=== PATIENT | male | born 1940 | race Caucasian/White ===

== ENCOUNTER 2016-12-21 12:16 | Emergency (ER) | payer MEDICARE ==
[2016-12-21 13:23] LABS: APPEARANCE,URINE CLEAR; BILIRUBIN,URINE NEGATIVE (NEGATIVE); GLUCOSE, URINE NEGATIVE (NEGATIVE); KETONES,URINE TRACE mg/dL (NEGATIVE); LEUKOCYTE ESTERASE,URINE NEGATIVE (NEGATIVE); NITRITE,URINE NEGATIVE (NEGATIVE); PROTEIN,URINE 30 mg/dL (NEGATIVE); URINE SPECIFIC GRAVITY 1.011; UROBILINOGEN,URINE NEGATIVE mg/dL (<2.0)
--- NOTE | 2016-12-21 13:23 | RADIOLOGY REPORT (SQ) ---
EXAM DESCRIPTION: HIP RIGHT AP/LATERAL COMPLETED DATE/TIME: 12/21/2016 1:02 pm REASON FOR STUDY: fall pain COMPARISON: None. NUMBER OF VIEWS: Two views. TECHNIQUE: AP pelvis and additional frog-leg view of the right hip. LIMITATIONS: None. FINDINGS: MINERALIZATION: Diffuse lytic lesions involving the pubic bones an the right ischium. Pat hologic protrusion of the right hip replacement into the pelvis through the acetabulum. Destruction of the acetabulum. RIGHT HIP: Pathologic protrusion through the acetabulum with a pathologic fracture. LEFT HIP: Hip replacement. Cortical irregularity with possible lytic lesions involving the acetabulu m medially. PUBIS AND ISCHIUM: Diffuse lytic lesions as described. PELVIS: No fracture. SACRUM: No fracture or dislocation. No worrisome bone lesions. LOWER LUMBAR SPINE: Degenerative disc disease. SOFT TISSUES: No findings. OTHER: No other significant finding. IMPRESSION: Pathologic protrusion of the right hip replacement through the acetabulum into the pelvi s with multiple lytic lesions involving the acetabulum and the superior inferior pubic rami and ischi um on the right. Lytic lesions of the pubis on the left and possibly of the acetabulum. Findings suspicious for metastatic disease or myeloma. TECHNICAL DOCUMENTATION: JOB ID: [id number] [employer]- All Rights Reserved
[2016-12-21 14:37] LABS: ABSOLUTE BASOPHILS # (AUTO) 0.1 10^3/uL (0.0-0.2); ABSOLUTE LYMPHOCYTES (AUTO) 0.8 10^3/uL (0.5-4.7); ABSOLUTE MONOCYTES (AUTO) 0.8 10^3/uL (0.1-1.4); ABSOLUTE NEUT (AUTO) 8.3 10^3/uL (1.7-8.2); HEMATOCRIT 31.2 % (37.9-51.0); HEMOGLOBIN 10.4 g/dL (13.5-17.0); MEAN CORPUSCULAR HEMOGLOBIN 28.2 pg (27.0-33.4); MEAN CORPUSCULAR HGB CONC 33.2 g/dL (32.0-36.0); MEAN CORPUSCULAR VOLUME 85 fl (80-97); MONOCYTES % (AUTO) 8.4 % (3-13); RED BLOOD COUNT 3.68 10^6/uL (4.35-5.55); RED CELL DISTRIBUTION WIDTH 15.5 % (11.5-14.0); SEGMENTED NEUTROPHILS % (AUTO) 82.6 % (42-78)
[2016-12-21] MEDS ORDERED: DILTIAZEM HCL INJ 25 MG/5 ML VIAL IV ONE (14:51)
[2016-12-21] MEDS ORDERED: DILTIAZEM HCL 180 MG CAPSULE.CR PO ONE (14:52)
[2016-12-21 14:56] LABS: ANION GAP 13 (5-19); BLOOD UREA NITROGEN 37 mg/dL (7-20); CALCIUM 9.1 mg/dL (8.4-10.2); CARBON DIOXIDE 23 mmol/L (22-30); CHLORIDE 104 mmol/L (98-107); CREATININE RESULT 2.38 mg/dL (0.52-1.25); GLUCOSE 100 mg/dL (75-110); POTASSIUM 4.4 mmol/L (3.6-5.0); SODIUM 139.6 mmol/L (137-145)
[2016-12-21] MEDS ORDERED: NORMAL SALINE 1000 ML 1,000 ML IV ONE (15:02)
[2016-12-21] MEDS ORDERED: NORMAL SALINE 500 ML IV ONE (15:02)
--- NOTE | 2016-12-21 15:07 | ER Document Report ---
ED General - General Chief Complaint: Hip Pain Stated Complaint: RIGHT HIP PAIN Time Seen by Provider: 12/21/16 12:22 TRAVEL OUTSIDE OF THE [place] IN LAST 30 DAYS: No - HPI Patient complains to provider of: Right hip pain Notes: Patient is coming in for evaluation of right hip pain. Patient states he slid out of his bed this morning states his bed is not normal height is lowered bed due to his disability. Patient has a history of bilateral hip replacement and lymph edema in his right leg. Patient states hip replacement performed in [facility] greater than 5 years ago. Also states history of A. fib RVR patient is on Eliquis right now patient denies any head trauma. Patient otherwise only complains of hip pain at this time. - Related Data Allergies/Adverse Reactions: Iodinated Contrast- Oral and IV Dye Allergy (Unknown, Verified 12/21/16 13:18) Home Medications: Current Home Medications Apixaban [Eliquis 2.5 mg Tablet] 2.5 mg PO BID 12/21/16 [History] Diltiazem HCl [Cardizem Cd] 180 mg PO DAILY 12/21/16 [History] Furosemide [Lasix] 40 mg PO DAILY 12/21/16 [History] Potassium Chloride [Klor-Con 10] 10 meq PO DAILY 12/21/16 [History] Past Medical History - Social History Smoking Status: Never Smoker Chew tobacco use (# tins/day): No Frequency of alcohol use: None Drug Abuse: None Family History: Reviewed & Not Pertinent Patient has suicidal ideation: No Patient has homicidal ideation: No - Past Medical History Cardiac Medical History: Reports: Hx Atrial Fibrillation Renal/ Medical History: Denies: Hx Peritoneal Dialysis Past Surgical History: Reports: Hx Orthopedic Surgery - R hip Review of Systems - Review of Systems Constitutional: No symptoms reported EENT: No symptoms reported Cardiovascular: No symptoms reported Respiratory: No symptoms reported Gastrointestinal: No symptoms reported Genitourinary: No symptoms reported Male Genitourinary: No symptoms reported Musculoskeletal: Other - Hip pain Skin: No symptoms reported Hematologic/Lymphatic: No symptoms reported Neurological/Psychological: No symptoms reported Physical Exam - Vital signs Vitals: Temp Pulse Resp BP Pulse Ox 100.0 F 65 16 140/87 H 93 12/21/16 12:28 12/21/16 12:28 12/21/16 12:28 12/21/16 12:28 12/21/16 12:28 Interpretation: Normal - General General appearance: Appears well, Alert - HEENT Head: Normocephalic, Atraumatic Eyes: Normal Pupils: PERRL - Respiratory Respiratory status: No respiratory distress Chest status: Nontender Breath sounds: Normal Chest palpation: Normal - Cardiovascular Rhythm: Irregularly irregular Heart sounds: Normal auscultation Murmur: No - Abdominal Inspection: Normal Distension: No distension Bowel sounds: Normal Tenderness: Nontender Organomegaly: No organomegaly - Back Back: Normal, Nontender - Extremities General upper extremity: Normal inspection, Nontender, Normal color, Normal ROM , Normal temperature General lower extremity: Normal inspection, Edema - Lymphedema changes to the right leg., Normal color, Normal ROM, Normal temperature - Neurological Neuro grossly intact: Yes Cognition: Normal Orientation: AAOx4 [place] Coma Scale Eye Opening: Spontaneous [place] Coma Scale Verbal: Oriented Vanda Coma Scale Motor: Obeys Commands [place] Coma Scale Total: 15 Speech: Normal Motor strength normal: LUE, RUE, LLE, RLE Sensory: Normal - Psychological Associated symptoms: Normal affect, Normal mood - Skin Skin Temperature: Warm Skin Moisture: Dry Skin Color: Normal Course - Re-evaluation Re-evalutation: 12/21/16 18:13 Patient's x-ray showed that his hip replacement protruded through the acetabulum. We did not have orthopedics telephone answering service operator therefore patient requesting to be transferred to [facility]. While waiting to speak to orthopedics was found the patient was in A. fib with RVR patient states he did not take any of his medications. Patient was given IV dose of Cardizem and his oral dose. Patient's heart rate at this time she was in A. fib but rate is controlled. Did discuss with Dr. Stewart of [facility] said to the patient in transfer. Patient is currently waiting for a bed. - Vital Signs Vital signs: Temp Pulse Resp BP Pulse Ox 100.0 F 65 16 105/59 L 94 12/21/16 12:28 12/21/16 12:28 12/21/16 16:01 12/21/16 16:01 12/21/16 15:00 - Laboratory Result Diagrams: 12/21/16 14:27 12/21/16 14:27 Laboratory results interpreted by me: 12/21/16 12/21/16 12/21/16 12:41 14:27 14:27 RBC 3.68 L Hgb 10.4 L Hct 31.2 L RDW 15.5 H Seg Neutrophils % 82.6 H Lymphocytes % 8.0 L Absolute Neutrophils 8.3 H BUN 37 H Creatinine 2.38 H Est GFR ( Amer) 32 L Est GFR (Non-Af Amer) 27 L Urine Protein 30 H Urine Ketones TRACE H Urine Blood SMALL H Critical Care Note - Critical Care Note Total time excluding time spent on procedures (mins): 35 Comments: Multiple evaluation while patient was in A. fib with RVR. Discharge - Discharge Clinical Impression: History of atrial fibrillation, HX: anticoagulation Closed right hip fracture Qualifiers: Encounter type: initial encounter Qualified Code(s): S72.001A - Fracture of unspecified part of neck of right femur, initial encounter for closed fracture Condition: Stable Disposition: [facility]
[2016-12-21] MEDS ORDERED: ONDANSETRON HCL INJ/PF 4 MG/2 ML SDV IV PRN (15:28)
[2016-12-21] MEDS: MORPHINE SULFATE 10 MG/ML INJ IV PRN ×2 (15:34→22:32)
[2016-12-21] MEDS ORDERED: MORPHINE SULFATE 10 MG/ML INJ IV SCH (16:00)
--- NOTE | 2016-12-21 18:15 | EKG REPORT ---
SEVERITY:- ABNORMAL ECG - ATRIAL FIBRILLATION, V-RATE 103-185 VENTRICULAR PREMATURE COMPLEX ABERRANT COMPLEX, POSSIBLY SUPRAVENTRICULAR BORDERLINE LEFT AXIS DEVIATION : Confirmed by: Yusuf Saenz MD 21-Dec-2016 18:13:30
[2016-12-21 22:45] VITALS: BP 113/66
[2016-12-22] MEDS ORDERED: APIXABAN 2.5 MG TABLET PO SCH (10:00)
[2016-12-22] MEDS ORDERED: FUROSEMIDE 40 MG TABLET PO SCH (10:00)
[2016-12-22] MEDS ORDERED: DILTIAZEM HCL 180 MG CAPSULE.CR PO SCH (10:00)
== END 2016-12-21 22:46 | disposition short-term general hospital (02) ==
LOC: ER 12:16
DX: S72.001A Fracture of unspecified part of neck of right femur, initial encounter for closed fracture (principal); M25.551 Pain in right hip; Z79.899 Other long term (current) drug therapy; I48.91 Unspecified atrial fibrillation; Z79.01 Long term (current) use of anticoagulants; X58.XXXA Exposure to other specified factors, initial encounter
CPT/HCPCS: 93005; 96376; 99285; 96361; 96374; 96375; 36415; 85025; 80048; 81001; 84484; 73502; 93010; A9270; J3490; J2270; J2405; J7030; J7040

== ENCOUNTER 2017-03-16 18:03 | Inpatient (IN) | payer MEDICARE ==
[2017-03-16] MEDS ORDERED: CLINDAMYCIN 600 MG/D5W RTU 600 MG/50 ML RTUPB IV ONE (18:31)
--- NOTE | 2017-03-16 18:32 | ER Document Report ---
ED Extremity Problem, Lower - General Chief Complaint: Leg Pain Stated Complaint: LEG PAIN Time Seen by Provider: 03/16/17 18:17 Notes: The patient is a 76-year-old male, past medical history A. fib, chronic RLE lymphedema, CKD, presents with 3 days of worsening redness and swelling of his left lower leg. His home nurse sent him to the ER because there is a large amount of pus coming from the wound and it is becoming more red. He forgot to take his Cardizem 180 mg and Eliquiis this morning. He denies fevers, numbness, tingling, injury, chest pain or shortness of breath. TRAVEL OUTSIDE OF THE [place] IN LAST 30 DAYS: No - Related Data Allergies/Adverse Reactions: Iodinated Contrast- Oral and IV Dye Allergy (Unknown, Verified 12/21/16 13:18) Home Medications: Current Home Medications Apixaban [Eliquis 5 mg Tablet] 5 mg PO BID 03/16/17 [History] Dextroamphetamine/Amphetamine [Dextroamp-Amphetamin 15 mg Tab] 30 mg PO DAILY [History] Diltiazem HCl [Diltiazem ER] 180 mg PO DAILY 03/16/17 [History] Furosemide [Lasix 40 mg Tablet] 40 mg PO DAILY 03/16/17 [History] Oxycodone HCl/Acetaminophen [Percocet 2.5-325 Mg Tablet] 1 each PO Q6HP PRN 05/29 [History] Potassium Chloride [Klor-Con 10 Meq Tablet.sa] 10 meq PO DAILY 03/16/17 [History ] Past Medical History - General Information source: Patient - Social History Smoking Status: Unknown if Ever Smoked Family History: Reviewed & Not Pertinent - Past Medical History Cardiac Medical History: Reports: Hx Atrial Fibrillation Renal/ Medical History: Denies: Hx Peritoneal Dialysis Past Surgical History: Reports: Hx Orthopedic Surgery - R hip Review of Systems - Review of Systems Notes: REVIEW OF SYSTEMS: CONSTITUTIONAL: -fevers, -chills EENT: -eye pain, -difficulty swallowing, -nasal congestion CARDIOVASCULAR:-chest pain, -syncope. RESPIRATORY: -cough, -SOB GASTROINTESTINAL: -abdominal pain, - nausea, -vomiting, -diarrhea GENITOURINARY: -dysuria, -hematuria MUSCULOSKELETAL: -back pain, -neck pain SKIN: +left lower extremity redness HEMATOLOGIC: -easy bruising or bleeding. LYMPHATIC: -swollen, enlarged glands. NEUROLOGICAL: -altered mental status or loss of consciousness, -headache, - neurologic symptoms PSYCHIATRIC: -anxiety, -depression. ALL OTHER SYSTEMS REVIEWED AND NEGATIVE. Physical Exam - Vital signs Vitals: Temp Pulse Resp BP Pulse Ox 98.1 F 64 18 132/64 H 95 03/16/17 18:10 03/16/17 18:10 03/16/17 18:10 03/16/17 18:10 03/16/17 18:10 - Notes Notes: PHYSICAL EXAMINATION: GENERAL: Well-appearing, well-nourished and in no acute distress. HEAD: Atraumatic, normocephalic. EYES: Pupils equal round and reactive to light, extraocular movements intact, sclera anicteric, conjunctiva are normal. ENT: nares patent, oropharynx clear without exudates. Moist mucous membranes. NECK: Normal range of motion, supple without lymphadenopathy LUNGS: Breath sounds clear to auscultation bilaterally and equal. No wheezes rales or rhonchi. HEART: Regular rate and rhythm without murmurs ABDOMEN: Soft, nontender, normoactive bowel sounds. No guarding, no rebound. No masses appreciated. EXTREMITIES: Swelling and erythema of left calf, strong distal pulses NEUROLOGICAL: Cranial nerves grossly intact. Normal speech. Normal sensory and motor exams. PSYCH: Normal mood, normal affect. SKIN: Very large erythematous region of the left calf with a large amount of purulent discharge from the posterior lower leg. Course - Re-evaluation Re-evalutation: 03/16/17 18:37 Pt with very large left lower extremity cellulitis and abscess. Pus is draining and soaking through multiple pads in the emergency room. With the large size, spoke to Dr. Smith (surgicalist) and he will be down to see patient. Pt said that he has had 3 days of the redness. Considered necrotizing fasciitis, but his BP is remaining normal and it is spreading slower than expected in a nec fasc case. Clindamycin started. 03/16/17 19:15 Pt initially in rate controlled A. fib, but he went into A. fib with RVR. He did not take his diltiazem today because he forgot. Provided him with a IV bolus of diltiazem and gave him his oral dose. 03/16/17 19:[address] Smtih. He recommends holding the patient's Eliquiis and keeping patient NPO for surgery tomorrow for a wash out of his leg. With the A fib in RVR and chronic lymphedema, he recommends admission to hospitalist and he will consult. Pt's creatinine has increased from 2.6 to 3.7 today. IVF provided to patient. He has a leukocytosis from the left lower leg cellulitis and abscess. 03/16/17 20:[address] Tucker (Hospitalist) and he will be down to see patient. After 25 mg IV bolus and his po dose of Diltiazem, his HR improved from 142 to 102. BP is remaining 110's/70's. 03/16/17 20:30 CXR obtained for pre-op clearance and it shows a possible right upper lobe pneumonia. Spoke to patient and he now mentions that he has had a cough for the past 2 days. With the high leukocytosis, will add Azithro and Rocephin for CAP coverage. 03/16/17 20:[address] Tucker and will admit patient to IMCU. Pt says that he had an episode of acute kidney injury, but then he was under the impression that his creatinine returned to normal. His creatinine today is 3.7. No nephrology operations consultant, but due to the inclement weather, unable to transfer patient to center with nephrology. Will hydrate patient and continue to monitor his kidney function. - Vital Signs Vital signs: Temp Pulse Resp BP Pulse Ox 98.1 F 64 18 107/65 97 03/16/17 18:10 03/16/17 18:10 03/17/17 00:00 03/16/17 22:01 03/17/17 00:00 - Laboratory Result Diagrams: 03/16/17 18:30 03/16/17 18:30 Laboratory results interpreted by me: 03/16/17 03/16/17 03/16/17 18:30 18:30 18:30 WBC 33.1 H* RBC 3.84 L Hgb 10.9 L Hct 32.7 L RDW 14.9 H Seg Neuts % (Manual) 91 H Band Neutrophils % 2 L Lymphocytes % (Manual) 3 L Abs Neuts (Manual) 30.8 H PT 22.3 H APTT 61.8 H Sodium 135.4 L BUN 55 H Creatinine 3.74 H Est GFR ( Amer) 19 L Est GFR (Non-Af Amer) 16 L Glucose 112 H Alkaline Phosphatase 271 H Albumin 3.3 L - Diagnostic Test Radiology reviewed: Image reviewed, Reports reviewed Radiology results interpreted by me: CXR: Possible RUL pneumonia Critical Care Note - Critical Care Note Total time excluding time spent on procedures (mins): 55 Discharge - Discharge Clinical Impression: Cellulitis and abscess of lower extremity, Atrial fibrillation with RVR, NICKI ( acute kidney injury) Sepsis Qualifiers: Sepsis type: sepsis due to unspecified organism Qualified Code(s): A41.9 - Sepsis, unspecified organism Pneumonia Qualifiers: Pneumonia type: due to unspecified organism Laterality: right Lung location: upper lobe of lung Qualified Code(s): J18.1 - Lobar pneumonia, unspecified organism Condition: Stable Disposition: ADMITTED INPATIENT Admitting Provider: Hospitalist - [facility] Admitted: [facility]
[2017-03-16 18:56] LABS: HEMATOCRIT 32.7 % (37.9-51.0); HEMOGLOBIN 10.9 g/dL (13.5-17.0); MEAN CORPUSCULAR HEMOGLOBIN 28.5 pg (27.0-33.4); MEAN CORPUSCULAR HGB CONC 33.4 g/dL (32.0-36.0); MEAN CORPUSCULAR VOLUME 85 fl (80-97); PLATELET COUNT 437 10^3/uL (150-450); RED BLOOD COUNT 3.84 10^6/uL (4.35-5.55); RED CELL DISTRIBUTION WIDTH 14.9 % (11.5-14.0)
[2017-03-16 19:14] LABS: ALANINE AMINOTRANSFERASE 26 U/L (21-72); ALBUMIN 3.3 g/dL (3.5-5.0); ALKALINE PHOSPHATASE 271 U/L (38-126); ANION GAP 15 (5-19); ASPARTATE AMINO TRANSFERASE 20 U/L (17-59); BILIRUBIN,TOTAL 0.3 mg/dL (0.2-1.3); BLOOD UREA NITROGEN 55 mg/dL (7-20); CALCIUM 9.1 mg/dL (8.4-10.2); CARBON DIOXIDE 22 mmol/L (22-30); CHLORIDE 98 mmol/L (98-107); GLUCOSE 112 mg/dL (75-110); SODIUM 135.4 mmol/L (137-145); TOTAL PROTEIN 7.1 g/dL (6.3-8.2)
[2017-03-16] MEDS ORDERED: DILTIAZEM HCL 180 MG CAPSULE.CR PO ONE (19:14)
[2017-03-16] MEDS ORDERED: DILTIAZEM HCL INJ 25 MG/5 ML VIAL IV ONE (19:15)
[2017-03-16 19:19] LABS: ABSOLUTE NEUTROPHILS# (MANUAL) 30.8 10^3/uL (1.7-8.2); BAND NEUTROPHILS % (MANUAL) 2 % (3-5); BASOPHILS % (MANUAL) 0 % (0-2); EOSINOPHILS % (MANUAL) 1 % (0-6); LYMPHOCYTES % (MANUAL) 3 % (13-45); MONOCYTES % (MANUAL) 3 % (3-13); SEGMENTED NEUTROPHILS % (MAN) 91 % (42-78); TOTAL CELLS COUNTED 100
[2017-03-16 19:20] LABS: ANISOCYTOSIS SLIGHT; PLATELET COMMENT ADEQUATE
[2017-03-16 19:21] LABS: POLYCHROMASIA SLIGHT
[2017-03-16 19:23] LABS: PLATELET LARGE PRESENT
[2017-03-16 19:27] LABS: WHITE BLOOD COUNT 33.1 10^3/uL (4.0-10.5)
[2017-03-16] MEDS ORDERED: NORMAL SALINE 1000 ML 1,000 ML IV ONE (19:35)
[2017-03-16 19:58] LABS: INTERNATIONAL RATION (INR) 1.84; PROTHROMBIN TIME 22.3 SEC (11.4-15.4)
[2017-03-16 20:00] LABS: PARTIAL THROMBOPLASTIN TIME 61.8 SEC (23.5-35.8)
--- NOTE | 2017-03-16 20:20 | RADIOLOGY REPORT (SQ) ---
EXAM DESCRIPTION: CHEST SINGLE VIEW COMPLETED DATE/TIME: 03/16/2017 8:13 pm REASON FOR STUDY: pre-op COMPARISON: None. EXAM PARAMETERS: NUMBER OF VIEWS: One view. TECHNIQUE: Single frontal radiographic view of the chest acquired. RADIATION DOSE: NA LIMITATIONS: None. FINDINGS: LUNGS AND PLEURA: Vague opacities in the right upper lobe. Left lung is clear. MEDIASTINUM AND HILAR STRUCTURES: No masses. Contour normal. HEART AND VASCULAR STRUCTURES: Heart normal in size. Normal vasculature. BONES: No acute findings. HARDWARE: None in the chest. OTHER: No other significant finding. IMPRESSION: Possible right upper lobe pneumonia. TECHNICAL DOCUMENTATION: JOB ID: [id number] [employer]- All Rights Reserved
[2017-03-16] MEDS ORDERED: AZITHROMYCIN INJ 500 MG VIAL IV ONE (20:31)
[2017-03-16] MEDS ORDERED: CEFTRIAXONE 1 GM/D5W RTU 1 GM/50 ML RTUPB IV ONE (20:31)
[2017-03-16] MEDS ORDERED: MAG HYDROX/AL HYDROX/SIMETH SUSP 30 ML UDCUP PO PRN (20:57)
[2017-03-16] MEDS ORDERED: IPRATROPIUM/ALBUTEROL 0.5-2.5 MG/3 ML AMPUL NEB PRN (20:57)
[2017-03-16] MEDS ORDERED: NORMAL SALINE 1000 ML 1,000 ML IV SCH (21:00)
[2017-03-16] MEDS ORDERED: DILTIAZEM HCL 60 MG TABLET PO ONE (21:01)
[2017-03-16] MEDS ORDERED: VANCOMYCIN HCL 0 MG in DEXTROSE 5%-WATER 250 ML IV NR (21:15)
--- NOTE | 2017-03-16 21:24 | PDOC CONSULTATION ---
Consultation Consult Date: 03/16/17 Consult reason:: abscess left lower leg History of Present Illness Admission Date/PCP: YINKA ACE MD History of Present Illness: LALA JOE is a 76 year old male who noted some blisters on his left lower leg about 2 weeks ago. About 3 days ago noted redness and swelling left lower leg. He is on Eloquis for A-fIB. denies any trauma. Noted draining pus from left lower leg in the ER. Pt seen and futher squeezed out at least 100 ccs of purulent dark fluid. from left lower leg. Claims he may have fever 3 days ago. Past Medical History Cardiac Medical History: Reports: Atrial Fibrillation, Hypertension Malignancy Medical History: Reports: Other - Prostate Ca and had external rad tx about 5 years ago. Followed by [facility] Musculoskeltal Medical History: Reports: Other - lymphedema right leg post rad tx for prostate ca 5 years ago Skin Medical History: Reports: Other - dry skin right leg with lymphedema Past Surgical History Past Surgical History: Reports: Orthopedic Surgery - R hip replacement x2 and left hip x1 about 2 years after rad tx for prostat Social History Smoking Status: Unknown if Ever Smoked Frequency of Alcohol Use: Rare Hx Recreational Drug Use: No - Advance Directive Resuscitation Status: Full Code Family History Family History: Reviewed & Not Pertinent Parental Family History Reviewed: Yes - parents of heart disease Children Family History Reviewed: No Sibling(s) Family History Reviewed.: No Medication/Allergy Home Medications: Apixaban [Eliquis 2.5 mg Tablet] 2.5 mg PO BID 12/21/16 Diltiazem HCl [Cardizem Cd] 180 mg PO DAILY 12/21/16 Furosemide [Lasix] 40 mg PO DAILY 12/21/16 Potassium Chloride [Klor-Con 10] 10 meq PO DAILY 12/21/16 Allergies/Adverse Reactions: Iodinated Contrast- Oral and IV Dye Allergy (Unknown, Verified 12/21/16 13:18) Review of Systems Constitutional: PRESENT: fever(s) Eyes: PRESENT: other - no visual /hearing problems Nose, Mouth, and Throat: PRESENT: other - no sore throat Cardiovascular: PRESENT: other - no chest pain Respiratory: PRESENT: other - no cough Gastrointestinal: PRESENT: other - no abdominal pains N/V Genitourinary: PRESENT: other - no dysuria Musculoskeletal: PRESENT: deformity, other - lymphedema right leg Integumentary: PRESENT: erythema, other - draining wound left lower leg with a lot of erythema Neurological: PRESENT: other - no seizures Psychiatric: PRESENT: other - no [id number] Endocrine: PRESENT: other - no polyuria Hematologic/Lymphatic: PRESENT: easy bruising Physical Exam Vital Signs: Temp Pulse Resp BP Pulse Ox 98.1 F 64 20 114/79 97 03/16/17 18:10 03/16/17 18:10 03/16/17 20:01 03/16/17 20:01 03/16/17 20:01 Intake & Output 03/15/17 03/16/17 03/17/17 06:59 06:59 06:59 Weight 110 kg General appearance: PRESENT: mild distress Head exam: PRESENT: atraumatic Eye exam: PRESENT: conjunctiva pink Mouth exam: PRESENT: moist, tongue midline Neck exam: PRESENT: full ROM Respiratory exam: PRESENT: clear to auscultation moustapha Cardiovascular exam: PRESENT: RRR Pulses: PRESENT: normal radial pulses Vascular exam: PRESENT: normal capillary refill GI/Abdominal exam: PRESENT: soft - nontender Rectal exam: PRESENT: deferred Extremities exam: PRESENT: pedal edema, tenderness - left lower leg with erythema and draining pus, +2 edema Musculoskeletal exam: PRESENT: ambulatory, other - lymphedema right leg Neurological exam: PRESENT: alert, oriented to person, oriented to place, oriented to time, oriented to situation Psychiatric exam: PRESENT: appropriate affect Skin exam: PRESENT: erythema - left lower leg. right leg with lymphedema, warm Results Laboratory Results: 03/16/17 18:30 03/16/17 18:30 03/16/17 03/16/17 03/16/17 18:30 18:30 18:30 WBC 33.1 H* RBC 3.84 L Hgb 10.9 L Hct 32.7 L MCV 85 MCH 28.5 MCHC 33.4 RDW 14.9 H Plt Count 437 Seg Neutrophils % Not Reportable Lymphocytes % Not Reportable Monocytes % Not Reportable Eosinophils % Not Reportable Basophils % Not Reportable Absolute Neutrophils Not Reportable Absolute Lymphocytes Not Reportable Absolute Monocytes Not Reportable Absolute Eosinophils Not Reportable Absolute Basophils Not Reportable Sodium 135.4 L Potassium 4.0 Chloride 98 Carbon Dioxide 22 Anion Gap 15 BUN 55 H Creatinine 3.74 H Est GFR ( Amer) 19 L Est GFR (Non-Af Amer) 16 L Glucose 112 H Lactic Acid 2.1 Calcium 9.1 Total Bilirubin 0.3 AST 20 ALT 26 Alkaline Phosphatase 271 H Total Protein 7.1 Albumin 3.3 L Impressions: Chest X-Ray 03/16/17 19:41 IMPRESSION: Possible right upper lobe pneumonia. Assessment & Plan - Time Time Spent: 30 to 50 Minutes - Inpatient Certification Medical Necessity: Significant Comorbidiites Make Outpatient Treatment Too Risky , Need Close Monitoring Due to Risk of Patient Decompensation, Need For IV Fluids, Need for IV Antibiotics, Need for Surgery, Risk of Complication if Not Cared For in Hospital - Plan Summary Plan Summary: Start IV Clindamycin Stop Eloquis Formal I&D of left leg abscess in the OR in AM. NPO from Midnight
[2017-03-16] MEDS: HEPARIN SOD (PORCINE) 5,000 UNIT/ML 1 ML SYRINGE SUBCUT SCH (22:43)
[2017-03-16] MEDS: VANCOMYCIN HCL 1,000 MG in DEXTROSE 5%-WATER 250 ML IV SCH (23:33)
[2017-03-17] MEDS ORDERED: GLUCAGON,HUMAN RECOMB 1 MG INJ SUBCUT PRN (00:14)
[2017-03-17] MEDS ORDERED: DEXTROSE 40% GEL 15 GM TUBE PO PRN ×2 (00:14)
[2017-03-17] MEDS ORDERED: DEXTROSE 50%-WATER 25 GM/50 ML DISP.SYRIN IV PRN ×2 (00:14)
[2017-03-17 00:48] LABS: AMORPHOUS SEDIMENT,URINE TRACE /HPF; APPEARANCE,URINE SLIGHTLY-CLOUDY; BILIRUBIN,URINE NEGATIVE (NEGATIVE); COLOR,URINE YELLOW; GLUCOSE, URINE NEGATIVE (NEGATIVE); KETONES,URINE NEGATIVE (NEGATIVE); LEUKOCYTE ESTERASE,URINE NEGATIVE (NEGATIVE); NITRITE,URINE NEGATIVE (NEGATIVE); PROTEIN,URINE 30 mg/dL (NEGATIVE); URINE SPECIFIC GRAVITY 1.013; UROBILINOGEN,URINE NEGATIVE mg/dL (<2.0)
[2017-03-17] MEDS: ACETAMINOPHEN 325 MG TABLET PO PRN (02:16)
[2017-03-17] MEDS ORDERED: NORMAL SALINE 1000 ML 500 ML IV ONE (03:36)
[2017-03-17] MEDS ORDERED: DEXTROSE 5%-WATER 250 ML with NOREPINEPHRINE BITARTRATE 4 MG IV PRN ×2 (03:37)
[2017-03-17] MEDS ORDERED: NORMAL SALINE 1000 ML 2,000 ML IV ONE (03:37)
[2017-03-17] MEDS ORDERED: NOREPINEPHRINE BITARTRATE INJ/PF 4 MG/4 ML SDV IV ONE (03:52)
--- NOTE | 2017-03-17 04:05 | PDOC H&P ---
History of Present Illness Admission Date/PCP: 03/16/17 21:23 YINKA ACE MD Patient complains of: Left leg pain History of Present Illness: LALA JOE is a 76 year old male with a history of lymphedema, prostate cancer status post radiation treatment in remission, atrial fibrillation on Eliquis, generalized debility and stage III chronic kidney disease. Patient presents with 2 weeks of left lower leg erythema and swelling prompting use of topical antibiotic. Over the last 24 hours it is rapidly increased with swelling and erythema prompting evaluation emergency room where he was found to have uncontrolled A. fib, hypotension and a large quantity of pus and blood from the lesion. Patient denies recent antibiotic, trauma or previous episode. He started on empiric antibiotics and referred to the hospitalist for admission. Past Medical History Cardiac Medical History: Reports: Atrial Fibrillation, Hypertension Malignancy Medical History: Reports: Other - Prostate Ca and had external rad tx about 5 years ago. Followed by [facility] Musculoskeltal Medical History: Reports: Other - lymphedema right leg post rad tx for prostate ca 5 years ago Skin Medical History: Reports: Other - dry skin right leg with lymphedema Past Surgical History Past Surgical History: Reports: Orthopedic Surgery - R hip Social History Information Source: Patient Smoking Status: Unknown if Ever Smoked Frequency of Alcohol Use: Rare Hx Recreational Drug Use: No - Advance Directive Resuscitation Status: Full Code Family History Family History: Hypertension Parental Family History Reviewed: Yes Children Family History Reviewed: Yes Sibling(s) Family History Reviewed.: Yes Medication/Allergy Home Medications: Apixaban [Eliquis 5 mg Tablet] 5 mg PO BID 03/16/17 Dextroamphetamine/Amphetamine [Dextroamp-Amphetamin 15 mg Tab] 30 mg PO DAILY Diltiazem HCl [Diltiazem ER] 180 mg PO DAILY 03/16/17 Furosemide [Lasix 40 mg Tablet] 40 mg PO DAILY 03/16/17 Oxycodone HCl/Acetaminophen [Percocet 2.5-325 Mg Tablet] 1 each PO Q6HP PRN 05/29 Potassium Chloride [Klor-Con 10 Meq Tablet.sa] 10 meq PO DAILY 03/16/17 Allergies/Adverse Reactions: Iodinated Contrast- Oral and IV Dye Allergy (Unknown, Verified 12/21/16 13:18) Review of Systems Constitutional: PRESENT: as per HPI, chills, fatigue, weight gain Eyes: ABSENT: visual disturbances Ears: ABSENT: hearing changes Cardiovascular: ABSENT: chest pain, dyspnea on exertion, edema, orthropnea, palpitations Respiratory: ABSENT: cough, hemoptysis Gastrointestinal: ABSENT: abdominal pain, constipation, diarrhea, hematemesis, hematochezia, nausea, vomiting Genitourinary: ABSENT: dysuria, hematuria Musculoskeletal: ABSENT: joint swelling Integumentary: PRESENT: as per HPI, erythema, wounds - Left lower leg with several deep with serosanguineous and pus drainage. ABSENT: rash Neurological: ABSENT: abnormal gait, abnormal speech, confusion, dizziness, focal weakness, syncope Psychiatric: ABSENT: anxiety, depression, homidical ideation, suicidal ideation Endocrine: ABSENT: cold intolerance, heat intolerance, polydipsia, polyuria Hematologic/Lymphatic: ABSENT: easy bleeding, easy bruising Physical Exam Vital Signs: Temp Pulse Resp BP Pulse Ox 98.1 F 64 10 L 93/32 L 94 03/17/17 03:12 03/16/17 18:10 03/17/17 03:31 03/17/17 03:31 03/17/17 03:31 General appearance: PRESENT: no acute distress, well-developed, well-nourished Head exam: PRESENT: atraumatic, normocephalic Eye exam: PRESENT: conjunctiva pink, EOMI, PERRLA. ABSENT: scleral icterus Ear exam: PRESENT: normal external ear exam Mouth exam: PRESENT: moist, tongue midline Neck exam: ABSENT: carotid bruit, JVD, lymphadenopathy, thyromegaly Respiratory exam: PRESENT: clear to auscultation moustapha. ABSENT: rales, rhonchi, wheezes Cardiovascular exam: PRESENT: RRR. ABSENT: diastolic murmur, rubs, systolic murmur Pulses: PRESENT: normal dorsalis pedis pul Vascular exam: PRESENT: normal capillary refill GI/Abdominal exam: PRESENT: normal bowel sounds, soft. ABSENT: distended, guarding, mass, organolmegaly, rebound, tenderness Rectal exam: PRESENT: deferred Extremities exam: PRESENT: full ROM, other - +2 lymphedema bilaterally with chronic vascular changes venous stasis. ABSENT: calf tenderness, clubbing, pedal edema Neurological exam: PRESENT: alert, awake, oriented to person, oriented to place , oriented to time, oriented to situation, CN II-XII grossly intact. ABSENT: motor sensory deficit Psychiatric exam: PRESENT: appropriate affect, normal mood. ABSENT: homicidal ideation, suicidal ideation Skin exam: PRESENT: dry, intact, warm, other - Venous stasis bilateral bilateral lower extremity.Left lower leg with several deep with serosanguineous and pus drainage. ABSENT: cyanosis, rash Results Impressions: Chest X-Ray 03/16/17 19:41 IMPRESSION: Possible right upper lobe pneumonia. Assessment & Plan - Diagnosis (1) Cellulitis and abscess of lower extremity Is this a current diagnosis for this admission?: Yes Plan: Several deep abscesses to the left lower extremity requiring surgical intervention and debridement. Surgery consulted, empiric antibiotics initiated follow-up CBC and blood culture (2) Sepsis Qualifiers: Sepsis type: sepsis due to unspecified organism Qualified Code(s): A41.9 - Sepsis, unspecified organism Is this a current diagnosis for this admission?: Yes Plan: Secondary to cellulitis, IV fluid challenge, empiric antibiotics, pressors as needed follow-up blood culture (3) NICKI (acute kidney injury) Is this a current diagnosis for this admission?: Yes Plan: Avoid nephrotoxic meds and doses, IV fluid challenge and follow-up chemistry (4) Atrial fibrillation with RVR Is this a current diagnosis for this admission?: Yes Plan: Continue outpatient Cardizem, Cardizem as needed. And IV fluid resuscitation. Holding Eliquis anticoagulation. - Time Time Spent: 50 to 70 Minutes - Inpatient Certification Medical Necessity: Need Close Monitoring Due to Risk of Patient Decompensation
[2017-03-17 05:07] LABS: HEMATOCRIT 28.6 % (37.9-51.0); HEMOGLOBIN 9.4 g/dL (13.5-17.0); MEAN CORPUSCULAR HEMOGLOBIN 27.8 pg (27.0-33.4); MEAN CORPUSCULAR HGB CONC 32.7 g/dL (32.0-36.0); MEAN CORPUSCULAR VOLUME 85 fl (80-97); PLATELET COUNT 448 10^3/uL (150-450); RED BLOOD COUNT 3.37 10^6/uL (4.35-5.55); WHITE BLOOD COUNT 26.2 10^3/uL (4.0-10.5)
[2017-03-17 05:26] LABS: ANION GAP 12 (5-19); BLOOD UREA NITROGEN 47 mg/dL (7-20); CALCIUM 8.2 mg/dL (8.4-10.2); CARBON DIOXIDE 18 mmol/L (22-30); CHLORIDE 107 mmol/L (98-107); CREATINE KINASE 39 U/L (55-170); GLUCOSE 91 mg/dL (75-110); POTASSIUM 3.7 mmol/L (3.6-5.0); SODIUM 137.1 mmol/L (137-145)
[2017-03-17 05:28] LABS: ABSOLUTE LYMPHOCYTES# (MANUAL) 1.6 10^3/uL (0.5-4.7); ABSOLUTE MONOCYTES # (MANUAL) 2.4 10^3/uL (0.1-1.4); BASOPHILS % (MANUAL) 0 % (0-2); EOSINOPHILS % (MANUAL) 1 % (0-6); LYMPHOCYTES % (MANUAL) 5 % (13-45); MONOCYTES % (MANUAL) 9 % (3-13); SEGMENTED NEUTROPHILS % (MAN) 84 % (42-78); TOTAL CELLS COUNTED 100
[2017-03-17 05:29] LABS: ANISOCYTOSIS 1+; PLATELET COMMENT ADEQUATE; TOXIC GRANULATION 1+
[2017-03-17] MEDS ORDERED: HEPARIN SOD (PORCINE) 5,000 UNIT/ML 1 ML SYRINGE ONE (08:59)
[2017-03-17] MEDS ORDERED: BUPIVACAINE HCL 0.25 % INJ/PF (2.5 MG/1 ML) 30 ML VIAL ONE (09:04)
[2017-03-17] MEDS ORDERED: LIDOCAINE 2%/EPINEPHRINE INJ 20 ML VIAL ONE (09:04)
[2017-03-17] MEDS ORDERED: MIDAZOLAM 2 MG/2 ML INJ ONE (09:14)
[2017-03-17] MEDS ORDERED: LIDOCAINE 2% INJ-PF (20 MG/ML) 10 ML AMPUL ONE (09:14)
[2017-03-17] MEDS ORDERED: FENTANYL CITRATE INJ/PF 100 MCG/2 ML AMPUL ONE (09:14)
[2017-03-17] MEDS ORDERED: ONDANSETRON HCL INJ/PF 4 MG/2 ML SDV ONE (09:14)
[2017-03-17] MEDS ORDERED: PROPOFOL INJ 200 MG/20 ML VIAL IV ONE (09:14)
--- NOTE | 2017-03-17 09:21 | PDOC PROGRESS REPORT ---
Subjective Progress Note for:: 03/17/17 Subjective:: Leg pain. Reason For Visit: AFIB C RVR, ARF, leg abscesses Physical Exam Vital Signs: Temp Pulse Resp BP Pulse Ox 98.1 F 97 14 116/50 L 95 03/17/17 03:12 03/17/17 08:14 03/17/17 09:00 03/17/17 08:56 03/17/17 09:00 General appearance: PRESENT: no acute distress, cooperative Respiratory exam: PRESENT: clear to auscultation moustapha Cardiovascular exam: PRESENT: irregular rhythm Vascular exam: PRESENT: other - Positive palpable pedal pulses. Extremities exam: PRESENT: other - Bilateral lower extremity edema with thickening of the skin. On the left side patient has diffuse erythema and induration with a 3 separate areas of fluctuance with marked tenderness along the lateral aspect of the left leg. The most posterior one has purulent discharge. Each area of fluctuance measuring from 3-4 cm in size. Results Impressions: Chest X-Ray 03/16/17 19:41 IMPRESSION: Possible right upper lobe pneumonia. Assessment & Plan - Diagnosis (1) Cellulitis and abscess of lower extremity Is this a current diagnosis for this admission?: Yes Plan: Patient with chronic bilateral lower extremity lymphedema with evidence of left leg infection along with multiple abscesses. Patient would strongly benefit from incision and drainage of his left leg abscesses. I have discussed with the patient the risk and benefits of the procedure including risk of poor wound healing, bleeding, infection, cardiopulmonary risks. Will need to hold off anticoagulation for 24 more hours after the procedure to ensure that he is not bleeding. There is some risk for stroke while being off of the anticoagulation and I have discussed this matter with the patient. Patient has now been off of anticoagulation for over 24 hours and I think it is safe to proceed with this emergency procedure.
[2017-03-17] MEDS ORDERED: CEFTRIAXONE 1 GM/D5W RTU 1 GM/50 ML RTUPB IV SCH (10:00)
[2017-03-17] MEDS ORDERED: DILTIAZEM HCL 180 MG CAPSULE.CR PO SCH (10:00)
[2017-03-17] MEDS ORDERED: (PENDING PHARMACY ID) (Diltiazem Hcl [Cardizem Cd] 180 MG) PO SCH (10:00)
[2017-03-17] MEDS ORDERED: MORPHINE SULFATE 10 MG/ML INJ IV PRN (10:05)
[2017-03-17] MEDS ORDERED: DIPHENHYDRAMINE HCL 50 MG/ML VIAL IV PRN (10:05)
[2017-03-17] MEDS ORDERED: OXYCODONE-ACETAMINOPHEN 5-325 MG TABLET PO PRN ×2 (10:05)
[2017-03-17] MEDS ORDERED: PROMETHAZINE HCL INJ 25 MG/1 ML VIAL IV PRN ×2 (10:05)
[2017-03-17] MEDS ORDERED: MEPERIDINE HCL/PF INJ 25 MG/1 ML DISP.SYRIN IV PRN (10:05)
--- NOTE | 2017-03-17 10:31 | Operative Report ---
Operative Report DATE OF SURGERY: 03/17/17 PREOPERATIVE DIAGNOSIS: Left leg abscesses POSTOPERATIVE DIAGNOSIS: Complex left leg abscesses OPERATION: Incision and drainage of complex left leg abscesses SURGEON: DARION NICKERSON ANESTHESIA: GA TISSUE REMOVED OR ALTERED: Pus sent for Gram stain and culture COMPLICATIONS: None ESTIMATED BLOOD LOSS: 20 cc INTRAOPERATIVE FINDINGS: Subcutaneous space of the patient's left lower leg at the lateral aspect with pus blood and debris with overlying punctate areas of skin necrosis in multiple areas of the left lower lateral leg. PROCEDURE: Informed consent was obtained. Patient was brought to the operating room and placed on the operating table in the supine position. After satisfactory induction of general anesthesia, patient's left lower leg was prepped and draped in the usual sterile fashion. Patient had diffuse lower leg edema induration and erythema. There were regions of localized fluctuance with small area of skin necrosis. All of these areas were opened using cautery (creating 6 wounds) since patient will require anticoagulation. Necrotic tissue was able to be teased out without further sharp dissection. It became evident that patient had a large area of subcutaneous space at the lateral aspect of the left leg with all of these localized region of skin necrosis being interconnected. There was blood and debris and pus in this space consistent with likely infected hematoma. This space was digitally explored to make sure there were no undrained pus pockets. [place] drains were placed to allow continued drainage. The wounds were copiously irrigated. With the suction apparatus blood and pus and debris was aspirated out. Hemostasis was achieved with electrocautery. The larger wounds were packed with gauze packing strips.
[2017-03-17] MEDS ORDERED: INFLUENZA ADLT QUAD (36MOS+) 2017-18 VAC 0.5 ML SYR IM PRN (12:22)
[2017-03-17] MEDS: HEPARIN SOD (PORCINE) 5,000 UNIT/ML 1 ML SYRINGE SUBCUT SCH ×3 (12:51→22:01)
[2017-03-17 13:23] LABS: PATH REVIEW PATHOLOGIST REVIEWED
[2017-03-17] MEDS: DOCUSATE SODIUM 100 MG CAPSULE PO SCH ×2 (14:07→20:40)
[2017-03-17] MEDS: NORMAL SALINE 1000 ML 1,000 ML IV PRN ×2 (14:07→20:43)
--- NOTE | 2017-03-17 16:55 | PDOC PROGRESS REPORT ---
Subjective Progress Note for:: 03/17/17 Subjective:: Patient complains of pain in his left leg. He is postoperative however. Reason For Visit: AFIB C RVR, ARF, VENOUS STASIS, LEFT LEG ABSCESS Physical Exam Vital Signs: Temp Pulse Resp BP Pulse Ox 98.0 F 88 21 H 94/45 L 95 03/17/17 14:00 03/17/17 14:00 03/17/17 15:00 03/17/17 14:46 03/17/17 14:46 Intake & Output 03/16/17 03/17/17 03/18/17 06:59 06:59 06:59 Intake Total 1700 Output Total 1260 Balance 440 Weight 114.9 kg General appearance: PRESENT: no acute distress Eye exam: PRESENT: conjunctiva pink. ABSENT: scleral icterus Mouth exam: PRESENT: moist, tongue midline Neck exam: ABSENT: JVD Respiratory exam: PRESENT: clear to auscultation moustapha. ABSENT: rales, rhonchi, wheezes Cardiovascular exam: PRESENT: RRR. ABSENT: diastolic murmur, rubs, systolic murmur GI/Abdominal exam: PRESENT: normal bowel sounds, soft. ABSENT: distended, guarding, mass, organolmegaly, rebound, tenderness Extremities exam: PRESENT: other - Dressing in place on the left leg.. ABSENT: calf tenderness, clubbing, pedal edema Neurological exam: PRESENT: alert, awake, oriented to person, oriented to place , oriented to time Psychiatric exam: PRESENT: appropriate affect Skin exam: PRESENT: other - Dressing in place on the left leg. Results Impressions: Chest X-Ray 03/16/17 19:41 IMPRESSION: Possible right upper lobe pneumonia. Assessment & Plan - Diagnosis (1) Sepsis Qualifiers: Sepsis type: sepsis due to unspecified organism Qualified Code(s): A41.9 - Sepsis, unspecified organism Is this a current diagnosis for this admission?: Yes Plan: Secondary to abscess of the leg. Patient status post surgical drainage. Continue with antibiotics. Getting IV fluids. He has been on pressors intermittently. (2) Cellulitis and abscess of lower extremity Is this a current diagnosis for this admission?: Yes Plan: Patient is status post surgical drainage of an abscess of the leg. Will continue with vancomycin and Rocephin. (3) NICKI (acute kidney injury) Is this a current diagnosis for this admission?: Yes Plan: Creatinine is elevated. Will continue with the IV fluids. Most likely related to his sepsis and relative hypotension (4) Atrial fibrillation with RVR Is this a current diagnosis for this admission?: Yes Plan: Patient is currently rate controlled. - Time Time Spent with patient: 25-34 minutes - Inpatient Certification Medical Necessity: Need For IV Fluids, Need for IV Antibiotics
[2017-03-17] MEDS: MORPHINE SULFATE 10 MG/ML INJ IV PRN (22:00)
[2017-03-17] MEDS: VANCOMYCIN HCL 1,000 MG in DEXTROSE 5%-WATER 250 ML IV SCH (22:02)
[2017-03-17] MEDS ORDERED: DILTIAZEM HCL 60 MG TABLET PO ONE (23:00)
[2017-03-18 04:30] LABS: ABSOLUTE BASOPHILS # (AUTO) 0.1 10^3/uL (0.0-0.2); ABSOLUTE EOSINOPHILS # (AUTO) 0.2 10^3/uL (0.0-0.6); ABSOLUTE LYMPHOCYTES (AUTO) 1.1 10^3/uL (0.5-4.7); ABSOLUTE MONOCYTES (AUTO) 1.2 10^3/uL (0.1-1.4); ABSOLUTE NEUT (AUTO) 16.4 10^3/uL (1.7-8.2); BASOPHILS % (AUTO) 0.4 % (0-2); HEMATOCRIT 27.7 % (37.9-51.0); LYMPHOCYTES % (AUTO) 5.9 % (13-45); MEAN CORPUSCULAR HEMOGLOBIN 27.9 pg (27.0-33.4); MEAN CORPUSCULAR HGB CONC 32.6 g/dL (32.0-36.0); MEAN CORPUSCULAR VOLUME 85 fl (80-97); MONOCYTES % (AUTO) 6.1 % (3-13); PLATELET COUNT 425 10^3/uL (150-450); RED BLOOD COUNT 3.24 10^6/uL (4.35-5.55); RED CELL DISTRIBUTION WIDTH 15.1 % (11.5-14.0); SEGMENTED NEUTROPHILS % (AUTO) 86.6 % (42-78); TOTAL CELLS COUNTED % (AUTO) 100 %; WHITE BLOOD COUNT 18.9 10^3/uL (4.0-10.5)
[2017-03-18 05:01] LABS: ANION GAP 10 (5-19); BLOOD UREA NITROGEN 44 mg/dL (7-20); CALCIUM 8.3 mg/dL (8.4-10.2); CARBON DIOXIDE 20 mmol/L (22-30); CHLORIDE 111 mmol/L (98-107); GLUCOSE 106 mg/dL (75-110); SODIUM 140.6 mmol/L (137-145)
[2017-03-18] MEDS: HEPARIN SOD (PORCINE) 5,000 UNIT/ML 1 ML SYRINGE SUBCUT SCH ×3 (05:09→22:54)
[2017-03-18] MEDS: DILTIAZEM HCL 60 MG TABLET PO SCH ×4 (05:09→23:47)
[2017-03-18] MEDS: NORMAL SALINE 1000 ML 1,000 ML IV PRN ×3 (05:10→20:20)
[2017-03-18 05:13] LABS: POTASSIUM 4.7 mmol/L (3.6-5.0)
[2017-03-18] MEDS: MORPHINE SULFATE 10 MG/ML INJ IV PRN ×3 (05:21→20:30)
--- NOTE | 2017-03-18 07:53 | PDOC PROGRESS REPORT ---
Subjective Progress Note for:: 03/18/17 Subjective:: pains left leg Reason For Visit: AFIB C RVR, ARF, VENOUS STASIS, LEFT LEG ABSCESS Physical Exam Vital Signs: Temp Pulse Resp BP Pulse Ox 98.7 F 114 H 20 91/55 L 93 03/18/17 04:00 03/17/17 20:00 03/18/17 06:15 03/18/17 06:15 03/18/17 06:15 Intake & Output 03/17/17 03/18/17 03/19/17 06:59 06:59 06:59 Intake Total 4522 Output Total 2605 Balance 1917 Weight 114.6 kg Extremities exam: PRESENT: pedal edema, tenderness, +2 edema, other - All packings and drains removed. They all look fairly well. One small raised area knicked with sharp scissors and squeezed out more pus. all wounds wrapped with Kerlix over ABD pad. Results Laboratory Results: 03/18/17 04:05 03/18/17 04:05 03/18/17 03/18/17 04:05 04:05 WBC 18.9 H RBC 3.24 L Hgb 9.0 L Hct 27.7 L MCV 85 MCH 27.9 MCHC 32.6 RDW 15.1 H Plt Count 425 Seg Neutrophils % 86.6 H Lymphocytes % 5.9 L Monocytes % 6.1 Eosinophils % 1.0 Basophils % 0.4 Absolute Neutrophils 16.4 H Absolute Lymphocytes 1.1 Absolute Monocytes 1.2 Absolute Eosinophils 0.2 Absolute Basophils 0.1 Sodium 140.6 Potassium 4.7 D Chloride 111 H Carbon Dioxide 20 L Anion Gap 10 BUN 44 H Creatinine 2.96 H Est GFR ( Amer) 25 L Est GFR (Non-Af Amer) 21 L Glucose 106 Calcium 8.3 L Impressions: Chest X-Ray 03/16/17 19:41 IMPRESSION: Possible right upper lobe pneumonia. Assessment & Plan - Time Time Spent with patient: 25-34 minutes - Inpatient Certification Medical Necessity: Significant Comorbidiites Make Outpatient Treatment Too Risky , Need Close Monitoring Due to Risk of Patient Decompensation, Need For Continuous Telemetry Monitoring, Need for Pain Control, Need for IV Antibiotics , Risk of Complication if Not Cared For in Hospital - Plan Summary Plan Summary: I&D of small abscess left lower leg done. All packing and drains removed and redressed. Continue IV antibiotics and diuretics. OK to downgrade
--- NOTE | 2017-03-18 09:24 | OPERATIVE REPORT E ---
Operative Report NAME: LALA JOE : 1940 AGE: 76Y DATE OF SURGERY: 03/18/2017 ROOM: 611 PREOPERATIVE DIAGNOSES: 1. SMALL ABSCESS OF THE LEFT LOWER LEG. 2. POST INCISION AND DRAINAGE OF LARGE ABSCESS OFTH LEFT LEG, LIKELY FROM INFECTED HEMATOMA. POSTOPERATIVE DIAGNOSES: 1. SMALL ABSCESS OF THE LEFT LOWER LEG. 2. POST INCISION AND DRAINAGE OF LARGE ABSCESS OF THE LEFT LEG, LIKELY FROM INFECTED HEMATOMA. PROCEDURE: Incision and drainage of small abscess of the left lower leg. SURGEON: SRINIVAS PORRAS M.D. DESCRIPTION OF PROCEDURE: While changing the dressing from the left lower leg and removing all the packing and drains, a small abscess noted just on the superior-medial aspect of the I and D site. This area was squeezed and immediately came back. He has got very thin skin. The skin was then incised with sharp scissors, and a considerable amount of pus was squeezed out. There was some bleeding noted. This was then controlled with pressure with gauze over it. Following this, all the wounds were then dressed with 4 x 4's and ABD and wrapped with Slade. Patient tolerated procedure well. DICTATING PHYSICIAN: SRINIVAS PORRAS M.D. [id number] PHY#: [id number] ID: [id number] JOB#: [id number] ACCT: [id number] cc:SRINIVAS PORRAS M.D. >
[2017-03-18] MEDS: CEFTRIAXONE SODIUM 1,000 MG in DEXTROSE 5%-WATER 50 ML IV SCH (09:59)
[2017-03-18] MEDS: DOCUSATE SODIUM 100 MG CAPSULE PO SCH ×2 (10:00→17:45)
[2017-03-18] MEDS ORDERED: MAG HYDROX/AL HYDROX/SIMETH SUSP 30 ML UDCUP PO PRN (10:02)
--- NOTE | 2017-03-18 12:59 | PDOC PROGRESS REPORT ---
Subjective Progress Note for:: 03/18/17 Subjective:: Reports that his leg pain is improved. Reason For Visit: AFIB C RVR, ARF, VENOUS STASIS, LEFT LEG ABSCESS Physical Exam Vital Signs: Temp Pulse Resp BP Pulse Ox 98.6 F 104 H 14 108/56 L 95 03/18/17 12:00 03/18/17 12:00 03/18/17 12:00 03/18/17 12:00 03/18/17 12:00 Intake & Output 03/17/17 03/18/17 03/19/17 06:59 06:59 06:59 Intake Total 4522 Output Total 2605 250 Balance 1917 -250 Weight 114.6 kg General appearance: PRESENT: no acute distress Eye exam: PRESENT: conjunctiva pink. ABSENT: scleral icterus Mouth exam: PRESENT: moist, tongue midline Neck exam: ABSENT: JVD Respiratory exam: PRESENT: clear to auscultation moustapha. ABSENT: rales, rhonchi, wheezes Cardiovascular exam: PRESENT: RRR. ABSENT: diastolic murmur, rubs, systolic murmur GI/Abdominal exam: PRESENT: normal bowel sounds, soft. ABSENT: distended, guarding, mass, organolmegaly, rebound, tenderness Extremities exam: PRESENT: pedal edema, other - Dressing in place on the left leg.. ABSENT: calf tenderness, clubbing Neurological exam: PRESENT: alert, awake, oriented to person, oriented to place , oriented to time, oriented to situation, CN II-XII grossly intact. ABSENT: motor sensory deficit Psychiatric exam: PRESENT: appropriate affect Skin exam: PRESENT: other - Dressing in place on the left leg. Results Laboratory Results: 03/18/17 04:05 03/18/17 04:05 03/18/17 03/18/17 04:05 04:05 WBC 18.9 H RBC 3.24 L Hgb 9.0 L Hct 27.7 L MCV 85 MCH 27.9 MCHC 32.6 RDW 15.1 H Plt Count 425 Seg Neutrophils % 86.6 H Lymphocytes % 5.9 L Monocytes % 6.1 Eosinophils % 1.0 Basophils % 0.4 Absolute Neutrophils 16.4 H Absolute Lymphocytes 1.1 Absolute Monocytes 1.2 Absolute Eosinophils 0.2 Absolute Basophils 0.1 Sodium 140.6 Potassium 4.7 D Chloride 111 H Carbon Dioxide 20 L Anion Gap 10 BUN 44 H Creatinine 2.96 H Est GFR ( Amer) 25 L Est GFR (Non-Af Amer) 21 L Glucose 106 Calcium 8.3 L Impressions: Chest X-Ray 03/16/17 19:41 IMPRESSION: Possible right upper lobe pneumonia. Assessment & Plan - Diagnosis (1) Sepsis Qualifiers: Sepsis type: sepsis due to unspecified organism Qualified Code(s): A41.9 - Sepsis, unspecified organism Is this a current diagnosis for this admission?: Yes Plan: Secondary to abscess of the leg. Patient status post surgical drainage. Continue with antibiotics. Getting IV fluids. Blood pressures have improved and he can be transferred out of the ICU (2) Cellulitis and abscess of lower extremity Is this a current diagnosis for this admission?: Yes Plan: Patient is status post surgical drainage of an abscess of the leg. Will continue with vancomycin and Rocephin. (3) NICKI (acute kidney injury) Is this a current diagnosis for this admission?: Yes Plan: Creatinine is elevated. Will continue with the IV fluids. Most likely related to his sepsis and relative hypotension. Creatinine has improved. (4) Atrial fibrillation with RVR Is this a current diagnosis for this admission?: Yes Plan: Patient is currently rate controlled. - Time Time Spent with patient: 25-34 minutes
[2017-03-18] MEDS ORDERED: VANCOMYCIN HCL INJ 1000 MG VIAL ONE (22:58)
[2017-03-18] MEDS: VANCOMYCIN HCL 1,000 MG in DEXTROSE 5%-WATER 250 ML IV SCH (23:47)
[2017-03-19] MEDS: MORPHINE SULFATE 10 MG/ML INJ IV PRN ×3 (00:17→22:07)
[2017-03-19 05:12] LABS: HEMATOCRIT 28.8 % (37.9-51.0); HEMOGLOBIN 9.2 g/dL (13.5-17.0); MEAN CORPUSCULAR HEMOGLOBIN 27.2 pg (27.0-33.4); MEAN CORPUSCULAR HGB CONC 31.7 g/dL (32.0-36.0); MEAN CORPUSCULAR VOLUME 86 fl (80-97); PLATELET COUNT 440 10^3/uL (150-450); RED BLOOD COUNT 3.36 10^6/uL (4.35-5.55); RED CELL DISTRIBUTION WIDTH 15.3 % (11.5-14.0); WHITE BLOOD COUNT 20.4 10^3/uL (4.0-10.5)
[2017-03-19 05:22] LABS: ANION GAP 11 (5-19); BLOOD UREA NITROGEN 36 mg/dL (7-20); CALCIUM 8.4 mg/dL (8.4-10.2); CARBON DIOXIDE 21 mmol/L (22-30); CHLORIDE 108 mmol/L (98-107); GLUCOSE 95 mg/dL (75-110); POTASSIUM 4.5 mmol/L (3.6-5.0); SODIUM 140.3 mmol/L (137-145)
[2017-03-19] MEDS: DILTIAZEM HCL 60 MG TABLET PO SCH ×4 (05:31→23:48)
[2017-03-19] MEDS: HEPARIN SOD (PORCINE) 5,000 UNIT/ML 1 ML SYRINGE SUBCUT SCH ×3 (05:31→22:07)
[2017-03-19] MEDS: NORMAL SALINE 1000 ML 1,000 ML IV PRN ×2 (05:32→21:35)
[2017-03-19 05:49] LABS: ABSOLUTE LYMPHOCYTES# (MANUAL) 2.7 10^3/uL (0.5-4.7); ABSOLUTE MONOCYTES # (MANUAL) 0.8 10^3/uL (0.1-1.4); ABSOLUTE NEUTROPHILS# (MANUAL) 16.5 10^3/uL (1.7-8.2); BASOPHILS % (MANUAL) 0 % (0-2); EOSINOPHILS % (MANUAL) 2 % (0-6); LYMPHOCYTES % (MANUAL) 12 % (13-45); MONOCYTES % (MANUAL) 4 % (3-13); SEGMENTED NEUTROPHILS % (MAN) 81 % (42-78); TOTAL CELLS COUNTED 100
[2017-03-19 05:52] LABS: ANISOCYTOSIS 1+; HYPOCHROMASIA SLIGHT; PLATELET COMMENT ADEQUATE; TOXIC GRANULATION SLIGHT
[2017-03-19] MEDS: DOCUSATE SODIUM 100 MG CAPSULE PO SCH ×2 (09:29→18:41)
[2017-03-19] MEDS: CEFTRIAXONE SODIUM 1,000 MG in DEXTROSE 5%-WATER 50 ML IV SCH (09:29)
--- NOTE | 2017-03-19 12:17 | PDOC PROGRESS REPORT ---
Subjective Progress Note for:: 03/19/17 Subjective:: pains left lower leg Reason For Visit: AFIB C RVR, ARF, VENOUS STASIS, LEFT LEG ABSCESS Physical Exam Vital Signs: Temp Pulse Resp BP Pulse Ox 99.2 F 91 18 105/58 L 97 03/19/17 08:00 03/19/17 08:00 03/19/17 08:00 03/19/17 08:00 03/19/17 08:00 Intake & Output 03/18/17 03/19/17 03/20/17 06:59 06:59 06:59 Intake Total 4522 2945 Output Total 260 1750 Balance 1917 1195 Weight 114.6 kg 114.5 kg Exam: left lower leg dressings removed. There are still areas of pus draining. Will likely need further debridement.Keep NPO today. May need Vac wound treatment after. Results Laboratory Results: 03/19/17 04:10 03/19/17 04:10 03/19/17 03/19/17 04:10 04:10 WBC 20.4 H RBC 3.36 L Hgb 9.2 L Hct 28.8 L MCV 86 MCH 27.2 MCHC 31.7 L RDW 15.3 H Plt Count 440 Seg Neutrophils % Not Reportable Lymphocytes % Not Reportable Monocytes % Not Reportable Eosinophils % Not Reportable Basophils % Not Reportable Absolute Neutrophils Not Reportable Absolute Lymphocytes Not Reportable Absolute Monocytes Not Reportable Absolute Eosinophils Not Reportable Absolute Basophils Not Reportable Sodium 140.3 Potassium 4.5 Chloride 108 H Carbon Dioxide 21 L Anion Gap 11 BUN 36 H Creatinine 2.74 H Est GFR ( Amer) 28 L Est GFR (Non-Af Amer) 23 L Glucose 95 Calcium 8.4 Impressions: Chest X-Ray 03/16/17 19:41 IMPRESSION: Possible right upper lobe pneumonia. Assessment & Plan - Time Time Spent with patient: 15-24 minutes - Inpatient Certification Medical Necessity: Need Close Monitoring Due to Risk of Patient Decompensation, Need For IV Fluids, Need for Pain Control, Need for IV Antibiotics, Need for Surgery, Risk of Complication if Not Cared For in Hospital - Plan Summary Plan Summary: Still with pus draining from left lower leg abscess sites post I&D 03/17/17 Keep NPO for futher debridement today
--- NOTE | 2017-03-19 13:44 | PDOC PROGRESS REPORT ---
Subjective Progress Note for:: 03/19/17 Subjective:: Reports that his leg pain is improved. Reason For Visit: AFIB C RVR, ARF, VENOUS STASIS, LEFT LEG ABSCESS Physical Exam Vital Signs: Temp Pulse Resp BP Pulse Ox 99.2 F 91 18 105/58 L 97 03/19/17 08:00 03/19/17 08:00 03/19/17 08:00 03/19/17 08:00 03/19/17 08:00 Intake & Output 03/18/17 03/19/17 03/20/17 06:59 06:59 06:59 Intake Total 4522 2945 Output Total 2605 1750 Balance 1917 1195 Weight 114.6 kg 114.5 kg General appearance: PRESENT: no acute distress Eye exam: PRESENT: conjunctiva pink. ABSENT: scleral icterus Mouth exam: PRESENT: moist, tongue midline Neck exam: ABSENT: JVD Respiratory exam: PRESENT: clear to auscultation moustapha. ABSENT: rales, rhonchi, wheezes Cardiovascular exam: PRESENT: RRR. ABSENT: diastolic murmur, rubs, systolic murmur GI/Abdominal exam: PRESENT: normal bowel sounds, soft. ABSENT: distended, guarding, mass, organolmegaly, rebound, tenderness Extremities exam: PRESENT: full ROM, other - Dressing in place on the left leg. ABSENT: calf tenderness, clubbing Neurological exam: PRESENT: alert, awake, oriented to person, oriented to place , oriented to time, oriented to situation, CN II-XII grossly intact. ABSENT: motor sensory deficit Psychiatric exam: PRESENT: appropriate affect Skin exam: PRESENT: other - Dressing in place on the left leg Results Laboratory Results: 03/19/17 04:10 03/19/17 04:10 03/19/17 03/19/17 04:10 04:10 WBC 20.4 H RBC 3.36 L Hgb 9.2 L Hct 28.8 L MCV 86 MCH 27.2 MCHC 31.7 L RDW 15.3 H Plt Count 440 Seg Neutrophils % Not Reportable Lymphocytes % Not Reportable Monocytes % Not Reportable Eosinophils % Not Reportable Basophils % Not Reportable Absolute Neutrophils Not Reportable Absolute Lymphocytes Not Reportable Absolute Monocytes Not Reportable Absolute Eosinophils Not Reportable Absolute Basophils Not Reportable Sodium 140.3 Potassium 4.5 Chloride 108 H Carbon Dioxide 21 L Anion Gap 11 BUN 36 H Creatinine 2.74 H Est GFR ( Amer) 28 L Est GFR (Non-Af Amer) 23 L Glucose 95 Calcium 8.4 Impressions: Chest X-Ray 03/16/17 19:41 IMPRESSION: Possible right upper lobe pneumonia. Assessment & Plan - Diagnosis (1) Sepsis Qualifiers: Sepsis type: sepsis due to unspecified organism Qualified Code(s): A41.9 - Sepsis, unspecified organism Is this a current diagnosis for this admission?: Yes Plan: Secondary to abscess of the leg. Patient status post surgical drainage. Continue with antibiotics. (2) Cellulitis and abscess of lower extremity Is this a current diagnosis for this admission?: Yes Plan: Patient is status post surgical drainage of an abscess of the leg. Will continue with Rocephin and stop the vancomycin as he is growing methicillin sensitive staph aureus.. (3) NICKI (acute kidney injury) Is this a current diagnosis for this admission?: Yes Plan: Creatinine is elevated. Will continue with the IV fluids. Most likely related to his sepsis and relative hypotension. Creatinine has continued to improve (4) Atrial fibrillation with RVR Is this a current diagnosis for this admission?: Yes Plan: Patient is currently rate controlled. - Time Time Spent with patient: 25-34 minutes - Inpatient Certification Medical Necessity: Need for IV Antibiotics
[2017-03-19 16:59] LABS: INTERNATIONAL RATION (INR) 1.22; PROTHROMBIN TIME 16.2 SEC (11.4-15.4)
[2017-03-19 17:00] LABS: PARTIAL THROMBOPLASTIN TIME 45.7 SEC (23.5-35.8)
[2017-03-19] MEDS ORDERED: EPHEDRINE SULFATE INJ 50 MG/1 ML AMPULE ONE (17:30)
[2017-03-19] MEDS ORDERED: ONDANSETRON HCL INJ/PF 4 MG/2 ML SDV ONE (17:30)
[2017-03-19] MEDS ORDERED: MIDAZOLAM 2 MG/2 ML INJ ONE (17:30)
[2017-03-19] MEDS ORDERED: PROPOFOL INJ 200 MG/20 ML VIAL IV ONE (17:31)
[2017-03-19] MEDS ORDERED: HYDROMORPHONE HCL INJ/PF 2 MG/ML AMPULE ONE ×2 (17:31)
[2017-03-19] MEDS ORDERED: LIDOCAINE 0.5% INJ-PF (5 MG/ML) 50 ML SDV ONE (17:32)
[2017-03-19] MEDS ORDERED: FENTANYL CITRATE INJ/PF 100 MCG/2 ML AMPUL IV PRN ×3 (18:21)
[2017-03-19] MEDS ORDERED: DIPHENHYDRAMINE HCL 50 MG/ML VIAL IV PRN (18:21)
[2017-03-19] MEDS ORDERED: PROMETHAZINE HCL INJ 25 MG/1 ML VIAL IV PRN (18:21)
[2017-03-19] MEDS ORDERED: OXYCODONE-ACETAMINOPHEN 5-325 MG TABLET ONE (19:22)
--- NOTE | 2017-03-19 19:48 | OPERATIVE REPORT E ---
Operative Report NAME: LALA JOE : 1940 AGE: 76Y DATE OF SURGERY: 03/19/2017 ROOM: 530 PREOPERATIVE DIAGNOSIS: PERSISTENT ABSCESS OF THE LEFT LOWER LEG WITH NECROTIC SKIN AREAS. POSTOPERATIVE DIAGNOSIS: PERSISTENT ABSCESS OF THE LEFT LOWER LEG WITH NECROTIC SKIN AREAS. PROCEDURE: Incision and drainage about 22 cm long by about 6 cm wide, debridement of necrotic skin and subcutaneous of at least 3 areas: One of 4 x 6 cm, second of 4 x 5 cm, and the third one is about 3 x 4 cm. SURGEON: SRINIVAS PORRAS M.D. ANESTHESIA: General. INDICATION: This is a 76-year-old male who apparently developed a hematoma on the left lower leg while on Eliquis and developed an abscess. This was drained 2 days ago. However, on evaluating the wound this morning, the patient still has a lot of pus coming out of the I and D sites, especially when squeezing around it, now with more necrotic skin on at least 4 areas. Also, his white count is still up to about 20,000. Therefore, patient is taken back to the OR for further debridement and incision and drainage with pulse lavage. DESCRIPTION OF PROCEDURE: After adequate general anesthesia, the patient was placed in the supine position and the left leg elevated on the wedge foam. The left leg from just above the knee to the toes was then prepped and drained in the usual sterile fashion. Appropriate timeout was called. The areas of necrotic skin were then debrided close to the anterior mid vega, roughly about 4 x 6 cm, another one lateral to it but almost the same size, about 5 x 5 cm, and another one more distal, just above the ankle, roughly about 3 x 3 cm. Next, all these necrotic areas were going through the large abscess cavity, roughly measuring about 22 cm long. An incision was made to open up and unroof this abscess cavity and also further incised with the use of cautery. Underneath the abscess cavity were necrotic tissues that were pulse lavaged with at least 5 L of saline. All necrotic areas were involved in this large abscess cavity. Most were debrided with the use of curette. Following this, the area was then packed with 4 bottles of half-inch iodoform gauze and sterile 4x4's and ABD, and wrapped with Kerlix and a 6-inch Frederick bandage. The patient tolerated the procedure well. Needle, instrument, and sponge counts were all correct. Estimated blood loss about 50 mL. The patient tolerated the procedure well, brought to the recovery room in satisfactory condition. DICTATING PHYSICIAN: SRINIVAS PORRAS M.D. [id number] PHY#: [id number] ID: [id number] JOB#: [id number] ACCT: [id number] cc:SRINIVAS PORRAS M.D. > MTDD
--- NOTE | 2017-03-19 20:06 | EKG REPORT ---
SEVERITY:- ABNORMAL ECG - ATRIAL FIBRILLATION NONSPECIFIC T ABNORMALITIES, LATERAL LEADS BORDERLINE PROLONGED QT INTERVAL : Confirmed by: Chris Wright 19-Mar-2017 20:06:22
[2017-03-19] MEDS ORDERED: OXYCODONE-ACETAMINOPHEN 5-325 MG TABLET PO PRN (20:13)
[2017-03-19] MEDS: VANCOMYCIN HCL 1,000 MG in DEXTROSE 5%-WATER 250 ML IV SCH (22:41)
[2017-03-19 22:50] LABS: VANCOMYCIN,TROUGH 12.7 ug/mL (5.0-20.0)
[2017-03-20] MEDS: MORPHINE SULFATE 10 MG/ML INJ IV PRN ×2 (04:43→22:14)
[2017-03-20 04:53] LABS: ABSOLUTE BASOPHILS # (AUTO) 0.1 10^3/uL (0.0-0.2); ABSOLUTE EOSINOPHILS # (AUTO) 0.3 10^3/uL (0.0-0.6); ABSOLUTE MONOCYTES (AUTO) 1.3 10^3/uL (0.1-1.4); BASOPHILS % (AUTO) 0.5 % (0-2); EOSINOPHILS % (AUTO) 1.6 % (0-6); HEMATOCRIT 26.5 % (37.9-51.0); HEMOGLOBIN 8.5 g/dL (13.5-17.0); MEAN CORPUSCULAR HEMOGLOBIN 27.7 pg (27.0-33.4); MEAN CORPUSCULAR HGB CONC 32.1 g/dL (32.0-36.0); MEAN CORPUSCULAR VOLUME 86 fl (80-97); MONOCYTES % (AUTO) 7.9 % (3-13); PLATELET COUNT 363 10^3/uL (150-450); RED BLOOD COUNT 3.07 10^6/uL (4.35-5.55); RED CELL DISTRIBUTION WIDTH 14.9 % (11.5-14.0); TOTAL CELLS COUNTED % (AUTO) 100 %; WHITE BLOOD COUNT 16.7 10^3/uL (4.0-10.5)
[2017-03-20 05:19] LABS: ANION GAP 10 (5-19); BLOOD UREA NITROGEN 34 mg/dL (7-20); CALCIUM 8.6 mg/dL (8.4-10.2); CARBON DIOXIDE 19 mmol/L (22-30); CHLORIDE 111 mmol/L (98-107); GLUCOSE 99 mg/dL (75-110); POTASSIUM 4.1 mmol/L (3.6-5.0); SODIUM 140.1 mmol/L (137-145)
[2017-03-20] MEDS: NORMAL SALINE 1000 ML 1,000 ML IV PRN ×2 (06:04→22:14)
[2017-03-20] MEDS: HEPARIN SOD (PORCINE) 5,000 UNIT/ML 1 ML SYRINGE SUBCUT SCH ×3 (06:04→22:14)
[2017-03-20] MEDS: DILTIAZEM HCL 60 MG TABLET PO SCH ×4 (06:04→23:38)
[2017-03-20] MEDS: CEFTRIAXONE SODIUM 1,000 MG in DEXTROSE 5%-WATER 50 ML IV SCH (09:46)
[2017-03-20] MEDS: DOCUSATE SODIUM 100 MG CAPSULE PO SCH ×2 (09:53→17:37)
--- NOTE | 2017-03-20 10:05 | PDOC PROGRESS REPORT ---
Subjective Progress Note for:: 03/20/17 Subjective:: Less pains. Reason For Visit: AFIB C RVR, ARF, VENOUS STASIS, LEFT LEG ABSCESS Physical Exam Vital Signs: Temp Pulse Resp BP Pulse Ox 99.0 F 96 18 103/51 L 93 03/20/17 08:02 03/20/17 08:02 03/20/17 08:02 03/20/17 08:02 03/20/17 08:02 Intake & Output 03/19/17 03/20/17 03/21/17 06:59 06:59 06:59 Intake Total 2945 9830 Output Total 1750 7800 Balance 1195 2030 Weight 114.5 kg 114.5 kg Exam: Dressing posteriorly slightly soaked. Edema left leg decreasing Results Laboratory Results: 03/20/17 03:53 03/20/17 03:53 03/19/17 03/20/17 03/20/17 22:10 03:53 03:53 WBC 16.7 H RBC 3.07 L Hgb 8.5 L Hct 26.5 L MCV 86 MCH 27.7 MCHC 32.1 RDW 14.9 H Plt Count 363 Seg Neutrophils % 84.0 H Lymphocytes % 6.0 L Monocytes % 7.9 Eosinophils % 1.6 Basophils % 0.5 Absolute Neutrophils 14.0 H Absolute Lymphocytes 1.0 Absolute Monocytes 1.3 Absolute Eosinophils 0.3 Absolute Basophils 0.1 Sodium 140.1 Potassium 4.1 Chloride 111 H Carbon Dioxide 19 L Anion Gap 10 BUN 34 H Creatinine 2.63 H 2.70 H Est GFR ( Amer) 29 L 28 L Est GFR (Non-Af Amer) 24 L 23 L Glucose 99 Calcium 8.6 03/17/17 10:00 Leg - Left Gram Stain - Final 03/17/17 10:00 Leg - Left Gram Stain - Final 03/17/17 10:00 Leg - Left Wound Culture - Final Staphylococcus Aureus No Anaerobic Organisms Impressions: Chest X-Ray 03/16/17 19:41 IMPRESSION: Possible right upper lobe pneumonia. Assessment & Plan - Time Time Spent with patient: 15-24 minutes - Inpatient Certification Medical Necessity: Need Close Monitoring Due to Risk of Patient Decompensation, Need For Continuous Telemetry Monitoring, Need for IV Antibiotics, Risk of Complication if Not Cared For in Hospital - Plan Summary Plan Summary: Will change dressing but keep packing today. Continue IV antibiotics. C/S staph aureus
[2017-03-20] MEDS: ACETAMINOPHEN 325 MG TABLET PO PRN (16:36)
--- NOTE | 2017-03-20 18:18 | PROGRESS NOTE E ---
Progress Note NAME: LALA JOE : 1940 AGE: 76Y DATE: 03/20/2017 ROOM: 530 SUBJECTIVE: The patient is feeling better. He has had a leg abscess on the left that has opened up. He was initially septic with hypotension, but this has resolved. OBJECTIVE: VITAL SIGNS: Stable. HEENT: Sclerae are nonicteric. Oral mucous membranes are moist. NECK: No JVD. CHEST: Clear to auscultation. CARDIOVASCULAR: Regular rate and rhythm. No murmurs, rubs or gallops appreciated. ABDOMEN: Positive bowel sounds. Soft. Nontender. No organomegaly. EXTREMITIES: Patient's left leg has a dressing in place. It is dry and intact with no drainage. NEUROLOGICAL: Alert and oriented x3. ASSESSMENT: Leg abscess. The patient has a leg abscess and is growing methicillin-resistant Staph aureus. PLAN: We will continue with the Rocephin. The patient's blood pressure has been stable. DICTATING PHYSICIAN: Johana FRAIRE M.D. [id number] GERMANIAY#: [id number] ID: [id number] JOB#: [id number] ACCT: [id number] cc: >
[2017-03-20] MEDS: VANCOMYCIN HCL 1,000 MG in DEXTROSE 5%-WATER 250 ML IV SCH (23:38)
[2017-03-21 04:54] LABS: ABSOLUTE BASOPHILS # (AUTO) 0.1 10^3/uL (0.0-0.2); ABSOLUTE EOSINOPHILS # (AUTO) 0.4 10^3/uL (0.0-0.6); ABSOLUTE LYMPHOCYTES (AUTO) 0.8 10^3/uL (0.5-4.7); ABSOLUTE MONOCYTES (AUTO) 1.1 10^3/uL (0.1-1.4); ABSOLUTE NEUT (AUTO) 6.9 10^3/uL (1.7-8.2); BASOPHILS % (AUTO) 0.5 % (0-2); EOSINOPHILS % (AUTO) 4.1 % (0-6); HEMATOCRIT 27.2 % (37.9-51.0); LYMPHOCYTES % (AUTO) 8.4 % (13-45); MEAN CORPUSCULAR HEMOGLOBIN 28.2 pg (27.0-33.4); MEAN CORPUSCULAR HGB CONC 32.9 g/dL (32.0-36.0); MEAN CORPUSCULAR VOLUME 86 fl (80-97); MONOCYTES % (AUTO) 11.6 % (3-13); PLATELET COUNT 356 10^3/uL (150-450); RED BLOOD COUNT 3.18 10^6/uL (4.35-5.55); RED CELL DISTRIBUTION WIDTH 15.4 % (11.5-14.0); SEGMENTED NEUTROPHILS % (AUTO) 75.4 % (42-78); TOTAL CELLS COUNTED % (AUTO) 100 %; WHITE BLOOD COUNT 9.2 10^3/uL (4.0-10.5)
[2017-03-21] MEDS: HEPARIN SOD (PORCINE) 5,000 UNIT/ML 1 ML SYRINGE SUBCUT SCH ×3 (05:02→21:46)
[2017-03-21] MEDS: DILTIAZEM HCL 60 MG TABLET PO SCH ×4 (05:03→23:42)
[2017-03-21] MEDS: MORPHINE SULFATE 10 MG/ML INJ IV PRN (05:03)
[2017-03-21 05:12] LABS: ANION GAP 11 (5-19); BLOOD UREA NITROGEN 33 mg/dL (7-20); CALCIUM 8.3 mg/dL (8.4-10.2); CARBON DIOXIDE 21 mmol/L (22-30); CHLORIDE 108 mmol/L (98-107); GLUCOSE 93 mg/dL (75-110); POTASSIUM 4.3 mmol/L (3.6-5.0); SODIUM 139.9 mmol/L (137-145)
[2017-03-21] MEDS: CEFTRIAXONE SODIUM 1,000 MG in DEXTROSE 5%-WATER 50 ML IV SCH (09:37)
[2017-03-21] MEDS: DOCUSATE SODIUM 100 MG CAPSULE PO SCH ×2 (09:37→18:24)
[2017-03-21] MEDS: ACETAMINOPHEN 325 MG TABLET PO PRN (11:28)
[2017-03-21] MEDS: IPRATROPIUM/ALBUTEROL 0.5-2.5 MG/3 ML AMPUL NEB PRN (12:04)
--- NOTE | 2017-03-21 14:43 | PDOC PROGRESS REPORT ---
Subjective Progress Note for:: 03/21/17 Subjective:: 76-year-old male who presented with sepsis. Patient had sepsis from a left leg abscess. When he presented he was hypotensive and tachycardic. The patient was given IV fluids and IV pressors and went to the operating room where his leg was opened up with drainage of pus. After that his blood pressure improved and no longer required pressors. He initially went to the intensive care unit but after one night was doing well enough that he was transferred to the floor. The patient is growing methicillin sensitive staph aureus. He is currently being treated with Rocephin. He initially was on vancomycin and Rocephin with the vancomycin has been stopped. All his blood cultures have been negative but his wound cultures have grown out the methicillin sensitive staph aureus. Reason For Visit: AFIB C RVR, ARF, VENOUS STASIS, LEFT LEG ABSCESS Physical Exam Vital Signs: Temp Pulse Resp BP Pulse Ox 102.8 F H 92 16 106/63 92 03/21/17 07:43 03/21/17 12:05 03/21/17 12:05 03/21/17 07:43 03/21/17 12:05 Intake & Output 03/20/17 03/21/17 03/22/17 06:59 06:59 06:59 Intake Total 9830 2248 Output Total 7800 700 Balance 2030 1548 Weight 114.5 kg 117.7 kg General appearance: PRESENT: no acute distress Eye exam: PRESENT: conjunctiva pink. ABSENT: scleral icterus Ear exam: PRESENT: normal external ear exam Mouth exam: PRESENT: moist, tongue midline Neck exam: ABSENT: JVD Respiratory exam: PRESENT: clear to auscultation moustapha. ABSENT: rales, rhonchi, wheezes Cardiovascular exam: PRESENT: RRR. ABSENT: diastolic murmur, rubs, systolic murmur GI/Abdominal exam: PRESENT: normal bowel sounds, soft. ABSENT: distended, guarding, mass, organolmegaly, rebound, tenderness Extremities exam: PRESENT: pedal edema, other - Dressing in place on the left leg.. ABSENT: calf tenderness, clubbing Neurological exam: PRESENT: alert, awake, oriented to person, oriented to place , oriented to time, oriented to situation, CN II-XII grossly intact. ABSENT: motor sensory deficit Psychiatric exam: PRESENT: appropriate affect Skin exam: PRESENT: other - Dressing in place on the left leg. Results Laboratory Results: 03/21/17 03:51 03/21/17 03:51 03/21/17 03/21/17 03:51 03:51 WBC 9.2 RBC 3.18 L Hgb 9.0 L Hct 27.2 L MCV 86 MCH 28.2 MCHC 32.9 RDW 15.4 H Plt Count 356 Seg Neutrophils % 75.4 Lymphocytes % 8.4 L Monocytes % 11.6 Eosinophils % 4.1 Basophils % 0.5 Absolute Neutrophils 6.9 Absolute Lymphocytes 0.8 Absolute Monocytes 1.1 Absolute Eosinophils 0.4 Absolute Basophils 0.1 Sodium 139.9 Potassium 4.3 Chloride 108 H Carbon Dioxide 21 L Anion Gap 11 BUN 33 H Creatinine 2.54 H Est GFR ( Amer) 30 L Est GFR (Non-Af Amer) 25 L Glucose 93 Calcium 8.3 L 03/17/17 10:00 Leg - Left Gram Stain - Final 03/17/17 10:00 Leg - Left Wound Culture - Final Staphylococcus Aureus No Anaerobic Organisms Impressions: Chest X-Ray 03/16/17 19:41 IMPRESSION: Possible right upper lobe pneumonia. Assessment & Plan - Diagnosis (1) Sepsis Qualifiers: Sepsis type: sepsis due to unspecified organism Qualified Code(s): A41.9 - Sepsis, unspecified organism Is this a current diagnosis for this admission?: Yes Plan: Secondary to abscess of the leg. Patient status post surgical drainage. Patient is growing methicillin sensitive staph aureus. Vancomycin has been stopped and the patient is on Rocephin. He could be changed to oral antibiotics the next 24-48 hours. Will need to discuss with surgery prior to changing to oral antibiotics. (2) Cellulitis and abscess of lower extremity Is this a current diagnosis for this admission?: Yes Plan: Patient is status post surgical drainage of an abscess of the leg. Will continue with Rocephin as he is growing methicillin sensitive staph aureus. (3) NICKI (acute kidney injury) Is this a current diagnosis for this admission?: Yes Plan: Acute on chronic renal failure stage IV. Creatinine is elevated but improving. He has had a previously elevated creatinine in December. Will continue with the IV fluids. Most likely related to his sepsis and relative hypotension. Creatinine has continued to improve (4) Atrial fibrillation with RVR Is this a current diagnosis for this admission?: Yes Plan: Patient is currently rate controlled. - Time Time Spent with patient: 25-34 minutes - Inpatient Certification Medical Necessity: Need for IV Antibiotics
--- NOTE | 2017-03-21 15:23 | PDOC PROGRESS REPORT ---
Subjective Progress Note for:: 03/21/17 Reason For Visit: AFIB C RVR, ARF, VENOUS STASIS, LEFT LEG ABSCESS No complaints this morning. Patient having breakfast. Physical Exam Vital Signs: Temp Pulse Resp BP Pulse Ox 102.8 F H 92 16 106/63 92 03/21/17 07:43 03/21/17 12:05 03/21/17 12:05 03/21/17 07:43 03/21/17 12:05 Intake & Output 03/20/17 03/21/17 03/22/17 06:59 06:59 06:59 Intake Total 9830 2248 Output Total 7800 700 Balance 2030 1548 Weight 114.5 kg 117.7 kg Musculoskeletal exam: PRESENT: other - Lower extremity examined. All wounds open widely; some fibrinous debris at the center of open wounds. Results Laboratory Results: 03/21/17 03:51 03/21/17 03:51 03/21/17 03/21/17 03:51 03:51 WBC 9.2 RBC 3.18 L Hgb 9.0 L Hct 27.2 L MCV 86 MCH 28.2 MCHC 32.9 RDW 15.4 H Plt Count 356 Seg Neutrophils % 75.4 Lymphocytes % 8.4 L Monocytes % 11.6 Eosinophils % 4.1 Basophils % 0.5 Absolute Neutrophils 6.9 Absolute Lymphocytes 0.8 Absolute Monocytes 1.1 Absolute Eosinophils 0.4 Absolute Basophils 0.1 Sodium 139.9 Potassium 4.3 Chloride 108 H Carbon Dioxide 21 L Anion Gap 11 BUN 33 H Creatinine 2.54 H Est GFR ( Amer) 30 L Est GFR (Non-Af Amer) 25 L Glucose 93 Calcium 8.3 L 03/17/17 10:00 Leg - Left Gram Stain - Final 03/17/17 10:00 Leg - Left Wound Culture - Final Staphylococcus Aureus No Anaerobic Organisms Impressions: Chest X-Ray 03/16/17 19:41 IMPRESSION: Possible right upper lobe pneumonia. Assessment & Plan - Diagnosis (1) Cellulitis and abscess of lower extremity Is this a current diagnosis for this admission?: Yes Plan: Patient is now 2 and 4 days status post debridement of multiple necrotic areas of the left lower extremity, growing staph aureus, fever to 102.8. Diminished leukocytosis. Clinically the leg looks improved. Recommendations: 1. We will start bedside washings with soapy water and scrub brush to facilitate debridement. 2. Initiate dressing changes with half-inch gauze packing. VAC therapy may be an option but tube tunneling may be a challenge. 3. We will recheck wounds tomorrow.
[2017-03-22] MEDS: MORPHINE SULFATE 10 MG/ML INJ IV PRN (02:20)
[2017-03-22] MEDS: DILTIAZEM HCL 60 MG TABLET PO SCH ×4 (06:41→23:40)
[2017-03-22] MEDS: HEPARIN SOD (PORCINE) 5,000 UNIT/ML 1 ML SYRINGE SUBCUT SCH ×3 (06:42→23:41)
[2017-03-22 07:05] LABS: ABSOLUTE BASOPHILS # (AUTO) 0.1 10^3/uL (0.0-0.2); ABSOLUTE EOSINOPHILS # (AUTO) 0.1 10^3/uL (0.0-0.6); ABSOLUTE LYMPHOCYTES (AUTO) 0.6 10^3/uL (0.5-4.7); ABSOLUTE MONOCYTES (AUTO) 0.6 10^3/uL (0.1-1.4); ABSOLUTE NEUT (AUTO) 6.1 10^3/uL (1.7-8.2); BASOPHILS % (AUTO) 0.9 % (0-2); EOSINOPHILS % (AUTO) 1.4 % (0-6); HEMATOCRIT 25.3 % (37.9-51.0); HEMOGLOBIN 8.2 g/dL (13.5-17.0); LYMPHOCYTES % (AUTO) 8.1 % (13-45); MEAN CORPUSCULAR HEMOGLOBIN 27.8 pg (27.0-33.4); MEAN CORPUSCULAR HGB CONC 32.2 g/dL (32.0-36.0); MEAN CORPUSCULAR VOLUME 86 fl (80-97); MONOCYTES % (AUTO) 8.5 % (3-13); PLATELET COUNT 337 10^3/uL (150-450); RED BLOOD COUNT 2.93 10^6/uL (4.35-5.55); RED CELL DISTRIBUTION WIDTH 15.4 % (11.5-14.0); SEGMENTED NEUTROPHILS % (AUTO) 81.1 % (42-78); TOTAL CELLS COUNTED % (AUTO) 100 %; WHITE BLOOD COUNT 7.5 10^3/uL (4.0-10.5)
[2017-03-22 07:35] LABS: ANION GAP 10 (5-19); BLOOD UREA NITROGEN 30 mg/dL (7-20); CALCIUM 7.8 mg/dL (8.4-10.2); CARBON DIOXIDE 17 mmol/L (22-30); CHLORIDE 112 mmol/L (98-107); GLUCOSE 84 mg/dL (75-110); POTASSIUM 3.8 mmol/L (3.6-5.0); SODIUM 138.8 mmol/L (137-145)
[2017-03-22] MEDS: DOCUSATE SODIUM 100 MG CAPSULE PO SCH ×2 (09:38→16:35)
[2017-03-22] MEDS: NORMAL SALINE 1000 ML 1,000 ML IV PRN (09:38)
[2017-03-22] MEDS: CEFTRIAXONE SODIUM 1,000 MG in DEXTROSE 5%-WATER 100 ML IV SCH (09:38)
[2017-03-22] MEDS: POLYETHYLENE GLYCOL 3350 POWDER 17 GM/1 PACKET PO SCH (13:00)
[2017-03-22] MEDS: IPRATROPIUM/ALBUTEROL 0.5-2.5 MG/3 ML AMPUL NEB PRN (13:00)
--- NOTE | 2017-03-22 16:42 | PDOC PROGRESS REPORT ---
Subjective Progress Note for:: 03/22/17 Subjective:: pains left leg operative site,mild Reason For Visit: AFIB C RVR, ARF, VENOUS STASIS, LEFT LEG ABSCESS Physical Exam Vital Signs: Temp Pulse Resp BP Pulse Ox 98.4 F 108 H 20 120/67 95 03/22/17 11:21 03/22/17 14:00 03/22/17 13:00 03/22/17 11:21 03/22/17 13:00 Intake & Output 03/21/17 03/22/17 03/23/17 06:59 06:59 06:59 Intake Total 2248 3750 Output Total 700 775 Balance 1548 2975 Weight 117.7 kg 117.7 kg 117.7 kg Exam: Dressing soaked. Packing replaced. No purulent drainage. Will be better off with wound vac partly to suction fluid/edema for better wound healing Possib;e VAC placement today or tomorrow. Continue IV antibiotics Results Laboratory Results: 03/22/17 06:15 03/22/17 06:15 03/22/17 03/22/17 06:15 06:15 WBC 7.5 RBC 2.93 L Hgb 8.2 L Hct 25.3 L MCV 86 MCH 27.8 MCHC 32.2 RDW 15.4 H Plt Count 337 Seg Neutrophils % 81.1 H Lymphocytes % 8.1 L Monocytes % 8.5 Eosinophils % 1.4 Basophils % 0.9 Absolute Neutrophils 6.1 Absolute Lymphocytes 0.6 Absolute Monocytes 0.6 Absolute Eosinophils 0.1 Absolute Basophils 0.1 Sodium 138.8 Potassium 3.8 Chloride 112 H Carbon Dioxide 17 L Anion Gap 10 BUN 30 H Creatinine 2.33 H Est GFR ( Amer) 33 L Est GFR (Non-Af Amer) 27 L Glucose 84 Calcium 7.8 L 03/19/17 18:16 Leg - Left Side Abscess Gram Stain - Final Impressions: Chest X-Ray 03/16/17 19:41 IMPRESSION: Possible right upper lobe pneumonia.
--- NOTE | 2017-03-22 19:23 | PDOC PROGRESS REPORT ---
Subjective Progress Note for:: 03/22/17 Subjective:: Doing okay. Feels pain in lower extremity is decreased. Denies fevers, chills, CP, SOB. Has had decreased bowel movement Reason For Visit: AFIB C RVR, ARF, VENOUS STASIS, LEFT LEG ABSCESS Physical Exam Vital Signs: Temp Pulse Resp BP Pulse Ox 98.0 F 110 H 16 122/63 97 03/22/17 15:59 03/22/17 15:59 03/22/17 15:59 03/22/17 15:59 03/22/17 15:59 Intake & Output 03/21/17 03/22/17 03/23/17 06:59 06:59 06:59 Intake Total 2248 3750 2406 Output Total 700 775 950 Balance 1548 2975 1456 Weight 117.7 kg 117.7 kg 117.7 kg General appearance: PRESENT: no acute distress, other - Resting in bed Head exam: PRESENT: atraumatic, normocephalic Mouth exam: PRESENT: moist Respiratory exam: PRESENT: clear to auscultation moustapha, unlabored Cardiovascular exam: PRESENT: RRR GI/Abdominal exam: PRESENT: soft. ABSENT: tenderness Extremities exam: PRESENT: other - Dressing in place. Did not remove. Results Laboratory Results: 03/22/17 06:15 03/22/17 06:15 03/22/17 03/22/17 06:15 06:15 WBC 7.5 RBC 2.93 L Hgb 8.2 L Hct 25.3 L MCV 86 MCH 27.8 MCHC 32.2 RDW 15.4 H Plt Count 337 Seg Neutrophils % 81.1 H Lymphocytes % 8.1 L Monocytes % 8.5 Eosinophils % 1.4 Basophils % 0.9 Absolute Neutrophils 6.1 Absolute Lymphocytes 0.6 Absolute Monocytes 0.6 Absolute Eosinophils 0.1 Absolute Basophils 0.1 Sodium 138.8 Potassium 3.8 Chloride 112 H Carbon Dioxide 17 L Anion Gap 10 BUN 30 H Creatinine 2.33 H Est GFR ( Amer) 33 L Est GFR (Non-Af Amer) 27 L Glucose 84 Calcium 7.8 L 03/19/17 18:16 Leg - Left Side Abscess Gram Stain - Final Impressions: Chest X-Ray 03/16/17 19:41 IMPRESSION: Possible right upper lobe pneumonia. Assessment & Plan - Diagnosis (1) Cellulitis and abscess of lower extremity Is this a current diagnosis for this admission?: Yes Plan: Clinically improving - Dressing changed by Ortho, notes reviewed - May have wound vac placed - Continue IV Ceftriaxone - Will need placement at SNF, discussed with social work (2) NICKI (acute kidney injury) Is this a current diagnosis for this admission?: Yes (3) Atrial fibrillation with RVR Is this a current diagnosis for this admission?: Yes Plan: Currently rate controlled (4) Sepsis Qualifiers: Sepsis type: sepsis due to unspecified organism Qualified Code(s): A41.9 - Sepsis, unspecified organism Is this a current diagnosis for this admission?: Yes Plan: Blood cultures NGTD at 5 days since 03/16/17 - Treating with IV antibiotics
[2017-03-23] MEDS: MORPHINE SULFATE 10 MG/ML INJ IV PRN (01:24)
[2017-03-23] MEDS: DILTIAZEM HCL 60 MG TABLET PO SCH ×3 (06:02→23:15)
[2017-03-23] MEDS: HEPARIN SOD (PORCINE) 5,000 UNIT/ML 1 ML SYRINGE SUBCUT SCH ×2 (06:04→23:18)
[2017-03-23 09:14] LABS: HEMATOCRIT 26.7 % (37.9-51.0); HEMOGLOBIN 8.7 g/dL (13.5-17.0); MEAN CORPUSCULAR HEMOGLOBIN 27.8 pg (27.0-33.4); MEAN CORPUSCULAR HGB CONC 32.7 g/dL (32.0-36.0); MEAN CORPUSCULAR VOLUME 85 fl (80-97); PLATELET COUNT 377 10^3/uL (150-450); RED BLOOD COUNT 3.14 10^6/uL (4.35-5.55); RED CELL DISTRIBUTION WIDTH 15.2 % (11.5-14.0)
[2017-03-23 09:32] LABS: ANION GAP 11 (5-19); BLOOD UREA NITROGEN 26 mg/dL (7-20); CARBON DIOXIDE 18 mmol/L (22-30); CHLORIDE 114 mmol/L (98-107); GLUCOSE 82 mg/dL (75-110); POTASSIUM 3.9 mmol/L (3.6-5.0); SODIUM 142.9 mmol/L (137-145)
--- NOTE | 2017-03-23 13:01 | PDOC PROGRESS REPORT ---
Subjective Progress Note for:: 03/23/17 Subjective:: less pains left leg wound Reason For Visit: AFIB C RVR, ARF, VENOUS STASIS, LEFT LEG ABSCESS Physical Exam Vital Signs: Temp Pulse Resp BP Pulse Ox 98.0 F 103 H 16 122/63 97 03/22/17 15:59 03/23/17 02:00 03/22/17 15:59 03/22/17 15:59 03/22/17 15:59 Intake & Output 03/22/17 03/23/17 03/24/17 06:59 06:59 06:59 Intake Total 3750 5206 Output Total 775 2300 Balance 2975 2906 Weight 117.7 kg 117.9 kg Exam: Afebrile.WBC normal. Wound VAC ordered to be place over wound. Results Laboratory Results: 03/23/17 09:08 03/23/17 09:08 03/23/17 03/23/17 09:08 09:08 WBC 6.0 RBC 3.14 L Hgb 8.7 L Hct 26.7 L MCV 85 MCH 27.8 MCHC 32.7 RDW 15.2 H Plt Count 377 Sodium 142.9 Potassium 3.9 Chloride 114 H Carbon Dioxide 18 L Anion Gap 11 BUN 26 H Creatinine 2.22 H Est GFR ( Amer) 35 L Est GFR (Non-Af Amer) 29 L Glucose 82 Calcium 8.0 L 03/19/17 18:16 Leg - Left Side Abscess Gram Stain - Final 03/19/17 18:16 Leg - Left Side Abscess Wound Culture - Final Staphylococcus Aureus No Anaerobic Organisms Impressions: Chest X-Ray 03/16/17 19:41 IMPRESSION: Possible right upper lobe pneumonia. Assessment & Plan - Time Time Spent with patient: 15-24 minutes - Inpatient Certification Medical Necessity: Significant Comorbidiites Make Outpatient Treatment Too Risky , Need Close Monitoring Due to Risk of Patient Decompensation, Need for IV Antibiotics, Risk of Complication if Not Cared For in Hospital - Plan Summary Plan Summary: Apply wound Vac Continue antibiotic tx 48 - 72 hrs Consult discharge planning nurse for Rehab placement
[2017-03-23] MEDS: IPRATROPIUM/ALBUTEROL 0.5-2.5 MG/3 ML AMPUL NEB PRN (15:47)
--- NOTE | 2017-03-23 18:20 | PDOC PROGRESS REPORT ---
Subjective Progress Note for:: 03/23/17 Subjective:: Doing okay, no specific complaints. Pain well controlled. Planned for wound vac. Denies fevers, chills, CP, SOB. OK with SNF for PT/OT Reason For Visit: AFIB C RVR, ARF, VENOUS STASIS, LEFT LEG ABSCESS Physical Exam Vital Signs: Temp Pulse Resp BP Pulse Ox 98.9 F 94 16 121/71 94 03/23/17 12:58 03/23/17 15:47 03/23/17 15:47 03/23/17 12:58 03/23/17 15:47 Intake & Output 03/22/17 03/23/17 03/24/17 06:59 06:59 06:59 Intake Total 3750 5206 Output Total 775 2300 Balance 2975 2906 Weight 117.7 kg 117.9 kg General appearance: PRESENT: no acute distress, obese - Sitting up in bedside chair, other Mouth exam: PRESENT: moist Respiratory exam: PRESENT: unlabored Cardiovascular exam: PRESENT: RRR GI/Abdominal exam: PRESENT: normal bowel sounds. ABSENT: tenderness Extremities exam: PRESENT: +2 edema, other - Left lower extremity wrapped Neurological exam: PRESENT: alert, awake, CN II-XII grossly intact Psychiatric exam: PRESENT: appropriate affect Results Laboratory Results: 03/23/17 09:08 03/23/17 09:08 03/23/17 03/23/17 09:08 09:08 WBC 6.0 RBC 3.14 L Hgb 8.7 L Hct 26.7 L MCV 85 MCH 27.8 MCHC 32.7 RDW 15.2 H Plt Count 377 Sodium 142.9 Potassium 3.9 Chloride 114 H Carbon Dioxide 18 L Anion Gap 11 BUN 26 H Creatinine 2.22 H Est GFR ( Amer) 35 L Est GFR (Non-Af Amer) 29 L Glucose 82 Calcium 8.0 L 03/19/17 18:16 Leg - Left Side Abscess Gram Stain - Final 03/19/17 18:16 Leg - Left Side Abscess Wound Culture - Final Staphylococcus Aureus No Anaerobic Organisms Impressions: Chest X-Ray 03/16/17 19:41 IMPRESSION: Possible right upper lobe pneumonia. Assessment & Plan - Diagnosis (1) Cellulitis and abscess of lower extremity Is this a current diagnosis for this admission?: Yes Plan: Clinically improving - Dressing changed by Ortho, notes reviewed - Wound vac placed today - Continue IV Ceftriaxone, continue for 2-3 days. Can transition to PO at discharge. - Will need placement at , prefer placement at [place], discussed with social work (2) NICKI (acute kidney injury) Is this a current diagnosis for this admission?: Yes Plan: Chronic, Cr 2.2 on 03/23 (3) Atrial fibrillation with RVR Is this a current diagnosis for this admission?: Yes Plan: Currently rate controlled (4) Sepsis Qualifiers: Sepsis type: sepsis due to unspecified organism Qualified Code(s): A41.9 - Sepsis, unspecified organism Is this a current diagnosis for this admission?: Yes - Time Time Spent with patient: Less than 15 minutes Within: when bed available
[2017-03-23] MEDS: POLYETHYLENE GLYCOL 3350 POWDER 17 GM/1 PACKET PO SCH (19:04)
[2017-03-23] MEDS: DOCUSATE SODIUM 100 MG CAPSULE PO SCH (19:05)
[2017-03-23] MEDS: CEFTRIAXONE SODIUM 1,000 MG in DEXTROSE 5%-WATER 100 ML IV SCH (19:07)
[2017-03-24] MEDS: MORPHINE SULFATE 10 MG/ML INJ IV PRN (03:47)
[2017-03-24 05:41] LABS: HEMATOCRIT 25.6 % (37.9-51.0); HEMOGLOBIN 8.4 g/dL (13.5-17.0); MEAN CORPUSCULAR HEMOGLOBIN 27.8 pg (27.0-33.4); MEAN CORPUSCULAR HGB CONC 32.6 g/dL (32.0-36.0); MEAN CORPUSCULAR VOLUME 85 fl (80-97); PLATELET COUNT 363 10^3/uL (150-450); RED CELL DISTRIBUTION WIDTH 15.2 % (11.5-14.0)
[2017-03-24 06:03] LABS: ANION GAP 11 (5-19); BLOOD UREA NITROGEN 26 mg/dL (7-20); CARBON DIOXIDE 20 mmol/L (22-30); CHLORIDE 112 mmol/L (98-107); GLUCOSE 85 mg/dL (75-110); SODIUM 143.1 mmol/L (137-145)
[2017-03-24] MEDS: DILTIAZEM HCL 60 MG TABLET PO SCH ×2 (06:10→18:02)
[2017-03-24] MEDS: HEPARIN SOD (PORCINE) 5,000 UNIT/ML 1 ML SYRINGE SUBCUT SCH ×2 (06:12→18:04)
--- NOTE | 2017-03-24 08:49 | PDOC PROGRESS REPORT ---
Subjective Progress Note for:: 03/24/17 Subjective:: No complaints. Reason For Visit: AFIB C RVR, ARF, VENOUS STASIS, LEFT LEG ABSCESS Physical Exam Vital Signs: Temp Pulse Resp BP Pulse Ox 98.1 F 95 16 139/85 H 94 03/23/17 15:42 03/24/17 07:00 03/23/17 15:47 03/23/17 15:42 03/23/17 15:47 Intake & Output 03/23/17 03/24/17 03/25/17 06:59 06:59 06:59 Intake Total 5206 1516 Output Total 2300 1400 Balance 2906 116 Weight 117.9 kg 117.9 kg General appearance: PRESENT: no acute distress, cooperative Respiratory exam: PRESENT: clear to auscultation moustapha Cardiovascular exam: PRESENT: irregular rhythm Extremities exam: PRESENT: other - Left leg with wound VAC in place. No fluctuance. Surrounding erythema and diffuse edema. Results Laboratory Results: 03/24/17 04:40 03/24/17 04:40 03/23/17 03/23/17 03/24/17 09:08 09:08 04:40 WBC 6.0 6.0 RBC 3.14 L 3.00 L Hgb 8.7 L 8.4 L Hct 26.7 L 25.6 L MCV 85 85 MCH 27.8 27.8 MCHC 32.7 32.6 RDW 15.2 H 15.2 H Plt Count 377 363 Sodium 142.9 Potassium 3.9 Chloride 114 H Carbon Dioxide 18 L Anion Gap 11 BUN 26 H Creatinine 2.22 H Est GFR ( Amer) 35 L Est GFR (Non-Af Amer) 29 L Glucose 82 Calcium 8.0 L 03/24/17 04:40 WBC RBC Hgb Hct MCV MCH MCHC RDW Plt Count Sodium 143.1 Potassium 4.0 Chloride 112 H Carbon Dioxide 20 L Anion Gap 11 BUN 26 H Creatinine 2.19 H Est GFR ( Amer) 36 L Est GFR (Non-Af Amer) 29 L Glucose 85 Calcium 8.0 L 03/19/17 18:16 Leg - Left Side Abscess Gram Stain - Final 03/19/17 18:16 Leg - Left Side Abscess Wound Culture - Final Staphylococcus Aureus No Anaerobic Organisms Impressions: Chest X-Ray 03/16/17 19:41 IMPRESSION: Possible right upper lobe pneumonia. Assessment & Plan - Diagnosis (1) Cellulitis and abscess of lower extremity Is this a current diagnosis for this admission?: Yes Plan: Status post further debridement. Currently on wound VAC. Still has erythema. Continue IV antibiotics. Pending placement. In the meantime get physical therapy to ambulate patient.
[2017-03-24] MEDS: CEFTRIAXONE SODIUM 1,000 MG in DEXTROSE 5%-WATER 100 ML IV SCH (10:08)
[2017-03-24] MEDS: DOCUSATE SODIUM 100 MG CAPSULE PO SCH ×2 (10:08→18:04)
[2017-03-24] MEDS: POLYETHYLENE GLYCOL 3350 POWDER 17 GM/1 PACKET PO SCH (10:09)
[2017-03-24] MEDS ORDERED: MORPHINE SULFATE 10 MG/ML INJ IV PRN (10:32)
[2017-03-24] MEDS ORDERED: ACETAMINOPHEN 325 MG TABLET PO PRN (14:30)
--- NOTE | 2017-03-24 15:58 | PDOC TRANSFER SUMMARY ---
General - Admit/Disc Date/PCP Admission Date/Primary Care Provider: 03/17/17 08:16 YINKA ACE MD Discharge Date: 03/24/17 - Discharge Diagnosis (1) Cellulitis and abscess of lower extremity Is this a current diagnosis for this admission?: Yes Summary: Several deep abscesses to the left lower extremity requiring surgical intervention and debridement. Started on IV Ceftriaxone. Evaluated by general surgery s/p I&D of left leg abscesses on 03/17/17. tolerated procedure well. Initially had daily dressing changes, however wound vac was placed on 03/23/17. - Continue IV Ceftriaxone 1g daily for 5 additional days - Consult Wound care at SNF - Follow up with general surgery for wound vac removal (2) NICKI (acute kidney injury) Is this a current diagnosis for this admission?: Yes Summary: Noted to be elevated at admission, Cr 3.74. Improvement over hospital course, back to baseline. (3) Atrial fibrillation with RVR Is this a current diagnosis for this admission?: Yes Summary: Rate controlled on Diltiazem - Resumed home Dilt - Changed Apixaban from 5mg BID to 2.5mg BID due to GFR~30 (4) CKD (chronic kidney disease) stage 4, GFR 15-29 ml/min Is this a current diagnosis for this admission?: Yes Summary: Chronic CKD, Cr 2.19 on day of discharge - Additional Information Resuscitation Status: Full Code Discharge Diet: Other (Comments) - low sodium due to history of HTN. Recommend moderate protein intake to aid in wound healing. Once wound has healed recommend changing diet to prerenal diet. Discharge Activity: Activity As Tolerated, Slowly Increase Activity, Supervised Activity Prescriptions: Apixaban [Eliquis 2.5 mg Tablet] 2.5 mg PO BID 1 Days #60 tablet Docusate Sodium [Colace 100 mg Capsule] 100 mg PO BID #30 capsule Furosemide [Lasix 20 mg Tablet] 20 mg PO QAM PRN #30 tablet PRN Reason: Volume overload Oxycodone HCl/Acetaminophen [Percocet 5-325 mg Tablet] 1 tab PO Q4HP PRN 14 Days #30 tablet PRN Reason: Home Medications: Diltiazem HCl [Diltiazem ER] 180 mg PO DAILY 03/16/17 Apixaban [Eliquis 2.5 mg Tablet] 2.5 mg PO BID 1 Days #60 tablet 03/24/17 Docusate Sodium [Colace 100 mg Capsule] 100 mg PO BID #30 capsule 03/24/17 Furosemide [Lasix 20 mg Tablet] 20 mg PO QAM PRN #30 tablet 03/24/17 Oxycodone HCl/Acetaminophen [Percocet 5-325 mg Tablet] 1 tab PO Q4HP PRN 14 Days #30 tablet 03/24/17 History of Present Illness Admission Date/PCP: 03/17/17 08:16 YINKA ACE MD History of Present Illness: LALA JOE is a 76 year old male with a history of lymphedema, prostate cancer status post radiation treatment in remission, atrial fibrillation on Eliquis, generalized debility and stage III chronic kidney disease. Patient presents with 2 weeks of left lower leg erythema and swelling prompting use of topical antibiotic. Over the last 24 hours it is rapidly increased with swelling and erythema prompting evaluation emergency room where he was found to have uncontrolled A. fib, hypotension and a large quantity of pus and blood from the lesion. Patient denies recent antibiotic, trauma or previous episode. He started on empiric antibiotics and referred to the hospitalist for admission. Hospital Course Hospital Course: per above Physical Exam Vital Signs: Temp Pulse Resp BP Pulse Ox 98.1 F 95 16 139/85 H 94 03/23/17 15:42 03/24/17 07:00 03/23/17 15:47 03/23/17 15:42 03/23/17 15:47 Intake & Output 03/23/17 03/24/17 03/25/17 06:59 06:59 06:59 Intake Total 5206 1516 Output Total 2300 1400 Balance 2906 116 Weight 117.9 kg 117.9 kg General appearance: PRESENT: no acute distress, obese, other - sitting up in bed Mouth exam: PRESENT: moist Respiratory exam: PRESENT: clear to auscultation moustapha, unlabored Cardiovascular exam: PRESENT: irregular rhythm. ABSENT: tachycardia GI/Abdominal exam: PRESENT: soft. ABSENT: tenderness Extremities exam: PRESENT: +2 edema, other - Chronic venous changes; wound vac on LLE + Neurological exam: PRESENT: alert, awake, CN II-XII grossly intact Psychiatric exam: PRESENT: appropriate affect Results Laboratory Results: 03/24/17 04:40 03/24/17 04:40 03/24/17 03/24/17 04:40 04:40 WBC 6.0 RBC 3.00 L Hgb 8.4 L Hct 25.6 L MCV 85 MCH 27.8 MCHC 32.6 RDW 15.2 H Plt Count 363 Sodium 143.1 Potassium 4.0 Chloride 112 H Carbon Dioxide 20 L Anion Gap 11 BUN 26 H Creatinine 2.19 H Est GFR ( Amer) 36 L Est GFR (Non-Af Amer) 29 L Glucose 85 Calcium 8.0 L Impressions: Chest X-Ray 03/16/17 19:41 IMPRESSION: Possible right upper lobe pneumonia. Transfer Plan - Time Spent with Patient Time spent with patient: Less than 30 Minutes
[2017-03-24 16:04] VITALS: BP 126/60
== END 2017-03-24 21:00 | DRG 580 ==
LOC: ER 18:03 → UNDOADMIN 21:23 → EH 21:23 → ICU 03-17 11:39 → 5 03-18 13:20
PROVIDERS: ADMIT Internal Medicine; ATTEND Internal Medicine
PROC: 0J9P0ZZ Drainage of Left Lower Leg Subcutaneous Tissue and Fascia, Open Approach (ICD-10-PCS; 2017-03-17)
PROC: 0J9P0ZZ Drainage of Left Lower Leg Subcutaneous Tissue and Fascia, Open Approach (ICD-10-PCS; 2017-03-18)
PROC: 0JDP0ZZ Extraction of Left Lower Leg Subcutaneous Tissue and Fascia, Open Approach (ICD-10-PCS; 2017-03-19)
PROC: 0J9P0ZZ Drainage of Left Lower Leg Subcutaneous Tissue and Fascia, Open Approach (ICD-10-PCS; principal; 2017-03-19 18:00)
DX: L02.416 Cutaneous abscess of left lower limb (principal); N17.9 Acute kidney failure, unspecified; N18.4 Chronic kidney disease, stage 4 (severe); L03.116 Cellulitis of left lower limb; I48.91 Unspecified atrial fibrillation; I12.9 Hypertensive chronic kidney disease with stage 1 through stage 4 chronic kidney disease, or unspecified chronic kidney disease; I95.9 Hypotension, unspecified; Z79.02 Long term (current) use of antithrombotics/antiplatelets; Z79.899 Other long term (current) drug therapy; Z85.46 Personal history of malignant neoplasm of prostate; Z91.041 Radiographic dye allergy status; Z96.641 Presence of right artificial hip joint
CPT/HCPCS: 00400; 36415; 71045; 80048; 80053; 80202; 81001; 82550; 82565; 82962; 83605; 85025; 85027; 85610; 85730; 87040; 87070; 87075; 87077; 87186; 87205; 90686; 93005; 93010; 94640; 96365; 96367; 96375; 99291; G8978-GP; G8979-GP; G8987-GO; G8988-GO; J0456; J0696; J1170; J1644; J2250; J2270; J2405; J2704; J3010; J3370; J3490; J7030; J7060; J7620

== ENCOUNTER → 2018-03-09 | Outpatient (CLI) | payer MEDICARE ==
--- NOTE | 2018-03-09 15:14 | RADIOLOGY REPORT (SQ) ---
EXAM DESCRIPTION: TIBIA FIBULA LEFT COMPLETED DATE/TIME: 03/09/2018 2:35 pm REASON FOR STUDY: L97.222 NON-PRESSURE CHRONIC ULCER OF LEFT CALF WITH FAT LAYER EXPOSED L97.222 NO N-PRESSURE CHRONIC ULCER OF LEFT CALF W FAT LAYER COMPARISON: None. NUMBER OF VIEWS: Two views. TECHNIQUE: Two radiographic images acquired of the left tibia and fibula to include the knee and ank le in at least one projection. LIMITATIONS: None. FINDINGS: MINERALIZATION: Osteopenia. BONES: Healed fractures tibia and fibular diaphysis status post melanie and screw fixation of the tibia. No acute fracture or dislocation. No worrisome bone lesions. SOFT TISSUES: No foreign body. OTHER: No other significant finding. IMPRESSION: No evidence of osteomyelitis. TECHNICAL DOCUMENTATION: JOB ID: [id number]- All Rights Reserved Reading location - IP/workstation name: [email or web address]
[2018-03-09 16:27] LABS: ABSOLUTE BASOPHILS # (AUTO) 0.1 10^3/uL (0.0-0.2); ABSOLUTE EOSINOPHILS # (AUTO) 0.1 10^3/uL (0.0-0.6); ABSOLUTE LYMPHOCYTES (AUTO) 1.1 10^3/uL (0.5-4.7); ABSOLUTE MONOCYTES (AUTO) 0.8 10^3/uL (0.1-1.4); ABSOLUTE NEUT (AUTO) 6.4 10^3/uL (1.7-8.2); BASOPHILS % (AUTO) 1.1 % (0-2); EOSINOPHILS % (AUTO) 0.9 % (0-6); HEMATOCRIT 32.6 % (37.9-51.0); HEMOGLOBIN 10.7 g/dL (13.5-17.0); LYMPHOCYTES % (AUTO) 12.8 % (13-45); MEAN CORPUSCULAR HEMOGLOBIN 26.3 pg (27.0-33.4); MEAN CORPUSCULAR HGB CONC 32.7 g/dL (32.0-36.0); MEAN CORPUSCULAR VOLUME 80 fl (80-97); MONOCYTES % (AUTO) 9.4 % (3-13); PLATELET COUNT 406 10^3/uL (150-450); RED BLOOD COUNT 4.06 10^6/uL (4.35-5.55); RED CELL DISTRIBUTION WIDTH 16.9 % (11.5-14.0); SEGMENTED NEUTROPHILS % (AUTO) 75.8 % (42-78); TOTAL CELLS COUNTED % (AUTO) 100 %; WHITE BLOOD COUNT 8.5 10^3/uL (4.0-10.5)
[2018-03-09 16:55] LABS: ALANINE AMINOTRANSFERASE 10 U/L (21-72); ALBUMIN 3.6 g/dL (3.5-5.0); ALKALINE PHOSPHATASE 177 U/L (38-126); ANION GAP 10 (5-19); ASPARTATE AMINO TRANSFERASE 19 U/L (17-59); BILIRUBIN,DIRECT 0.4 mg/dL (0.0-0.4); BILIRUBIN,TOTAL 0.5 mg/dL (0.2-1.3); BLOOD UREA NITROGEN 37 mg/dL (7-20); CALCIUM 8.7 mg/dL (8.4-10.2); CARBON DIOXIDE 27 mmol/L (22-30); CHLORIDE 102 mmol/L (98-107); GLUCOSE 109 mg/dL (75-110); POTASSIUM 4.4 mmol/L (3.6-5.0); SODIUM 138.7 mmol/L (137-145)
[2018-03-09 17:04] LABS: ERYTHROCYTE SEDIMENTATION RATE 110 mm/hr (0-20)
--- NOTE | 2018-03-10 08:07 | XCELERA REPORT ---
[address] [address] Lower Extremity Venous Evaluation Procedure: A bilateral duplex scan of the lower extremity veins was performed. The evaluation included responses to compression and other maneuvers with patient in the supine and standing positions to assess venous insufficiency. Right Sided Venous Evaluation Difficult exam due to body habitus. Deep venous system evaluatiion shows patent veins with no obstruction or significant reflux identified. Sapheno Femoral junction: no reflux. Femoral vein reflux: no reflux. Greater Saphenous vein, Proximal thigh: reflux: no reflux. Greater Saphenous vein, Distal thigh: reflux: no reflux. Greater Saphenous vein, Proximal below knee: reflux: no reflux. No significant Perforators identified. Left Sided Venous Evaluation Difficult exam due to body habitus. Deep venous system evaluatiion shows patent veins with no obstruction or significant reflux identified. Sapheno Femoral junction: no reflux. Femoral vein reflux: no reflux. Greater Saphenous vein, Proximal thigh: reflux: no reflux. Greater Saphenous vein, Distal thigh: reflux: no reflux. Greater Saphenous vein, Proximal below knee: reflux: no reflux. No significant Perforators identified. Interpretation Summary No duplex evidence of DVT or obstruction in the bilateral lower extremities. No significant reflux, deep or superficial noted. Name: LALA JOE Age: 77 yrs Gender: Male : 1940 Patient Status: Outpatient Patient Location: Study Date: 03/09/2018 03:18 PM Reason For Study: ULCER Ordering Physician: DANIEL GRAY Performed By: Marty Howell : DANIEL GRAY > Silvestre Rider
--- NOTE | 2018-03-12 12:21 | XCELERA REPORT ---
[address] [address] Lower Extremity Arterial Evaluation Name: LALA JOE Age: 77 yrs Gender: Male : 1940 Patient Status: Outpatient Patient Location: Study Date: 03/09/2018 02:44 PM Procedure: A color flow and duplex scan of the lower extremity arteries was performed bilaterally with velocity and waveform anaylsis. Reason For Study: ULCER Ordering Physician: DANIEL GRAY Performed By: Marty Howell Measurements and Calculations Right Left BOWL TURNER PSV 99.3 84.9 cm/sec Prox PFA PSV -89.3 -80.0 cm/sec Prox SFA PSV 141.4 144.6 cm/sec Mid SFA PSV -97.8 -121.8cm/sec Dist SFA PSV -69.7 -108.1cm/sec Prox Pop A PSV 75.6 134.4 cm/sec Mid CANDIDA PSV 118.2 cm/sec Mid DIGITAL MEDIA BUYER PSV 115.0 cm/sec Dist DIGITAL MEDIA BUYER PSV 80.5 108.0 cm/sec Javan Pedis PSV 42.8 -212.1cm/sec Right Side Arterial Evaluation Normal velocity and triphasic waveforms noted from the Common Femoral artery to the infrageniculate vessels . Marled edema noted in the leg. Ankle Brachial index not obtained due to edema. Left Side Arterial Evaluation Normal velocity and triphasic waveforms noted from the Common Femoral artery to the infrageniculate vessels . Triphasic with twice adjacent velocity in the Dorsalis Pedis artery. Ankle Brachial index not obtained. Interpretation Summary No hemodynamically significant lesions in the right lower extremity only, on duplex imaging, at rest. Mild hemodynamically significant lesions in the left lower extremity only, on duplex imaging, at rest. Left lower extremity show possible stenosis in the Dorsalis Pedis only. : DANIEL GRAY > Silvestre Rider
== END ==
LOC: SP 14:08
PROVIDERS: ATTEND Nurse Practitioner
DX: L97.222 Non-pressure chronic ulcer of left calf with fat layer exposed (principal)
CPT/HCPCS: 36415; 80053; 85025; 85652; 86140; 93925; 93970

== ENCOUNTER 2018-12-27 14:07 | Inpatient (IN) | payer MEDICARE ==
[2018-12-27] MEDS ORDERED: RINGERS LACTATED IV ONE (14:40)
[2018-12-27] MEDS ORDERED: CEFEPIME INJ 1 GM VIAL IM ONE (14:40)
[2018-12-27] MEDS ORDERED: VANCOMYCIN HCL INJ 1000 MG VIAL IV ONE (14:40)
[2018-12-27 15:02] LABS: ABSOLUTE BASOPHILS # (AUTO) 0.1 10^3/uL (0.0-0.2); ABSOLUTE EOSINOPHILS # (AUTO) 0.1 10^3/uL (0.0-0.6); ABSOLUTE LYMPHOCYTES (AUTO) 0.5 10^3/uL (0.5-4.7); ABSOLUTE MONOCYTES (AUTO) 0.6 10^3/uL (0.1-1.4); ABSOLUTE NEUT (AUTO) 6.7 10^3/uL (1.7-8.2); EOSINOPHILS % (AUTO) 0.6 % (0-6); HEMATOCRIT 26.2 % (37.9-51.0); HEMOGLOBIN 8.6 g/dL (13.5-17.0); LYMPHOCYTES % (AUTO) 6.8 % (13-45); MEAN CORPUSCULAR HEMOGLOBIN 26.9 pg (27.0-33.4); MEAN CORPUSCULAR HGB CONC 32.8 g/dL (32.0-36.0); MEAN CORPUSCULAR VOLUME 82 fl (80-97); MONOCYTES % (AUTO) 7.4 % (3-13); PLATELET COUNT 362 10^3/uL (150-450); RED CELL DISTRIBUTION WIDTH 20.4 % (11.5-14.0); SEGMENTED NEUTROPHILS % (AUTO) 84.2 % (42-78); TOTAL CELLS COUNTED % (AUTO) 100 %; WHITE BLOOD COUNT 7.9 10^3/uL (4.0-10.5)
[2018-12-27 15:13] LABS: VENOUS BLOOD BASE EXCESS -12.3 mmol/L; VENOUS BLOOD PCO2 34.3 mmHg (35-63); VENOUS BLOOD PH 7.23 (7.30-7.42)
[2018-12-27] MEDS ORDERED: CEFEPIME 2 GM/D5W RTU 2 GM/50 ML RTUPB IV ONE (15:13)
[2018-12-27 15:20] LABS: INTERNATIONAL RATION (INR) 2.43; PROTHROMBIN TIME 26.9 SEC (11.4-15.4)
[2018-12-27 15:24] LABS: ALBUMIN 3.1 g/dL (3.5-5.0); ALKALINE PHOSPHATASE 149 U/L (38-126); ANION GAP 18 (5-19); ASPARTATE AMINO TRANSFERASE 19 U/L (17-59); BILIRUBIN,DIRECT 0.4 mg/dL (0.0-0.4); BILIRUBIN,TOTAL 0.4 mg/dL (0.2-1.3); BLOOD UREA NITROGEN 91 mg/dL (7-20); CALCIUM 7.2 mg/dL (8.4-10.2); CARBON DIOXIDE 14 mmol/L (22-30); CHLORIDE 105 mmol/L (98-107); GLUCOSE 103 mg/dL (75-110); POTASSIUM 4.8 mmol/L (3.6-5.0); TOTAL PROTEIN 7.4 g/dL (6.3-8.2)
[2018-12-27 15:39] LABS: APPEARANCE,URINE TURBID; BILIRUBIN,URINE NEGATIVE (NEGATIVE); COLOR,URINE LIGHT YELLOW; GLUCOSE, URINE NEGATIVE (NEGATIVE); KETONES,URINE NEGATIVE (NEGATIVE); PROTEIN,URINE 100 mg/dL (NEGATIVE); URINE SPECIFIC GRAVITY 1.008; UROBILINOGEN,URINE NEGATIVE mg/dL (<2.0)
--- NOTE | 2018-12-27 15:52 | RADIOLOGY REPORT (SQ) ---
EXAM DESCRIPTION: TIBIA FIBULA LEFT COMPLETED DATE/TIME: 12/27/2018 3:43 pm REASON FOR STUDY: wound/pain/rule out osteo COMPARISON: 03/09/2018. NUMBER OF VIEWS: Two views. TECHNIQUE: Two radiographic images acquired of the left tibia and fibula to include the knee and ank le in at least one projection. LIMITATIONS: None. FINDINGS: MINERALIZATION: Normal. BONES: Old fractures of the tibia and fibula. No acute fracture or dislocation. No worrisome bone le sions. Stable nichelle in the tibia. SOFT TISSUES: Large soft tissue defect in the distal lower leg. No gas or radiopaque foreign object in the soft tissues. OTHER: No other significant finding. IMPRESSION: 1. LARGE SOFT TISSUE DEFECT IN THE DISTAL LOWER LEG. NO GAS OR RADIOPAQUE FOREIGN OBJECT. NO RADIOG RAPHIC EVIDENCE OF OSTEOMYELITIS. 2. OLD FRACTURES OF THE TIBIA AND FIBULA. STABLE NICHELLE IN THE TIBIA. NO ACUTE FINDINGS. TECHNICAL DOCUMENTATION: JOB ID: [id number] [employer]- All Rights Reserved Reading location - IP/workstation name: [email or web address]
--- NOTE | 2018-12-27 17:22 | ER Document Report ---
ED Wound - General Chief Complaint: Wound Infection Stated Complaint: LEFT LEG WOUND Time Seen by Provider: 12/27/18 14:29 Primary Care Provider: YINKA ACE MD [Primary Care Provider] - Follow up as needed Mode of Arrival: Medic Information source: Patient TRAVEL OUTSIDE OF THE [place] IN LAST 30 DAYS: No - HPI Notes: Patient was transferred from wound care secondary to a large open wound on the left lower extremity. Patient states this is been there for "a long time". He states he has been going to wound care for it and it was getting better so he had discontinued wound care. He states he went back today because he noticed that he was having discharge and smelling foul. When he was seen at wound care they were concerned and had patient transferred to the emergency department. He denies any fever sweats or chills. He does have pain of the left lower extremity. It is constant. It radiates up the left leg. Is worse with movement and better with rest. It is moderate. No significant cough. He denies any other wounds. - Related Data Allergies/Adverse Reactions: Iodinated Contrast Media [Iodinated Contrast- Oral and IV Dye] Allergy (Unknown, Verified 12/21/16 13:18) Past Medical History - General Information source: Patient - Social History Smoking Status: Former Smoker Frequency of alcohol use: None Drug Abuse: None Family History: Hypertension Patient has suicidal ideation: No Patient has homicidal ideation: No - Past Medical History Cardiac Medical History: Reports: Hx Atrial Fibrillation, Hx Hypertension Renal/ Medical History: Denies: Hx Peritoneal Dialysis Past Surgical History: Reports: Hx Orthopedic Surgery - R hip Review of Systems - Review of Systems Constitutional: Malaise, Weakness. denies: Chills, Fever Cardiovascular: denies: Chest pain, Palpitations Respiratory: denies: Cough, Short of breath Gastrointestinal: denies: Diarrhea, Vomiting -: Yes All other systems reviewed and negative Physical Exam - Vital signs Vitals: Resp Pulse Ox 19 96 12/27/18 14:21 12/27/18 14:21 Interpretation: Normal - General General appearance: Appears well, Alert - HEENT Head: Normocephalic, Atraumatic Eyes: Normal Pupils: PERRL - Respiratory Respiratory status: No respiratory distress Chest status: Nontender Breath sounds: Normal Chest palpation: Normal - Cardiovascular Rhythm: Tachycardia Heart sounds: Normal auscultation Murmur: No - Abdominal Inspection: Normal Distension: No distension Bowel sounds: Normal Tenderness: Nontender Organomegaly: No organomegaly - Back Back: Normal, Nontender - Extremities General upper extremity: Normal inspection, Nontender, Normal color, Normal ROM, Normal temperature General lower extremity: Other - Right lower extremity has changes consistent with lymphedema. Left lower extremity has a large stage IV decubitus ulcer on the lateral distal aspect. It has foul-smelling discharge coming from it consistent with an infected venous stasis ulcer. - Neurological Neuro grossly intact: Yes Cognition: Normal Orientation: AAOx4 [place] Coma Scale Eye Opening: Spontaneous Vanda Coma Scale Verbal: Oriented [place] Coma Scale Motor: Obeys Commands Vanda Coma Scale Total: 15 Speech: Normal - Psychological Associated symptoms: Normal affect, Normal mood - Skin Skin Temperature: Warm Skin Moisture: Dry Course - Re-evaluation Re-evalutation: 12/27/18 17:20 Patient presents with a large stage IV decubitus ulcer. Patient also was appreciated to have an initial blood pressure of 93 systolic. After sepsis fluids were initiated blood pressure is now 125. Patient appears nontoxic at this time is watching TV. The stage IV ulcer was x-rayed. There is no evidence of gas in the tissues. Patient has been given antibiotics. His lactate is normal. His pH is slightly decreased at 7.2. This is most likely due to the new onset renal failure. I have discussed the case with the search consultant who will accept the patient. He will be rehydrated obviously and antibiotics will be continued. Patient's potassium at this time is unremarkable. Patient also has a urinary tract infection was to be covered by the antibiotics that were administered. - Vital Signs Vital signs: Temp Pulse Resp BP Pulse Ox 98.0 F 92 19 100/59 L 97 12/27/18 14:26 12/27/18 14:26 12/27/18 15:01 12/27/18 15:01 12/27/18 15:01 - Laboratory Result Diagrams: 12/27/18 14:45 12/27/18 14:45 Laboratory results interpreted by me: 12/27/18 12/27/18 12/27/18 14:45 14:45 14:45 RBC 3.20 L Hgb 8.6 L Hct 26.2 L MCH 26.9 L RDW 20.4 H Lymph % (Auto) 6.8 L Seg Neutrophils % 84.2 H PT 26.9 H VBG pH VBG pCO2 VBG HCO3 Sodium 136.7 L Carbon Dioxide 14 L BUN 91 H Creatinine 7.56 H Est GFR ( Amer) 8 L Est GFR (MDRD) Non-Af 7 L Calcium 7.2 L Alkaline Phosphatase 149 H Albumin 3.1 L Urine Protein Urine Blood Urine Nitrite (Reflex) Leukocyte Esterase Rfl 12/27/18 12/27/18 14:45 15:05 RBC Hgb Hct MCH RDW Lymph % (Auto) Seg Neutrophils % PT VBG pH 7.23 L VBG pCO2 34.3 L VBG HCO3 14.0 L Sodium Carbon Dioxide BUN Creatinine Est GFR ( Amer) Est GFR (MDRD) Non-Af Calcium Alkaline Phosphatase Albumin Urine Protein 100 H Urine Blood MODERATE H Urine Nitrite (Reflex) POSITIVE H Leukocyte Esterase Rfl LARGE H - Diagnostic Test Radiology reviewed: Image reviewed, Reports reviewed Critical Care Note - Critical Care Note Total time excluding time spent on procedures (mins): 55 Comments: 55 minutes of critical care time were spent on this patient. This included shelly yañez reassessments. It included discussions with consultants. And included reviewing imaging and laboratories. It included discussions with the patient. Discharge - Discharge Clinical Impression: Infected decubitus ulcer Qualifiers: Pressure injury stage: stage 4 Qualified Code(s): L89.94 - Pressure ulcer of unspecified site, stage 4; L08.9 - Local infection of the skin and subcutaneous tissue, unspecified UTI (urinary tract infection) Qualifiers: Urinary tract infection type: acute cystitis Hematuria presence: without hematuria Qualified Code(s): N30.00 - Acute cystitis without hematuria Acute renal failure Qualifiers: Acute renal failure type: unspecified Qualified Code(s): N17.9 - Acute kidney failure, unspecified Sepsis Qualifiers: Sepsis type: sepsis due to unspecified organism Sepsis acute organ dysfunction status: with acute organ dysfunction Severe sepsis acute organ dysfunction type: acute renal failure Acute renal failure type: unspecified Severe sepsis shock status: without septic shock Qualified Code(s): A41.9 - Sepsis, unspecified organism; R65.20 - Severe sepsis without septic shock; N17.9 - Acute kidney failure, unspecified Condition: Critical Disposition: ADMITTED INPATIENT Admitting Provider: [facility] Unit Admitted: ICU Referrals: YINKA ACE MD [Primary Care Provider] - Follow up as needed
[2018-12-27] MEDS ORDERED: ACETAMINOPHEN 325 MG TABLET PO PRN (17:29)
--- NOTE | 2018-12-27 18:23 | CRITICAL CARE ADMISSION REPORT ---
HPI Date:: 12/27/18 Time:: 17:00 Reason for ICU Reason:: ARF, acidosis HPI: This patient is a 78 yo man with a terminal clerk non-healing ulcer of his L lower leg. He was transfered today from wound care for [facility] and found to be in renal failure with acidosis but not hyperkalemia. He is not septic as he has no fever or WBC. RR more than 20 can be explained by acidosis and tachycardia by dehydration. He admits to not eating or drinking well recetly. He took himself off lasix. He is in need if rehydration with bicarb and I hope his labs will look better withn 24 hours and he can go to the floor. He will need a culture and surgical evaluation of his wound History obtained from:: Patient - Diagnosis/Plan (1) Acute renal failure Qualifiers: Acute renal failure type: unspecified Qualified Code(s): N17.9 - Acute kidney failure, unspecified Is this a current diagnosis for this admission?: Yes Plan: Needs IVF in the form of bicarbinate tonight. Recheck BMP tommorow and we hope to have an improvement in CR and acidosis. (2) Infected decubitus ulcer Qualifiers: Pressure injury stage: stage 4 Qualified Code(s): L89.94 - Pressure ulcer of unspecified site, stage 4; L08.9 - Local infection of the skin and subcutaneous tissue, unspecified Is this a current diagnosis for this admission?: Yes Plan: The wound will need a culture as it smells infected like anaerobes or pseudomo lauren. Continue cefepime. Will need surgical input. (3) Acidosis, metabolic Is this a current diagnosis for this admission?: Yes Plan: Secondary to renal failure. Treat with bicarb drip overnight. Past Medical History Cardiac Medical History: Reports: Atrial Fibrillation, Hypertension Past Surgical History Past Surgical History: Reports: Orthopedic Surgery - R hip, Other - L leg Wound care Social/Family History - Social History Smoking Status: Former Smoker Frequency of Alcohol Use: Rare Hx Recreational Drug Use: No Drugs: None Hx Prescription Drug Abuse: No - Medication/Allergies Home Medications: Apixaban [Eliquis 5 mg Tablet] 5 mg PO BID 12/27/18 Dextroamphetamine/Amphetamine [Dextroamp-Amphetamin 20 mg Tab] 20 mg PO BID 12/27/18 Diltiazem HCl [Diltiazem 24Hr ER] 180 mg PO DAILY 12/27/18 Melatonin [Melatonin 5 mg Tablet] 5 mg PO QHS 12/27/18 Oxycodone HCl/Acetaminophen [Oxycodon-Acetaminophen 2.5-325] 1 tab PO Q12HP PRN 12/27/18 Potassium Chloride [Klor-Con 10 Meq Capsule ER] 10 meq PO DAILY 12/27/18 Allergies/Adverse Reactions: Iodinated Contrast Media [Iodinated Contrast- Oral and IV Dye] Allergy (Unknown, Verified 12/21/16 13:18) Review of Systems All systems: reviewed and no additional remarkable complaints except as stated Constitutional: PRESENT: as per HPI Eyes: ABSENT: visual disturbances Ears: ABSENT: hearing changes Cardiovascular: ABSENT: chest pain, dyspnea on exertion, edema, orthropnea, palpitations Genitourinary: PRESENT: difficulty urinating Musculoskeletal: ABSENT: joint swelling Integumentary: PRESENT: lesions, wounds - Large oval shped ulcer on lateral L leg about 10cm in diameter Physical Exam Vital Signs: Temp Pulse Resp BP Pulse Ox 98.0 F 92 22 H 125/84 98 12/27/18 14:26 12/27/18 14:26 12/27/18 17:01 12/27/18 17:01 12/27/18 17:01 Intake & Output 12/26/18 12/27/18 12/28/18 06:59 06:59 06:59 Intake Total 50 Balance 50 Weight 107.3 kg Weight/Height Weight 107.3 kg Height 5 ft 11 in General appearance: PRESENT: no acute distress Head exam: PRESENT: atraumatic Eye exam: PRESENT: EOMI, PERRLA Ear exam: PRESENT: normal external ear exam Mouth exam: PRESENT: dry mucosa Neck exam: PRESENT: full ROM. ABSENT: carotid bruit, JVD, lymphadenopathy, thyromegaly Respiratory exam: PRESENT: clear to auscultation moustapha, unlabored Cardiovascular exam: PRESENT: tachycardia Vascular exam: PRESENT: normal capillary refill GI/Abdominal exam: PRESENT: soft Rectal exam: PRESENT: deferred Extremities exam: PRESENT: pedal edema, +2 edema, other - Bilateral lymphedema. Large 10cm Stage 4 leg ulcer on L later aspect. Black eschar and smells infected Neurological exam: PRESENT: alert, oriented to person, oriented to place, oriented to time, oriented to situation Skin exam: PRESENT: erythema, warm Laboratory/Radiographs Laboratory Results: 12/27/18 14:45 12/27/18 14:45 12/27/18 12/27/18 12/27/18 14:45 14:45 14:45 WBC 7.9 RBC 3.20 L Hgb 8.6 L Hct 26.2 L MCV 82 MCH 26.9 L MCHC 32.8 RDW 20.4 H Plt Count 362 Seg Neutrophils % 84.2 H VBG pH VBG pCO2 VBG HCO3 VBG Base Excess Sodium 136.7 L Potassium 4.8 Chloride 105 Carbon Dioxide 14 L Anion Gap 18 BUN 91 H Creatinine 7.56 H Est GFR ( Amer) 8 L Glucose 103 Lactic Acid 1.0 Calcium 7.2 L Total Bilirubin 0.4 AST 19 Alkaline Phosphatase 149 H Total Protein 7.4 Albumin 3.1 L Urine Color Urine Appearance Urine pH Ur Specific [place] Urine Protein Urine Glucose (UA) Urine Ketones Urine Blood Urine RBC (Auto) 12/27/18 12/27/18 14:45 15:05 WBC RBC Hgb Hct MCV MCH MCHC RDW Plt Count Seg Neutrophils % VBG pH 7.23 L VBG pCO2 34.3 L VBG HCO3 14.0 L VBG Base Excess -12.3 Sodium Potassium Chloride Carbon Dioxide Anion Gap BUN Creatinine Est GFR ( Amer) Glucose Lactic Acid Calcium Total Bilirubin AST Alkaline Phosphatase Total Protein Albumin Urine Color LIGHT YELLOW Urine Appearance TURBID Urine pH 6.0 Ur Specific [place] 1.008 Urine Protein 100 H Urine Glucose (UA) NEGATIVE Urine Ketones NEGATIVE Urine Blood MODERATE H Urine RBC (Auto) 27 Impressions: Tibia/Fibula X-Ray 12/27/18 14:42 IMPRESSION: 1. LARGE SOFT TISSUE DEFECT IN THE DISTAL LOWER LEG. NO GAS OR RADIOPAQUE FOREIGN OBJECT. NO RADIOGRAPHIC EVIDENCE OF OSTEOMYELITIS. 2. OLD FRACTURES OF THE TIBIA AND FIBULA. STABLE NICHELLE IN THE TIBIA. NO ACUTE FINDINGS. Critical Time Critical Time (minutes): 40 -: The care of a critically ill patient is dynamic. This note represents a static moment in the admission process. orders and treatments may be given simulataneously and urgentl, and time is not business center representative of the treatment process. This patient requires Critical Care secondary to life threating organ or limb dysfunction. Without the need for Critical Care services, the patient is at risk for increasid mortality and morbidity.
[2018-12-27] MEDS: DEXTROSE 5%-WATER 1000 ML 1,000 ML with SODIUM BICARBONATE 100 MEQ IV PRN ×2 (20:00)
[2018-12-27] MEDS ORDERED: ACETAMINOPHEN PO PRN (20:38)
[2018-12-27] MEDS ORDERED: OXYCODONE HCL PO PRN (20:38)
[2018-12-27] MEDS ORDERED: [UNRECOGNIZED DRUG - OTHER] PO PRN (20:38)
[2018-12-27] MEDS ORDERED: (PENDING PHARMACY ID) (Diltiazem Hcl [Diltiazem 24hr Er] 180 MG) PO SCH (20:45)
[2018-12-27] MEDS: DILTIAZEM HCL 180 MG CAPSULE.CR PO SCH (21:44)
[2018-12-27] MEDS: APIXABAN 5 MG TABLET PO SCH (21:44)
[2018-12-27] MEDS ORDERED: MELATONIN 5 MG TABLET PO SCH (22:00)
[2018-12-27] MEDS ORDERED: HEPARIN SOD (PORCINE) 5,000 UNIT/ML 1 ML VIAL SUBCUT SCH (22:00)
--- NOTE | 2018-12-27 22:54 | EKG REPORT ---
SEVERITY:- ABNORMAL ECG - ATRIAL FIBRILLATION, V-RATE 74-125 BORDERLINE T ABNORMALITIES, LATERAL LEADS BORDERLINE PROLONGED QT INTERVAL : Confirmed by: Chris Wright 27-Dec-2018 22:54:17
[2018-12-27] MEDS: MELATONIN 5 MG TABLET PO SCH ×2 (22:57→23:59)
[2018-12-28] MEDS: DEXTROSE 5%-WATER 1000 ML 1,000 ML with SODIUM BICARBONATE 100 MEQ IV PRN ×4 (01:25→06:43)
[2018-12-28 06:42] LABS: ABSOLUTE EOSINOPHILS # (AUTO) 0.2 10^3/uL (0.0-0.6); ABSOLUTE LYMPHOCYTES (AUTO) 0.9 10^3/uL (0.5-4.7); ABSOLUTE MONOCYTES (AUTO) 0.9 10^3/uL (0.1-1.4); ABSOLUTE NEUT (AUTO) 6.6 10^3/uL (1.7-8.2); BASOPHILS % (AUTO) 0.6 % (0-2); EOSINOPHILS % (AUTO) 2.1 % (0-6); HEMATOCRIT 24.4 % (37.9-51.0); LYMPHOCYTES % (AUTO) 10.1 % (13-45); MEAN CORPUSCULAR HGB CONC 32.9 g/dL (32.0-36.0); MEAN CORPUSCULAR VOLUME 82 fl (80-97); MONOCYTES % (AUTO) 10.1 % (3-13); PLATELET COUNT 322 10^3/uL (150-450); RED BLOOD COUNT 2.97 10^6/uL (4.35-5.55); RED CELL DISTRIBUTION WIDTH 21.5 % (11.5-14.0); SEGMENTED NEUTROPHILS % (AUTO) 77.1 % (42-78); TOTAL CELLS COUNTED % (AUTO) 100 %; WHITE BLOOD COUNT 8.6 10^3/uL (4.0-10.5)
[2018-12-28 07:03] LABS: ANION GAP 15 (5-19); BLOOD UREA NITROGEN 86 mg/dL (7-20); CARBON DIOXIDE 15 mmol/L (22-30); CHLORIDE 105 mmol/L (98-107); GLUCOSE 120 mg/dL (75-110); POTASSIUM 4.5 mmol/L (3.6-5.0)
[2018-12-28 07:22] LABS: CALCIUM 6.6 mg/dL (8.4-10.2)
[2018-12-28] MEDS ORDERED: DEXTROSE 5%-WATER 1000 ML 1,000 ML with SODIUM BICARBONATE 100 MEQ IV PRN ×2 (07:26)
[2018-12-28] MEDS ORDERED: CEFEPIME HCL 1 GM in DEXTROSE 5%-WATER 50 ML IV SCH (10:00)
[2018-12-28] MEDS ORDERED: POTASSIUM CHLORIDE 10 MEQ CAPSULE.ER PO SCH (10:00)
[2018-12-28] MEDS: CEFEPIME 1 GM/D5W RTU 1 GM/50 ML RTUPB IV SCH (10:27)
[2018-12-28] MEDS: APIXABAN 5 MG TABLET PO SCH ×2 (10:34→17:03)
[2018-12-28] MEDS: DILTIAZEM HCL 180 MG CAPSULE.CR PO SCH (10:34)
[2018-12-28] MEDS ORDERED: LIDOCAINE 1% INJ-PF (10 MG/ML) 30 ML SDV ONE (10:55)
--- NOTE | 2018-12-28 11:36 | RADIOLOGY REPORT (SQ) ---
EXAM DESCRIPTION: CHEST SINGLE VIEW COMPLETED DATE/TIME: 12/28/2018 11:27 am REASON FOR STUDY: Cough, lethargy COMPARISON: None. EXAM PARAMETERS: NUMBER OF VIEWS: One view. TECHNIQUE: Single frontal radiographic view of the chest acquired. RADIATION DOSE: NA LIMITATIONS: None. FINDINGS: LUNGS AND PLEURA: Pulmonary vascular congestion. No juan m pulmonary edema. No infiltrate or mass. MEDIASTINUM AND HILAR STRUCTURES: No masses. Contour normal. HEART AND VASCULAR STRUCTURES: Heart normal in size. Normal vasculature. BONES: No acute findings. HARDWARE: None in the chest. OTHER: No other significant finding. IMPRESSION: Pulmonary vascular congestion without juan m pulmonary edema. TECHNICAL DOCUMENTATION: JOB ID: [id number] [employer]- All Rights Reserved Reading location - IP/workstation name: [email or web address]
--- NOTE | 2018-12-28 11:59 | Operative Report ---
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 Excisional debridement of stage IV left lower extremity chronic wound. 2. Specimen sent for Gram stain culture and sensitivity SURGEON: JULIANNE MORALES ANESTHESIA: Other - 1% plain lidocaine TISSUE REMOVED OR ALTERED: Nonviable skin, subcutaneous tissue fascia, fibrinous debris COMPLICATIONS: none ESTIMATED BLOOD LOSS: scant INTRAOPERATIVE FINDINGS: See below PROCEDURE: The patient evaluated and treated at bedside room 605 in the ICU. The left leg was exposed. The findings were significant for a large, chronic wound, previously managed by the [facility] [place] over the past year. Unfortunately the patient unable to continue care due to social issues, transportation challenges etc. He is now admitted to the ICU for possible sepsis. Left leg was exposed, and surgical timeout conducted. The perimeter of the large deep stage IV wound was anesthetized with 1% plain lidocaine. The wound is a chronic oval shaped cavity 12 x 6 cm x 1.5 meters deep. It was covered with dry eschar, and nonviable fibrin. Using a combination of scissors and scalpel, skin, eschar, fibrinous debris, and deep subcutaneous tissue, as well as some necrotic fascia all excisionally debrided. We got down to bleeding tissue along the belly of the lateral compartment muscles. There were no pock ets or tunneling. 50 to 75% of the base of the wound was now oozing from the debridement. The wound was washed with chlorhexidine scrub brush, and packed with moist saline gauze dressings. Prior to packing, however deep wound for drainage debris scooped and sent for Gram stain culture and sensitivity. Patient tolerated procedure well Recommendations: 1. Obtain medical records from my [facility] to obtain full history of previous wound management. 2. We will start enzymatic debridement twice daily 3. Dissipate wound VAC reapplication in the next 2 to 4 days pending condition of wound bed.
[2018-12-28 12:07] LABS: ARTERIAL BLOOD BASE EXCESS -6.2 mmol/L; ARTERIAL BLOOD FIO2 ROOM AIR; ARTERIAL BLOOD H2CO3 0.93 mmol/L (1.05-1.35); ARTERIAL BLOOD HCO3 18.1 mmol/L (20-24); ARTERIAL BLOOD O2 SATURATION 94.4 % (94-98); ARTERIAL BLOOD PCO2 30.8 mmHg (35-45); ARTERIAL BLOOD PH 7.39 (7.35-7.45); ARTERIAL BLOOD PO2 71.2 mmHg (80-100)
--- NOTE | 2018-12-28 12:16 | PDOC PROGRESS REPORT ---
Subjective Progress Note for:: 12/28/18 Subjective:: Pt has no complaints. Feels a bit better than yesterday. Reason For Visit: RENDAL FAILURE,INFECTED L LEG ULCER Physical Exam Vital Signs: Temp Pulse Resp BP Pulse Ox 97.9 F 91 18 115/77 92 12/28/18 08:00 12/28/18 10:00 12/28/18 10:03 12/28/18 10:03 12/28/18 10:03 Intake & Output 12/27/18 12/28/18 12/29/18 06:59 06:59 06:59 Intake Total 5413 120 Output Total 100 Balance 5413 20 Weight 111 kg 111 kg General appearance: PRESENT: no acute distress Head exam: PRESENT: atraumatic Additional Comments: pale. Eye exam: PRESENT: conjunctiva pink, EOMI, PERRLA. ABSENT: scleral icterus Ear exam: PRESENT: normal external ear exam Mouth exam: PRESENT: dry mucosa, tongue midline Neck exam: PRESENT: full ROM Respiratory exam: PRESENT: clear to auscultation moustapha, decreased breath sounds, unlabored Cardiovascular exam: PRESENT: RRR Vascular exam: PRESENT: normal capillary refill GI/Abdominal exam: PRESENT: soft Rectal exam: PRESENT: deferred Extremities exam: PRESENT: pedal edema Additional comments: Lymphedema both legs Musculoskeletal exam: PRESENT: normal inspection Neurological exam: PRESENT: alert, awake, oriented to person, oriented to place, oriented to time, oriented to situation Skin exam: PRESENT: pallor Results Laboratory Results: 12/28/18 06:07 12/28/18 06:07 12/27/18 12/27/18 12/27/18 14:45 14:45 14:45 WBC 7.9 RBC 3.20 L Hgb 8.6 L Hct 26.2 L MCV 82 MCH 26.9 L MCHC 32.8 RDW 20.4 H Plt Count 362 Seg Neutrophils % 84.2 H VBG pH VBG pCO2 VBG HCO3 VBG Base Excess Sodium 136.7 L Potassium 4.8 Chloride 105 Carbon Dioxide 14 L Anion Gap 18 BUN 91 H Creatinine 7.56 H Est GFR ( Amer) 8 L Glucose 103 Lactic Acid 1.0 Calcium 7.2 L Total Bilirubin 0.4 AST 19 Alkaline Phosphatase 149 H Total Protein 7.4 Albumin 3.1 L Urine Color Urine Appearance Urine pH Ur Specific Miller Urine Protein Urine Glucose (UA) Urine Ketones Urine Blood Urine RBC (Auto) 12/27/18 12/27/18 12/28/18 14:45 15:05 06:07 WBC 8.6 RBC 2.97 L Hgb 8.0 L Hct 24.4 L MCV 82 MCH 27.0 MCHC 32.9 RDW 21.5 H Plt Count 322 Seg Neutrophils % 77.1 VBG pH 7.23 L VBG pCO2 34.3 L VBG HCO3 14.0 L VBG Base Excess -12.3 Sodium Potassium Chloride Carbon Dioxide Anion Gap BUN Creatinine Est GFR ( Amer) Glucose Lactic Acid Calcium Total Bilirubin AST Alkaline Phosphatase Total Protein Albumin Urine Color LIGHT YELLOW Urine Appearance TURBID Urine pH 6.0 Ur Specific Miller 1.008 Urine Protein 100 H Urine Glucose (UA) NEGATIVE Urine Ketones NEGATIVE Urine Blood MODERATE H Urine RBC (Auto) 27 12/28/18 12/28/18 06:07 06:07 WBC RBC Hgb Hct MCV MCH MCHC RDW Plt Count Seg Neutrophils % VBG pH VBG pCO2 VBG HCO3 VBG Base Excess Sodium 135.3 L Potassium 4.5 Chloride 105 Carbon Dioxide 15 L Anion Gap 15 BUN 86 H Creatinine 6.45 H Est GFR ( Amer) 10 L Glucose 120 H Lactic Acid Calcium 6.6 L* Total Bilirubin AST Alkaline Phosphatase Total Protein Albumin 2.7 L Urine Color Urine Appearance Urine pH Ur Specific Miller Urine Protein Urine Glucose (UA) Urine Ketones Urine Blood Urine RBC (Auto) 12/27/18 19:30 Ankle - Left Gram Stain - Final Impressions: Tibia/Fibula X-Ray 12/27/18 14:42 IMPRESSION: 1. LARGE SOFT TISSUE DEFECT IN THE DISTAL LOWER LEG. NO GAS OR RADIOPAQUE FOREIGN OBJECT. NO RADIOGRAPHIC EVIDENCE OF OSTEOMYELITIS. 2. OLD FRACTURES OF THE TIBIA AND FIBULA. STABLE NICHELLE IN THE TIBIA. NO ACUTE FINDINGS. Chest X-Ray 12/28/18 00:00 IMPRESSION: Pulmonary vascular congestion without juan m pulmonary edema. Assessment & Plan - Diagnosis (1) Acute renal failure Qualifiers: Acute renal failure type: unspecified Qualified Code(s): N17.9 - Acute kidney failure, unspecified Is this a current diagnosis for this admission?: Yes Plan: Renal U/S pending. Dr. Carlson has seen. Cr slightly better as is acidosis. Potassium 4.3. Continue plan with bicarb down to 125/hr. . (2) Infected decubitus ulcer Qualifiers: Pressure injury stage: stage 4 Qualified Code(s): L89.94 - Pressure ulcer of unspecified site, stage 4; L08.9 - Local infection of the skin and subcutaneous tissue, unspecified Is this a current diagnosis for this admission?: Yes Plan: Seen and debrided by Dr. Lyles. C&S pending. Cont cefepime pending cultures. (3) Acidosis, metabolic Is this a current diagnosis for this admission?: Yes Plan: Improved (4) Physical deconditioning Is this a current diagnosis for this admission?: Yes Plan: Involve PT. May need rehab. But at this time no longer needs an ICU level of care. - Time Time Spent with patient: 35 or more minutes Total Critical Time (Minutes): 35 Medications reviewed and adjusted accordingly: Yes Anticipated discharge: Home Within: within 72 hours - Inpatient Certification Medical Necessity: Failure to Improve With Outpatient Therapy, Significant Comorbidiites Make Outpatient Treatment Too Risky, Need For IV Fluids, Need for IV Antibiotics
[2018-12-28] MEDS ORDERED: CALCIUM GLUCONATE 1,000 MG in DEXTROSE 5%-WATER 50 ML IV SCH (14:00)
[2018-12-28] MEDS: BENZOCAINE/MENTHOL SORE THROAT LOZENGE BUCCAL PRN ×2 (14:37→18:42)
[2018-12-28] MEDS: FUROSEMIDE INJ/PF 20 MG/2 ML SDV IV SCH ×2 (14:37→21:39)
[2018-12-28] MEDS: CALCIUM GLUCONATE 1000 MG/10 ML INJ IV SCH ×2 (14:38→21:39)
[2018-12-28] MEDS ORDERED: ACETAMINOPHEN 325 MG TABLET PO PRN (16:41)
[2018-12-28] MEDS ORDERED: OXYCODONE HCL IR 5 MG TABLET PO PRN (16:41)
--- NOTE | 2018-12-28 16:41 | PDOC CONSULTATION ---
Consultation Consult Date: 12/28/18 Provider Consulted: Kasie DANIELS Consult reason:: NICKI on CKD. History of Present Illness Admission Date/PCP: 12/27/18 17:34 YINKA ACE MD History of Present Illness: LALA JOE is a 78 year old male With a history of chronic hypertension, atrial fibrillation, Cancer of the prostate for which he had radiation treatment only,chronic lymphedema of both lower extremities was admitted with history of worsening infected leg ulcer from the wound clinic. Apparently he has been having these chronic ulcers for a long time in the background history of chronic lymphedema. However they have were getting extremely worse over the last few days and when he was seen in the wound clinic it was giving out a very foul offensive smell and apparently labs showed worsening kidney functions with acidosis but lactate negative and was admitted to the hospital. Other lab evaluation showed that he had a early left shift in his white count without leucocytosis and he was normotensive. He has a baseline kidney disease with a creatinine of around 2 but has not been seen by a drug abuse social worker as per patient.The patient denies any history of fever or chills. He denies any history of redness of the lower extremities. His appetite is fair. He is also had a history of cancer of the prostate treated with radiation but he states he has been making good urine output until the last couple of days when his urine output is dropped. Patient is currently on IV antibiotics. He has been seen by the surgeons who have done debridement of necrotic ulcerating tissue. He is growing gram- negative rods from his wound and is also been diagnosed with UTI with gram- negative organisms. Past Medical History Cardiac Medical History: Reports: Atrial Fibrillation, Hypertension-primary Renal/ Medical History: Reports: Chronic Kidney Disease Stage III Malignancy Medical History: Reports: Other - Cancer prostate Infectious Medical History: Reports: Other Infectious History Note: Chronic lymphedema with chronic leg ulcers. Past Surgical History Past Surgical History: Reports: Orthopedic Surgery - R hip, Other - L leg Wound care Social History Smoking Status: Never Smoker Electronic Cigarette use?: No Frequency of Alcohol Use: None Hx Recreational Drug Use: No Drugs: None Hx Prescription Drug Abuse: No Family History Parental Family History Reviewed: Yes - negative for ESRD Children Family History Reviewed: No Sibling(s) Family History Reviewed.: No Medication/Allergy Home Medications: Apixaban [Eliquis 5 mg Tablet] 5 mg PO BID 12/27/18 Dextroamphetamine/Amphetamine [Dextroamp-Amphetamin 20 mg Tab] 20 mg PO BID 12/27/18 Diltiazem HCl [Diltiazem 24Hr ER] 180 mg PO DAILY 12/27/18 Melatonin [Melatonin 5 mg Tablet] 5 mg PO QHS 12/27/18 Oxycodone HCl/Acetaminophen [Oxycodon-Acetaminophen 2.5-325] 1 tab PO Q12HP PRN 12/27/18 Potassium Chloride [Klor-Con 10 Meq Capsule ER] 10 meq PO DAILY 12/27/18 Allergies/Adverse Reactions: Iodinated Contrast Media [Iodinated Contrast- Oral and IV Dye] Allergy (Unknown, Verified 12/21/16 13:18) Review of Systems Constitutional: PRESENT: anorexia, fatigue, weakness. ABSENT: chills, fever(s), headache(s), night sweats Nose, Mouth, and Throat: ABSENT: mouth pain, sore throat Cardiovascular: PRESENT: dyspnea on exertion, edema, palpitations. ABSENT: chest pain, orthropnea Respiratory: PRESENT: dyspnea. ABSENT: hemoptysis Gastrointestinal: ABSENT: abdominal pain, diarrhea, dysphagia, heartburn, hematemesis, hematochezia Neurological: ABSENT: abnormal movements, abnormal speech, confusion, focal weakness, frequent falls, lack of coordination Endocrine: ABSENT: polydipsia Hematologic/Lymphatic: ABSENT: easy bleeding, easy bruising, lymphadenopathy Physical Exam Vital Signs: Temp Pulse Resp BP Pulse Ox 98.2 F 87 19 113/77 98 12/28/18 12:00 12/28/18 14:00 12/28/18 14:04 12/28/18 14:04 12/28/18 14:04 Intake & Output 12/27/18 12/28/18 12/29/18 06:59 06:59 06:59 Intake Total 5413 1510 Output Total 400 Balance 5413 1110 Weight 111 kg 111 kg General appearance: PRESENT: disheveled Eye exam: PRESENT: EOMI, PERRLA. ABSENT: scleral icterus Ear exam: PRESENT: normal external ear exam Neck exam: ABSENT: lymphadenopathy, meningismus, tenderness, thyromegaly, tracheal deviation Respiratory exam: PRESENT: clear to auscultation moustapha, crackles Cardiovascular exam: PRESENT: +S1, +S2 GI/Abdominal exam: PRESENT: distended, normal bowel sounds, soft. ABSENT: organomegaly, tenderness Extremities exam: PRESENT: +1 edema Neurological exam: PRESENT: alert, awake, oriented to person, oriented to place Psychiatric exam: PRESENT: appropriate affect Skin exam: PRESENT: mottled - Skin of lower extremities indicative of chronic stasis edema with lymphedema., rash - Lower extremities. ABSENT: erythema Results Laboratory Results: 12/28/18 06:07 12/28/18 06:07 12/28/18 12/28/18 12/28/18 06:07 06:07 06:07 WBC 8.6 RBC 2.97 L Hgb 8.0 L Hct 24.4 L MCV 82 MCH 27.0 MCHC 32.9 RDW 21.5 H Plt Count 322 Seg Neutrophils % 77.1 Carbonic Acid HCO3/H2CO3 Ratio ABG pH ABG pCO2 ABG pO2 ABG HCO3 ABG O2 Saturation ABG Base Excess FiO2 Sodium 135.3 L Potassium 4.5 Chloride 105 Carbon Dioxide 15 L Anion Gap 15 BUN 86 H Creatinine 6.45 H Est GFR ( Amer) 10 L Glucose 120 H Calcium 6.6 L* Albumin 2.7 L 12/28/18 11:50 WBC RBC Hgb Hct MCV MCH MCHC RDW Plt Count Seg Neutrophils % Carbonic Acid 0.93 L HCO3/H2CO3 Ratio 19:1 ABG pH 7.39 ABG pCO2 30.8 L ABG pO2 71.2 L ABG HCO3 18.1 L ABG O2 Saturation 94.4 ABG Base Excess -6.2 FiO2 ROOM AIR Sodium Potassium Chloride Carbon Dioxide Anion Gap BUN Creatinine Est GFR ( Amer) Glucose Calcium Albumin 12/27/18 19:30 Ankle - Left Gram Stain - Final Impressions: Tibia/Fibula X-Ray 12/27/18 14:42 IMPRESSION: 1. LARGE SOFT TISSUE DEFECT IN THE DISTAL LOWER LEG. NO GAS OR RADIOPAQUE FOREIGN OBJECT. NO RADIOGRAPHIC EVIDENCE OF OSTEOMYELITIS. 2. OLD FRACTURES OF THE TIBIA AND FIBULA. STABLE NICHELLE IN THE TIBIA. NO ACUTE FINDINGS. Chest X-Ray 12/28/18 00:00 IMPRESSION: Pulmonary vascular congestion without juan m pulmonary edema. Assessment & Plan - Diagnosis (1) NICKI (acute kidney injury) Plan: Currently oliguric. He has got a condom catheter which needs to be changed to a Sorenson catheter. Patient has got severe worsening of his baseline kidney functions. He has got metabolic acidosis with otherwise decent electrolytes. Need to get Sorenson catheter to exclude possibility of obstructive uropathy in the current setting of ATN from his infected leg ulcer/sepsis and possible dehydration. Note that he had radiation for cancer prostate which could obviously lead to obstructive uropathy. Will order a renal ultrasound. He has also got features of history of congestive heart failure. We will start him on IV Lasix.No acute indications for renal replacements but is very possible that he might require that in the next few days. Keep a close eye on him. (2) Sepsis Qualifiers: Sepsis type: sepsis due to unspecified organism Sepsis acute organ dysfunction status: with acute organ dysfunction Severe sepsis acute organ dysfunction type: acute renal failure Acute renal failure type: unspecified Severe sepsis shock status: without septic shock Qualified Code(s): A41.9 - Sepsis, unspecified organism; R65.20 - Severe sepsis without septic shock; N17.9 - Acute kidney failure, unspecified Plan: From his infected leg ulcers now growing gram-negative bacteria. No signs of septic shock. Lactate negative. Continue on antibiotics and dose to a GFR of approximately 20 cc/min. (3) UTI (urinary tract infection) Qualifiers: Urinary tract infection type: acute cystitis Hematuria presence: without hematuria Qualified Code(s): N30.00 - Acute cystitis without hematuria Plan: Primary culture history growing gram-negative bacteria. Continue current antibiotics and modify as per sensitivities. (4) Acidosis, metabolic Is this a current diagnosis for this admission?: Yes Plan: Likely in the setting of NICKI. I would just continue present bag of sodium bicarbonate and then convert to p.o. (5) Atrial fibrillation with RVR Plan: Rate controlled and stable at the moment. (6) Cellulitis and abscess of lower extremity Plan: Debridement as per surgeons and continue on antibiotics. Monitor closely. (7) Hypocalcemia Plan: Carotid calcium was 7.7. Will treat with IV calcium in the current setting. (8) Chronic acquired lymphedema Plan: Leading to his present infected ulcers. (9) Congestive heart failure Plan: Clinically and radiologically he is showing signs and features of early heart failure. Chest x-ray shows early cephalization. Start him on IV Lasix. Continue on rest of the measures.Consider getting an echocardiogram as I do not believe he has had one done as baseline.
[2018-12-28] MEDS: MELATONIN 5 MG TABLET PO SCH (21:39)
[2018-12-29 03:35] LABS: ABSOLUTE BASOPHILS # (AUTO) 0.1 10^3/uL (0.0-0.2); ABSOLUTE EOSINOPHILS # (AUTO) 0.2 10^3/uL (0.0-0.6); ABSOLUTE MONOCYTES (AUTO) 0.7 10^3/uL (0.1-1.4); ABSOLUTE NEUT (AUTO) 5.5 10^3/uL (1.7-8.2); BASOPHILS % (AUTO) 1.1 % (0-2); EOSINOPHILS % (AUTO) 2.3 % (0-6); LYMPHOCYTES % (AUTO) 13.6 % (13-45); MEAN CORPUSCULAR HEMOGLOBIN 26.6 pg (27.0-33.4); MEAN CORPUSCULAR HGB CONC 32.6 g/dL (32.0-36.0); MEAN CORPUSCULAR VOLUME 82 fl (80-97); MONOCYTES % (AUTO) 9.5 % (3-13); PLATELET COUNT 296 10^3/uL (150-450); RED BLOOD COUNT 2.82 10^6/uL (4.35-5.55); RED CELL DISTRIBUTION WIDTH 20.8 % (11.5-14.0); SEGMENTED NEUTROPHILS % (AUTO) 73.5 % (42-78); TOTAL CELLS COUNTED % (AUTO) 100 %; WHITE BLOOD COUNT 7.5 10^3/uL (4.0-10.5)
[2018-12-29 03:39] LABS: HEMOGLOBIN 7.5 g/dL (13.5-17.0)
[2018-12-29 03:56] LABS: ANION GAP 14 (5-19); BLOOD UREA NITROGEN 84 mg/dL (7-20); CARBON DIOXIDE 18 mmol/L (22-30); CHLORIDE 105 mmol/L (98-107); GLUCOSE 96 mg/dL (75-110); PHOSPHORUS 6.6 mg/dL (2.5-4.5); POTASSIUM 4.2 mmol/L (3.6-5.0)
[2018-12-29 04:10] LABS: CALCIUM 6.5 mg/dL (8.4-10.2)
[2018-12-29] MEDS: FUROSEMIDE INJ/PF 20 MG/2 ML SDV IV SCH ×3 (05:50→22:56)
[2018-12-29] MEDS ORDERED: INFLUENZA QUAD (6MOS+) 2019-20 VAC 0.5 ML SYR IM ONE (08:00)
--- NOTE | 2018-12-29 08:12 | RADIOLOGY REPORT (SQ) ---
EXAM DESCRIPTION: U/S RETROPERITON (RENAL/AORTA) COMPLETED DATE/TIME: 12/28/2018 9:22 pm REASON FOR STUDY: ARF amnd Hx of prostate CA. R/O renal and post litzy COMPARISON: None. TECHNIQUE: Dynamic and static grayscale images acquired of the kidneys and bladder and recorded on P ACS. Additional selected color Doppler and spectral images recorded. LIMITATIONS: Study limited due to portable technique in the patient's large body habitus. Overlying bowel contents visualization. FINDINGS: RIGHT KIDNEY: Limited visualization. Increased echogenicity. No significant hydronephros is. LEFT KIDNEY: Limited visualization. Increased echogenicity. No significant hydronephrosis. BLADDER: Catheter in place. OTHER FINDINGS: No other significant finding. IMPRESSION: MARKEDLY LIMITED STUDY. NO GROSS ABNORMALITY. TECHNICAL DOCUMENTATION: JOB ID: [id number] [employer]- All Rights Reserved Reading location - IP/workstation name: [email or web address]
[2018-12-29] MEDS ORDERED: CALCIUM GLUCONATE 1000 MG/10 ML INJ IV ONE (08:15)
[2018-12-29] MEDS: CALCIUM GLUCONATE 1000 MG/10 ML INJ IV SCH (10:16)
[2018-12-29] MEDS: DILTIAZEM HCL 180 MG CAPSULE.CR PO SCH (10:17)
[2018-12-29] MEDS: CEFEPIME 1 GM/D5W RTU 1 GM/50 ML RTUPB IV SCH (10:17)
[2018-12-29] MEDS: APIXABAN 5 MG TABLET PO SCH ×2 (10:17→17:12)
[2018-12-29] MEDS ORDERED: MAGNESIUM SULFATE INJ 8 MEQ/2 ML IV ONE (10:49)
[2018-12-29] MEDS ORDERED: LIDOCAINE 1% INJ-PF (10 MG/ML) 30 ML SDV ONE (11:09)
[2018-12-29] MEDS ORDERED: MAGNESIUM SULFATE/D5W 1 GM/100 ML RTUPB IV ONE (11:30)
[2018-12-29] MEDS: CALCITRIOL 0.25 MCG CAPSULE PO SCH ×2 (11:38→17:12)
[2018-12-29] MEDS ORDERED: CALCIUM GLUCONATE 2,222 MG in DEXTROSE 5%-WATER 100 ML IV ONE (12:00)
--- NOTE | 2018-12-29 12:41 | PDOC PROGRESS REPORT ---
Subjective Progress Note for:: 12/29/18 Subjective:: Sleepy but arousable. Reason For Visit: RENAL FAILURE,INFECTED L LEG ULCER Physical Exam Vital Signs: Temp Pulse Resp BP Pulse Ox 97.8 F 108 H 14 113/62 97 12/29/18 07:46 12/29/18 07:46 12/29/18 10:29 12/29/18 10:29 12/29/18 10:29 Intake & Output 12/28/18 12/29/18 12/30/18 06:59 06:59 06:59 Intake Total 5413 1760 50 Output Total 3050 1600 Balance 0203 -5110 -4340 Weight 111 kg 107.3 kg General appearance: PRESENT: no acute distress Head exam: PRESENT: atraumatic Eye exam: PRESENT: conjunctiva pink, EOMI, PERRLA. ABSENT: scleral icterus Ear exam: PRESENT: normal external ear exam Mouth exam: PRESENT: moist, tongue midline Neck exam: PRESENT: full ROM. ABSENT: carotid bruit, JVD, lymphadenopathy, thyromegaly Respiratory exam: PRESENT: clear to auscultation moustapha, decreased breath sounds, unlabored Cardiovascular exam: PRESENT: RRR Pulses: PRESENT: normal dorsalis pedis pul, +2 pedal pulses bilateral Vascular exam: PRESENT: normal capillary refill GI/Abdominal exam: PRESENT: soft Rectal exam: PRESENT: deferred Gentrourinary exam: PRESENT: indwelling catheter Additional comments: Mild hematuria Extremities exam: PRESENT: pedal edema Additional comments: Lymphedema and bandaged wound debrided yesterday growing GNR in culture Neurological exam: PRESENT: alert, awake, oriented to person, oriented to place, oriented to time, oriented to situation, reflexes normal Skin exam: PRESENT: pallor Results Laboratory Results: 12/29/18 03:23 12/29/18 03:23 12/29/18 12/29/18 12/29/18 03:23 03:23 03:23 WBC 7.5 RBC 2.82 L Hgb 7.5 L Hct 23.0 L MCV 82 MCH 26.6 L MCHC 32.6 RDW 20.8 H Plt Count 296 Seg Neutrophils % 73.5 Sodium 137.2 Potassium 4.2 Chloride 105 Carbon Dioxide 18 L Anion Gap 14 BUN 84 H Creatinine 6.22 H Est GFR ( Amer) 11 L Glucose 96 Calcium 6.5 L* Ionized Calcium Sonia Phosphorus 6.6 H Magnesium 1.5 L TSH 2.66 PTH Intact 12/29/18 12/29/18 03:23 10:13 WBC RBC Hgb Hct MCV MCH MCHC RDW Plt Count Seg Neutrophils % Sodium Potassium Chloride Carbon Dioxide Anion Gap BUN Creatinine Est GFR ( Amer) Glucose Calcium Ionized Calcium Sonia 0.92 L Phosphorus Magnesium TSH PTH Intact 466.8 H 12/27/18 19:30 Ankle - Left Gram Stain - Final Impressions: Tibia/Fibula X-Ray 12/27/18 14:42 IMPRESSION: 1. LARGE SOFT TISSUE DEFECT IN THE DISTAL LOWER LEG. NO GAS OR RADIOPAQUE FOREIGN OBJECT. NO RADIOGRAPHIC EVIDENCE OF OSTEOMYELITIS. 2. OLD FRACTURES OF THE TIBIA AND FIBULA. STABLE NICHELLE IN THE TIBIA. NO ACUTE FINDINGS. Chest X-Ray 12/28/18 00:00 IMPRESSION: Pulmonary vascular congestion without juan m pulmonary edema. Renal Ultrasound 12/28/18 09:00 IMPRESSION: MARKEDLY LIMITED STUDY. NO GROSS ABNORMALITY. Assessment & Plan - Diagnosis (1) Acute renal failure Qualifiers: Acute renal failure type: unspecified Qualified Code(s): N17.9 - Acute kidney failure, unspecified Is this a current diagnosis for this admission?: Yes Plan: Not much change in CR at 6.2 GFR at 9. Bicarb 18 and K 4.2. He may need dialysis soon. (2) Infected decubitus ulcer Qualifiers: Pressure injury stage: stage 4 Qualified Code(s): L89.94 - Pressure ulcer of unspecified site, stage 4; L08.9 - Local infection of the skin and subcutaneous tissue, unspecified Is this a current diagnosis for this admission?: Yes Plan: Not a traditional decubitus. Needs wound vac and anitbiotics. Final culture pending (3) Acidosis, metabolic Is this a current diagnosis for this admission?: Yes Plan: Improved somewhat (4) Physical deconditioning Is this a current diagnosis for this admission?: Yes Plan: Probably needs placement (5) Anemia Qualifiers: Anemia type: due to chronic kidney disease Chronic kidney disease stage: stage 5, not on chronic dialysis Qualified Code(s): N18.5 - Chronic kidney disease, stage 5; D63.1 - Anemia in chronic kidney disease Is this a current diagnosis for this admission?: Yes Plan: Likely both dilutional and due to renal disease. Start epogen - Time Time Spent with patient: 25-34 minutes Medications reviewed and adjusted accordingly: Yes Anticipated discharge: SNF Within: Other - Too early to say - Inpatient Certification Based on my medical assessment, after consideration of the patient's comorbidi ties, presenting symptoms, or acuity I expect that the services needed warrant INPATIENT care.: Yes I certify that my determination is in accordance with my understanding of Johana juline's requirements for reasonable and necessary INPATIENT services [42 CFR 412.3e].: Yes Medical Necessity: Failure to Improve With Outpatient Therapy, Significant Comorbidiites Make Outpatient Treatment Too Risky, Need For IV Fluids, Risk of Complication if Not Cared For in Hospital
--- NOTE | 2018-12-29 14:43 | Operative Report ---
Operative Report DATE OF SURGERY: 12/29/18 PREOPERATIVE DIAGNOSIS: 12x6x1 cm left lateral lower leg above ankle with some necrotic tissue POSTOPERATIVE DIAGNOSIS: Same OPERATION: Sharp debridement of left above ankle wound 12 x 6 x 1 cm down to the muscle SURGEON: SRINIVAS PORRAS ANESTHESIA: Local TISSUE REMOVED OR ALTERED: Necrotic tissue on the muscle and subcutaneous areas COMPLICATIONS: None ESTIMATED BLOOD LOSS: 1-2 ccs QUANTITATIVE BLOOD LOSS: 1 INTRAOPERATIVE FINDINGS: Wound was debrided yesterday by Dr. Lyles but appears to have a few leftover necrotic tissue on top of the muscle and along the surrounding wound. No wound roughly measured about 12 x 6 x 1 cm deep. PROCEDURE: Patient was placed in supine position while in bed in the left lower leg was propped on a pillow and subsequently prepped and draped in the usual sterile fashion. Local anesthesia infiltrated around the borders of the wound and inside the wound itself. Wound roughly measured 12 x 1 x 6 cm wide. With the use of 15 scalpel blade the wound was sharply debrided. Most of the leg necrotic area primarily exudate was then scraped and debrided using the 15 blade. This was then until blood was noted on the muscle. There was some necrotic tissue on top of the muscle and around the subcutaneous area on the borders. The wound that subsequently was with lidocaine on a gauze. The wound appears ready for placement of wound VAC. Wound VAC will be placed later by the nurses in the ICU.
--- NOTE | 2018-12-29 16:41 | PDOC PROGRESS REPORT ---
Subjective Progress Note for:: 12/29/18 Reason For Visit: Patient seen in the ICU today. He looks slightly better than when I saw him yesterday. He had a Sorenson catheter inserted and produced 3+ liters of urine output and continuing to make good urine. He denies any history of chest pains or shortness of breath. He has a good appetite without history of nausea vomiting. He has been having debridement of his leg ulcers. Labs and medications were reviewed that shows critically low calcium and is he has got a slightly low magnesium as well. His creatinine is relatively stable. Physical Exam Vital Signs: Temp Pulse Resp BP Pulse Ox 97.8 F 108 H 17 128/76 H 97 12/29/18 14:00 12/29/18 14:00 12/29/18 14:29 12/29/18 14:29 12/29/18 14:29 Intake & Output 12/28/18 12/29/18 12/30/18 06:59 06:59 06:59 Intake Total 5413 1760 150 Output Total 3050 1600 Balance 5413 -1290 -1450 Weight 111 kg 107.3 kg General appearance: PRESENT: no acute distress Respiratory exam: PRESENT: decreased breath sounds. ABSENT: clear to auscultation moustapha, crackles Cardiovascular exam: PRESENT: +S1, +S2 GI/Abdominal exam: PRESENT: distended, normal bowel sounds, soft. ABSENT: organomegaly, tenderness Extremities exam: PRESENT: +1 edema Neurological exam: PRESENT: alert, awake, oriented to person, oriented to place Psychiatric exam: PRESENT: appropriate affect Results Laboratory Results: 12/29/18 03:23 12/29/18 03:23 12/29/18 12/29/18 12/29/18 03:23 03:23 03:23 WBC 7.5 RBC 2.82 L Hgb 7.5 L Hct 23.0 L MCV 82 MCH 26.6 L MCHC 32.6 RDW 20.8 H Plt Count 296 Seg Neutrophils % 73.5 Sodium 137.2 Potassium 4.2 Chloride 105 Carbon Dioxide 18 L Anion Gap 14 BUN 84 H Creatinine 6.22 H Est GFR ( Amer) 11 L Glucose 96 Calcium 6.5 L* Ionized Calcium Sonia Phosphorus 6.6 H Magnesium 1.5 L TSH 2.66 PTH Intact 12/29/18 12/29/18 03:23 10:13 WBC RBC Hgb Hct MCV MCH MCHC RDW Plt Count Seg Neutrophils % Sodium Potassium Chloride Carbon Dioxide Anion Gap BUN Creatinine Est GFR ( Amer) Glucose Calcium Ionized Calcium Sonia 0.92 L Phosphorus Magnesium TSH PTH Intact 466.8 H 12/27/18 19:30 Ankle - Left Gram Stain - Final Impressions: Tibia/Fibula X-Ray 12/27/18 14:42 IMPRESSION: 1. LARGE SOFT TISSUE DEFECT IN THE DISTAL LOWER LEG. NO GAS OR RADIOPAQUE FOREIGN OBJECT. NO RADIOGRAPHIC EVIDENCE OF OSTEOMYELITIS. 2. OLD FRACTURES OF THE TIBIA AND FIBULA. STABLE NICHELLE IN THE TIBIA. NO ACUTE FINDINGS. Chest X-Ray 12/28/18 00:00 IMPRESSION: Pulmonary vascular congestion without juan m pulmonary edema. Renal Ultrasound 12/28/18 09:00 IMPRESSION: MARKEDLY LIMITED STUDY. NO GROSS ABNORMALITY. Assessment & Plan - Diagnosis (1) NICKI (acute kidney injury) Plan: Currently nonoliguric. Continue on current guidelines including IV diuretics given a combination of early congestive heart failure. No Indications for renal replacements. There is no nephrology cover over the weekend. (2) Sepsis Qualifiers: Sepsis type: sepsis due to unspecified organism Sepsis acute organ dysfunction status: with acute organ dysfunction Severe sepsis acute organ dysfunction type: acute renal failure Acute renal failure type: unspecified Severe sepsis shock status: without septic shock Qualified Code(s): A41.9 - Sepsis, unspecified organism; R65.20 - Severe sepsis without septic shock; N17.9 - Acute kidney failure, unspecified Plan: On antibiotics along with surgical debridement of his leg ulcers. (3) UTI (urinary tract infection) Qualifiers: Urinary tract infection type: acute cystitis Hematuria presence: without hematuria Qualified Code(s): N30.00 - Acute cystitis without hematuria Plan: On antibiotics. Monitor. (4) Acidosis, metabolic Is this a current diagnosis for this admission?: Yes Plan: Improved. DC any IV replacements and will start him on a small dose of p.o. replacements. (5) Atrial fibrillation with RVR Plan: Rate controlled. (6) Cellulitis and abscess of lower extremity Plan: On IV antibiotics and surgical debridement. (7) Hypocalcemia Plan: Continue with replacements (8) Chronic acquired lymphedema Plan: Status quo. (9) Congestive heart failure Plan: Continue on IV diuretics. (10) Hypomagnesemia Plan: Order replacement and monitor.
[2018-12-29] MEDS: MELATONIN 5 MG TABLET PO SCH (22:56)
[2018-12-30] MEDS: FUROSEMIDE INJ/PF 20 MG/2 ML SDV IV SCH ×3 (06:48→22:16)
[2018-12-30 07:24] LABS: ANION GAP 17 (5-19); BLOOD UREA NITROGEN 86 mg/dL (7-20); CARBON DIOXIDE 17 mmol/L (22-30); CHLORIDE 104 mmol/L (98-107); GLUCOSE 111 mg/dL (75-110)
[2018-12-30 07:36] LABS: CALCIUM 6.7 mg/dL (8.4-10.2)
[2018-12-30] MEDS: DEXTROSE 5%-WATER 1000 ML 1,000 ML IV PRN ×2 (11:24→23:32)
[2018-12-30] MEDS: EPOETIN ALFA-EPBX 10,000 UNIT/ML VIAL (NON-ESRD) SUBCUT SCH (11:25)
[2018-12-30] MEDS: CALCIUM GLUCONATE 1000 MG/10 ML INJ IV SCH ×2 (11:25→22:16)
[2018-12-30] MEDS: DILTIAZEM HCL 180 MG CAPSULE.CR PO SCH (11:34)
[2018-12-30] MEDS: CALCITRIOL 0.25 MCG CAPSULE PO SCH ×2 (11:34→17:41)
[2018-12-30] MEDS: APIXABAN 5 MG TABLET PO SCH ×2 (11:35→17:41)
[2018-12-30] MEDS: MAGNESIUM SULFATE 1 GM/D5W 100 ML IV SCH ×2 (11:35→12:52)
[2018-12-30] MEDS: CEFEPIME 1 GM/D5W RTU 1 GM/50 ML RTUPB IV SCH (11:52)
--- NOTE | 2018-12-30 15:02 | PDOC CONSULTATION ---
Consultation Consult Date: 12/30/18 Attending physician:: LEO MARTÍNEZ Provider Consulted: JESSA MCDONALD JR Consult reason:: Transferred to the floor from ICU History of Present Illness Admission Date/PCP: 12/27/18 17:34 YINKA ACE MD History of Present Illness: LALA OJE is a 78 year old male who was admitted from the ER nonhealing ulcer of his left lower leg. She was actually admitted to the ICU due to renal failure with acidosis. he had taken himself off of Lasix. Since then patient has gone to the OR 2 days ago for debridement of stage IV left lower extremity chronic wound Patient has also been seen by nephrology 2 days ago was found to be growing gram-negative rods from his wound and diagnosed also with a UTI with gram- negative organisms. Nephrology felt the patient was oliguric, as well as septic, and metabolic acidosis patient was also found to be hypocalcemic, atrial fib with controlled rate and stable, and congestive heart failure The patient was felt to be stable enough to move from ICU to medical bed ever patient still has grossly abnormal labs with creatinine at 6.2, GFR 9 bicarb 18 and potassium 4.2 patient may soon be a dialysis candidate.. Patient was started on Epogen Past Medical History Cardiac Medical History: Reports: Atrial Fibrillation, Hypertension Malignancy Medical History: Reports: Other - Cancer prostate Infectious Medical History: Reports: Other Past Surgical History Past Surgical History: Reports: Orthopedic Surgery - R hip, Other - L leg Wound care Social History Smoking Status: Never Smoker Electronic Cigarette use?: No Frequency of Alcohol Use: None Hx Recreational Drug Use: No Drugs: None Hx Prescription Drug Abuse: No Family History Family History: Hypertension Parental Family History Reviewed: No Children Family History Reviewed: No Sibling(s) Family History Reviewed.: No Medication/Allergy Home Medications: Apixaban [Eliquis 5 mg Tablet] 5 mg PO BID 12/27/18 Dextroamphetamine/Amphetamine [Dextroamp-Amphetamin 20 mg Tab] 20 mg PO BID 12/27/18 Diltiazem HCl [Diltiazem 24Hr ER] 180 mg PO DAILY 12/27/18 Melatonin [Melatonin 5 mg Tablet] 5 mg PO QHS 12/27/18 Oxycodone HCl/Acetaminophen [Oxycodon-Acetaminophen 2.5-325] 1 tab PO Q12HP PRN 10/16/19 Potassium Chloride [Klor-Con 10 Meq Capsule ER] 10 meq PO DAILY 12/27/18 Allergies/Adverse Reactions: Iodinated Contrast Media [Iodinated Contrast- Oral and IV Dye] Allergy (Unknown, Verified 12/21/16 13:18) Review of Systems Constitutional: ABSENT: chills, fever(s), headache(s), weight gain, weight loss Cardiovascular: ABSENT: chest pain, dyspnea on exertion, edema, orthropnea, palpitations Respiratory: ABSENT: cough, hemoptysis Neurological: ABSENT: abnormal gait, abnormal speech, confusion, dizziness, focal weakness, syncope Psychiatric: ABSENT: anxiety, depression, homidical ideation, suicidal ideation Physical Exam Vital Signs: Temp Pulse Resp BP Pulse Ox 98.1 F 112 H 19 119/58 L 99 12/30/18 12:21 12/30/18 12:21 12/30/18 12:21 12/30/18 12:21 12/30/18 12:21 Intake & Output 12/29/18 12/30/18 12/31/18 06:59 06:59 06:59 Intake Total 1760 612 847 Output Total 3050 4690 450 Balance -1290 -4078 397 Weight 107.3 kg 108.1 kg General appearance: PRESENT: no acute distress, other - Sitting in bed eating breakfast in no distress Respiratory exam: PRESENT: clear to auscultation moustapha. ABSENT: rales, rhonchi, wheezes Cardiovascular exam: PRESENT: RRR. ABSENT: diastolic murmur, rubs, systolic murmur Extremities exam: PRESENT: other - wound management deferred to surgery Results Laboratory Results: 12/29/18 03:23 12/30/18 05:49 12/30/18 05:49 Sodium 137.7 Potassium 4.0 Chloride 104 Carbon Dioxide 17 L Anion Gap 17 BUN 86 H Creatinine 6.05 H Est GFR ( Amer) 11 L Glucose 111 H Calcium 6.7 L* 12/27/18 19:30 Ankle - Left Gram Stain - Final Impressions: Tibia/Fibula X-Ray 12/27/18 14:42 IMPRESSION: 1. LARGE SOFT TISSUE DEFECT IN THE DISTAL LOWER LEG. NO GAS OR RADIOPAQUE FOREIGN OBJECT. NO RADIOGRAPHIC EVIDENCE OF OSTEOMYELITIS. 2. OLD FRACTURES OF THE TIBIA AND FIBULA. STABLE NICHELLE IN THE TIBIA. NO ACUTE FINDINGS. Chest X-Ray 12/28/18 00:00 IMPRESSION: Pulmonary vascular congestion without juan m pulmonary edema. Renal Ultrasound 12/28/18 09:00 IMPRESSION: MARKEDLY LIMITED STUDY. NO GROSS ABNORMALITY. Assessment and Plan - Diagnosis (1) Acute renal failure Qualifiers: Acute renal failure type: unspecified Qualified Code(s): N17.9 - Acute kidney failure, unspecified Is this a current diagnosis for this admission?: Yes (2) Anemia Qualifiers: Anemia type: due to chronic kidney disease Chronic kidney disease stage: stage 5, not on chronic dialysis Qualified Code(s): N18.5 - Chronic kidney disease, stage 5; D63.1 - Anemia in chronic kidney disease Is this a current diagnosis for this admission?: Yes (3) Chronic acquired lymphedema Is this a current diagnosis for this admission?: Yes (4) Congestive heart failure Is this a current diagnosis for this admission?: Yes (5) Hypocalcemia Is this a current diagnosis for this admission?: Yes (6) Hypomagnesemia Is this a current diagnosis for this admission?: Yes (7) Infected decubitus ulcer Qualifiers: Pressure injury stage: stage 4 Qualified Code(s): L89.94 - Pressure ulcer of unspecified site, stage 4; L08.9 - Local infection of the skin and subcutaneous tissue, unspecified Is this a current diagnosis for this admission?: Yes (8) Atrial fibrillation with RVR Is this a current diagnosis for this admission?: Yes (9) CKD (chronic kidney disease) stage 4, GFR 15-29 ml/min Is this a current diagnosis for this admission?: Yes - Plan Summary Summary: Patient is currently on cefepime she appears to be growing out gram-negative rods as well as gram-positive cocci from his wound culture Urine culture shows Proteus mirabilis General surgery to recommend treatment concerning left lower leg wound Nephrology treating acute renal failure and metabolic acidosis as well as anemia to chronic kidney disease BUN is 86 patient came in at 91, creatinine it is now 6.05 patient came in at 7.56 Hemoglobin is drifted down to 7.5 came in at 8.6, count is normal at 7.5 platelets normal at 296 NR slightly elevated at 2.43 Chest x-ray from 2 days ago showed pulmonary vascular congestion without juan m pulmonary edema Patient is receiving 3000 mg of IV calcium gluconate today also Lasix 20 mg IV every 8 hours he is on Eliquis 5 mg twice daily Follow daily labs as well as patient clinically - Time Time Spent with patient: 35 or more minutes
[2018-12-30] MEDS ORDERED: MAGNESIUM SULFATE/D5W 1 GM/100 ML RTUPB IV SCH (16:00)
[2018-12-30 16:49] LABS: ABSOLUTE BASOPHILS # (AUTO) 0.1 10^3/uL (0.0-0.2); ABSOLUTE EOSINOPHILS # (AUTO) 0.2 10^3/uL (0.0-0.6); ABSOLUTE MONOCYTES (AUTO) 0.6 10^3/uL (0.1-1.4); ABSOLUTE NEUT (AUTO) 4.9 10^3/uL (1.7-8.2); BASOPHILS % (AUTO) 1.1 % (0-2); HEMATOCRIT 23.2 % (37.9-51.0); LYMPHOCYTES % (AUTO) 14.9 % (13-45); MEAN CORPUSCULAR HEMOGLOBIN 27.1 pg (27.0-33.4); MEAN CORPUSCULAR HGB CONC 33.1 g/dL (32.0-36.0); MEAN CORPUSCULAR VOLUME 82 fl (80-97); MONOCYTES % (AUTO) 8.8 % (3-13); PLATELET COUNT 297 10^3/uL (150-450); RED BLOOD COUNT 2.82 10^6/uL (4.35-5.55); RED CELL DISTRIBUTION WIDTH 21.4 % (11.5-14.0); SEGMENTED NEUTROPHILS % (AUTO) 72.2 % (42-78); TOTAL CELLS COUNTED % (AUTO) 100 %; WHITE BLOOD COUNT 6.7 10^3/uL (4.0-10.5)
[2018-12-30 16:51] LABS: HEMOGLOBIN 7.7 g/dL (13.5-17.0)
[2018-12-30 16:58] LABS: INTERNATIONAL RATION (INR) 1.88; PROTHROMBIN TIME 21.9 SEC (11.4-15.4)
[2018-12-30] MEDS: MELATONIN 5 MG TABLET PO SCH (22:16)
[2018-12-31] MEDS: FUROSEMIDE INJ/PF 20 MG/2 ML SDV IV SCH ×3 (05:08→22:35)
[2018-12-31 09:06] LABS: ABSOLUTE BASOPHILS # (AUTO) 0.1 10^3/uL (0.0-0.2); ABSOLUTE EOSINOPHILS # (AUTO) 0.3 10^3/uL (0.0-0.6); ABSOLUTE MONOCYTES (AUTO) 0.4 10^3/uL (0.1-1.4); ABSOLUTE NEUT (AUTO) 4.1 10^3/uL (1.7-8.2); BASOPHILS % (AUTO) 1.7 % (0-2); EOSINOPHILS % (AUTO) 4.7 % (0-6); HEMATOCRIT 22.7 % (37.9-51.0); LYMPHOCYTES % (AUTO) 17.6 % (13-45); MEAN CORPUSCULAR HEMOGLOBIN 27.3 pg (27.0-33.4); MEAN CORPUSCULAR HGB CONC 33.2 g/dL (32.0-36.0); MEAN CORPUSCULAR VOLUME 82 fl (80-97); MONOCYTES % (AUTO) 7.5 % (3-13); PLATELET COUNT 284 10^3/uL (150-450); RED BLOOD COUNT 2.76 10^6/uL (4.35-5.55); RED CELL DISTRIBUTION WIDTH 20.9 % (11.5-14.0); SEGMENTED NEUTROPHILS % (AUTO) 68.5 % (42-78); TOTAL CELLS COUNTED % (AUTO) 100 %; WHITE BLOOD COUNT 5.9 10^3/uL (4.0-10.5)
[2018-12-31 09:10] LABS: HEMOGLOBIN 7.5 g/dL (13.5-17.0)
[2018-12-31 09:27] LABS: ALBUMIN 2.6 g/dL (3.5-5.0); ANION GAP 17 (5-19); BLOOD UREA NITROGEN 76 mg/dL (7-20); CARBON DIOXIDE 18 mmol/L (22-30); CHLORIDE 103 mmol/L (98-107); GLUCOSE 114 mg/dL (75-110); POTASSIUM 3.3 mmol/L (3.6-5.0)
[2018-12-31 09:42] LABS: CALCIUM 6.9 mg/dL (8.4-10.2)
[2018-12-31] MEDS: DEXTROSE 5%-WATER 1000 ML 1,000 ML IV PRN ×2 (09:54→22:40)
[2018-12-31] MEDS: DILTIAZEM HCL 180 MG CAPSULE.CR PO SCH (09:57)
[2018-12-31] MEDS: CALCITRIOL 0.25 MCG CAPSULE PO SCH ×2 (09:57→18:13)
[2018-12-31] MEDS: CEFEPIME 1 GM/D5W RTU 1 GM/50 ML RTUPB IV SCH (09:58)
[2018-12-31] MEDS: APIXABAN 5 MG TABLET PO SCH ×2 (09:59→18:14)
[2018-12-31] MEDS: CALCIUM GLUCONATE 1000 MG/10 ML INJ IV SCH (09:59)
--- NOTE | 2018-12-31 12:20 | PDOC PROGRESS REPORT ---
Subjective Progress Note for:: 12/31/18 Subjective:: 01/09/2019 Patient voices no complaints today. Patient continues wound VAC to the left lower extremity, it was the original problem he was admitted for. Tells me is been going off and on for over a year now. And also has what appears to be acute on chronic renal failure. Chronic lymphedema, CHF, hypocalcemia, low magnesium, and UTI Reason For Visit: RENAL FAILURE,INFECTED L LEG ULCER Physical Exam Vital Signs: Temp Pulse Resp BP Pulse Ox 97.5 F 110 H 20 129/57 H 96 12/31/18 07:36 12/31/18 07:36 12/31/18 07:36 12/31/18 07:36 12/31/18 07:36 Intake & Output 12/30/18 12/31/18 01/01/19 06:59 06:59 06:59 Intake Total 612 2735 1000 Output Total 4680 2302 Balance -2183 -8789 1000 Weight 108.1 kg 107.5 kg General appearance: PRESENT: no acute distress, other - Patient is laying in bed watching TV Respiratory exam: PRESENT: clear to auscultation moustapha. ABSENT: rales, rhonchi, wheezes Cardiovascular exam: PRESENT: RRR. ABSENT: diastolic murmur, rubs, systolic murmur Extremities exam: PRESENT: +1 edema, +2 edema, other - Patient has massive lymphedema of the right lower extremity and 1+ pitting edema of the left lower e xtremity. Wound VAC is in place to the left lower leg. No odor coming from this area Neurological exam: PRESENT: alert, awake, oriented to person, oriented to place, oriented to time, oriented to situation, CN II-XII grossly intact. ABSENT: motor sensory deficit Psychiatric exam: PRESENT: appropriate affect, normal mood. ABSENT: homicidal ideation, suicidal ideation Results Laboratory Results: 12/31/18 08:24 12/31/18 08:24 12/30/18 12/31/18 12/31/18 16:25 08:24 08:24 WBC 6.7 5.9 RBC 2.82 L 2.76 L Hgb 7.7 L 7.5 L Hct 23.2 L 22.7 L MCV 82 82 MCH 27.1 27.3 MCHC 33.1 33.2 RDW 21.4 H 20.9 H Plt Count 297 284 Seg Neutrophils % 72.2 68.5 Sodium 137.7 Potassium 3.3 L Chloride 103 Carbon Dioxide 18 L Anion Gap 17 BUN 76 H Creatinine 5.94 H Est GFR ( Amer) 11 L Glucose 114 H Calcium 6.9 L* Albumin 2.6 L 12/27/18 19:30 Ankle - Left Gram Stain - Final Impressions: Tibia/Fibula X-Ray 12/27/18 14:42 IMPRESSION: 1. LARGE SOFT TISSUE DEFECT IN THE DISTAL LOWER LEG. NO GAS OR RADIOPAQUE FOREIGN OBJECT. NO RADIOGRAPHIC EVIDENCE OF OSTEOMYELITIS. 2. OLD FRACTURES OF THE TIBIA AND FIBULA. STABLE NICHELLE IN THE TIBIA. NO ACUTE FINDINGS. Chest X-Ray 12/28/18 00:00 IMPRESSION: Pulmonary vascular congestion without juan m pulmonary edema. Renal Ultrasound 12/28/18 09:00 IMPRESSION: MARKEDLY LIMITED STUDY. NO GROSS ABNORMALITY. Assessment and Plan - Diagnosis (1) Acute renal failure Qualifiers: Acute renal failure type: unspecified Qualified Code(s): N17.9 - Acute kidney failure, unspecified Is this a current diagnosis for this admission?: Yes (2) Anemia Qualifiers: Anemia type: due to chronic kidney disease Chronic kidney disease stage: stage 5, not on chronic dialysis Qualified Code(s): N18.5 - Chronic kidney disease, stage 5; D63.1 - Anemia in chronic kidney disease Is this a current diagnosis for this admission?: Yes (3) Chronic acquired lymphedema Is this a current diagnosis for this admission?: Yes (4) Congestive heart failure Is this a current diagnosis for this admission?: Yes (5) Hypocalcemia Is this a current diagnosis for this admission?: Yes (6) Hypomagnesemia Is this a current diagnosis for this admission?: Yes (7) Infected decubitus ulcer Qualifiers: Pressure injury stage: stage 4 Qualified Code(s): L89.94 - Pressure ulcer o f unspecified site, stage 4; L08.9 - Local infection of the skin and subcutaneous tissue, unspecified Is this a current diagnosis for this admission?: Yes (8) Atrial fibrillation with RVR Is this a current diagnosis for this admission?: Yes (9) CKD (chronic kidney disease) stage 4, GFR 15-29 ml/min Is this a current diagnosis for this admission?: Yes - Plan Summary Summary: Patient is currently on cefepime, he appears to be growing out gram-negative rods as well as gram-positive cocci from his wound culture Urine culture shows Proteus mirabilis General surgery to recommend treatment concerning left lower leg wound Nephrology treating acute renal failure and metabolic acidosis as well as anemia to chronic kidney disease BUN is 86 patient came in at 91, creatinine it is now 6.05 patient came in at 7.56 Hemoglobin is drifted down to 7.5 came in at 8.6, white blood cell count is normal at 7.5 platelets normal at 296 INR slightly elevated at 2.43 Chest x-ray from 2 days ago showed pulmonary vascular congestion without juan m pulmonary edema Patient is receiving 3000 mg of IV calcium gluconate today also Lasix 20 mg IV every 8 hours he is on Eliquis 5 mg twice daily Follow daily labs as well as patient clinically 12/31/2018 INR is 1.88, WBC's down even lower to 5.9. Hemoglobin is stable at 7.5 Both calcium and albumin are low. Renal function seems to be improving slowly ,patient is currently getting Lasix 20 mg IV every 8 hours. His IV fluids are D5 W at 100/h Day 3 of Maxipime, 1 g daily 10 you current course, follow surgery and nephrology's recommendations - Time Time Spent with patient: 25-34 minutes
[2018-12-31] MEDS: POTASSIUM CHLORIDE 20 MEQ PACKET PO SCH ×2 (14:09→22:35)
[2018-12-31] MEDS: MELATONIN 5 MG TABLET PO SCH (22:36)
[2018-12-31] MEDS: NYSTATIN TOPICAL POWDER 15 GM TP SCH (22:36)
[2019-01-01] MEDS: FUROSEMIDE INJ/PF 20 MG/2 ML SDV IV SCH ×3 (05:32→21:44)
[2019-01-01] MEDS ORDERED: ACETAMINOPHEN 325 MG TABLET PO PRN (07:30)
[2019-01-01] MEDS: DEXTROSE 5%-WATER 1000 ML 1,000 ML IV PRN ×2 (08:59→20:18)
[2019-01-01] MEDS: APIXABAN 5 MG TABLET PO SCH ×2 (10:02→17:35)
[2019-01-01] MEDS: DILTIAZEM HCL 180 MG CAPSULE.CR PO SCH (10:02)
[2019-01-01] MEDS: CEFEPIME 1 GM/D5W RTU 1 GM/50 ML RTUPB IV SCH (10:02)
[2019-01-01] MEDS: POTASSIUM CHLORIDE 20 MEQ PACKET PO SCH ×2 (10:02→21:44)
[2019-01-01] MEDS: CALCITRIOL 0.25 MCG CAPSULE PO SCH ×2 (10:02→17:35)
[2019-01-01] MEDS: NYSTATIN TOPICAL POWDER 15 GM TP SCH ×2 (10:02→21:48)
[2019-01-01 10:48] LABS: ANION GAP 15 (5-19); BLOOD UREA NITROGEN 68 mg/dL (7-20); CALCIUM 7.4 mg/dL (8.4-10.2); CARBON DIOXIDE 24 mmol/L (22-30); CHLORIDE 99 mmol/L (98-107); GLUCOSE 112 mg/dL (75-110); POTASSIUM 3.3 mmol/L (3.6-5.0)
--- NOTE | 2019-01-01 11:54 | PDOC PROGRESS REPORT ---
Subjective Progress Note for:: 01/01/19 Subjective:: 12/31/2018 Patient voices no complaints today. Patient continues wound VAC to the left lower extremity, it was the original problem he was admitted for. Tells me its been going off and on for over a year now. And also has what appears to be acute on chronic renal failure. Chronic lymphedema, CHF, hypocalcemia, low magnesium, and UTI 01/01/2019 Patient resting comfortably, no complaints of pain. I am changing his antibiotics today from cefepime to ceftriaxone. He has 2 organisms growing out of his wound, both are sensitive to Rocephin Reason For Visit: RENAL FAILURE,INFECTED L LEG ULCER Physical Exam Vital Signs: Temp Pulse Resp BP Pulse Ox 97.4 F 107 H 20 111/62 98 01/01/19 07:38 01/01/19 07:38 01/01/19 07:38 01/01/19 07:38 01/01/19 07:38 Intake & Output 12/31/18 01/01/19 01/02/19 06:59 06:59 06:59 Intake Total 2735 3670 1000 Output Total 6125 5550 Balance -3390 -1880 1000 Weight 107.5 kg 99.9 kg General appearance: PRESENT: no acute distress Respiratory exam: PRESENT: clear to auscultation moustapha. ABSENT: rales, rhonchi, wheezes Cardiovascular exam: PRESENT: RRR. ABSENT: diastolic murmur, rubs, systolic murmur Neurological exam: PRESENT: alert, awake, oriented to person, oriented to place, oriented to time, oriented to situation, CN II-XII grossly intact. ABSENT: motor sensory deficit Psychiatric exam: PRESENT: appropriate affect, normal mood. ABSENT: homicidal ideation, suicidal ideation Results Laboratory Results: 12/31/18 08:24 01/01/19 10:09 01/01/19 10:09 Sodium 137.6 Potassium 3.3 L Chloride 99 Carbon Dioxide 24 Anion Gap 15 BUN 68 H Creatinine 5.06 H Est GFR ( Amer) 13 L Glucose 112 H Calcium 7.4 L 12/27/18 19:30 Ankle - Left Gram Stain - Final 12/27/18 19:30 Ankle - Left Wound Culture - Final Proteus Mirabilis Staphylococcus Aureus Enterococcus Faecalis(Group D) 12/28/18 11:40 Leg - Deep Wound Gram Stain - Final Impressions: Tibia/Fibula X-Ray 12/27/18 14:42 IMPRESSION: 1. LARGE SOFT TISSUE DEFECT IN THE DISTAL LOWER LEG. NO GAS OR RADIOPAQUE FOREIGN OBJECT. NO RADIOGRAPHIC EVIDENCE OF OSTEOMYELITIS. 2. OLD FRACTURES OF THE TIBIA AND FIBULA. STABLE NICHELLE IN THE TIBIA. NO ACUTE FINDINGS. Chest X-Ray 12/28/18 00:00 IMPRESSION: Pulmonary vascular congestion without juan m pulmonary edema. Renal Ultrasound 12/28/18 09:00 IMPRESSION: MARKEDLY LIMITED STUDY. NO GROSS ABNORMALITY. Assessment and Plan - Diagnosis (1) Acute renal failure Qualifiers: Acute renal failure type: unspecified Qualified Code(s): N17.9 - Acute kidney failure, unspecified Is this a current diagnosis for this admission?: Yes (2) Anemia Qualifiers: Anemia type: due to chronic kidney disease Chronic kidney disease stage: stage 5, not on chronic dialysis Qualified Code(s): N18.5 - Chronic kidney disease, stage 5; D63.1 - Anemia in chronic kidney disease Is this a current diagnosis for this admission?: Yes (3) Chronic acquired lymphedema Is this a current diagnosis for this admission?: Yes (4) Congestive heart failure Is this a current diagnosis for this admission?: Yes (5) Hypocalcemia Is this a current diagnosis for this admission?: Yes (6) Hypomagnesemia Is this a current diagnosis for this admission?: Yes (7) Infected decubitus ulcer Qualifiers: Pressure injury stage: stage 4 Qualified Code(s): L89.94 - Pressure ulcer of unspecified site, stage 4; L08.9 - Local infection of the skin and subcutaneous tissue, unspecified Is this a current diagnosis for this admission?: Yes (8) Atrial fibrillation with RVR Is this a current diagnosis for this admission?: Yes (9) CKD (chronic kidney disease) stage 4, GFR 15-29 ml/min Is this a current diagnosis for this admission?: Yes - Plan Summary Summary: Patient is currently on cefepime, he appears to be growing out gram-negative rods as well as gram-positive cocci from his wound culture Urine culture shows Proteus mirabilis General surgery to recommend treatment concerning left lower leg wound Nephrology treating acute renal failure and metabolic acidosis as well as anemia to chronic kidney disease BUN is 86 patient came in at 91, creatinine it is now 6.05 patient came in at 7.56 Hemoglobin is drifted down to 7.5 came in at 8.6, white blood cell count is normal at 7.5 platelets normal at 296 INR slightly elevated at 2.43 Chest x-ray from 2 days ago showed pulmonary vascular congestion without juan m pulmonary edema Patient is receiving 3000 mg of IV calcium gluconate today also Lasix 20 mg IV every 8 hours he is on Eliquis 5 mg twice daily Follow daily labs as well as patient clinically 12/31/2018 INR is 1.88, WBC's down even lower to 5.9. Hemoglobin is stable at 7.5 Both calcium and albumin are low. Renal function seems to be improving slowly ,patient is currently getting Lasix 20 mg IV every 8 hours. His IV fluids are D5 W at 100/h Day 3 of Maxipime, 1 g daily 10 you current course, follow surgery and nephrology's recommendations 01/01/2019 Vital signs are stable CBC is normal potassium slightly low 3.3. She is currently taking 20 mEq twice daily. I will increase this to 20 in the morning and 40 at night. Calcium still slightly low at 7.4 PTH is elevated as would be expected. BUN and creatinine are improving, now 68 and 5.06. Continue same course for his left lower extremity wound with the wound VAC and fluids and electrolyte replacement as needed - Time Time Spent with patient: 25-34 minutes
--- NOTE | 2019-01-01 12:40 | PDOC PROGRESS REPORT ---
Subjective Progress Note for:: 01/01/19 Reason For Visit: Patient seen in the hospital today. He has been transferred to the floor but he looks very comfortable. Overall he states she is better than when he came in. He continues to have his infected leg ulcers being managed by the surgeons including with wound VAC. He denies any history of chest pain or shortness of breath. He has a good appetite with no history of nausea vomiting.Making good urine output. Labs and medications were reviewed with him. His creatinine is coming down nicely from a peak of 7.5 on admission to today of 5. Physical Exam Vital Signs: Temp Pulse Resp BP Pulse Ox 97.6 F 116 H 18 99/58 L 98 01/01/19 11:10 01/01/19 11:10 01/01/19 11:10 01/01/19 11:10 01/01/19 11:10 Intake & Output 12/31/18 01/01/19 01/02/19 06:59 06:59 06:59 Intake Total 2735 3670 1000 Output Total 6152 5550 Balance -3390 -1880 1000 Weight 107.5 kg 99.9 kg General appearance: PRESENT: no acute distress Respiratory exam: PRESENT: clear to auscultation moustapha. ABSENT: crackles Cardiovascular exam: PRESENT: +S1, +S2 GI/Abdominal exam: PRESENT: distended, normal bowel sounds, soft. ABSENT: organomegaly, tenderness Extremities exam: PRESENT: pedal edema Neurological exam: PRESENT: alert, awake, oriented to person, oriented to place, oriented to time Psychiatric exam: PRESENT: appropriate affect Results Laboratory Results: 12/31/18 08:24 01/01/19 10:09 01/01/19 10:09 Sodium 137.6 Potassium 3.3 L Chloride 99 Carbon Dioxide 24 Anion Gap 15 BUN 68 H Creatinine 5.06 H Est GFR ( Amer) 13 L Glucose 112 H Calcium 7.4 L 12/27/18 19:30 Ankle - Left Gram Stain - Final 12/27/18 19:30 Ankle - Left Wound Culture - Final Proteus Mirabilis Staphylococcus Aureus Enterococcus Faecalis(Group D) 12/28/18 11:40 Leg - Deep Wound Gram Stain - Final Impressions: Tibia/Fibula X-Ray 12/27/18 14:42 IMPRESSION: 1. LARGE SOFT TISSUE DEFECT IN THE DISTAL LOWER LEG. NO GAS OR RADIOPAQUE FOREIGN OBJECT. NO RADIOGRAPHIC EVIDENCE OF OSTEOMYELITIS. 2. OLD FRACTURES OF THE TIBIA AND FIBULA. STABLE NICHELLE IN THE TIBIA. NO ACUTE FINDINGS. Chest X-Ray 12/28/18 00:00 IMPRESSION: Pulmonary vascular congestion without juan m pulmonary edema. Renal Ultrasound 12/28/18 09:00 IMPRESSION: MARKEDLY LIMITED STUDY. NO GROSS ABNORMALITY. Assessment & Plan - Diagnosis (1) NICKI (acute kidney injury) Plan: Currently nonoliguric. Is coming/trending down nicely from a peak of 7.5 on admission to 5 today. Continue on current guidelines including IV diuretics given a combination of early congestive heart failure. No Indications for renal replacements. (2) Sepsis Qualifiers: Sepsis type: sepsis due to unspecified organism Sepsis acute organ dysfunction status: with acute organ dysfunction Severe sepsis acute organ dysfunction type: acute renal failure Acute renal failure type: unspecified Severe sepsis shock status: without septic shock Qualified Code(s): A41.9 - Sepsis, unspecified organism; R65.20 - Severe sepsis without septic shock; N17.9 - Acute kidney failure, unspecified Plan: On antibiotics along with surgical debridement of his leg ulcers.Has polymicrobial leg infection. (3) UTI (urinary tract infection) Qualifiers: Urinary tract infection type: acute cystitis Hematuria presence: without hematuria Qualified Code(s): N30.00 - Acute cystitis without hematuria Plan: On antibiotics. Monitor. (4) Acidosis, metabolic Is this a current diagnosis for this admission?: Yes Plan: Resolved. (5) Atrial fibrillation with RVR Is this a current diagnosis for this admission?: Yes Plan: Rate controlled. (6) Cellulitis and abscess of lower extremity Plan: On IV antibiotics and surgical debridement. (7) Hypocalcemia Is this a current diagnosis for this admission?: Yes Plan: Today is better at 7.4. No evidences of tetany. Continue current guidelines. (8) Chronic acquired lymphedema Is this a current diagnosis for this admission?: Yes Plan: Status quo. (9) Congestive heart failure Is this a current diagnosis for this admission?: Yes Plan: Continue on IV diuretics. (10) Hypomagnesemia Is this a current diagnosis for this admission?: Yes Plan: On replacement and monitor.
[2019-01-01] MEDS: MAGNESIUM OXIDE 400 MG TABLET PO SCH ×2 (13:56→17:35)
--- NOTE | 2019-01-01 16:57 | Progress Note ---
Provider Note Provider Note: 01/01/2019 Consult for GI for tomorrow, patient is currently on Eliquis with a history of atrial fib. He was admitted with a hemoglobin of 8.6 has been stable now at 7.5 several days Today and today patient's nurses noticed some bright red blood in the stools. Patient has also had some hematuria with his urine. Patient appears to be hemodynamically stable. Patient may need colonoscopy while in the hospital or after discharge. At the present time I do not think that stopping Eliquis would be the right move , 1 because of his history of atrial fib and 2 because he is at high risk for DVT I have discussed this with the patient.
[2019-01-01] MEDS: MELATONIN 5 MG TABLET PO SCH (21:36)
[2019-01-02 05:38] LABS: ANION GAP 14 (5-19); BLOOD UREA NITROGEN 70 mg/dL (7-20); CALCIUM 7.6 mg/dL (8.4-10.2); CARBON DIOXIDE 22 mmol/L (22-30); CHLORIDE 100 mmol/L (98-107); GLUCOSE 88 mg/dL (75-110); POTASSIUM 3.9 mmol/L (3.6-5.0)
[2019-01-02] MEDS: FUROSEMIDE INJ/PF 20 MG/2 ML SDV IV SCH ×3 (05:39→21:51)
--- NOTE | 2019-01-02 08:06 | Progress Note ---
Provider Note Provider Note: case reviewed and full note to follow decision has been made to continue his anticoagulation at this point will have to defer GI work up including EGD and colonoscopy since will need to stop his anticoagulation if potential therapeutic measures will be necessary. since risks outweigh benefits , transfuse as necessary please call if needed
[2019-01-02] MEDS: POTASSIUM CHLORIDE 20 MEQ PACKET PO SCH ×2 (08:44→21:50)
[2019-01-02] MEDS: MAGNESIUM OXIDE 400 MG TABLET PO SCH ×2 (09:02→18:16)
[2019-01-02] MEDS: CALCITRIOL 0.25 MCG CAPSULE PO SCH ×2 (09:02→18:17)
[2019-01-02] MEDS: APIXABAN 5 MG TABLET PO SCH ×2 (09:02→18:17)
[2019-01-02] MEDS: NYSTATIN TOPICAL POWDER 15 GM TP SCH ×2 (09:03→23:29)
[2019-01-02] MEDS: CEFTRIAXONE 2 GM/D5W RTU 2 GM/50 ML RTUPB IV SCH (09:05)
[2019-01-02] MEDS: DEXTROSE 5%-WATER 1000 ML 1,000 ML IV PRN (09:11)
[2019-01-02] MEDS: DILTIAZEM HCL 180 MG CAPSULE.CR PO SCH (11:24)
--- NOTE | 2019-01-02 11:55 | PDOC PROGRESS REPORT ---
Subjective Progress Note for:: 01/02/19 Subjective:: So the patient is morning. He was lying comfortably. He said he just feels weak on standing up. His appetite is still not great. But nevertheless he was able to eat breakfast. He is making adequate urine output with urine output for last 24 hours of 2900 mL. Reason For Visit: RENAL FAILURE,INFECTED L LEG ULCER Physical Exam Vital Signs: Temp Pulse Resp BP Pulse Ox 97.8 F 112 H 17 99/53 L 95 01/02/19 07:29 01/02/19 07:29 01/02/19 07:29 01/02/19 07:29 01/02/19 07:29 Intake & Output 01/01/19 01/02/19 01/03/19 06:59 06:59 06:59 Intake Total 3670 4841 50 Output Total 5550 3050 Balance -1880 1791 50 Weight 99.9 kg 99.5 kg Exam: General appearance: PRESENT: no acute distress, cooperative, well-developed, well-nourished Head exam: PRESENT: atraumatic, normocephalic Eye exam: PRESENT: conjunctiva pale, PERRLA. ABSENT: scleral icterus Neck exam: ABSENT: JVD Respiratory exam: PRESENT: Diminished breath sounds. ABSENT: crackles, rales, rhonchi, unlabored, wheezes Cardiovascular exam: PRESENT: Irregularly irregular rate rhythm -+S1, +S2. ABSENT: diastolic murmur, systolic murmur GI/Abdominal exam: PRESENT: normal bowel sounds, soft. ABSENT: guarding, mass, tenderness Extremities exam: Chronic lymphedema on right lower extremity in the left leg ulcer with wound VAC on the left lower extremity associated with mild edema Neurological exam: PRESENT: alert, awake, oriented to person, place and time. Skin exam: PRESENT: dry, warm, Cardiovascular exam: PRESENT: +S1, +S2 GI/Abdominal exam: PRESENT: distended, normal bowel sounds, soft. ABSENT: organomegaly, tenderness Results Laboratory Results: 12/31/18 08:24 01/02/19 04:29 01/02/19 04:29 Sodium 136.0 L Potassium 3.9 Chloride 100 Carbon Dioxide 22 Anion Gap 14 BUN 70 H Creatinine 4.99 H Est GFR ( Amer) 14 L Glucose 88 Calcium 7.6 L Magnesium 1.6 12/27/18 15:21 Blood Blood Culture - Final NO GROWTH IN 5 DAYS 12/27/18 14:45 Blood Blood Culture - Final NO GROWTH IN 5 DAYS 12/28/18 11:40 Leg - Deep Wound Gram Stain - Final 12/27/18 19:30 Ankle - Left Gram Stain - Final 12/27/18 19:30 Ankle - Left Wound Culture - Final Proteus Mirabilis Staphylococcus Aureus Enterococcus Faecalis(Group D) Impressions: Tibia/Fibula X-Ray 12/27/18 14:42 IMPRESSION: 1. LARGE SOFT TISSUE DEFECT IN THE DISTAL LOWER LEG. NO GAS OR RADIOPAQUE FOREIGN OBJECT. NO RADIOGRAPHIC EVIDENCE OF OSTEOMYELITIS. 2. OLD FRACTURES OF THE TIBIA AND FIBULA. STABLE NICHELLE IN THE TIBIA. NO ACUTE FINDINGS. Chest X-Ray 12/28/18 00:00 IMPRESSION: Pulmonary vascular congestion without juan m pulmonary edema. Renal Ultrasound 12/28/18 09:00 IMPRESSION: MARKEDLY LIMITED STUDY. NO GROSS ABNORMALITY. Assessment & Plan - Diagnosis (1) NICKI (acute kidney injury) Is this a current diagnosis for this admission?: Yes Plan: Likely secondary to sepsis causing ATN. Currently nonoliguric and producing adequate amount of urine output. Patient's kidney function continues to improve every single day. His initial creatinine was around 7.5. Baseline creatinine is around 1.8-2+. Currently improved creatinine of 4.99 with EGFR of 11. Continue current management as he is improving. No need of any renal replacement therapy. (2) CKD (chronic kidney disease) stage 4, GFR 15-29 ml/min Is this a current diagnosis for this admission?: Yes (3) Sepsis Qualifiers: Sepsis type: sepsis due to unspecified organism Sepsis acute organ dysfunction status: with acute organ dysfunction Severe sepsis acute organ dysfunction type: acute renal failure Acute renal failure type: unspecified Severe sepsis shock status: without septic shock Qualified Code(s): A41.9 - Sepsis, unspecified organism; R65.20 - Severe sepsis without septic shock; N17.9 - Acute kidney failure, unspecified Is this a current diagnosis for this admission?: Yes Plan: Due to urinary tract infection and leg ulcer. (4) Cellulitis and abscess of lower extremity Is this a current diagnosis for this admission?: Yes Plan: Left leg and wound VAC and IV antibiotics. (5) UTI (urinary tract infection) Qualifiers: Urinary tract infection type: acute cystitis Hematuria presence: without hematuria Qualified Code(s): N30.00 - Acute cystitis without hematuria Is this a current diagnosis for this admission?: Yes Plan: Secondary to Proteus mirabilis and gram-positive cocci currently on IV antibiotics. (6) Anemia in chronic kidney disease (CKD) Is this a current diagnosis for this admission?: Yes Plan: Currently receiving Retacrit q. Sundays. (7) Chronic acquired lymphedema Is this a current diagnosis for this admission?: Yes (8) Atrial fibrillation with RVR Is this a current diagnosis for this admission?: Yes Plan: Per hospitalist service. - Time Time with patient: 15-25 minutes
--- NOTE | 2019-01-02 16:43 | PDOC CONSULTATION ---
Consultation Consult Date: 01/02/19 Provider Consulted: JAVED BREAUX Consult reason:: anemia. possible GI bleed , primary service feels dangerous to stop anticoagulation History of Present Illness Admission Date/PCP: 12/27/18 17:34 YINKA ACE MD History of Present Illness: LALA JOE is a 78 year old male admitted and noted to have anemia patient was referred for possible GI work up however since the discussion with his primary service had already taken place about being high risk for stoppage of anticoagulation so patient can be monitored , transfuse if necessary patient needs to stop the anticoagulation in case therapeutic procedures need to be considered also if GI bleeding is high on the differential , it should be stopped with Cardiology guidance. Past Medical History Cardiac Medical History: Reports: Atrial Fibrillation, Hypertension Malignancy Medical History: Reports: Other - Cancer prostate Infectious Medical History: Reports: Other Past Surgical History Past Surgical History: Reports: Orthopedic Surgery - R hip, Other - L leg Wound care Social History Smoking Status: Never Smoker Electronic Cigarette use?: No Frequency of Alcohol Use: None Hx Recreational Drug Use: No Drugs: None Hx Prescription Drug Abuse: No - Advance Directive Resuscitation Status: Full Code Family History Family History: Hypertension Parental Family History Reviewed: Yes Children Family History Reviewed: Unknown Sibling(s) Family History Reviewed.: Unknown Medication/Allergy Home Medications: Apixaban [Eliquis 5 mg Tablet] 5 mg PO BID 12/27/18 Dextroamphetamine/Amphetamine [Dextroamp-Amphetamin 20 mg Tab] 20 mg PO BID 12/27/18 Diltiazem HCl [Diltiazem 24Hr ER] 180 mg PO DAILY 12/27/18 Melatonin [Melatonin 5 mg Tablet] 5 mg PO QHS 12/27/18 Oxycodone HCl/Acetaminophen [Oxycodon-Acetaminophen 2.5-325] 1 tab PO Q12HP PRN 12/27/18 Potassium Chloride [Klor-Con 10 Meq Capsule ER] 10 meq PO DAILY 12/27/18 Allergies/Adverse Reactions: Iodinated Contrast Media [Iodinated Contrast- Oral and IV Dye] Allergy (Unknown, Verified 12/21/16 13:18) Review of Systems Constitutional: ABSENT: fever(s), headache(s), night sweats, weakness Eyes: ABSENT: visual disturbances Ears: ABSENT: hearing changes Nose, Mouth, and Throat: ABSENT: mouth pain, sore throat Respiratory: ABSENT: dyspnea, hemoptysis Gastrointestinal: ABSENT: dysphagia, hematemesis Genitourinary: ABSENT: dysuria, hematuria Musculoskeletal: ABSENT: deformity, joint swelling Integumentary: ABSENT: pruritus Neurological: ABSENT: syncope, tingling, tremor(s), vertigo Endocrine: ABSENT: polydipsia, polyphagia, polyuria Hematologic/Lymphatic: ABSENT: easy bruising Physical Exam Vital Signs: Temp Pulse Resp BP Pulse Ox 97.6 F 110 H 18 101/56 L 95 01/02/19 12:11 01/02/19 12:11 01/02/19 12:11 01/02/19 12:11 01/02/19 12:11 Intake & Output 01/01/19 01/02/19 01/03/19 06:59 06:59 06:59 Intake Total 3670 4841 50 Output Total 5550 3050 Balance -1880 1791 50 Weight 99.9 kg 99.5 kg 99.5 kg General appearance: PRESENT: no acute distress, well-developed, well-nourished Head exam: PRESENT: atraumatic, normocephalic Eye exam: PRESENT: EOMI, PERRLA. ABSENT: nystagmus, scleral icterus Mouth exam: PRESENT: moist Neck exam: ABSENT: meningismus, tenderness, thyromegaly Respiratory exam: PRESENT: symmetrical. ABSENT: chest wall tenderness, tachypnea Cardiovascular exam: PRESENT: irregular rhythm GI/Abdominal exam: PRESENT: normal bowel sounds. ABSENT: Del Castillo's sign Neurological exam: PRESENT: alert Skin exam: PRESENT: normal color. ABSENT: mottled, pallor, urticaria, vesicles Results Laboratory Results: 12/31/18 08:24 01/02/19 04:29 01/02/19 04:29 Sodium 136.0 L Potassium 3.9 Chloride 100 Carbon Dioxide 22 Anion Gap 14 BUN 70 H Creatinine 4.99 H Est GFR ( Amer) 14 L Glucose 88 Calcium 7.6 L Magnesium 1.6 12/28/18 11:40 Leg - Deep Wound Gram Stain - Final 12/28/18 11:40 Leg - Deep Wound Wound Culture - Final Providencia Rettgeri Staphylococcus Aureus Enterococcus Faecalis(Group D) Alcaligenes Faecalis 12/27/18 15:21 Blood Blood Culture - Final NO GROWTH IN 5 DAYS 12/27/18 14:45 Blood Blood Culture - Final NO GROWTH IN 5 DAYS Impressions: Tibia/Fibula X-Ray 12/27/18 14:42 IMPRESSION: 1. LARGE SOFT TISSUE DEFECT IN THE DISTAL LOWER LEG. NO GAS OR RADIOPAQUE FOREIGN OBJECT. NO RADIOGRAPHIC EVIDENCE OF OSTEOMYELITIS. 2. OLD FRACTURES OF THE TIBIA AND FIBULA. STABLE NICHELLE IN THE TIBIA. NO ACUTE FINDINGS. Chest X-Ray 12/28/18 00:00 IMPRESSION: Pulmonary vascular congestion without juan m pulmonary edema. Renal Ultrasound 12/28/18 09:00 IMPRESSION: MARKEDLY LIMITED STUDY. NO GROSS ABNORMALITY. Assessment & Plan - Diagnosis (1) Anemia Qualifiers: Anemia type: due to chronic kidney disease Chronic kidney disease stage: stage 5, not on chronic dialysis Qualified Code(s): N18.5 - Chronic kidney disease, stage 5; D63.1 - Anemia in chronic kidney disease Is this a current diagnosis for this admission?: Yes Plan: multifactorial causes if considering GI bleeding then would get Cardiology for consult to see if can stop anticoagulation and bridge for procedure patient will need to stop though for any procedure to be done please let me know if there are any changes in his plans will defer work up for now transfuse as necessary - Time Time Spent: 50 to 70 Minutes
--- NOTE | 2019-01-02 18:57 | PDOC PROGRESS REPORT ---
Subjective Progress Note for:: 01/02/19 Subjective:: Patient has no complaints today. Still has wound vac on wound. Reason For Visit: RENAL FAILURE,INFECTED L LEG ULCER Physical Exam Vital Signs: Temp Pulse Resp BP Pulse Ox 97.6 F 110 H 18 101/56 L 95 01/02/19 12:11 01/02/19 12:11 01/02/19 12:11 01/02/19 12:11 01/02/19 12:11 Intake & Output 01/01/19 01/02/19 01/03/19 06:59 06:59 06:59 Intake Total 3670 4841 50 Output Total 5550 3050 Balance -1880 1791 50 Weight 99.9 kg 99.5 kg 99.5 kg General appearance: PRESENT: no acute distress, cooperative Head exam: PRESENT: atraumatic Eye exam: ABSENT: scleral icterus Ear exam: ABSENT: bleeding Throat exam: ABSENT: tonsillar erythema Neck exam: ABSENT: JVD, tenderness Respiratory exam: PRESENT: clear to auscultation moustapha. ABSENT: accessory muscle use Cardiovascular exam: PRESENT: +S1 Vascular exam: PRESENT: normal capillary refill GI/Abdominal exam: PRESENT: normal bowel sounds. ABSENT: tenderness Rectal exam: PRESENT: deferred Extremities exam: ABSENT: calf tenderness Musculoskeletal exam: PRESENT: normal inspection Neurological exam: PRESENT: alert, awake Results Laboratory Results: 12/31/18 08:24 01/02/19 04:29 01/02/19 04:29 Sodium 136.0 L Potassium 3.9 Chloride 100 Carbon Dioxide 22 Anion Gap 14 BUN 70 H Creatinine 4.99 H Est GFR ( Amer) 14 L Glucose 88 Calcium 7.6 L Magnesium 1.6 12/28/18 11:40 Leg - Deep Wound Gram Stain - Final 12/28/18 11:40 Leg - Deep Wound Wound Culture - Final Providencia Rettgeri Staphylococcus Aureus Enterococcus Faecalis(Group D) Alcaligenes Faecalis 12/27/18 15:21 Blood Blood Culture - Final NO GROWTH IN 5 DAYS 12/27/18 14:45 Blood Blood Culture - Final NO GROWTH IN 5 DAYS Impressions: Tibia/Fibula X-Ray 12/27/18 14:42 IMPRESSION: 1. LARGE SOFT TISSUE DEFECT IN THE DISTAL LOWER LEG. NO GAS OR RADIOPAQUE FOREIGN OBJECT. NO RADIOGRAPHIC EVIDENCE OF OSTEOMYELITIS. 2. OLD FRACTURES OF THE TIBIA AND FIBULA. STABLE NICHELLE IN THE TIBIA. NO ACUTE FINDINGS. Chest X-Ray 12/28/18 00:00 IMPRESSION: Pulmonary vascular congestion without juan m pulmonary edema. Renal Ultrasound 12/28/18 09:00 IMPRESSION: MARKEDLY LIMITED STUDY. NO GROSS ABNORMALITY. Assessment and Plan - Diagnosis (1) Acute renal failure Qualifiers: Acute renal failure type: unspecified Qualified Code(s): N17.9 - Acute kidney failure, unspecified Is this a current diagnosis for this admission?: Yes Plan: Likely secondary to initial sepsis. Nephrology following. Recommendations appreciated (2) Anemia Qualifiers: Anemia type: due to chronic kidney disease Chronic kidney disease stage: stage 5, not on chronic dialysis Qualified Code(s): N18.5 - Chronic kidney disease, stage 5; D63.1 - Anemia in chronic kidney disease Is this a current diagnosis for this admission?: Yes (3) Chronic acquired lymphedema Is this a current diagnosis for this admission?: Yes (4) Congestive heart failure Is this a current diagnosis for this admission?: Yes (5) Hypocalcemia Is this a current diagnosis for this admission?: Yes (6) Hypomagnesemia Is this a current diagnosis for this admission?: Yes (7) Infected decubitus ulcer Qualifiers: Pressure injury stage: stage 4 Qualified Code(s): L89.94 - Pressure ulcer of unspecified site, stage 4; L08.9 - Local infection of the skin and subcutaneous tissue, unspecified Is this a current diagnosis for this admission?: Yes - Plan Summary Summary: Patient is currently on cefepime, he appears to be growing out gram-negative rods as well as gram-positive cocci from his wound culture Urine culture shows Proteus mirabilis General surgery to recommend treatment concerning left lower leg wound Nephrology treating acute renal failure and metabolic acidosis as well as anemia to chronic kidney disease BUN is 86 patient came in at 91, creatinine it is now 6.05 patient came in at 7.56 Hemoglobin is drifted down to 7.5 came in at 8.6, white blood cell count is normal at 7.5 platelets normal at 296 INR slightly elevated at 2.43 Chest x-ray from 2 days ago showed pulmonary vascular congestion without juan m pulmonary edema Patient is receiving 3000 mg of IV calcium gluconate today also Lasix 20 mg IV every 8 hours he is on Eliquis 5 mg twice daily Follow daily labs as well as patient clinically 12/31/2018 INR is 1.88, WBC's down even lower to 5.9. Hemoglobin is stable at 7.5 Both calcium and albumin are low. Renal function seems to be improving slowly ,patient is currently getting Lasix 20 mg IV every 8 hours. His IV fluids are D5 W at 100/h Day 3 of Maxipime, 1 g daily 10 you current course, follow surgery and nephrology's recommendations 01/01/2019 Vital signs are stable CBC is normal potassium slightly low 3.3. She is currently taking 20 mEq twice daily. I will increase this to 20 in the morning and 40 at night. Calcium still slightly low at 7.4 PTH is elevated as would be expected. BUN and creatinine are improving, now 68 and 5.06. Continue same course for his left lower extremity wound with the wound VAC and fluids and electrolyte replacement as needed 01/02/2019 Progress note from yesterday reviewed regarding possible hematochezia. Seen by GI who recommended deferring any endoscopic evaluation for now giving current anticoagulation and necessity for anticoagulation. Patient's hemoglobin has been stable. No further reports of GI bleeding today. Creatinine improving now down to 4.99. We will continue Lasix challenge. Continue to trend BMP. Continue to monitor I's and O's as well as blood chemistry. Nephrology following for further guidance recommendations appreciated. - Time Time Spent with patient: 25-34 minutes
[2019-01-02] MEDS: MELATONIN 5 MG TABLET PO SCH (21:50)
[2019-01-03] MEDS: FUROSEMIDE INJ/PF 20 MG/2 ML SDV IV SCH ×3 (05:16→21:51)
[2019-01-03 06:50] LABS: ABSOLUTE BASOPHILS # (AUTO) 0.1 10^3/uL (0.0-0.2); ABSOLUTE EOSINOPHILS # (AUTO) 0.3 10^3/uL (0.0-0.6); ABSOLUTE LYMPHOCYTES (AUTO) 1.7 10^3/uL (0.5-4.7); ABSOLUTE MONOCYTES (AUTO) 0.7 10^3/uL (0.1-1.4); ABSOLUTE NEUT (AUTO) 4.1 10^3/uL (1.7-8.2); BASOPHILS % (AUTO) 1.7 % (0-2); HEMATOCRIT 23.4 % (37.9-51.0); LYMPHOCYTES % (AUTO) 24.5 % (13-45); MEAN CORPUSCULAR HEMOGLOBIN 27.4 pg (27.0-33.4); MEAN CORPUSCULAR HGB CONC 32.8 g/dL (32.0-36.0); MEAN CORPUSCULAR VOLUME 84 fl (80-97); MONOCYTES % (AUTO) 9.5 % (3-13); PLATELET COUNT 304 10^3/uL (150-450); RED CELL DISTRIBUTION WIDTH 20.9 % (11.5-14.0); SEGMENTED NEUTROPHILS % (AUTO) 59.3 % (42-78); TOTAL CELLS COUNTED % (AUTO) 100 %; WHITE BLOOD COUNT 6.8 10^3/uL (4.0-10.5)
[2019-01-03 06:57] LABS: HEMOGLOBIN 7.7 g/dL (13.5-17.0)
[2019-01-03 07:08] LABS: ANION GAP 12 (5-19); BLOOD UREA NITROGEN 69 mg/dL (7-20); CALCIUM 7.9 mg/dL (8.4-10.2); CARBON DIOXIDE 23 mmol/L (22-30); CHLORIDE 104 mmol/L (98-107); GLUCOSE 88 mg/dL (75-110)
[2019-01-03] MEDS: MAGNESIUM OXIDE 400 MG TABLET PO SCH ×2 (09:51→17:22)
[2019-01-03] MEDS: POTASSIUM CHLORIDE 20 MEQ PACKET PO SCH ×2 (09:51→21:52)
[2019-01-03] MEDS: CALCITRIOL 0.25 MCG CAPSULE PO SCH ×2 (09:51→17:22)
[2019-01-03] MEDS: APIXABAN 5 MG TABLET PO SCH ×2 (09:52→17:22)
[2019-01-03] MEDS: CEFTRIAXONE 2 GM/D5W RTU 2 GM/50 ML RTUPB IV SCH (09:52)
[2019-01-03] MEDS: DILTIAZEM HCL 180 MG CAPSULE.CR PO SCH (09:53)
[2019-01-03] MEDS: NYSTATIN TOPICAL POWDER 15 GM TP SCH ×2 (10:02→21:51)
--- NOTE | 2019-01-03 10:22 | PDOC PROGRESS REPORT ---
Subjective Progress Note for:: 01/03/19 Subjective:: Patient remains to be stable. He has no new complaints. His urine output continues to be good and adequate. He said his appetite is good. Reason For Visit: RENAL FAILURE,INFECTED L LEG ULCER Physical Exam Vital Signs: Temp Pulse Resp BP Pulse Ox 97.6 F 113 H 20 102/51 L 96 01/03/19 07:35 01/03/19 07:35 01/03/19 07:35 01/03/19 07:35 01/03/19 07:35 Intake & Output 01/02/19 01/03/19 01/04/19 06:59 06:59 06:59 Intake Total 4841 2214 Output Total 3050 2650 50 Balance 1791 -436 -50 Weight 99.5 kg 100.7 kg Exam: General appearance: PRESENT: no acute distress, cooperative, well-developed, well-nourished Head exam: PRESENT: atraumatic, normocephalic Eye exam: PRESENT: conjunctiva pale, PERRLA. ABSENT: scleral icterus Neck exam: ABSENT: JVD Respiratory exam: PRESENT: Normal breath sounds. ABSENT: crackles, rales, rhonchi, unlabored, wheezes Cardiovascular exam: PRESENT: Irregularly irregular rate rhythm -+S1, +S2. ABSENT: diastolic murmur, systolic murmur GI/Abdominal exam: PRESENT: normal bowel sounds, soft. ABSENT: guarding, mass, tenderness Extremities exam: Grade 1 bilateral lower extremity edema; left leg ulcer on wound VAC. Chronic right lymphedema. Neurological exam: PRESENT: alert, awake, oriented to person, place and time. Skin exam: PRESENT: dry, warm, Cardiovascular exam: PRESENT: +S1, +S2 GI/Abdominal exam: PRESENT: distended, normal bowel sounds, soft. ABSENT: organomegaly, tenderness Results Laboratory Results: 01/03/19 06:08 01/03/19 06:08 01/03/19 01/03/19 06:08 06:08 WBC 6.8 RBC 2.80 L Hgb 7.7 L Hct 23.4 L MCV 84 MCH 27.4 MCHC 32.8 RDW 20.9 H Plt Count 304 Seg Neutrophils % 59.3 Sodium 139.4 Potassium 4.0 Chloride 104 Carbon Dioxide 23 Anion Gap 12 BUN 69 H Creatinine 4.47 H Est GFR ( Amer) 16 L Glucose 88 Calcium 7.9 L Magnesium 1.7 12/28/18 11:40 Leg - Deep Wound Gram Stain - Final 12/28/18 11:40 Leg - Deep Wound Wound Culture - Final Providencia Rettgeri Staphylococcus Aureus Enterococcus Faecalis(Group D) Alcaligenes Faecalis Impressions: Tibia/Fibula X-Ray 12/27/18 14:42 IMPRESSION: 1. LARGE SOFT TISSUE DEFECT IN THE DISTAL LOWER LEG. NO GAS OR RADIOPAQUE FOREIGN OBJECT. NO RADIOGRAPHIC EVIDENCE OF OSTEOMYELITIS. 2. OLD FRACTURES OF THE TIBIA AND FIBULA. STABLE NICHELLE IN THE TIBIA. NO ACUTE FINDINGS. Chest X-Ray 12/28/18 00:00 IMPRESSION: Pulmonary vascular congestion without juan m pulmonary edema. Renal Ultrasound 12/28/18 09:00 IMPRESSION: MARKEDLY LIMITED STUDY. NO GROSS ABNORMALITY. Assessment & Plan - Diagnosis (1) NICKI (acute kidney injury) Is this a current diagnosis for this admission?: Yes Plan: Likely secondary to sepsis causing ATN. Currently nonoliguric and producing adequate amount of urine output. Patient's kidney function continues to improve every single day. His initial creatinine was around 7.5. Baseline creatinine is around 1.8-2+. Currently improved creatinine of 4.47 with EGFR of 13. Continue current management as he is improving. No need of any renal replacemen t therapy. (2) CKD (chronic kidney disease) stage 4, GFR 15-29 ml/min Is this a current diagnosis for this admission?: Yes (3) Sepsis Qualifiers: Sepsis type: sepsis due to unspecified organism Sepsis acute organ dysfunction status: with acute organ dysfunction Severe sepsis acute organ dysfunction type: acute renal failure Acute renal failure type: unspecified Severe sepsis shock status: without septic shock Qualified Code(s): A41.9 - Sepsis, unspecified organism; R65.20 - Severe sepsis without septic shock; N17.9 - Acute kidney failure, unspecified Is this a current diagnosis for this admission?: Yes Plan: Due to urinary tract infection and leg ulcer. (4) Cellulitis and abscess of lower extremity Is this a current diagnosis for this admission?: Yes Plan: Left leg and wound VAC and IV antibiotics. Wound culture is polymicrobial. (5) UTI (urinary tract infection) Qualifiers: Urinary tract infection type: acute cystitis Hematuria presence: without hematuria Qualified Code(s): N30.00 - Acute cystitis without hematuria Is this a current diagnosis for this admission?: Yes Plan: Secondary to Proteus mirabilis and gram-positive cocci currently on IV antibiotics. (6) Anemia in chronic kidney disease (CKD) Is this a current diagnosis for this admission?: Yes Plan: Currently receiving Retacrit q. Sundays. GI have seen the patient but due to being on anticoagulation, work-up has been held. (7) Atrial fibrillation with RVR Is this a current diagnosis for this admission?: Yes Plan: Per hospitalist service. (8) Chronic acquired lymphedema Is this a current diagnosis for this admission?: Yes - Time Time with patient: 15-25 minutes
[2019-01-03] MEDS: DEXTROSE 5%-WATER 1000 ML 1,000 ML IV PRN (14:19)
--- NOTE | 2019-01-03 16:20 | PDOC PROGRESS REPORT ---
Subjective Progress Note for:: 01/03/19 Subjective:: Patient currently has no complaints today. States the pain is minimally his leg. Still endorses swelling in his lower extremity. Reason For Visit: RENAL FAILURE,INFECTED L LEG ULCER Physical Exam Vital Signs: Temp Pulse Resp BP Pulse Ox 97.6 F 63 18 120/65 97 01/03/19 15:53 01/03/19 15:53 01/03/19 15:53 01/03/19 15:53 01/03/19 15:53 Intake & Output 01/02/19 01/03/19 01/04/19 06:59 06:59 06:59 Intake Total 4841 3214 1089 Output Total 3050 2650 1750 Balance 1791 564 -661 Weight 99.5 kg 100.7 kg General appearance: PRESENT: no acute distress, cooperative Head exam: PRESENT: atraumatic Eye exam: PRESENT: EOMI Mouth exam: PRESENT: moist Respiratory exam: PRESENT: clear to auscultation moustapha Cardiovascular exam: PRESENT: +S1. ABSENT: bradycardia, gallop, tachycardia Vascular exam: ABSENT: pallor GI/Abdominal exam: PRESENT: normal bowel sounds, soft Rectal exam: PRESENT: deferred Extremities exam: PRESENT: other - 3+ lymphedema in right leg. Left leg with minimal swelling. Wound with clean wound VAC. Neurological exam: PRESENT: alert, awake Psychiatric exam: ABSENT: agitated Results Laboratory Results: 01/03/19 06:08 01/03/19 06:08 01/03/19 01/03/19 06:08 06:08 WBC 6.8 RBC 2.80 L Hgb 7.7 L Hct 23.4 L MCV 84 MCH 27.4 MCHC 32.8 RDW 20.9 H Plt Count 304 Seg Neutrophils % 59.3 Sodium 139.4 Potassium 4.0 Chloride 104 Carbon Dioxide 23 Anion Gap 12 BUN 69 H Creatinine 4.47 H Est GFR ( Amer) 16 L Glucose 88 Calcium 7.9 L Magnesium 1.7 12/28/18 11:40 Leg - Deep Wound Gram Stain - Final 12/28/18 11:40 Leg - Deep Wound Wound Culture - Final Providencia Rettgeri Staphylococcus Aureus Enterococcus Faecalis(Group D) Alcaligenes Faecalis Impressions: Tibia/Fibula X-Ray 12/27/18 14:42 IMPRESSION: 1. LARGE SOFT TISSUE DEFECT IN THE DISTAL LOWER LEG. NO GAS OR RADIOPAQUE FOREIGN OBJECT. NO RADIOGRAPHIC EVIDENCE OF OSTEOMYELITIS. 2. OLD FRACTURES OF THE TIBIA AND FIBULA. STABLE NICHELLE IN THE TIBIA. NO ACUTE FINDINGS. Chest X-Ray 12/28/18 00:00 IMPRESSION: Pulmonary vascular congestion without juan m pulmonary edema. Renal Ultrasound 12/28/18 09:00 IMPRESSION: MARKEDLY LIMITED STUDY. NO GROSS ABNORMALITY. Assessment and Plan - Diagnosis (1) Acute renal failure Qualifiers: Acute renal failure type: unspecified Qualified Code(s): N17.9 - Acute kidney failure, unspecified Is this a current diagnosis for this admission?: Yes (2) Anemia Qualifiers: Anemia type: due to chronic kidney disease Chronic kidney disease stage: stage 5, not on chronic dialysis Qualified Code(s): N18.5 - Chronic kidney disease, stage 5; D63.1 - Anemia in chronic kidney disease Is this a current diagnosis for this admission?: Yes (3) Chronic acquired lymphedema Is this a current diagnosis for this admission?: Yes (4) Congestive heart failure Is this a current diagnosis for this admission?: Yes (5) Hypocalcemia Is this a current diagnosis for this admission?: Yes (6) Hypomagnesemia Is this a current diagnosis for this admission?: Yes (7) Infected decubitus ulcer Qualifiers: Pressure injury stage: stage 4 Qualified Code(s): L89.94 - Pressure ulcer of unspecified site, stage 4; L08.9 - Local infection of the skin and subcutaneous tissue, unspecified Is this a current diagnosis for this admission?: Yes - Plan Summary Summary: Patient is currently on cefepime, he appears to be growing out gram-negative rods as well as gram-positive cocci from his wound culture Urine culture shows Proteus mirabilis General surgery to recommend treatment concerning left lower leg wound Nephrology treating acute renal failure and metabolic acidosis as well as anemia to chronic kidney disease BUN is 86 patient came in at 91, creatinine it is now 6.05 patient came in at 7.56 Hemoglobin is drifted down to 7.5 came in at 8.6, white blood cell count is normal at 7.5 platelets normal at 296 INR slightly elevated at 2.43 Chest x-ray from 2 days ago showed pulmonary vascular congestion without juan m pulmonary edema Patient is receiving 3000 mg of IV calcium gluconate today also Lasix 20 mg IV every 8 hours he is on Eliquis 5 mg twice daily Follow daily labs as well as patient clinically 12/31/2018 INR is 1.88, WBC's down even lower to 5.9. Hemoglobin is stable at 7.5 Both calcium and albumin are low. Renal function seems to be improving slowly ,patient is currently getting Lasix 20 mg IV every 8 hours. His IV fluids are D5 W at 100/h Day 3 of Maxipime, 1 g daily 10 you current course, follow surgery and nephrology's recommendations 01/01/2019 Vital signs are stable CBC is normal potassium slightly low 3.3. She is currently taking 20 mEq twice daily. I will increase this to 20 in the morning and 40 at night. Calcium still slightly low at 7.4 PTH is elevated as would be expected. BUN and creatinine are improving, now 68 and 5.06. Continue same course for his left lower extremity wound with the wound VAC and fluids and electrolyte replacement as needed 01/02/2019 Progress note from yesterday reviewed regarding possible hematochezia. Seen by GI who recommended deferring any endoscopic evaluation for now giving current anticoagulation and necessity for anticoagulation. Patient's hemoglobin has been stable. No further reports of GI bleeding today. Creatinine improving now down to 4.99. We will continue Lasix challenge. Continue to trend BMP. Continue to monitor I's and O's as well as blood chemistry. Nephrology following for further guidance recommendations appreciated. 01/03/2019 Patient denies any recurrence of hematochezia. Antibiotics for infected leg wound changed to Unasyn for broad coverage of poly-microbes. Creatinine down trended to 4.47 today. Continue current therapy with Lasix and monitor I's and O's and trend BMP. Nephrology still on board. - Time Time Spent with patient: 15-24 minutes
[2019-01-03] MEDS ORDERED: AMPICILLIN SOD/SULBACTAM 1.5 GM VIAL IV SCH (18:00)
[2019-01-03] MEDS: MELATONIN 5 MG TABLET PO SCH (21:51)
[2019-01-03] MEDS: AMPICILLIN SODIUM/SULBACTAM NA 1.5 GM in NORMAL SALINE 50 ML IV SCH (21:53)
[2019-01-04 05:07] LABS: ANION GAP 13 (5-19); BLOOD UREA NITROGEN 67 mg/dL (7-20); CARBON DIOXIDE 24 mmol/L (22-30); CHLORIDE 101 mmol/L (98-107); GLUCOSE 84 mg/dL (75-110); POTASSIUM 4.6 mmol/L (3.6-5.0)
[2019-01-04] MEDS: FUROSEMIDE INJ/PF 20 MG/2 ML SDV IV SCH ×3 (05:10→22:16)
[2019-01-04] MEDS: POTASSIUM CHLORIDE 20 MEQ PACKET PO SCH ×2 (09:29→22:15)
[2019-01-04] MEDS: DILTIAZEM HCL 180 MG CAPSULE.CR PO SCH (09:29)
[2019-01-04] MEDS: MAGNESIUM OXIDE 400 MG TABLET PO SCH ×2 (09:30→17:44)
[2019-01-04] MEDS: CALCITRIOL 0.25 MCG CAPSULE PO SCH ×2 (09:30→17:44)
[2019-01-04] MEDS: APIXABAN 5 MG TABLET PO SCH ×2 (09:30→17:44)
[2019-01-04] MEDS: NYSTATIN TOPICAL POWDER 15 GM TP SCH ×2 (09:32→22:18)
[2019-01-04] MEDS: AMPICILLIN SODIUM/SULBACTAM NA 1.5 GM in NORMAL SALINE 50 ML IV SCH ×2 (09:37→22:16)
--- NOTE | 2019-01-04 10:57 | PDOC PROGRESS REPORT ---
Subjective Progress Note for:: 01/04/19 Subjective:: Patient laid down in bed telling me that he just feels tired and sleepy today. No other complaints. He continues to have adequate urine output and is made 2775 mL of urine yesterday. Reason For Visit: RENAL FAILURE,INFECTED L LEG ULCER Physical Exam Vital Signs: Temp Pulse Resp BP Pulse Ox 97.9 F 115 H 16 110/71 95 01/04/19 08:14 01/04/19 08:14 01/04/19 08:14 01/04/19 08:14 01/04/19 08:14 Intake & Output 01/03/19 01/04/19 01/05/19 06:59 06:59 06:59 Intake Total 3214 1819 Output Total 2650 2825 Balance 564 -1006 Weight 100.7 kg 96.3 kg Exam: General appearance: PRESENT: no acute distress, cooperative, well-developed, well-nourished Head exam: PRESENT: atraumatic, normocephalic Eye exam: PRESENT: conjunctiva pale, PERRLA. ABSENT: scleral icterus Neck exam: ABSENT: JVD Respiratory exam: PRESENT: Normal breath sounds. ABSENT: crackles, rales, rhonchi, unlabored, wheezes Cardiovascular exam: PRESENT: Irregularly irregular rate rhythm -+S1, +S2. ABSENT: diastolic murmur, systolic murmur GI/Abdominal exam: PRESENT: normal bowel sounds, soft. ABSENT: guarding, mass, tenderness Extremities exam: Improving bilateral trace lower extremity edema; wound VAC in place on the left leg, chronic lymphedema on the right leg Neurological exam: PRESENT: alert, awake, oriented to person, place and time. Skin exam: PRESENT: dry, warm, Cardiovascular exam: PRESENT: +S1, +S2 GI/Abdominal exam: PRESENT: distended, normal bowel sounds, soft. ABSENT: organomegaly, tenderness Results Laboratory Results: 01/03/19 06:08 01/04/19 03:31 01/04/19 03:31 Sodium 137.8 Potassium 4.6 Chloride 101 Carbon Dioxide 24 Anion Gap 13 BUN 67 H Creatinine 4.35 H Est GFR ( Amer) 16 L Glucose 84 Calcium 8.0 L 12/27/18 15:05 Clean Catch Midstream Urine Culture - Final Proteus Mirabilis Staphylococcus Aureus Impressions: Tibia/Fibula X-Ray 12/27/18 14:42 IMPRESSION: 1. LARGE SOFT TISSUE DEFECT IN THE DISTAL LOWER LEG. NO GAS OR RADIOPAQUE FOREIGN OBJECT. NO RADIOGRAPHIC EVIDENCE OF OSTEOMYELITIS. 2. OLD FRACTURES OF THE TIBIA AND FIBULA. STABLE NICHELLE IN THE TIBIA. NO ACUTE FINDINGS. Chest X-Ray 12/28/18 00:00 IMPRESSION: Pulmonary vascular congestion without juan m pulmonary edema. Renal Ultrasound 12/28/18 09:00 IMPRESSION: MARKEDLY LIMITED STUDY. NO GROSS ABNORMALITY. Assessment & Plan - Diagnosis (1) NICKI (acute kidney injury) Is this a current diagnosis for this admission?: Yes Plan: Likely secondary to sepsis causing ATN. Currently nonoliguric and producing adequate amount of urine output. Patient's kidney function continues to improve every single day. His initial creatinine was around 7.5. Baseline creatinine is around 1.8-2+. Currently improved creatinine of 4.35 with EGFR of 13. Continue current management as he is improving. No need of any renal replac ement therapy. (2) CKD (chronic kidney disease) stage 4, GFR 15-29 ml/min Is this a current diagnosis for this admission?: Yes (3) Sepsis Qualifiers: Sepsis type: sepsis due to unspecified organism Sepsis acute organ dysfunction status: with acute organ dysfunction Severe sepsis acute organ dysfunction type: acute renal failure Acute renal failure type: unspecified Severe sepsis shock status: without septic shock Qualified Code(s): A41.9 - Sepsis, unspecified organism; R65.20 - Severe sepsis without septic shock; N17.9 - Acute kidney failure, unspecified Is this a current diagnosis for this admission?: Yes Plan: Due to urinary tract infection and leg ulcer. (4) Cellulitis and abscess of lower extremity Is this a current diagnosis for this admission?: Yes Plan: Left leg and wound VAC and IV antibiotics. Wound culture is polymicrobial. (5) UTI (urinary tract infection) Qualifiers: Urinary tract infection type: acute cystitis Hematuria presence: without hematuria Qualified Code(s): N30.00 - Acute cystitis without hematuria Is this a current diagnosis for this admission?: Yes Plan: Secondary to Proteus mirabilis and gram-positive cocci currently on IV antibiotics. (6) Anemia in chronic kidney disease (CKD) Is this a current diagnosis for this admission?: Yes Plan: Currently receiving Retacrit q. Sundays. GI have seen the patient but due to being on anticoagulation, work-up has been held. (7) Atrial fibrillation with RVR Is this a current diagnosis for this admission?: Yes Plan: Per hospitalist service. (8) Chronic acquired lymphedema Is this a current diagnosis for this admission?: Yes - Time Time with patient: 15-25 minutes
[2019-01-04] MEDS ORDERED: DILTIAZEM HCL 30 MG TABLET PO ONE (11:21)
--- NOTE | 2019-01-04 11:34 | PDOC PROGRESS REPORT ---
Subjective Progress Note for:: 01/04/19 Subjective:: Patient currently has no complaints today. States the pain is minimally his leg. Patient states that he was unable to get much sleep last night because of people coming into the room. Otherwise denies any fever chills or new symptoms. When discussing removal of the Sorenson catheter patient expresses wishes that he would like to maintain the catheter here for 1 more day despite the risk of infection being explained to him. Reason For Visit: RENAL FAILURE,INFECTED L LEG ULCER Physical Exam Vital Signs: Temp Pulse Resp BP Pulse Ox 97.9 F 115 H 16 110/71 95 01/04/19 08:14 01/04/19 08:14 01/04/19 08:14 01/04/19 08:14 01/04/19 08:14 Intake & Output 01/03/19 01/04/19 01/05/19 06:59 06:59 06:59 Intake Total 3214 1819 Output Total 2650 2825 Balance 564 -1006 Weight 100.7 kg 96.3 kg General appearance: PRESENT: no acute distress, cooperative Head exam: PRESENT: normocephalic Eye exam: PRESENT: conjunctiva pink Ear exam: ABSENT: drainage Mouth exam: PRESENT: moist Neck exam: ABSENT: JVD, tracheal deviation Respiratory exam: PRESENT: clear to auscultation moustapha Cardiovascular exam: PRESENT: irregular rhythm, +S1 Vascular exam: ABSENT: pallor GI/Abdominal exam: PRESENT: normal bowel sounds, soft. ABSENT: tenderness Rectal exam: PRESENT: deferred Extremities exam: PRESENT: other - 3+ swelling in his right leg with mild swelling in the left leg wound VAC in place on the left leg wound still draining Musculoskeletal exam: PRESENT: ambulatory Neurological exam: PRESENT: alert, oriented to person, oriented to place, oriented to time, oriented to situation Psychiatric exam: ABSENT: agitated Results Laboratory Results: 01/03/19 06:08 01/04/19 03:31 01/04/19 03:31 Sodium 137.8 Potassium 4.6 Chloride 101 Carbon Dioxide 24 Anion Gap 13 BUN 67 H Creatinine 4.35 H Est GFR ( Amer) 16 L Glucose 84 Calcium 8.0 L 12/27/18 15:05 Clean Catch Midstream Urine Culture - Final Proteus Mirabilis Staphylococcus Aureus Impressions: Tibia/Fibula X-Ray 12/27/18 14:42 IMPRESSION: 1. LARGE SOFT TISSUE DEFECT IN THE DISTAL LOWER LEG. NO GAS OR RADIOPAQUE FO REIGN OBJECT. NO RADIOGRAPHIC EVIDENCE OF OSTEOMYELITIS. 2. OLD FRACTURES OF THE TIBIA AND FIBULA. STABLE NICHELLE IN THE TIBIA. NO ACUTE FINDINGS. Chest X-Ray 12/28/18 00:00 IMPRESSION: Pulmonary vascular congestion without juan m pulmonary edema. Renal Ultrasound 12/28/18 09:00 IMPRESSION: MARKEDLY LIMITED STUDY. NO GROSS ABNORMALITY. Assessment and Plan - Diagnosis (1) Acute renal failure Qualifiers: Acute renal failure type: with acute tubular necrosis Qualified Code(s): N17.0 - Acute kidney failure with tubular necrosis Is this a current diagnosis for this admission?: Yes Plan: Likely secondary to acute tubular necrosis from initial sepsis. Still has good urinary output. Creatinine improved to 4.3 but appears to be plateauing at the new baseline. Will remove Sorenson catheter tomorrow and perform voiding trial. Nephrology following. Recommendations appreciated. Continue with current treatment plan. No renal replacement needed (2) Cellulitis and abscess of left lower extremity Is this a current diagnosis for this admission?: Yes Plan: Wound VAC in place and still draining. Wound culture revealing polymicrobial species. Continue with Unasyn at this time. (3) Anemia Qualifiers: Anemia type: due to chronic kidney disease Chronic kidney disease stage: stage 5, not on chronic dialysis Qualified Code(s): N18.5 - Chronic kidney disease, stage 5; D63.1 - Anemia in chronic kidney disease Is this a current diagnosis for this admission?: Yes Plan: Will monitor (4) Chronic acquired lymphedema Is this a current diagnosis for this admission?: Yes (5) Congestive heart failure Is this a current diagnosis for this admission?: Yes (6) Hypocalcemia Is this a current diagnosis for this admission?: Yes Plan: Resolved - Time Time Spent with patient: 25-34 minutes
[2019-01-04] MEDS: MELATONIN 5 MG TABLET PO SCH (22:15)
[2019-01-05 05:04] LABS: ANION GAP 13 (5-19); BLOOD UREA NITROGEN 66 mg/dL (7-20); CALCIUM 8.1 mg/dL (8.4-10.2); CARBON DIOXIDE 24 mmol/L (22-30); CHLORIDE 103 mmol/L (98-107); GLUCOSE 85 mg/dL (75-110); POTASSIUM 4.6 mmol/L (3.6-5.0)
[2019-01-05] MEDS: FUROSEMIDE INJ/PF 20 MG/2 ML SDV IV SCH (05:21)
[2019-01-05] MEDS ORDERED: DILTIAZEM HCL 240 MG CAPSULE.CR PO SCH (10:00)
[2019-01-05] MEDS: NYSTATIN TOPICAL POWDER 15 GM TP SCH (10:13)
[2019-01-05] MEDS: CALCITRIOL 0.25 MCG CAPSULE PO SCH ×2 (10:13→18:20)
[2019-01-05] MEDS: MAGNESIUM OXIDE 400 MG TABLET PO SCH ×2 (10:13→18:20)
[2019-01-05] MEDS: APIXABAN 5 MG TABLET PO SCH ×2 (10:14→18:20)
[2019-01-05] MEDS: POTASSIUM CHLORIDE 20 MEQ PACKET PO SCH ×2 (10:14→22:22)
[2019-01-05] MEDS: AMPICILLIN SODIUM/SULBACTAM NA 1.5 GM in NORMAL SALINE 50 ML IV SCH (10:15)
--- NOTE | 2019-01-05 13:39 | PDOC PROGRESS REPORT ---
Subjective Progress Note for:: 01/05/19 Subjective:: Patient feels well. Still having difficulty sleeping. Otherwise denies trouble breathing lightheadedness or dizziness. Denies noticing palpitations. Reason For Visit: RENAL FAILURE,INFECTED L LEG ULCER Physical Exam Vital Signs: Temp Pulse Resp BP Pulse Ox 97.5 F 46 L 20 93/60 L 97 01/05/19 08:51 01/05/19 08:51 01/05/19 08:51 01/05/19 08:51 01/05/19 08:51 Intake & Output 01/04/19 01/05/19 01/06/19 06:59 06:59 06:59 Intake Total 1819 820 50 Output Total 2825 4325 Balance -1006 -3505 50 Weight 96.3 kg 96.9 kg General appearance: PRESENT: no acute distress, cooperative Mouth exam: PRESENT: moist Neck exam: ABSENT: JVD, tracheal deviation Respiratory exam: PRESENT: clear to auscultation moustapha Cardiovascular exam: PRESENT: +S1. ABSENT: bradycardia Vascular exam: ABSENT: pallor GI/Abdominal exam: PRESENT: normal bowel sounds, soft. ABSENT: distended, tenderness Rectal exam: PRESENT: deferred Extremities exam: PRESENT: other - Wound VAC with drainage in left lower extremity. 3+ nonpitting edema in right lower extremity Neurological exam: PRESENT: alert, awake Results Laboratory Results: 01/03/19 06:08 01/05/19 03:09 01/05/19 03:09 Sodium 139.8 Potassium 4.6 Chloride 103 Carbon Dioxide 24 Anion Gap 13 BUN 66 H Creatinine 4.09 H Est GFR ( Amer) 17 L Glucose 85 Calcium 8.1 L Impressions: Tibia/Fibula X-Ray 12/27/18 14:42 IMPRESSION: 1. LARGE SOFT TISSUE DEFECT IN THE DISTAL LOWER LEG. NO GAS OR RADIOPAQUE FOREIGN OBJECT. NO RADIOGRAPHIC EVIDENCE OF OSTEOMYELITIS. 2. OLD FRACTURES OF THE TIBIA AND FIBULA. STABLE NICHELLE IN THE TIBIA. NO ACUTE FINDINGS. Chest X-Ray 12/28/18 00:00 IMPRESSION: Pulmonary vascular congestion without juan m pulmonary edema. Renal Ultrasound 12/28/18 09:00 IMPRESSION: MARKEDLY LIMITED STUDY. NO GROSS ABNORMALITY. Assessment and Plan - Diagnosis (1) Acute renal failure Qualifiers: Acute renal failure type: with acute tubular necrosis Qualified Code(s): N17.0 - Acute kidney failure with tubular necrosis Is this a current diagnosis for this admission?: Yes Plan: Likely secondary to acute tubular necrosis from initial sepsis. Creatinine still downtrending with diuresis. However patient blood pressure slightly decreased from yesterday and yesterday, patient was net -3.5 L. Continue to monitor I's and O's. Suspect that patient could be starting to have some post ATN diuresis. Will decrease Lasix dose from every 8 hours to daily to prevent dehydration. Will remove Sorenson catheter and perform voiding trial. Nephrology following (2) Cellulitis and abscess of left lower extremity Is this a current diagnosis for this admission?: Yes Plan: Wound VAC in place and still draining. Wound culture revealing polymicrobial species. Continue with Unasyn for 5 more days. (3) Anemia Qualifiers: Anemia type: due to chronic kidney disease Chronic kidney disease stage: stage 5, not on chronic dialysis Qualified Code(s): N18.5 - Chronic kidney disease, stage 5; D63.1 - Anemia in chronic kidney disease Is this a current diagnosis for this admission?: Yes Plan: Will monitor (4) Chronic acquired lymphedema Is this a current diagnosis for this admission?: Yes (5) Congestive heart failure Is this a current diagnosis for this admission?: Yes Plan: Stable - Time Time Spent with patient: 15-24 minutes
[2019-01-05] MEDS ORDERED: DIPHENHYDRAMINE HCL 25 MG CAPSULE PO PRN (13:42)
--- NOTE | 2019-01-05 15:03 | PDOC PROGRESS REPORT ---
Subjective Progress Note for:: 01/05/19 Subjective:: Patient is doing fine and has really no new complaints. However he has gross hematuria at this time. He states that he gets this every now and then because he is on Eliquis. He denies any dysuria, urgency nor bladder pain. He also states that he has urinary incontinence and is worried if the catheter is removed. Patient has a significant urine output of 4200 mL for the past 24 hours which is more than what his been making for the last few days. Reason For Visit: RENAL FAILURE,INFECTED L LEG ULCER Physical Exam Vital Signs: Temp Pulse Resp BP Pulse Ox 97.5 F 46 L 20 93/60 L 97 01/05/19 08:51 01/05/19 08:51 01/05/19 08:51 01/05/19 08:51 01/05/19 08:51 Intake & Output 01/04/19 01/05/19 01/06/19 06:59 06:59 06:59 Intake Total 1819 820 50 Output Total 2825 4325 Balance -1006 -3505 50 Weight 96.3 kg 96.9 kg Exam: General appearance: PRESENT: no acute distress, cooperative, well-developed, wel l-nourished Head exam: PRESENT: atraumatic, normocephalic Eye exam: PRESENT: conjunctiva pale, PERRLA. ABSENT: scleral icterus Neck exam: ABSENT: JVD Respiratory exam: PRESENT: Normal breath sounds. ABSENT: crackles, rales, rhonchi, unlabored, wheezes Cardiovascular exam: PRESENT: Irregular rate rhythm -+S1, +S2. ABSENT: diastolic murmur, systolic murmur GI/Abdominal exam: PRESENT: normal bowel sounds, soft. ABSENT: guarding, mass, tenderness Extremities exam: Improving trace bilateral lower extremity pitting edema, wound VAC on the left leg and chronic lymphedema on the right Neurological exam: PRESENT: alert, awake, oriented to person, place and time. Skin exam: PRESENT: dry, warm, Cardiovascular exam: PRESENT: +S1, +S2 GI/Abdominal exam: PRESENT: distended, normal bowel sounds, soft. ABSENT: organomegaly, tenderness Results Laboratory Results: 01/03/19 06:08 01/05/19 03:09 01/05/19 03:09 Sodium 139.8 Potassium 4.6 Chloride 103 Carbon Dioxide 24 Anion Gap 13 BUN 66 H Creatinine 4.09 H Est GFR ( Amer) 17 L Glucose 85 Calcium 8.1 L Impressions: Tibia/Fibula X-Ray 12/27/18 14:42 IMPRESSION: 1. LARGE SOFT TISSUE DEFECT IN THE DISTAL LOWER LEG. NO GAS OR RADIOPAQUE FOREIGN OBJECT. NO RADIOGRAPHIC EVIDENCE OF OSTEOMYELITIS. 2. OLD FRACTURES OF THE TIBIA AND FIBULA. STABLE NICHELLE IN THE TIBIA. NO ACUTE FINDINGS. Chest X-Ray 12/28/18 00:00 IMPRESSION: Pulmonary vascular congestion without jua nm pulmonary edema. Renal Ultrasound 12/28/18 09:00 IMPRESSION: MARKEDLY LIMITED STUDY. NO GROSS ABNORMALITY. Assessment & Plan - Diagnosis (1) NICKI (acute kidney injury) Is this a current diagnosis for this admission?: Yes Plan: Likely secondary to sepsis causing ATN. Currently nonoliguric and producing more than adequate amount of urine output. Patient is likely on a diuretic phase of ATN at this time. Patient's kidney function continues to improve every single day. His initial creatinine was around 7.5. Baseline creatinine is around 1.8-2+. Currently improved creatinine of 4.09 with EGFR of 14. Continue current management as he is improving. No need of any renal replacement therapy. Agree with decreasing dose of Lasix from every 8 to just daily. This may even be changed to oral dose tomorrow. (2) CKD (chronic kidney disease) stage 4, GFR 15-29 ml/min Is this a current diagnosis for this admission?: Yes (3) Sepsis Qualifiers: Sepsis type: sepsis due to unspecified organism Sepsis acute organ dysf unction status: with acute organ dysfunction Severe sepsis acute organ dy sfunction type: acute renal failure Acute renal failure type: unspecified Severe sepsis shock status: without septic shock Qualified Code(s): A41.9 - Sepsis, unspecified organism; R65.20 - Severe sepsis without septic shock; N17.9 - Acute kidney failure, unspecified Is this a current diagnosis for this admission?: Yes Plan: Due to urinary tract infection and leg ulcer. (4) Cellulitis and abscess of lower extremity Is this a current diagnosis for this admission?: Yes Plan: Left leg and wound VAC and IV antibiotics. Wound culture is polymicrobial. (5) UTI (urinary tract infection) Qualifiers: Urinary tract infection type: acute cystitis Hematuria presence: without hematuria Qualified Code(s): N30.00 - Acute cystitis without hematuria Is this a current diagnosis for this admission?: Yes Plan: Secondary to Proteus mirabilis and gram-positive cocci currently on IV antibiotics. (6) Gross hematuria Is this a current diagnosis for this admission?: Yes Plan: Patient states he has this intermittently due to his Eliquis. Agree with removing indwelling Sorenson catheter and replace it with condom catheter in lieu of urinary incontinence. Also advised to decrease the dose of Eliquis. (7) Anemia in chronic kidney disease (CKD) Is this a current diagnosis for this admission?: Yes Plan: Currently receiving Retacrit q. Sundays. GI have seen the patient but due to being on anticoagulation, work-up has been held. Current gross hematuria can also be contributing to her anemia. (8) Atrial fibrillation with RVR Is this a current diagnosis for this admission?: Yes Plan: Per hospitalist service. Due to gross hematuria I think the dose of his Eliquis needs to be reduced to 2.5 mg twice daily until her kidney function is much improved to baseline. (9) Chronic acquired lymphedema Is this a current diagnosis for this admission?: Yes - Time Time with patient: 15-25 minutes
--- NOTE | 2019-01-05 19:06 | EKG REPORT ---
SEVERITY:- ABNORMAL ECG - ATRIAL FIBRILLATION, V-RATE 91-133 PAIRED VENTRICULAR PREMATURE COMPLEXES BORDERLINE LEFT AXIS DEVIATION NONSPECIFIC T ABNORMALITIES, LATERAL LEADS : Confirmed by: Danisha Wood MD 05-Jan-2019 19:05:37
[2019-01-05] MEDS: MELATONIN 5 MG TABLET PO SCH (22:20)
[2019-01-06] MEDS: AMPICILLIN SODIUM/SULBACTAM NA 1.5 GM in NORMAL SALINE 50 ML IV SCH ×3 (00:12→21:09)
[2019-01-06] MEDS: NYSTATIN TOPICAL POWDER 15 GM TP SCH ×3 (00:46→21:10)
[2019-01-06 05:22] LABS: HEMATOCRIT 24.9 % (37.9-51.0); HEMOGLOBIN 8.1 g/dL (13.5-17.0); MEAN CORPUSCULAR HEMOGLOBIN 27.6 pg (27.0-33.4); MEAN CORPUSCULAR HGB CONC 32.5 g/dL (32.0-36.0); MEAN CORPUSCULAR VOLUME 85 fl (80-97); PLATELET COUNT 320 10^3/uL (150-450); RED BLOOD COUNT 2.94 10^6/uL (4.35-5.55); RED CELL DISTRIBUTION WIDTH 21.3 % (11.5-14.0); WHITE BLOOD COUNT 7.6 10^3/uL (4.0-10.5)
[2019-01-06 05:49] LABS: ANION GAP 12 (5-19); BLOOD UREA NITROGEN 66 mg/dL (7-20); CALCIUM 8.1 mg/dL (8.4-10.2); CARBON DIOXIDE 24 mmol/L (22-30); CHLORIDE 103 mmol/L (98-107); GLUCOSE 89 mg/dL (75-110); POTASSIUM 4.8 mmol/L (3.6-5.0)
[2019-01-06] MEDS: POTASSIUM CHLORIDE 20 MEQ PACKET PO SCH ×2 (08:06→21:10)
[2019-01-06] MEDS: EPOETIN ALFA-EPBX 10,000 UNIT/ML VIAL (NON-ESRD) SUBCUT SCH (08:06)
[2019-01-06] MEDS: FUROSEMIDE INJ/PF 20 MG/2 ML SDV IV SCH (10:02)
[2019-01-06] MEDS: MAGNESIUM OXIDE 400 MG TABLET PO SCH ×2 (10:02→17:59)
[2019-01-06] MEDS: DILTIAZEM HCL 180 MG CAPSULE.CR PO SCH (10:02)
[2019-01-06] MEDS: APIXABAN 5 MG TABLET PO SCH ×2 (10:02→17:59)
[2019-01-06] MEDS: CALCITRIOL 0.25 MCG CAPSULE PO SCH ×2 (10:03→17:59)
--- NOTE | 2019-01-06 11:50 | PDOC PROGRESS REPORT ---
Subjective Progress Note for:: 01/06/19 Subjective:: Patient feels well. Still having difficulty sleeping but slept a little bit better yesterday. Otherwise denies trouble breathing lightheadedness or dizziness. Denies noticing palpitations. Had some hematuria yesterday after Bustillos was removed. Reason For Visit: RENAL FAILURE,INFECTED L LEG ULCER Physical Exam Vital Signs: Temp Pulse Resp BP Pulse Ox 97.8 F 124 H 18 101/55 L 97 01/06/19 08:41 01/06/19 08:41 01/06/19 08:41 01/06/19 08:41 01/06/19 08:41 Intake & Output 01/05/19 01/06/19 01/07/19 06:59 06:59 06:59 Intake Total 820 900 360 Output Total 4325 650 Balance -3505 250 360 Weight 96.9 kg 95.6 kg General appearance: PRESENT: no acute distress, cooperative Eye exam: PRESENT: EOMI Respiratory exam: PRESENT: clear to auscultation moustapha Cardiovascular exam: PRESENT: irregular rhythm, +S1, tachycardia GI/Abdominal exam: PRESENT: normal bowel sounds, soft. ABSENT: tenderness Rectal exam: PRESENT: deferred Gentrourinary exam: ABSENT: indwelling catheter Neurological exam: PRESENT: alert, awake, oriented to person, oriented to place, oriented to situation Results Laboratory Results: 01/06/19 05:04 01/06/19 05:04 01/06/19 01/06/19 05:04 05:04 WBC 7.6 RBC 2.94 L Hgb 8.1 L Hct 24.9 L MCV 85 MCH 27.6 MCHC 32.5 RDW 21.3 H Plt Count 320 Sodium 139.1 Potassium 4.8 Chloride 103 Carbon Dioxide 24 Anion Gap 12 BUN 66 H Creatinine 3.83 H Est GFR ( Amer) 19 L Glucose 89 Calcium 8.1 L Impressions: Tibia/Fibula X-Ray 12/27/18 14:42 IMPRESSION: 1. LARGE SOFT TISSUE DEFECT IN THE DISTAL LOWER LEG. NO GAS OR RADIOPAQUE FOREIGN OBJECT. NO RADIOGRAPHIC EVIDENCE OF OSTEOMYELITIS. 2. OLD FRACTURES OF THE TIBIA AND FIBULA. STABLE NICHELLE IN THE TIBIA. NO ACUTE FINDINGS. Chest X-Ray 12/28/18 00:00 IMPRESSION: Pulmonary vascular congestion without juan m pulmonary edema. Renal Ultrasound 12/28/18 09:00 IMPRESSION: MARKEDLY LIMITED STUDY. NO GROSS ABNORMALITY. Assessment and Plan - Diagnosis (1) Acute renal failure Qualifiers: Acute renal failure type: with acute tubular necrosis Qualified Code(s): N17.0 - Acute kidney failure with tubular necrosis Is this a current diagnosis for this admission?: Yes Plan: Likely secondary to acute tubular necrosis from initial sepsis. Creatinine still downtrending with diuresis. BP improved with reduction of Lasix dosing continue to monitor I's and O's. Nephrology following (2) Cellulitis and abscess of left lower extremity Is this a current diagnosis for this admission?: Yes Plan: Wound VAC in place and still draining. Wound culture revealing polymicrobial species. Continue with Unasyn for 4 more days. (3) Anemia Qualifiers: Anemia type: due to chronic kidney disease Chronic kidney disease stage: stage 5, not on chronic dialysis Qualified Code(s): N18.5 - Chronic kidney disease, stage 5; D63.1 - Anemia in chronic kidney disease Is this a current diagnosis for this admission?: Yes Plan: Will monitor (4) Chronic acquired lymphedema Is this a current diagnosis for this admission?: Yes (5) Congestive heart failure Is this a current diagnosis for this admission?: Yes (6) Traumatic hematuria Is this a current diagnosis for this admission?: Yes Plan: secondary to bustillos catheter removal. Will monitor. (7) Atrial fibrillation with RVR Is this a current diagnosis for this admission?: Yes Plan: Diltiazem increased to 360mg daily. Likely exacerbated by recent illness. Continue to monitor on tele. C/w eliquis. - Time Time Spent with patient: 15-24 minutes Within: within 48 hours
[2019-01-06] MEDS: MELATONIN 5 MG TABLET PO SCH (21:10)
[2019-01-07] MEDS: DIPHENHYDRAMINE HCL 25 MG CAPSULE PO PRN (01:37)
[2019-01-07 05:34] LABS: HEMATOCRIT 23.9 % (37.9-51.0); MEAN CORPUSCULAR HEMOGLOBIN 27.7 pg (27.0-33.4); MEAN CORPUSCULAR HGB CONC 32.6 g/dL (32.0-36.0); MEAN CORPUSCULAR VOLUME 85 fl (80-97); PLATELET COUNT 312 10^3/uL (150-450); RED BLOOD COUNT 2.82 10^6/uL (4.35-5.55); RED CELL DISTRIBUTION WIDTH 21.4 % (11.5-14.0); WHITE BLOOD COUNT 8.4 10^3/uL (4.0-10.5)
[2019-01-07 05:51] LABS: HEMOGLOBIN 7.8 g/dL (13.5-17.0)
[2019-01-07 05:56] LABS: ANION GAP 12 (5-19); BLOOD UREA NITROGEN 62 mg/dL (7-20); CARBON DIOXIDE 22 mmol/L (22-30); CHLORIDE 102 mmol/L (98-107); GLUCOSE 86 mg/dL (75-110); POTASSIUM 4.7 mmol/L (3.6-5.0)
[2019-01-07] MEDS: POTASSIUM CHLORIDE 20 MEQ PACKET PO SCH ×2 (08:16→22:48)
[2019-01-07] MEDS: APIXABAN 5 MG TABLET PO SCH (09:21)
[2019-01-07] MEDS: CALCITRIOL 0.25 MCG CAPSULE PO SCH ×2 (09:21→17:27)
[2019-01-07] MEDS: MAGNESIUM OXIDE 400 MG TABLET PO SCH ×2 (09:21→17:27)
[2019-01-07] MEDS: FUROSEMIDE INJ/PF 20 MG/2 ML SDV IV SCH (09:21)
[2019-01-07] MEDS: DILTIAZEM HCL 180 MG CAPSULE.CR PO SCH (09:25)
[2019-01-07] MEDS: NYSTATIN TOPICAL POWDER 15 GM TP SCH (10:13)
--- NOTE | 2019-01-07 10:47 | PDOC PROGRESS REPORT ---
Subjective Progress Note for:: 01/07/19 Subjective:: Patient feels well. Still having difficulty sleeping. Otherwise denies trouble breathing lightheadedness or dizziness. Denies noticing palpitations. Still having hematuria and states that this is not new for him that he has had hematuria before since starting Eliquis before coming into the hospital. He has not seen a urologist about this yet. Reason For Visit: RENAL FAILURE,INFECTED L LEG ULCER Physical Exam Vital Signs: Temp Pulse Resp BP Pulse Ox 97.4 F 103 H 16 97/60 L 96 01/07/19 08:09 01/07/19 08:09 01/07/19 08:09 01/07/19 08:09 01/07/19 08:09 Intake & Output 01/06/19 01/07/19 01/08/19 06:59 06:59 06:59 Intake Total 900 1300 360 Output Total 650 1100 Balance 250 200 360 Weight 95.6 kg 97.9 kg General appearance: PRESENT: no acute distress, cooperative Eye exam: PRESENT: EOMI Neck exam: PRESENT: tracheal deviation. ABSENT: JVD Respiratory exam: PRESENT: clear to auscultation moustapha Cardiovascular exam: PRESENT: irregular rhythm, +S1, +S2 GI/Abdominal exam: PRESENT: normal bowel sounds, soft. ABSENT: tenderness Rectal exam: PRESENT: deferred Gentrourinary exam: PRESENT: other - Condom catheter still draining bloody urine. ABSENT: indwelling catheter Extremities exam: PRESENT: other - Wound VAC on left leg still draining. 3+ nonpitting right lower extremity edema Results Laboratory Results: 01/07/19 04:51 01/07/19 04:51 01/07/19 01/07/19 04:51 04:51 WBC 8.4 RBC 2.82 L Hgb 7.8 L Hct 23.9 L MCV 85 MCH 27.7 MCHC 32.6 RDW 21.4 H Plt Count 312 Sodium 136.4 L Potassium 4.7 Chloride 102 Carbon Dioxide 22 Anion Gap 12 BUN 62 H Creatinine 3.93 H Est GFR ( Amer) 18 L Glucose 86 Calcium 8.0 L Impressions: Tibia/Fibula X-Ray 12/27/18 14:42 IMPRESSION: 1. LARGE SOFT TISSUE DEFECT IN THE DISTAL LOWER LEG. NO GAS OR RADIOPAQUE FOREIGN OBJECT. NO RADIOGRAPHIC EVIDENCE OF OSTEOMYELITIS. 2. OLD FRACTURES OF THE TIBIA AND FIBULA. STABLE NICHELLE IN THE TIBIA. NO ACUTE FINDINGS. Chest X-Ray 12/28/18 00:00 IMPRESSION: Pulmonary vascular congestion without juan m pulmonary edema. Renal Ultrasound 12/28/18 09:00 IMPRESSION: MARKEDLY LIMITED STUDY. NO GROSS ABNORMALITY. Assessment and Plan - Diagnosis (1) Acute renal failure Qualifiers: Acute renal failure type: with acute tubular necrosis Qualified Code(s): N17.0 - Acute kidney failure with tubular necrosis Is this a current diagnosis for this admission?: Yes Plan: Likely secondary to acute tubular necrosis from initial sepsis. Creatinine seems to have plateaued now. Continue with Lasix continue to monitor I's and O's. Nephrology following (2) Cellulitis and abscess of left lower extremity Is this a current diagnosis for this admission?: Yes Plan: Wound VAC in place and still draining. Wound culture revealing polymicrobial species. Unasyn changed to Augmentin for 3 more days. (3) Anemia Qualifiers: Anemia type: due to chronic kidney disease Chronic kidney disease stage: stage 5, not on chronic dialysis Qualified Code(s): N18.5 - Chronic kidney disease, stage 5; D63.1 - Anemia in chronic kidney disease Is this a current diagnosis for this admission?: Yes Plan: Will monitor (4) Chronic acquired lymphedema Is this a current diagnosis for this admission?: Yes (5) Congestive heart failure Is this a current diagnosis for this admission?: Yes Plan: Stable (6) Traumatic hematuria Is this a current diagnosis for this admission?: Yes Plan: secondary to bustillos catheter removal and anticoagulation. Will monitor. Patient informed that he will need urology evaluation outpatient We will hold Eliquis for 2 days given persistent hematuria (7) Atrial fibrillation with RVR Is this a current diagnosis for this admission?: Yes Plan: Ventricular rates responded nicely after the diltiazem increased to 360mg daily. No longer in RVR. Monitor soft blood pressures.. Continue to monitor on tele. - Time Time Spent with patient: 15-24 minutes
[2019-01-07] MEDS: AMOXICILLIN TR/POT CLAVULANATE 500-125 MG TAB PO SCH ×2 (13:35→22:48)
[2019-01-07] MEDS: MELATONIN 5 MG TABLET PO SCH (22:48)
[2019-01-07] MEDS: MELATONIN 3 MG TABLET PO SCH (22:49)
[2019-01-08] MEDS: DIPHENHYDRAMINE HCL 25 MG CAPSULE PO PRN ×2 (00:10→23:42)
[2019-01-08 05:15] LABS: MEAN CORPUSCULAR HEMOGLOBIN 28.2 pg (27.0-33.4); MEAN CORPUSCULAR HGB CONC 33.1 g/dL (32.0-36.0); MEAN CORPUSCULAR VOLUME 85 fl (80-97); PLATELET COUNT 297 10^3/uL (150-450); RED BLOOD COUNT 2.82 10^6/uL (4.35-5.55); RED CELL DISTRIBUTION WIDTH 21.4 % (11.5-14.0); WHITE BLOOD COUNT 6.8 10^3/uL (4.0-10.5)
[2019-01-08 05:37] LABS: ANION GAP 14 (5-19); BLOOD UREA NITROGEN 64 mg/dL (7-20); CALCIUM 8.3 mg/dL (8.4-10.2); CARBON DIOXIDE 21 mmol/L (22-30); CHLORIDE 101 mmol/L (98-107); GLUCOSE 93 mg/dL (75-110); POTASSIUM 5.3 mmol/L (3.6-5.0)
[2019-01-08] MEDS: AMOXICILLIN TR/POT CLAVULANATE 500-125 MG TAB PO SCH ×3 (05:39→22:06)
[2019-01-08] MEDS: POTASSIUM CHLORIDE 20 MEQ PACKET PO SCH (07:38)
[2019-01-08] MEDS: MAGNESIUM OXIDE 400 MG TABLET PO SCH ×2 (09:12→17:26)
[2019-01-08] MEDS: DILTIAZEM HCL 180 MG CAPSULE.CR PO SCH (09:12)
[2019-01-08] MEDS: CALCITRIOL 0.25 MCG CAPSULE PO SCH ×2 (09:12→17:26)
[2019-01-08] MEDS: FUROSEMIDE INJ/PF 20 MG/2 ML SDV IV SCH (09:13)
--- NOTE | 2019-01-08 11:13 | PDOC PROGRESS REPORT ---
Subjective Progress Note for:: 01/08/19 Subjective:: Patient had somewhat better sleep last night. Patient denies any shortness of breath fever chills or chest pain. Still having some hematuria. Feels okay with holding off on Eliquis for now. Reason For Visit: RENAL FAILURE,INFECTED L LEG ULCER Physical Exam Vital Signs: Temp Pulse Resp BP Pulse Ox 97.8 F 108 H 19 110/58 L 95 01/08/19 07:34 01/08/19 07:34 01/08/19 07:34 01/08/19 07:34 01/08/19 07:34 Intake & Output 01/07/19 01/08/19 01/09/19 06:59 06:59 06:59 Intake Total 1300 2444 Output Total 1100 1170 Balance 200 1274 Weight 97.9 kg 99.1 kg General appearance: PRESENT: no acute distress, cooperative Head exam: PRESENT: normocephalic Neck exam: ABSENT: JVD Respiratory exam: PRESENT: clear to auscultation moustapha Cardiovascular exam: PRESENT: irregular rhythm, +S1, +S2. ABSENT: tachycardia GI/Abdominal exam: PRESENT: normal bowel sounds, soft. ABSENT: tenderness Rectal exam: PRESENT: deferred Gentrourinary exam: PRESENT: other - Hematuria still noted in condom catheter Neurological exam: PRESENT: alert, awake, oriented to person, oriented to place, oriented to situation Psychiatric exam: ABSENT: agitated Results Laboratory Results: 01/08/19 04:59 01/08/19 04:59 01/08/19 01/08/19 04:59 04:59 WBC 6.8 RBC 2.82 L Hgb 8.0 L Hct 24.0 L MCV 85 MCH 28.2 MCHC 33.1 RDW 21.4 H Plt Count 297 Sodium 135.8 L Potassium 5.3 H Chloride 101 Carbon Dioxide 21 L Anion Gap 14 BUN 64 H Creatinine 4.12 H Est GFR ( Amer) 17 L Glucose 93 Calcium 8.3 L Impressions: Tibia/Fibula X-Ray 12/27/18 14:42 IMPRESSION: 1. LARGE SOFT TISSUE DEFECT IN THE DISTAL LOWER LEG. NO GAS OR RADIOPAQUE FOREIGN OBJECT. NO RADIOGRAPHIC EVIDENCE OF OSTEOMYELITIS. 2. OLD FRACTURES OF THE TIBIA AND FIBULA. STABLE NICHELLE IN THE TIBIA. NO ACUTE FINDINGS. Chest X-Ray 12/28/18 00:00 IMPRESSION: Pulmonary vascular congestion without juan m pulmonary edema. Renal Ultrasound 12/28/18 09:00 IMPRESSION: MARKEDLY LIMITED STUDY. NO GROSS ABNORMALITY. Assessment and Plan - Diagnosis (1) Gross hematuria Is this a current diagnosis for this admission?: Yes Plan: Gross hematuria began after Sorenson was removed. May be a component of trauma from the Sorenson. However patient does endorse that this occurred a couple times prior to his hospitalization. Still having juan m red blood with some clots Hemoglobin holding steady Will need follow-up with outpatient urology as soon as possible (2) Atrial fibrillation with RVR Is this a current diagnosis for this admission?: Yes Plan: Ventricular rates has now responded nicely after the diltiazem increased to 360mg daily. No longer in RVR. (3) Acute renal failure Qualifiers: Acute renal failure type: with acute tubular necrosis Qualified Code(s): N17.0 - Acute kidney failure with tubular necrosis Is this a current diagnosis for this admission?: Yes Plan: Likely secondary to acute tubular necrosis from initial sepsis. Creatinine seems to have plateaued now. Continue with Lasix continue to monitor I's and O's. Nephrology following (4) Cellulitis and abscess of left lower extremity Is this a current diagnosis for this admission?: Yes Plan: Wound VAC in place and still draining. Wound culture revealing polymicrobial species. Initially on Unasyn. Now on Augmentin for 2 more days. (5) Anemia Qualifiers: Anemia type: due to chronic kidney disease Chronic kidney disease stage: stage 5, not on chronic dialysis Qualified Code(s): N18.5 - Chronic kidney disease, stage 5; D63.1 - Anemia in chronic kidney disease Is this a current diagnosis for this admission?: Yes Plan: Will monitor (6) Chronic acquired lymphedema Is this a current diagnosis for this admission?: Yes (7) Congestive heart failure Is this a current diagnosis for this admission?: Yes Plan: Stable - Plan Summary Summary: Anticipate the patient could be ready for discharged tomorrow. Awaiting final recommendations from nephrology given slight bump in creatinine today. Hopeful about improvement in gross hematuria tomorrow but can still be discharg ed with urology follow-up soon. Awaiting physical therapy recommendations for SNF versus home health. - Time Time Spent with patient: 15-24 minutes Within: within 24 hours
--- NOTE | 2019-01-08 13:23 | PDOC PROGRESS REPORT ---
Subjective Progress Note for:: 01/08/19 Reason For Visit: Patient seen today. Is quite comfortable. Is making decent amounts of urine output. Poor appetite. Denies any fever or chills. Labs and medications are reviewed. Physical Exam Vital Signs: Temp Pulse Resp BP Pulse Ox 97.4 F 85 18 83/43 L 95 01/08/19 11:13 01/08/19 11:13 01/08/19 11:13 01/08/19 11:13 01/08/19 11:13 Intake & Output 01/07/19 01/08/19 01/09/19 06:59 06:59 06:59 Intake Total 1300 2444 600 Output Total 1100 1170 850 Balance 200 1274 -250 Weight 97.9 kg 99.1 kg General appearance: PRESENT: no acute distress Respiratory exam: PRESENT: clear to auscultation moustapha. ABSENT: crackles Cardiovascular exam: PRESENT: +S1, +S2 GI/Abdominal exam: PRESENT: distended, normal bowel sounds, soft. ABSENT: organomegaly, tenderness Extremities exam: PRESENT: pedal edema Neurological exam: PRESENT: alert, awake, oriented to person, oriented to place, oriented to time Psychiatric exam: PRESENT: appropriate affect Results Laboratory Results: 01/08/19 04:59 01/08/19 04:59 01/08/19 01/08/19 04:59 04:59 WBC 6.8 RBC 2.82 L Hgb 8.0 L Hct 24.0 L MCV 85 MCH 28.2 MCHC 33.1 RDW 21.4 H Plt Count 297 Sodium 135.8 L Potassium 5.3 H Chloride 101 Carbon Dioxide 21 L Anion Gap 14 BUN 64 H Creatinine 4.12 H Est GFR ( Amer) 17 L Glucose 93 Calcium 8.3 L Impressions: Tibia/Fibula X-Ray 12/27/18 14:42 IMPRESSION: 1. LARGE SOFT TISSUE DEFECT IN THE DISTAL LOWER LEG. NO GAS OR RADIOPAQUE FOREIGN OBJECT. NO RADIOGRAPHIC EVIDENCE OF OSTEOMYELITIS. 2. OLD FRACTURES OF THE TIBIA AND FIBULA. STABLE NICHELLE IN THE TIBIA. NO ACUTE FINDINGS. Chest X-Ray 12/28/18 00:00 IMPRESSION: Pulmonary vascular congestion without juan m pulmonary edema. Renal Ultrasound 12/28/18 09:00 IMPRESSION: MARKEDLY LIMITED STUDY. NO GROSS ABNORMALITY. Assessment & Plan - Diagnosis (1) NICKI (acute kidney injury) Is this a current diagnosis for this admission?: Yes Plan: Currently nonoliguric. Is coming/trending down nicely from a peak of 7.5 on a dmission to 4.1 today. Continue on current guidelines including IV diuretics given a combination of early congestive heart failure. No Indications for renal replacements. (2) Sepsis Qualifiers: Sepsis type: sepsis due to unspecified organism Sepsis acute organ dysfunction status: with acute organ dysfunction Severe sepsis acute organ dysfunction type: acute renal failure Acute renal failure type: unspecified Severe sepsis shock status: without septic shock Qualified Code(s): A41.9 - Sepsis, unspecified organism; R65.20 - Severe sepsis without septic shock; N17.9 - Acute kidney failure, unspecified Is this a current diagnosis for this admission?: Yes Plan: On antibiotics along with surgical debridement of his leg ulcers.Has polymicrobial leg infection. (3) UTI (urinary tract infection) Qualifiers: Urinary tract infection type: acute cystitis Hematuria presence: without hematuria Qualified Code(s): N30.00 - Acute cystitis without hematuria Is this a current diagnosis for this admission?: Yes Plan: On antibiotics. Monitor. (4) Acidosis, metabolic Is this a current diagnosis for this admission?: Yes Plan: Resolved. (5) Atrial fibrillation with RVR Is this a current diagnosis for this admission?: Yes Plan: Has had some issues that necessitated increasing Cardizem. Currently RVR is controlled. (6) Cellulitis and abscess of lower extremity Is this a current diagnosis for this admission?: Yes Plan: On IV antibiotics and surgical debridement. (7) Hypocalcemia Is this a current diagnosis for this admission?: Yes Plan: Stable with replacements and vitamin D3 in the face of secondary hyperparathyroidism. (8) Chronic acquired lymphedema Is this a current diagnosis for this admission?: Yes Plan: Status quo. (9) Congestive heart failure Is this a current diagnosis for this admission?: Yes Plan: Continue on IV diuretics. (10) Hypomagnesemia Is this a current diagnosis for this admission?: Yes Plan: On replacement and monitor.
--- NOTE | 2019-01-08 14:56 | Progress Note ---
Provider Note Provider Note: Called Dr. Amandeep Dhaliwal's office (urology) and scheduled a follow-up appointment for Mr. Esparza for evaluation of gross hematuria. Refer to discharge plan note for details.
[2019-01-08] MEDS: MELATONIN 3 MG TABLET PO SCH (22:06)
[2019-01-09 05:09] LABS: HEMATOCRIT 26.4 % (37.9-51.0); HEMOGLOBIN 8.7 g/dL (13.5-17.0); MEAN CORPUSCULAR HEMOGLOBIN 27.9 pg (27.0-33.4); MEAN CORPUSCULAR HGB CONC 32.8 g/dL (32.0-36.0); MEAN CORPUSCULAR VOLUME 85 fl (80-97); PLATELET COUNT 384 10^3/uL (150-450); RED BLOOD COUNT 3.11 10^6/uL (4.35-5.55); RED CELL DISTRIBUTION WIDTH 21.8 % (11.5-14.0); WHITE BLOOD COUNT 9.8 10^3/uL (4.0-10.5)
[2019-01-09] MEDS: AMOXICILLIN TR/POT CLAVULANATE 500-125 MG TAB PO SCH ×2 (05:12→13:38)
[2019-01-09 05:27] LABS: ANION GAP 17 (5-19); BLOOD UREA NITROGEN 65 mg/dL (7-20); CALCIUM 9.1 mg/dL (8.4-10.2); CARBON DIOXIDE 20 mmol/L (22-30); CHLORIDE 99 mmol/L (98-107); GLUCOSE 92 mg/dL (75-110)
[2019-01-09 05:32] LABS: POTASSIUM 5.5 mmol/L (3.6-5.0)
[2019-01-09] MEDS: CALCITRIOL 0.25 MCG CAPSULE PO SCH ×2 (09:37→17:15)
[2019-01-09] MEDS: MAGNESIUM OXIDE 400 MG TABLET PO SCH ×2 (09:37→17:15)
[2019-01-09] MEDS: FUROSEMIDE INJ/PF 20 MG/2 ML SDV IV SCH (09:37)
[2019-01-09] MEDS: DILTIAZEM HCL 180 MG CAPSULE.CR PO SCH (09:37)
--- NOTE | 2019-01-09 13:12 | PDOC PROGRESS REPORT ---
Subjective Progress Note for:: 01/09/19 Subjective:: Patient is resting in bed. He does not appear extremely uncomfortable. He has very flat affect. He is reporting that his "restless legs "usually respond to Klor-Con potassium supplement but he does not believe he is getting this medication and so his legs are bothersome ". In fact he has hyperkalemia and is not on a potassium replacement. He also reports that both legs were the same size on admission and that the right leg has become markedly swollen. There are significant signs of long-standing chronic edema in his legs including fibrotic changes in the skin and keratin scaling. The skin is not shiny and this usually indicates that the edema is chronic and long-standing. He does have a VAC just proximal to the left lateral malleolus. He also complained of some difficulty sleeping. He states that he is to take oxycodone 5 mg at night for pain but just to help him sleep. Lastly he does complain about loose stools. Reason For Visit: RENAL FAILURE,INFECTED L LEG ULCER, congestive heart failure, lower extremity edema, hematuria Physical Exam Vital Signs: Temp Pulse Resp BP Pulse Ox 97.5 F 100 20 106/62 92 01/09/19 10:55 01/09/19 10:55 01/09/19 10:55 01/09/19 10:55 01/09/19 10:55 Intake & Output 01/08/19 01/09/19 01/10/19 06:59 06:59 06:59 Intake Total 2444 1645 Output Total 1170 1450 Balance 1274 195 Weight 99.1 kg 100.1 kg General appearance: PRESENT: no acute distress, cooperative, well-developed Head exam: PRESENT: atraumatic, normocephalic Eye exam: PRESENT: conjunctiva pale Ear exam: PRESENT: normal external ear exam. ABSENT: bleeding, drainage Mouth exam: PRESENT: dry mucosa, tongue midline Respiratory exam: PRESENT: clear to auscultation moustapha, symmetrical, unlabored. ABSENT: rales, rhonchi, tachypnea, wheezes Cardiovascular exam: PRESENT: irregular rhythm GI/Abdominal exam: PRESENT: normal bowel sounds, soft. ABSENT: distended, guarding, tenderness Rectal exam: PRESENT: deferred Extremities exam: PRESENT: other - Marked edema right leg at least 3 times the size of the left leg. VAC proximal to left lateral malleolus. Musculoskeletal exam: PRESENT: other - Significantly swollen right leg.. ABSENT: normal inspection Neurological exam: PRESENT: alert, awake, oriented to person, oriented to place, oriented to situation, CN II-XII grossly intact Psychiatric exam: PRESENT: flat affect. ABSENT: agitated, anxious Focused psych exam: ABSENT: delusional, restlessness Skin exam: PRESENT: other - Significant abnormalities on right leg including some excoriations, heaped up fibrotic tissue from chronic venous insufficiency with keratin scaling and 4+ edema Results Laboratory Results: 01/09/19 04:12 01/09/19 04:12 01/09/19 01/09/19 04:12 04:12 WBC 9.8 RBC 3.11 L Hgb 8.7 L Hct 26.4 L MCV 85 MCH 27.9 MCHC 32.8 RDW 21.8 H Plt Count 384 Sodium 135.8 L Potassium 5.5 H Chloride 99 Carbon Dioxide 20 L Anion Gap 17 BUN 65 H Creatinine 4.65 H Est GFR ( Amer) 15 L Glucose 92 Calcium 9.1 Impressions: Tibia/Fibula X-Ray 12/27/18 14:42 IMPRESSION: 1. LARGE SOFT TISSUE DEFECT IN THE DISTAL LOWER LEG. NO GAS OR RADIOPAQUE F OREIGN OBJECT. NO RADIOGRAPHIC EVIDENCE OF OSTEOMYELITIS. 2. OLD FRACTURES OF THE TIBIA AND FIBULA. STABLE NICHELLE IN THE TIBIA. NO ACUTE FINDINGS. Chest X-Ray 12/28/18 00:00 IMPRESSION: Pulmonary vascular congestion without juan m pulmonary edema. Renal Ultrasound 12/28/18 09:00 IMPRESSION: MARKEDLY LIMITED STUDY. NO GROSS ABNORMALITY. Assessment and Plan - Diagnosis (1) Gross hematuria Is this a current diagnosis for this admission?: Yes Plan: 01/09/2019-the patient was on chronic anticoagulation. The patient is still having hematuria. We are holding anticoagulation as the hematuria would worsen and the patient does have follow-up with urology post discharge. He has had hematuria in the past on several occasions. It may be just due to trauma from the Sorenson catheter. With Sorenson catheter removed the patient should show resolution. We will hold the anticoagulation until the hematuria has resolved. Hemoglobin appears to be stable. (2) Atrial fibrillation with RVR Is this a current diagnosis for this admission?: Yes Plan: 01/09/2019-he is now on an increased dose of his diltiazem. He exhibits good rate control. Anticoagulation on hold as noted above. (3) Acute renal failure Qualifiers: Acute renal failure type: with acute tubular necrosis Qualified Code(s): N1 7.0 - Acute kidney failure with tubular necrosis Is this a current diagnosis for this admission?: Yes Plan: 01/09/2019-the serum creatinine seems to have stabilized. I believe this is acute on chronic kidney failure. Nephrology believes there is no need for renal replacement therapy at this time. I am switching to oral diuretics in antici pation of the need for an outpatient treatment plan as discharge should be soon. We will continue to monitor intake and output. (4) Cellulitis and abscess of left lower extremity Is this a current diagnosis for this admission?: Yes Plan: 01/09/2019-the patient had a polymicrobial infection. This is been debrided and he now has a VAC dressing in place. This will need to continue with outpatient surgical follow-up or follow-up with the wound care center. Complete antibiotic therapy as ordered. (5) Anemia Qualifiers: Anemia type: due to chronic kidney disease Chronic kidney disease stage: stage 5, not on chronic dialysis Qualified Code(s): N18.5 - Chronic kidney disease, stage 5; D63.1 - Anemia in chronic kidney disease Is this a current diagnosis for this admission?: Yes Plan: 01/09/2019-hemoglobin appears to be stable. The patient is receiving erythropoietin. Continue to monitor. (6) Chronic acquired lymphedema Is this a current diagnosis for this admission?: Yes Plan: 01/09/2019-clearly the right leg exhibits evidence of chronicity for his marked lymphedema. Consider leg elevation, compression therapy and or pneumatic lymphedema therapy. Diuretic therapy will continue. (7) UTI (urinary tract infection) Qualifiers: Urinary tract infection type: acute cystitis Hematuria presence: without hematuria Qualified Code(s): N30.00 - Acute cystitis without hematuria Is this a current diagnosis for this admission?: Yes Plan: 01/09/2019-polymicrobial. Complete antibiotic therapy as ordered. (8) Hyperkalemia Is this a current diagnosis for this admission?: Yes Plan: 01/09/2019-likely related to the acute on chronic kidney failure. We will continue to monitor. Treat as clinically indicated. (9) Congestive heart failure Qualifiers: Heart failure type: unspecified Heart failure chronicity: unspecified Qualified Code(s): I50.9 - Heart failure, unspecified Is this a current diagnosis for this admission?: Yes Plan: 01/09/2019-unfortunately there is no indication as to the chronicity of heart failure in the patient's records. It is likely chronic. It is most likely a combination of his atrial fibrillation and chronic kidney disease. There is also no echocardiogram so it is difficult to know the severity and specificity whether it is systolic, diastolic or combined. He will continue the current treatment plan including diuretic therapy and control of the atrial fibrillation. Heart failure stable at this time. (10) Sepsis Qualifiers: Sepsis type: sepsis due to unspecified organism Sepsis acute organ dysfunction status: with acute organ dysfunction Severe sepsis acute organ dysfunction type: acute renal failure Acute renal failure type: unspecified Severe sepsis shock status: without septic shock Qualified Code(s): A41.9 - Sepsis, unspecified organism; R65.20 - Severe sepsis without septic shock; N17.9 - Acute kidney failure, unspecified Is this a current diagnosis for this admission?: Yes Plan: 01/09/2019-sepsis resolved - Plan Summary Summary: Anticipate the patient could be ready for discharged tomorrow. Awaiting final recommendations from nephrology given slight bump in creatinine today. Hopeful about improvement in gross hematuria tomorrow but can still be discharged with urology follow-up soon. Awaiting physical therapy recommendations for SNF versus home health. - Time Time Spent with patient: 15-24 minutes Medications reviewed and adjusted accordingly: Yes
[2019-01-09] MEDS: LACTOBACILLUS ACIDOPHILUS 250 MG TAB PO SCH (17:15)
[2019-01-09] MEDS: APIXABAN 5 MG TABLET PO SCH (17:19)
[2019-01-09] MEDS: MELATONIN 3 MG TABLET PO SCH (21:59)
[2019-01-10] MEDS ORDERED: ROPINIROLE HCL 2 MG TABLET ONE (00:27)
[2019-01-10] MEDS: DIPHENHYDRAMINE HCL 25 MG CAPSULE PO PRN ×2 (01:29→23:29)
[2019-01-10 08:43] LABS: HEMATOCRIT 24.3 % (37.9-51.0); HEMOGLOBIN 8.3 g/dL (13.5-17.0); MEAN CORPUSCULAR HEMOGLOBIN 29.4 pg (27.0-33.4); MEAN CORPUSCULAR HGB CONC 34.2 g/dL (32.0-36.0); MEAN CORPUSCULAR VOLUME 86 fl (80-97); PLATELET COUNT 356 10^3/uL (150-450); RED BLOOD COUNT 2.83 10^6/uL (4.35-5.55); RED CELL DISTRIBUTION WIDTH 21.7 % (11.5-14.0); WHITE BLOOD COUNT 8.5 10^3/uL (4.0-10.5)
[2019-01-10 09:08] LABS: ALBUMIN 3.5 g/dL (3.5-5.0); ANION GAP 16 (5-19); BLOOD UREA NITROGEN 68 mg/dL (7-20); CALCIUM 8.6 mg/dL (8.4-10.2); CARBON DIOXIDE 20 mmol/L (22-30); CHLORIDE 100 mmol/L (98-107); GLUCOSE 84 mg/dL (75-110); PHOSPHORUS 7.4 mg/dL (2.5-4.5); POTASSIUM 5.2 mmol/L (3.6-5.0)
[2019-01-10] MEDS: AMOXICILLIN TR/POT CLAVULANATE 500-125 MG TAB PO SCH ×2 (10:14→21:39)
[2019-01-10] MEDS: DILTIAZEM HCL 180 MG CAPSULE.CR PO SCH (10:14)
[2019-01-10] MEDS: APIXABAN 5 MG TABLET PO SCH (10:14)
[2019-01-10] MEDS: MAGNESIUM OXIDE 400 MG TABLET PO SCH ×2 (10:15→18:19)
[2019-01-10] MEDS: CALCITRIOL 0.25 MCG CAPSULE PO SCH ×2 (10:15→18:19)
[2019-01-10] MEDS: BUMETANIDE 1 MG TABLET PO SCH (10:15)
[2019-01-10] MEDS: LACTOBACILLUS ACIDOPHILUS 250 MG TAB PO SCH ×2 (10:15→18:18)
--- NOTE | 2019-01-10 13:48 | PDOC PROGRESS REPORT ---
Subjective Progress Note for:: 01/10/19 Subjective:: The patient is sitting on the edge of the bed. He states that he is having loose stools. Urine output is minimal. The urine is a greenish color but there is no evidence of blood clots or juan m hematuria. Reason For Visit: RENAL FAILURE,INFECTED L LEG ULCER Physical Exam Vital Signs: Temp Pulse Resp BP Pulse Ox 98.1 F 85 18 101/60 94 01/10/19 00:08 01/10/19 00:08 01/10/19 00:08 01/10/19 00:08 01/10/19 00:08 Intake & Output 01/09/19 01/10/19 01/11/19 06:59 06:59 06:59 Intake Total 1645 1624 Output Total 1450 100 Balance 195 1524 Weight 100.1 kg 100.2 kg General appearance: PRESENT: no acute distress, cooperative, well-developed Head exam: PRESENT: atraumatic, normocephalic Ear exam: PRESENT: normal external ear exam. ABSENT: bleeding, drainage Mouth exam: PRESENT: moist, tongue midline Respiratory exam: PRESENT: clear to auscultation moustapha, symmetrical, unlabored. ABSENT: rales, rhonchi, tachypnea, wheezes Cardiovascular exam: PRESENT: irregular rhythm GI/Abdominal exam: PRESENT: normal bowel sounds, soft. ABSENT: distended, guarding, tenderness Rectal exam: PRESENT: deferred Gentrourinary exam: ABSENT: indwelling catheter Extremities exam: PRESENT: other - Marked edema right leg Neurological exam: PRESENT: alert, awake, oriented to person, oriented to place, oriented to time, oriented to situation, CN II-XII grossly intact Psychiatric exam: PRESENT: flat affect. ABSENT: agitated, anxious Focused psych exam: ABSENT: delusional, restlessness Skin exam: PRESENT: other - VAC dressing left leg Results Laboratory Results: 01/10/19 07:48 01/10/19 07:48 01/10/19 01/10/19 07:48 07:48 WBC 8.5 RBC 2.83 L Hgb 8.3 L Hct 24.3 L MCV 86 MCH 29.4 MCHC 34.2 RDW 21.7 H Plt Count 356 Sodium 136.0 L Potassium 5.2 H Chloride 100 Carbon Dioxide 20 L Anion Gap 16 BUN 68 H Creatinine 5.04 H Est GFR ( Amer) 14 L Glucose 84 Calcium 8.6 Phosphorus 7.4 H Magnesium 2.3 Albumin 3.5 Impressions: Tibia/Fibula X-Ray 12/27/18 14:42 IMPRESSION: 1. LARGE SOFT TISSUE DEFECT IN THE DISTAL LOWER LEG. NO GAS OR RADIOPAQUE FOREIGN OBJECT. NO RADIOGRAPHIC EVIDENCE OF OSTEOMYELITIS. 2. OLD FRACTURES OF THE TIBIA AND FIBULA. STABLE NICHELLE IN THE TIBIA. NO ACUTE FINDINGS. Chest X-Ray 12/28/18 00:00 IMPRESSION: Pulmonary vascular congestion without juan m pulmonary edema. Renal Ultrasound 12/28/18 09:00 IMPRESSION: MARKEDLY LIMITED STUDY. NO GROSS ABNORMALITY. Assessment and Plan - Diagnosis (1) Gross hematuria Is this a current diagnosis for this admission?: Yes Plan: 01/09/2019-the patient was on chronic anticoagulation. The patient is still having hematuria. We are holding anticoagulation as the hematuria would worsen and the patient does have follow-up with urology post discharge. He has had he maturia in the past on several occasions. It may be just due to trauma from the Sorenson catheter. With Sorenson catheter removed the patient should show resolution. We will hold the anticoagulation until the hematuria has resolved. Hemoglobin appears to be stable. 01/10/2019-the patient's urine is not pink and there are no blood clots. It has a greenish tinge and this could be old hemoglobin that is dissolved. I still feel he would benefit from seeing urology as an outpatient. I have started his anticoagulation at half the normal dose and if hematuria does not recur consider increasing it back to 5 mg twice daily. Continue to monitor hemoglobin. (2) Atrial fibrillation with RVR Is this a current diagnosis for this admission?: Yes Plan: 01/09/2019-he is now on an increased dose of his diltiazem. He exhibits good rate control. Anticoagulation on hold as noted above. 01/10/2019-continue diltiazem. Adequate control. I am going to resume anticoagulation as described below. (3) Acute renal failure Qualifiers: Acute renal failure type: with acute tubular necrosis Qualified Code(s): N17.0 - Acute kidney failure with tubular necrosis Is this a current diagnosis for this admission?: Yes Plan: 01/09/2019-the serum creatinine seems to have stabilized. I believe this is acute on chronic kidney failure. Nephrology believes there is no need for renal replacement therapy at this time. I am switching to oral diuretics in anticipation of the need for an outpatient treatment plan as discharge should be soon. We will continue to monitor intake and output. 01/10/2019-creatinine is higher today. I will discuss with Dr. Magaña as I believe this will delay any plans for discharge. (4) Cellulitis and abscess of left lower extremity Is this a current diagnosis for this admission?: Yes Plan: 01/09/2019-the patient had a polymicrobial infection. This is been debrided and he now has a VAC dressing in place. This will need to continue with outpatient surgical follow-up or follow-up with the wound care center. Complete antibiotic therapy as ordered. 01/10/2019-wound care/VAC per surgery. Complete antibiotics as ordered (January 17) (5) Anemia Qualifiers: Anemia type: due to chronic kidney disease Chronic kidney disease stage: stage 5, not on chronic dialysis Qualified Code(s): N18.5 - Chronic kidney disease, stage 5; D63.1 - Anemia in chronic kidney disease Is this a current diagnosis for this admission?: Yes Plan: 01/09/2019-hemoglobin appears to be stable. The patient is receiving erythropoietin. Continue to monitor. 01/10/2019-continue to monitor (6) Chronic acquired lymphedema Is this a current diagnosis for this admission?: Yes Plan: 01/09/2019-clearly the right leg exhibits evidence of chronicity for his marked lymphedema. Consider leg elevation, compression therapy and or pneumatic lymphedema therapy. Diuretic therapy will continue. 01/10/2019-unchanged (7) UTI (urinary tract infection) Qualifiers: Urinary tract infection type: acute cystitis Hematuria presence: without hematuria Qualified Code(s): N30.00 - Acute cystitis without hematuria Is this a current diagnosis for this admission?: Yes Plan: 01/09/2019-polymicrobial. Complete antibiotic therapy as ordered. 01/10/2019-complete antibiotics (8) Hyperkalemia Is this a current diagnosis for this admission?: Yes Plan: 01/09/2019-likely related to the acute on chronic kidney failure. We will continue to monitor. Treat as clinically indicated. 01/10/2019-still slightly high. Continue to monitor and utilize Kayexalate if needed. (9) Congestive heart failure Qualifiers: Heart failure type: unspecified Heart failure chronicity: unspecified Qualified Code(s): I50.9 - Heart failure, unspecified Is this a current diagnosis for this admission?: Yes Plan: 01/09/2019-unfortunately there is no indication as to the chronicity of heart failure in the patient's records. It is likely chronic. It is most likely a combination of his atrial fibrillation and chronic kidney disease. There is also no echocardiogram so it is difficult to know the severity and specificity whether it is systolic, diastolic or combined. He will continue the current treatment plan including diuretic therapy and control of the atrial fibr illation. Heart failure stable at this time. 01/10/2019-stable. Continue current regimen. (10) Sepsis Qualifiers: Sepsis type: sepsis due to unspecified organism Sepsis acute organ dysfunction status: with acute organ dysfunction Severe sepsis acute organ dysfunction type: acute renal failure Acute renal failure type: unspecified Severe sepsis shock status: without septic shock Qualified Code(s): A41.9 - Sepsis, unspecified organism; R65.20 - Severe sepsis without septic shock; N17.9 - Acute kidney failure, unspecified Is this a current diagnosis for this admission?: Yes Plan: 01/09/2019-sepsis resolved - Plan Summary Summary: Anticipate the patient could be ready for discharged tomorrow. Awaiting final recommendations from nephrology given slight bump in creatinine today. Hopeful about improvement in gross hematuria tomorrow but can still be discharged with urology follow-up soon. Awaiting physical therapy recommendations for SNF versus home health. - Time Time Spent with patient: 15-24 minutes Medications reviewed and adjusted accordingly: Yes Anticipated discharge: SNF
--- NOTE | 2019-01-10 17:17 | PDOC PROGRESS REPORT ---
Subjective Progress Note for:: 01/10/19 Subjective:: Patient complains of being unable to sleep very well because of his restless legs for which he was started on Requip yesterday. He is currently wearing brief with the condom catheter and Sorenson catheter discontinued. His urine output for the last few days is been 1 L plus but unable to quantify now since he does not have a catheter anymore. He states that his appetite is not great. He claims that he drinks approximately 1.5 L of fluids. Patient has been having relatively low blood pressure for the last few days around 90 to low 100 systolic, the lowest being 83/43 about couple of days ago. Reason For Visit: RENAL FAILURE,INFECTED L LEG ULCER Physical Exam Vital Signs: Temp Pulse Resp BP Pulse Ox 97.7 F 70 20 92/51 L 89 L 01/10/19 15:34 01/10/19 15:34 01/10/19 15:34 01/10/19 15:34 01/10/19 15:34 Intake & Output 01/09/19 01/10/19 01/11/19 06:59 06:59 06:59 Intake Total 1645 1624 Output Total 1450 100 Balance 195 1524 Weight 100.1 kg 100.2 kg Exam: General appearance: PRESENT: no acute distress, cooperative, well-developed, well-nourished Head exam: PRESENT: atraumatic, normocephalic Eye exam: PRESENT: conjunctiva pale, PERRLA. ABSENT: scleral icterus Neck exam: ABSENT: JVD Respiratory exam: PRESENT: Diminished breath sounds. Bibasilar crackles ABSENT: Rhonchi, unlabored, wheezes Cardiovascular exam: PRESENT: Irregularly irregular rate rhythm -+S1, +S2. ABSENT: diastolic murmur, systolic murmur GI/Abdominal exam: PRESENT: normal bowel sounds, soft. ABSENT: guarding, mass, tenderness Extremities exam: Trace left lower extremity edema with wound VAC on, chronic right lymphedema unchanged Neurological exam: PRESENT: alert, awake, oriented to person, place and time. Skin exam: PRESENT: dry, warm, Cardiovascular exam: PRESENT: +S1, +S2 GI/Abdominal exam: PRESENT: distended, normal bowel sounds, soft. ABSENT: organomegaly, tenderness Results Laboratory Results: 01/10/19 07:48 01/10/19 07:48 01/10/19 01/10/19 07:48 07:48 WBC 8.5 RBC 2.83 L Hgb 8.3 L Hct 24.3 L MCV 86 MCH 29.4 MCHC 34.2 RDW 21.7 H Plt Count 356 Sodium 136.0 L Potassium 5.2 H Chloride 100 Carbon Dioxide 20 L Anion Gap 16 BUN 68 H Creatinine 5.04 H Est GFR ( Amer) 14 L Glucose 84 Calcium 8.6 Phosphorus 7.4 H Magnesium 2.3 Albumin 3.5 Impressions: Tibia/Fibula X-Ray 12/27/18 14:42 IMPRESSION: 1. LARGE SOFT TISSUE DEFECT IN THE DISTAL LOWER LEG. NO GAS OR RADIOPAQUE FOREIGN OBJECT. NO RADIOGRAPHIC EVIDENCE OF OSTEOMYELITIS. 2. OLD FRACTURES OF THE TIBIA AND FIBULA. STABLE NICHELLE IN THE TIBIA. NO ACUTE FINDINGS. Chest X-Ray 12/28/18 00:00 IMPRESSION: Pulmonary vascular congestion without juan m pulmonary edema. Renal Ultrasound 12/28/18 09:00 IMPRESSION: MARKEDLY LIMITED STUDY. NO GROSS ABNORMALITY. Assessment & Plan - Diagnosis (1) NICKI (acute kidney injury) Is this a current diagnosis for this admission?: Yes Plan: Likely secondary to sepsis causing ATN. His initial creatinine was around 7.5. Baseline creatinine is around 1.8-2+. No need of any renal replacement therapy. Patient's creatinine seems to be slightly rising for the last few days. Possible causes include previous IV diuretics and episodes of hypotension. Patient was just switched to oral Bumex 1 mg today. I think we need to maintain slightly higher blood pressure if possible with systolic blood pressure at least greater than 100. That might mean reducing the dose of the Cardizem but that my compromises heart rate with underlying atrial fibrillation. Recheck kidney function tomorrow after changing IV Lasix to Bumex today. I would at least like to see his creatinine trending down before discharge. (2) CKD (chronic kidney disease) stage 4, GFR 15-29 ml/min Is this a current diagnosis for this admission?: Yes (3) Sepsis Qualifiers: Sepsis type: sepsis due to unspecified organism Sepsis acute organ dysfunction status: with acute organ dysfunction Severe sepsis acute organ dysfunction type: acute renal failure Acute renal failure type: unspecified Severe sepsis shock status: without septic shock Qualified Code(s): A41.9 - Sepsis, unspecified organism; R65.20 - Severe sepsis without septic shock; N17.9 - Acute kidney failure, unspecified Is this a current diagnosis for this admission?: Yes Plan: Due to urinary tract infection and leg ulcer. Status post treatment with IV antibiotics. (4) Hypotension Is this a current diagnosis for this admission?: Yes Plan: May need to decrease the dose of Cardizem but risk of A. fib with RVR needs to be considered. (5) Cellulitis and abscess of lower extremity Is this a current diagnosis for this admission?: Yes Plan: Left leg and wound VAC, treated with IV antibiotics. Wound culture was polymicrobial. (6) UTI (urinary tract infection) Qualifiers: Urinary tract infection type: acute cystitis Hematuria presence: without hematuria Qualified Code(s): N30.00 - Acute cystitis without hematuria Is this a current diagnosis for this admission?: Yes Plan: Secondary to Proteus mirabilis and gram-positive cocci treated with IV antibiotics. (7) Gross hematuria Is this a current diagnosis for this admission?: Yes Plan: Resolving with discontinuation of Sorenson catheter. Eliquis dose decreased. (8) Anemia in chronic kidney disease (CKD) Is this a current diagnosis for this admission?: Yes Plan: Currently receiving Retacrit q. Sundays. GI have seen the patient but due to being on anticoagulation, work-up has been held. (9) Atrial fibrillation with RVR Is this a current diagnosis for this admission?: Yes Plan: Per hospitalist service. On Eliquis and Cardizem. (10) Chronic acquired lymphedema Is this a current diagnosis for this admission?: Yes - Time Time with patient: 15-25 minutes
[2019-01-10] MEDS: APIXABAN 2.5 MG TABLET PO SCH (18:19)
[2019-01-10] MEDS: MELATONIN 3 MG TABLET PO SCH (21:40)
[2019-01-10] MEDS: ROPINIROLE HCL 2 MG TABLET PO PRN (22:19)
[2019-01-11 06:36] LABS: ALBUMIN 3.7 g/dL (3.5-5.0); ANION GAP 16 (5-19); BLOOD UREA NITROGEN 66 mg/dL (7-20); CALCIUM 8.5 mg/dL (8.4-10.2); CARBON DIOXIDE 21 mmol/L (22-30); CHLORIDE 98 mmol/L (98-107); GLUCOSE 90 mg/dL (75-110); PHOSPHORUS 7.3 mg/dL (2.5-4.5); POTASSIUM 5.2 mmol/L (3.6-5.0)
[2019-01-11] MEDS: DILTIAZEM HCL 180 MG CAPSULE.CR PO SCH (12:23)
[2019-01-11] MEDS: AMOXICILLIN TR/POT CLAVULANATE 500-125 MG TAB PO SCH ×2 (12:23→21:38)
[2019-01-11] MEDS: LACTOBACILLUS ACIDOPHILUS 250 MG TAB PO SCH ×2 (12:23→18:27)
[2019-01-11] MEDS: MAGNESIUM OXIDE 400 MG TABLET PO SCH ×2 (12:24→18:27)
[2019-01-11] MEDS: CALCITRIOL 0.25 MCG CAPSULE PO SCH ×2 (12:24→18:27)
[2019-01-11] MEDS: BUMETANIDE 1 MG TABLET PO SCH (12:25)
[2019-01-11] MEDS: APIXABAN 2.5 MG TABLET PO SCH ×2 (12:28→18:27)
--- NOTE | 2019-01-11 20:46 | PDOC PROGRESS REPORT ---
Subjective Progress Note for:: 01/11/19 Subjective:: The patient is resting in bed. He states that he feels slightly better today. He was found to have urinary retention and a Sorenson catheter has been placed. He did have some questions regarding treatment of the veins for chronic venous insufficiency with lymphedema. Reason For Visit: RENAL FAILURE,INFECTED L LEG ULCER Physical Exam Vital Signs: Temp Pulse Resp BP Pulse Ox 97.7 F 129 H 20 120/68 95 01/11/19 07:26 01/11/19 07:26 01/11/19 07:26 01/11/19 07:26 01/11/19 07:26 Intake & Output 01/10/19 01/11/19 01/12/19 06:59 06:59 06:59 Intake Total 1624 1050 1050 Output Total 129 168 0970 Balance 1524 900 -650 Weight 100.2 kg 100.3 kg General appearance: PRESENT: no acute distress, cooperative, well-developed Head exam: PRESENT: atraumatic, normocephalic Eye exam: PRESENT: conjunctiva pale. ABSENT: scleral icterus Ear exam: PRESENT: normal external ear exam. ABSENT: bleeding, drainage Mouth exam: PRESENT: moist, tongue midline Respiratory exam: PRESENT: clear to auscultation moustapha - Upper lung cunningham clear, decreased breath sounds - At bases. Possibly due to body habitus., symmetrical, unlabored. ABSENT: rales, rhonchi, tachypnea, wheezes Cardiovascular exam: PRESENT: irregular rhythm GI/Abdominal exam: PRESENT: distended - Protuberant abdomen, normal bowel sounds, soft. ABSENT: guarding, tenderness Rectal exam: PRESENT: deferred Gentrourinary exam: PRESENT: indwelling catheter - Sorenson catheter just placed due to urinary retention. Urine is the same mint colored green. Extremities exam: PRESENT: other - Significant chronic nonpitting edema right leg Neurological exam: PRESENT: alert, awake, oriented to person, oriented to place, oriented to time, oriented to situation, CN II-XII grossly intact Psychiatric exam: PRESENT: appropriate affect, normal mood. ABSENT: agitated, anxious Focused psych exam: ABSENT: delusional, restlessness Skin exam: PRESENT: other - Right leg with keratin scaling, cobblestoning and fibrotic changes consistent with venous insufficiency chronic lymphedema Results Laboratory Results: 01/10/19 07:48 01/11/19 05:03 01/11/19 05:03 Sodium 135.1 L Potassium 5.2 H Chloride 98 Carbon Dioxide 21 L Anion Gap 16 BUN 66 H Creatinine 5.40 H Est GFR ( Amer) 13 L Glucose 90 Calcium 8.5 Phosphorus 7.3 H Albumin 3.7 Impressions: Tibia/Fibula X-Ray 12/27/18 14:42 IMPRESSION: 1. LARGE SOFT TISSUE DEFECT IN THE DISTAL LOWER LEG. NO GAS OR RADIOPAQUE FOREIGN OBJECT. NO RADIOGRAPHIC EVIDENCE OF OSTEOMYELITIS. 2. OLD FRACTURES OF THE TIBIA AND FIBULA. STABLE NICHELLE IN THE TIBIA. NO ACUTE FINDINGS. Chest X-Ray 12/28/18 00:00 IMPRESSION: Pulmonary vascular congestion without juan m pulmonary edema. Renal Ultrasound 12/28/18 09:00 IMPRESSION: MARKEDLY LIMITED STUDY. NO GROSS ABNORMALITY. Assessment and Plan - Diagnosis (1) Gross hematuria Is this a current diagnosis for this admission?: Yes Plan: 01/09/2019-the patient was on chronic anticoagulation. The patient is still having hematuria. We are holding anticoagulation as the hematuria would worsen and the patient does have follow-up with urology post discharge. He has had hematuria in the past on several occasions. It may be just due to trauma from the Sorenson catheter. With Sorenson catheter removed the patient should show resol ution. We will hold the anticoagulation until the hematuria has resolved. Hemoglobin appears to be stable. 01/10/2019-the patient's urine is not pink and there are no blood clots. It has a greenish tinge and this could be old hemoglobin that is dissolved. I still feel he would benefit from seeing urology as an outpatient. I have started his anticoagulation at half the normal dose and if hematuria does not recur consider increasing it back to 5 mg twice daily. Continue to monitor hemoglobin. 01/11/2019-no juan m hematuria but the urine suggests evidence of old blood that has broken down into components. I did examine the Sorenson catheter drainage bag and several 100 cc of mid to green-colored urine observed. No clots. No fresh blood. Now that the Sorenson catheter is back we will monitor closely. If blood appears we will discontinue the anticoagulation. (2) Atrial fibrillation with RVR Is this a current diagnosis for this admission?: Yes Plan: 01/09/2019-he is now on an increased dose of his diltiazem. He exhibits good rate control. Anticoagulation on hold as noted above. 01/10/2019-continue diltiazem. Adequate control. I am going to resume anticoagulation as described below. 01/11/2019-discussed with Dr. Magaña. Would like to see the patient's blood pressure higher. I am going to slowly decrease the diltiazem and introduce carvedilol which should not drop the blood pressure as much as the diltiazem. If need be we can institute digoxin therapy for rate control. (3) Acute renal failure superimposed on stage 4 chronic kidney disease Qualifiers: Acute renal failure type: with acute tubular necrosis Qualified Code(s): N1 7.0 - Acute kidney failure with tubular necrosis; N18.4 - Chronic kidney disease, stage 4 (severe) Is this a current diagnosis for this admission?: Yes Plan: 01/11/2019-as discussed with nephrology the lack of improvement in renal function could be due to the low blood pressures. Would like to see his blood pressure above 120 consistently. I am adjusting medications as noted above. In addition the patient had acute urinary retention. With Sorenson catheter in and the retention resolved we will see if his renal function improves. (4) Cellulitis and abscess of left lower extremity Is this a current diagnosis for this admission?: Yes Plan: 01/09/2019-the patient had a polymicrobial infection. This is been debrided and he now has a VAC dressing in place. This will need to continue with outpatient surgical follow-up or follow-up with the wound care center. Complete antibiotic therapy as ordered. 01/10/2019-wound care/VAC per surgery. Complete antibiotics as ordered (January 17) 01/11/2019-no change in plan (5) Anemia Qualifiers: Anemia type: due to chronic kidney disease Chronic kidney disease stage: stage 5, not on chronic dialysis Qualified Code(s): N18.5 - Chronic kidney disease, stage 5; D63.1 - Anemia in chronic kidney disease Is this a current diagnosis for this admission?: Yes Plan: 01/09/2019-hemoglobin appears to be stable. The patient is receiving erythropoietin. Continue to monitor. 01/10/2019-continue to monitor 01/11/2019-continue current treatment plan (6) Chronic acquired lymphedema Is this a current diagnosis for this admission?: Yes Plan: 01/09/2019-clearly the right leg exhibits evidence of chronicity for his marked lymphedema. Consider leg elevation, compression therapy and or pneumatic lymphedema therapy. Diuretic therapy will continue. 01/10/2019-unchanged 01/11/2019-the patient did ask about treatments for venous insufficiency. I described and sha a picture of the venous tree and how the vein valves can become incompetent. This leads to increased hydrostatic pressure in the lower extremity. When this is been chronic you get the thick fibrotic skin changes, occasionally ulcers and keratinization sometimes resembling cobblestones. After special venous ultrasound identifies retrograde flow intravenous ablation therapy can be performed. Obviously it is not without risk. He understands that he needs to get his renal function under control prior to even considering interventions for his leg. (7) UTI (urinary tract infection) Qualifiers: Urinary tract infection type: acute cystitis Hematuria presence: without hematuria Qualified Code(s): N30.00 - Acute cystitis without hematuria Is this a current diagnosis for this admission?: Yes Plan: 01/09/2019-polymicrobial. Complete antibiotic therapy as ordered. 01/10/2019-complete antibiotics 01/11/2019-as above (8) Hyperkalemia Is this a current diagnosis for this admission?: Yes Plan: 01/09/2019-likely related to the acute on chronic kidney failure. We will continue to monitor. Treat as clinically indicated. 01/10/2019-still slightly high. Continue to monitor and utilize Kayexalate if needed. 01/11/2019-still above normal but not clinically significant. We will continue to monitor. (9) Congestive heart failure Qualifiers: Heart failure type: unspecified Heart failure chronicity: unspecified Qualified Code(s): I50.9 - Heart failure, unspecified Is this a current diagnosis for this admission?: Yes Plan: 01/09/2019-unfortunately there is no indication as to the chronicity of heart failure in the patient's records. It is likely chronic. It is most likely a combination of his atrial fibrillation and chronic kidney disease. There is also no echocardiogram so it is difficult to know the severity and specificity whether it is systolic, diastolic or combined. He will continue the current treatment plan including diuretic therapy and control of the atrial fibrillation. Heart failure stable at this time. 01/10/2019-stable. Continue current regimen. 01/11/2019-asymptomatic at this time (10) Sepsis Qualifiers: Sepsis type: sepsis due to unspecified organism Sepsis acute organ dysfunction status: with acute organ dysfunction Severe sepsis acute organ dysfunction type: acute renal failure Acute renal failure type: unspecified Severe sepsis shock status: without septic shock Qualified Code(s): A41.9 - Sepsis, unspecified organism; R65.20 - Severe sepsis without septic shock; N17.9 - Acute kidney failure, unspecified Is this a current diagnosis for this admission?: Yes Plan: 01/09/2019-sepsis resolved - Plan Summary Summary: Anticipate the patient could be ready for discharged tomorrow. Awaiting final recommendations from nephrology given slight bump in creatinine today. Hopeful about improvement in gross hematuria tomorrow but can still be discharged with urology follow-up soon. Awaiting physical therapy recommendations for SNF versus home health. - Time Time Spent with patient: 25-34 minutes Medications reviewed and adjusted accordingly: Yes Anticipated discharge: SNF
[2019-01-11] MEDS: MELATONIN 3 MG TABLET PO SCH (21:38)
[2019-01-11] MEDS: CARVEDILOL 3.125 MG TABLET PO SCH (21:39)
[2019-01-11] MEDS: ROPINIROLE HCL 2 MG TABLET PO PRN (21:39)
--- NOTE | 2019-01-11 22:18 | PDOC PROGRESS REPORT ---
Subjective Progress Note for:: 01/11/19 Subjective:: Patient does not have any new complaints. There is no note of any gross hematuria anymore. His kidney function continues to worsen though. I asked the nurse to do a bladder scan and he had a significant 630 mL of urine in his bladder so I asked Dr. Saha to reinsert the Sorenson catheter which he agreed. Reason For Visit: RENAL FAILURE,INFECTED L LEG ULCER Physical Exam Vital Signs: Temp Pulse Resp BP Pulse Ox 97.7 F 129 H 20 120/68 95 01/11/19 07:26 01/11/19 07:26 01/11/19 07:26 01/11/19 07:26 01/11/19 07:26 Intake & Output 01/10/19 01/11/19 01/12/19 06:59 06:59 06:59 Intake Total 1624 1050 Output Total 100 150 Balance 1524 900 Weight 100.2 kg 100.3 kg Exam: General appearance: PRESENT: no acute distress, cooperative, well-developed, well-nourished Head exam: PRESENT: atraumatic, normocephalic Eye exam: PRESENT: conjunctiva pale, PERRLA. ABSENT: scleral icterus Neck exam: ABSENT: JVD Respiratory exam: PRESENT: Diminished breath sounds. ABSENT: crackles, rales, rhonchi, unlabored, wheezes Cardiovascular exam: PRESENT: Irregular rate rhythm -+S1, +S2. ABSENT: diastolic murmur, systolic murmur GI/Abdominal exam: PRESENT: normal bowel sounds, soft. ABSENT: guarding, mass, tenderness Extremities exam: Grade 1 lower extremity left leg edema with wound VAC on, right chronic lymphedema Neurological exam: PRESENT: alert, awake, oriented to person, place and time. Skin exam: PRESENT: dry, warm, Cardiovascular exam: PRESENT: +S1, +S2 GI/Abdominal exam: PRESENT: distended, normal bowel sounds, soft. ABSENT: organomegaly, tenderness Results Laboratory Results: 01/10/19 07:48 01/11/19 05:03 01/11/19 05:03 Sodium 135.1 L Potassium 5.2 H Chloride 98 Carbon Dioxide 21 L Anion Gap 16 BUN 66 H Creatinine 5.40 H Est GFR ( Amer) 13 L Glucose 90 Calcium 8.5 Phosphorus 7.3 H Albumin 3.7 Impressions: Tibia/Fibula X-Ray 12/27/18 14:42 IMPRESSION: 1. LARGE SOFT TISSUE DEFECT IN THE DISTAL LOWER LEG. NO GAS OR RADIOPAQUE FOREIGN OBJECT. NO RADIOGRAPHIC EVIDENCE OF OSTEOMYELITIS. 2. OLD FRACTURES OF THE TIBIA AND FIBULA. STABLE NICHELLE IN THE TIBIA. NO ACUTE FINDINGS. Chest X-Ray 12/28/18 00:00 IMPRESSION: Pulmonary vascular congestion without juan m pulmonary edema. Renal Ultrasound 12/28/18 09:00 IMPRESSION: MARKEDLY LIMITED STUDY. NO GROSS ABNORMALITY. Assessment & Plan - Diagnosis (1) NICKI (acute kidney injury) Is this a current diagnosis for this admission?: Yes Plan: Initially secondary to sepsis causing ATN. His initial creatinine was around 7.5. Baseline creatinine is around 1.8-2+. No need of any renal replacement therapy. Patient's creatinine seems to be slightly rising for the last few day s. Possible causes include previous IV diuretics and episodes of hypotension. Patient also has an acute urinary retention which is contributory to worsening of the kidney function. Discussed the case with Dr. Saha. I recommend reinsertion of Sorenson catheter, discontinuation of the Bumex, and if possible to reduce the dose of the Cardizem for better blood pressure. Dr. Saha is again I use Coreg to control the heart rate. I would like to see the kidney function improving prior to discharge. If the patient really has urinary retention he might need to go home with a Sorenson catheter to follow-up with the urologist. (2) CKD (chronic kidney disease) stage 4, GFR 15-29 ml/min Is this a current diagnosis for this admission?: Yes (3) Urinary retention Is this a current diagnosis for this admission?: Yes Plan: Reinsert Sorenson catheter. (4) Sepsis Qualifiers: Sepsis type: sepsis due to unspecified organism Sepsis acute organ dysfunction status: with acute organ dysfunction Severe sepsis acute organ dysfunction type: acute renal failure Acute renal failure type: unspecified Severe sepsis shock status: without septic shock Qualified Code(s): A41.9 - Sepsis, unspecified organism; R65.20 - Severe sepsis without septic shock; N17.9 - Acute kidney failure, unspecified Is this a current diagnosis for this admission?: Yes Plan: Due to urinary tract infection and leg ulcer. Status post treatment with IV antibiotics. (5) Hypotension Is this a current diagnosis for this admission?: Yes Plan: May need to decrease the dose of Cardizem but risk of A. fib with RVR needs to be considered. Dr. Saha to use Coreg to control the heart rate. (6) Cellulitis and abscess of lower extremity Is this a current diagnosis for this admission?: Yes Plan: Left leg and wound VAC, treated with IV antibiotics. Wound culture was polymicrobial. (7) UTI (urinary tract infection) Qualifiers: Urinary tract infection type: acute cystitis Hematuria presence: without hematuria Qualified Code(s): N30.00 - Acute cystitis without hematuria Is this a current diagnosis for this admission?: Yes Plan: Secondary to Proteus mirabilis and gram-positive cocci treated with IV antibiotics. (8) Gross hematuria Is this a current diagnosis for this admission?: Yes Plan: Resolving with discontinuation of Sorenson catheter. Eliquis dose decreased. Due to urinary retention Sorenson catheter needs to be reinserted today. (9) Anemia in chronic kidney disease (CKD) Is this a current diagnosis for this admission?: Yes Plan: Currently receiving Retacrit q. Sundays. GI have seen the patient but due to being on anticoagulation, work-up has been held. (10) Atrial fibrillation with RVR Is this a current diagnosis for this admission?: Yes Plan: Per hospitalist service. On Eliquis and Cardizem. Possible use of Coreg. (11) Chronic acquired lymphedema Is this a current diagnosis for this admission?: Yes - Time Time with patient: Greater than 35 minutes
[2019-01-12] MEDS: DIPHENHYDRAMINE HCL 25 MG CAPSULE PO PRN ×2 (01:05→22:19)
[2019-01-12 05:32] LABS: ALBUMIN 3.3 g/dL (3.5-5.0); ANION GAP 12 (5-19); BLOOD UREA NITROGEN 64 mg/dL (7-20); CALCIUM 8.2 mg/dL (8.4-10.2); CARBON DIOXIDE 22 mmol/L (22-30); CHLORIDE 101 mmol/L (98-107); GLUCOSE 89 mg/dL (75-110); PHOSPHORUS 7.3 mg/dL (2.5-4.5)
[2019-01-12] MEDS: MAGNESIUM OXIDE 400 MG TABLET PO SCH ×2 (09:51→17:01)
[2019-01-12] MEDS: CALCITRIOL 0.25 MCG CAPSULE PO SCH ×2 (09:57→17:04)
[2019-01-12] MEDS: AMOXICILLIN TR/POT CLAVULANATE 500-125 MG TAB PO SCH ×2 (09:57→22:19)
[2019-01-12] MEDS: LACTOBACILLUS ACIDOPHILUS 250 MG TAB PO SCH ×2 (09:57→17:04)
[2019-01-12] MEDS: CARVEDILOL 3.125 MG TABLET PO SCH (09:58)
[2019-01-12] MEDS: BUMETANIDE 1 MG TABLET PO SCH (09:58)
[2019-01-12] MEDS: APIXABAN 2.5 MG TABLET PO SCH (09:58)
[2019-01-12] MEDS: PANTOT AC/MIN OIL/PET HY-PHL OINT 50 GM TOP SCH (09:59)
[2019-01-12] MEDS ORDERED: DILTIAZEM HCL 240 MG CAPSULE.CR PO SCH (10:00)
--- NOTE | 2019-01-12 15:52 | PDOC PROGRESS REPORT ---
Subjective Progress Note for:: 01/12/19 Subjective:: The patient is laying in bed. He is sleepy. He is disappointed that his creatinine is no better. Reason For Visit: RENAL FAILURE,INFECTED L LEG ULCER Physical Exam Vital Signs: Temp Pulse Resp BP Pulse Ox 98 F 94 17 91/56 L 94 01/12/19 12:00 01/12/19 12:00 01/12/19 12:00 01/12/19 12:00 01/12/19 12:00 Intake & Output 01/11/19 01/12/19 01/13/19 06:59 06:59 06:59 Intake Total 1050 1168 477 Output Total 150 2225 1500 Balance 900 -1057 -1023 Weight 100.3 kg 100.2 kg General appearance: PRESENT: cooperative, well-developed Head exam: PRESENT: atraumatic, normocephalic Ear exam: PRESENT: normal external ear exam. ABSENT: bleeding, drainage Respiratory exam: PRESENT: clear to auscultation moustapha, symmetrical, unlabored. ABSENT: rales, rhonchi, tachypnea, wheezes Cardiovascular exam: PRESENT: irregular rhythm GI/Abdominal exam: PRESENT: normal bowel sounds, soft. ABSENT: distended, tenderness Rectal exam: PRESENT: deferred Gentrourinary exam: PRESENT: indwelling catheter - Hematuria noted Extremities exam: PRESENT: other - Markedly asymmetric legs. Right leg significantly larger. Neurological exam: PRESENT: alert, awake, oriented to person, oriented to place, oriented to time, oriented to situation, CN II-XII grossly intact Psychiatric exam: PRESENT: flat affect. ABSENT: agitated, anxious Focused psych exam: ABSENT: delusional, restlessness Skin exam: PRESENT: other - Skin on the right leg looks much better with application of Aquaphor Results Laboratory Results: 01/10/19 07:48 01/12/19 04:03 01/12/19 04:03 Sodium 135.3 L Potassium 5.0 Chloride 101 Carbon Dioxide 22 Anion Gap 12 BUN 64 H Creatinine 5.50 H Est GFR ( Amer) 12 L Glucose 89 Calcium 8.2 L Phosphorus 7.3 H Magnesium 2.5 H Albumin 3.3 L Impressions: Tibia/Fibula X-Ray 12/27/18 14:42 IMPRESSION: 1. LARGE SOFT TISSUE DEFECT IN THE DISTAL LOWER LEG. NO GAS OR RADIOPAQUE FOREIGN OBJECT. NO RADIOGRAPHIC EVIDENCE OF OSTEOMYELITIS. 2. OLD FRACTURES OF THE TIBIA AND FIBULA. STABLE NICHELLE IN THE TIBIA. NO ACUTE FINDINGS. Chest X-Ray 12/28/18 00:00 IMPRESSION: Pulmonary vascular congestion without juan m pulmonary edema. Renal Ultrasound 12/28/18 09:00 IMPRESSION: MARKEDLY LIMITED STUDY. NO GROSS ABNORMALITY. Assessment and Plan - Diagnosis (1) Gross hematuria Is this a current diagnosis for this admission?: Yes Plan: 01/09/2019-the patient was on chronic anticoagulation. The patient is still having hematuria. We are holding anticoagulation as the hematuria would worsen and the patient does have follow-up with urology post discharge. He has had hematuria in the past on several occasions. It may be just due to trauma from the Sorenson catheter. With Sorenson catheter removed the patient should show resolution. We will hold the anticoagulation until the hematuria has resolved. Hemoglobin appears to be stable. 01/10/2019-the patient's urine is not pink and there are no blood clots. It has a greenish tinge and this could be old hemoglobin that is dissolved. I still feel he would benefit from seeing urology as an outpatient. I have started his anticoagulation at half the normal dose and if hematuria does not recur consider increasing it back to 5 mg twice daily. Continue to monitor hemoglobin. 01/11/2019-no juan m hematuria but the urine suggests evidence of old blood that has broken down into components. I did examine the Sorenson catheter drainage bag and several 100 cc of mid to green-colored urine observed. No clots. No fresh blood. Now that the Sorenson catheter is back we will monitor closely. If blood appears we will discontinue the anticoagulation. 01/12/2019-hematuria has returned. We will discontinue anticoagulation. (2) Atrial fibrillation with RVR Is this a current diagnosis for this admission?: Yes Plan: 01/09/2019-he is now on an increased dose of his diltiazem. He exhibits good rate control. Anticoagulation on hold as noted above. 01/10/2019-continue diltiazem. Adequate control. I am going to resume anticoagulation as described below. 01/11/2019-discussed with Dr. Magaña. Would like to see the patient's blood pressure higher. I am going to slowly decrease the diltiazem and introduce carvedilol which should not drop the blood pressure as much as the diltiazem. If need be we can institute digoxin therapy for rate control. 01/12/2019-I have increased the carvedilol again today and decreased the diltiazem in an effort to maintain rate control and allow his blood pressure to increase. (3) Acute renal failure superimposed on stage 4 chronic kidney disease Qualifiers: Acute renal failure type: with acute tubular necrosis Qualified Code(s): N17.0 - Acute kidney failure with tubular necrosis; N18.4 - Chronic kidney disease, stage 4 (severe) Is this a current diagnosis for this admission?: Yes Plan: 01/11/2019-as discussed with nephrology the lack of improvement in renal function could be due to the low blood pressures. Would like to see his blood pressure above 120 consistently. I am adjusting medications as noted above. In addition the patient had acute urinary retention. With Sorenson catheter in and the retention resolved we will see if his renal function improves. 01/12/2019-it seems that the serum creatinine has plateaued. Hopefully with no further urinary obstruction his creatinine will begin to come down. (4) Cellulitis and abscess of left lower extremity Is this a current diagnosis for this admission?: Yes Plan: 01/09/2019-the patient had a polymicrobial infection. This is been debrided and he now has a VAC dressing in place. This will need to continue with outpatient surgical follow-up or follow-up with the wound care center. Complete antibiotic therapy as ordered. 01/10/2019-wound care/VAC per surgery. Complete antibiotics as ordered ( January 17) 01/11/2019-no change in plan 01/12/2019-VAC changes on Tuesday and Tuesday (5) Anemia Qualifiers: Anemia type: due to chronic kidney disease Chronic kidney disease stage: stage 5, not on chronic dialysis Qualified Code(s): N18.5 - Chronic kidney disease, stage 5; D63.1 - Anemia in chronic kidney disease Is this a current diagnosis for this admission?: Yes Plan: 01/09/2019-hemoglobin appears to be stable. The patient is receiving erythropoietin. Continue to monitor. 01/10/2019-continue to monitor 01/11/2019-continue current treatment plan 01/12/2019-continue to monitor hemoglobin (6) Chronic acquired lymphedema Is this a current diagnosis for this admission?: Yes Plan: 01/09/2019-clearly the right leg exhibits evidence of chronicity for his marked lymphedema. Consider leg elevation, compression therapy and or pneumatic lymphedema therapy. Diuretic therapy will continue. 01/10/2019-unchanged 01/11/2019-the patient did ask about treatments for venous insufficiency. I described and sha a picture of the venous tree and how the vein valves can become incompetent. This leads to increased hydrostatic pressure in the lower extremity. When this is been chronic you get the thick fibrotic skin changes, occasionally ulcers and keratinization sometimes resembling cobblestones. After special venous ultrasound identifies retrograde flow intravenous ablation therapy can be performed. Obviously it is not without risk. He understands that he needs to get his renal function under control prior to even considering interventions for his leg. 01/12/2019-now applying hydrophilic preparation to the skin. This should help with dry skin, cracking and any pruritus (7) UTI (urinary tract infection) Qualifiers: Urinary tract infection type: acute cystitis Hematuria presence: without hematuria Qualified Code(s): N30.00 - Acute cystitis without hematuria Is this a current diagnosis for this admission?: Yes Plan: 01/09/2019-polymicrobial. Complete antibiotic therapy as ordered. 01/10/2019-complete antibiotics 01/11/2019-as above 01/12/2019-continue antibiotics (8) Hyperkalemia Is this a current diagnosis for this admission?: Yes Plan: 01/09/2019-likely related to the acute on chronic kidney failure. We will continue to monitor. Treat as clinically indicated. 01/10/2019-still slightly high. Continue to monitor and utilize Kayexalate if needed. 01/11/2019-still above normal but not clinically significant. We will continue to monitor. 01/12/2019-potassium is normal today. Continue to monitor (9) Congestive heart failure Qualifiers: Heart failure type: unspecified Heart failure chronicity: unspecified Qualified Code(s): I50.9 - Heart failure, unspecified Is this a current diagnosis for this admission?: Yes Plan: 01/09/2019-unfortunately there is no indication as to the chronicity of heart failure in the patient's records. It is likely chronic. It is most likely a combination of his atrial fibrillation and chronic kidney disease. There is also no echocardiogram so it is difficult to know the severity and specificity whether it is systolic, diastolic or combined. He will continue the current treatment plan including diuretic therapy and control of the atrial fibrillation. Heart failure stable at this time. 01/10/2019-stable. Continue current regimen. 01/11/2019-asymptomatic at this time 01/12/2019-continue current regimen (10) Sepsis Qualifiers: Sepsis type: sepsis due to unspecified organism Sepsis acute organ dysfunction status: with acute organ dysfunction Severe sepsis acute organ dysfunction type: acute renal failure Acute renal failure type: unspecified Severe sepsis shock status: without septic shock Qualified Code(s): A41.9 - Sepsis, unspecified organism; R65.20 - Severe sepsis without septic shock; N17.9 - Acute kidney failure, unspecified Is this a current diagnosis for this admission?: Yes Plan: 01/09/2019-sepsis resolved - Plan Summary Summary: Anticipate the patient could be ready for discharged tomorrow. Awaiting final recommendations from nephrology given slight bump in creatinine today. Hopeful about improvement in gross hematuria tomorrow but can still be discharged with urology follow-up soon. Awaiting physical therapy recommendations for SNF versus home health. - Time Time Spent with patient: 15-24 minutes Medications reviewed and adjusted accordingly: Yes Anticipated discharge: SNF
--- NOTE | 2019-01-12 16:47 | PDOC PROGRESS REPORT ---
Subjective Progress Note for:: 01/12/19 Subjective:: Patient has no new complaints. He now has a Sorenson catheter but he started to have gross hematuria again. However his urine output is good and he has made 2225 mL of urine since we inserted a Sorenson catheter yesterday. Reason For Visit: RENAL FAILURE,INFECTED L LEG ULCER Physical Exam Vital Signs: Temp Pulse Resp BP Pulse Ox 97.8 F 80 17 102/54 L 92 01/12/19 16:00 01/12/19 16:00 01/12/19 16:00 01/12/19 16:00 01/12/19 16:00 Intake & Output 01/11/19 01/12/19 01/13/19 06:59 06:59 06:59 Intake Total 1050 1168 477 Output Total 150 2225 1500 Balance 900 -1057 -1023 Weight 100.3 kg 100.2 kg Exam: General appearance: PRESENT: no acute distress, cooperative, well-developed, well-nourished Head exam: PRESENT: atraumatic, normocephalic Eye exam: PRESENT: conjunctiva pale, PERRLA. ABSENT: scleral icterus Neck exam: ABSENT: JVD Respiratory exam: PRESENT: Normal breath sounds. ABSENT: crackles, rales, rhonchi, unlabored, wheezes Cardiovascular exam: PRESENT: Irregular rate rhythm -+S1, +S2. ABSENT: diastolic murmur, systolic murmur GI/Abdominal exam: PRESENT: normal bowel sounds, soft. ABSENT: guarding, mass, tenderness Extremities exam: Minimal trace left lower extremity edema with wound VAC, right chronic lymphedema Neurological exam: PRESENT: alert, awake, oriented to person, place and time. Skin exam: PRESENT: dry, warm, Cardiovascular exam: PRESENT: +S1, +S2 GI/Abdominal exam: PRESENT: distended, normal bowel sounds, soft. ABSENT: or ganomegaly, tenderness Results Laboratory Results: 01/10/19 07:48 01/12/19 04:03 01/12/19 04:03 Sodium 135.3 L Potassium 5.0 Chloride 101 Carbon Dioxide 22 Anion Gap 12 BUN 64 H Creatinine 5.50 H Est GFR ( Amer) 12 L Glucose 89 Calcium 8.2 L Phosphorus 7.3 H Magnesium 2.5 H Albumin 3.3 L Impressions: Tibia/Fibula X-Ray 12/27/18 14:42 IMPRESSION: 1. LARGE SOFT TISSUE DEFECT IN THE DISTAL LOWER LEG. NO GAS OR RADIOPAQUE FOREIGN OBJECT. NO RADIOGRAPHIC EVIDENCE OF OSTEOMYELITIS. 2. OLD FRACTURES OF THE TIBIA AND FIBULA. STABLE NICHELLE IN THE TIBIA. NO ACUTE FINDINGS. Chest X-Ray 12/28/18 00:00 IMPRESSION: Pulmonary vascular congestion without juan m pulmonary edema. Renal Ultrasound 12/28/18 09:00 IMPRESSION: MARKEDLY LIMITED STUDY. NO GROSS ABNORMALITY. Assessment & Plan - Diagnosis (1) NICKI (acute kidney injury) Is this a current diagnosis for this admission?: Yes Plan: Initially secondary to sepsis causing ATN. His initial creatinine was around 7.5. Baseline creatinine is around 1.8-2+. No need of any renal replacement therapy. Patient's creatinine seems to be slightly rising for the last few days. Possible causes include previous IV diuretics and episodes of hypotension. Patient also has an acute urinary retention which is contributory to worsening of the kidney function. Currently now with Sorenson catheter inserted. Urine output is acceptable and adequate. Kidney function is unchanged compared to yesterday. Recommend to discontinue Bumex. Dr. Dr. Saha about this. I think the patient needs urology evaluation as soon as possible. He probably needs to be discharged with indwelling Sorenson catheter however the issues to cross hematuria which is a challenging issue. I would like to see the kidney function improving prior to discharge. If the patient really has urinary retention he might need to go home with a Sorenson catheter to follow-up with the urologist. (2) CKD (chronic kidney disease) stage 4, GFR 15-29 ml/min Is this a current diagnosis for this admission?: Yes (3) Urinary retention Is this a current diagnosis for this admission?: Yes Plan: Reinserted Sorenson catheter. (4) Sepsis Qualifiers: Sepsis type: sepsis due to unspecified organism Sepsis acute organ dysfunction status: with acute organ dysfunction Severe sepsis acute organ dysfunction type: acute renal failure Acute renal failure type: unspecified Severe sepsis shock status: without septic shock Qualified Code(s): A41.9 - Sepsis, unspecified organism; R65.20 - Severe sepsis without septic shock; N17.9 - Acute kidney failure, unspecified Is this a current diagnosis for this admission?: Yes Plan: Due to urinary tract infection and leg ulcer. Status post treatment with IV antibiotics. (5) Hypotension Is this a current diagnosis for this admission?: Yes Plan: Cardizem dose was decreased and Coreg initiated. (6) Cellulitis and abscess of lower extremity Is this a current diagnosis for this admission?: Yes Plan: Left leg and wound VAC, treated with IV antibiotics. Wound culture was polymicrobial. (7) UTI (urinary tract infection) Qualifiers: Urinary tract infection type: acute cystitis Hematuria presence: without hematuria Qualified Code(s): N30.00 - Acute cystitis without hematuria Is this a current diagnosis for this admission?: Yes Plan: Secondary to Proteus mirabilis and gram-positive cocci treated with IV a ntibiotics. (8) Gross hematuria Is this a current diagnosis for this admission?: Yes Plan: Currently has recurred with 3 insertion of Sorenson catheter. Eliquis dose might need to be decreased further. Defer to hospitalist service. (9) Anemia in chronic kidney disease (CKD) Is this a current diagnosis for this admission?: Yes Plan: Currently receiving Retacrit q. Sundays. GI have seen the patient but due to being on anticoagulation, work-up has been held. Gross hematuria is contributing to this. (10) Atrial fibrillation with RVR Is this a current diagnosis for this admission?: Yes Plan: Per hospitalist service. On Eliquis, Cardizem and Coreg. (11) Chronic acquired lymphedema Is this a current diagnosis for this admission?: Yes - Time Time with patient: 15-25 minutes
[2019-01-12] MEDS ORDERED: METOPROLOL TARTRATE PF/INJ 5 MG/5 ML SDV IV PRN (16:57)
[2019-01-12] MEDS: CARVEDILOL 6.25 MG TABLET PO SCH (22:19)
[2019-01-12] MEDS: MELATONIN 3 MG TABLET PO SCH (22:19)
[2019-01-13 06:33] LABS: ALBUMIN 2.9 g/dL (3.5-5.0); ANION GAP 12 (5-19); BLOOD UREA NITROGEN 61 mg/dL (7-20); CALCIUM 7.6 mg/dL (8.4-10.2); CARBON DIOXIDE 22 mmol/L (22-30); CHLORIDE 102 mmol/L (98-107); GLUCOSE 82 mg/dL (75-110); PHOSPHORUS 7.3 mg/dL (2.5-4.5); POTASSIUM 4.5 mmol/L (3.6-5.0)
[2019-01-13] MEDS: PANTOT AC/MIN OIL/PET HY-PHL OINT 50 GM TOP SCH (12:20)
[2019-01-13] MEDS: DILTIAZEM HCL 180 MG CAPSULE.CR PO SCH (12:25)
[2019-01-13] MEDS: LACTOBACILLUS ACIDOPHILUS 250 MG TAB PO SCH ×2 (12:25→18:52)
[2019-01-13] MEDS: AMOXICILLIN TR/POT CLAVULANATE 500-125 MG TAB PO SCH ×2 (12:25→22:26)
[2019-01-13] MEDS: CALCITRIOL 0.25 MCG CAPSULE PO SCH ×2 (12:26→18:52)
[2019-01-13] MEDS: EPOETIN ALFA-EPBX 10,000 UNIT/ML VIAL (NON-ESRD) SUBCUT SCH (12:27)
[2019-01-13] MEDS: CARVEDILOL 6.25 MG TABLET PO SCH ×2 (12:27→22:26)
--- NOTE | 2019-01-13 14:31 | PDOC PROGRESS REPORT ---
Subjective Progress Note for:: 01/13/19 Subjective:: The patient is resting in bed. He has a towel wrapped around his neck. He states this helps keeping him from coughing. He did have some coughing while I was in the room. He still has juan m hematuria. He was pleased to hear that his serum creatinine is better. Reason For Visit: RENAL FAILURE,INFECTED L LEG ULCER Physical Exam Vital Signs: Temp Pulse Resp BP Pulse Ox 98.8 F 111 H 19 119/58 L 97 01/13/19 11:39 01/13/19 11:39 01/13/19 11:39 01/13/19 11:39 01/13/19 11:39 Intake & Output 01/12/19 01/13/19 01/14/19 06:59 06:59 05:59 Intake Total 1168 1278 Output Total 2225 3850 Balance -1057 -1622 Weight 100.2 kg 100.2 kg General appearance: PRESENT: no acute distress, cooperative, well-developed Head exam: PRESENT: atraumatic, normocephalic Eye exam: PRESENT: conjunctiva pale. ABSENT: scleral icterus Ear exam: PRESENT: normal external ear exam. ABSENT: bleeding, drainage Respiratory exam: PRESENT: clear to auscultation moustapha, decreased breath sounds - Breath sounds are slightly decreased. Every time the patient takes a deep breath he has a coughing episode., symmetrical, unlabored. ABSENT: rales, rhonchi, tachypnea, wheezes Cardiovascular exam: PRESENT: irregular rhythm GI/Abdominal exam: PRESENT: normal bowel sounds, soft. ABSENT: distended, tenderness Rectal exam: PRESENT: deferred Gentrourinary exam: PRESENT: indwelling catheter - Hematuria Extremities exam: PRESENT: other - Marked asymmetric swelling of the right leg more than twice as big as the left. VAC dressing on the left leg. Musculoskeletal exam: ABSENT: normal inspection Neurological exam: PRESENT: alert, awake, oriented to person, oriented to place, oriented to time, oriented to situation, CN II-XII grossly intact Psychiatric exam: PRESENT: flat affect. ABSENT: agitated, anxious Focused psych exam: ABSENT: delusional, restlessness Skin exam: PRESENT: other - Pigment deposition and chronic fibrotic changes of significant long-standing lymphedema in the legs Results Laboratory Results: 01/10/19 07:48 01/13/19 05:11 01/13/19 05:11 Sodium 135.5 L Potassium 4.5 Chloride 102 Carbon Dioxide 22 Anion Gap 12 BUN 61 H Creatinine 5.13 H Est GFR ( Amer) 13 L Glucose 82 Calcium 7.6 L Phosphorus 7.3 H Albumin 2.9 L Impressions: Tibia/Fibula X-Ray 12/27/18 14:42 IMPRESSION: 1. LARGE SOFT TISSUE DEFECT IN THE DISTAL LOWER LEG. NO GAS OR RADIOPAQUE FOREIGN OBJECT. NO RADIOGRAPHIC EVIDENCE OF OSTEOMYELITIS. 2. OLD FRACTURES OF THE TIBIA AND FIBULA. STABLE NICHELLE IN THE TIBIA. NO ACUTE FINDINGS. Chest X-Ray 12/28/18 00:00 IMPRESSION: Pulmonary vascular congestion without juan m pulmonary edema. Renal Ultrasound 12/28/18 09:00 IMPRESSION: MARKEDLY LIMITED STUDY. NO GROSS ABNORMALITY. Assessment and Plan - Diagnosis (1) Gross hematuria Is this a current diagnosis for this admission?: Yes Plan: 01/09/2019-the patient was on chronic anticoagulation. The patient is still having hematuria. We are holding anticoagulation as the hematuria would worsen and the patient does have follow-up with urology post discharge. He has had hematuria in the past on several occasions. It may be just due to trauma from the Sorenson catheter. With Sorenson catheter removed the patient should show resolution. We will hold the anticoagulation until the hematuria has resolved. Hemoglobin appears to be stable. 01/10/2019-the patient's urine is not pink and there are no blood clots. It has a greenish tinge and this could be old hemoglobin that is dissolved. I still feel he would benefit from seeing urology as an outpatient. I have started his anticoagulation at half the normal dose and if hematuria does not recur consider increasing it back to 5 mg twice daily. Continue to monitor hemoglobin. 01/11/2019-no juan m hematuria but the urine suggests evidence of old blood that has broken down into components. I did examine the Sorenson catheter drainage bag and several 100 cc of mid to green-colored urine observed. No clots. No fresh blood. Now that the Sorenson catheter is back we will monitor closely. If blood appears we will discontinue the anticoagulation. 01/12/2019-hematuria has returned. We will discontinue anticoagulation. January 13, 2019-still with hematuria. Anticoagulation is on hold. (2) Atrial fibrillation with RVR Is this a current diagnosis for this admission?: Yes Plan: 01/09/2019-he is now on an increased dose of his diltiazem. He exhibits good rate control. Anticoagulation on hold as noted above. 01/10/2019-continue diltiazem. Adequate control. I am going to resume anticoagulation as described below. 01/11/2019-discussed with Dr. Magaña. Would like to see the patient's blood pressure higher. I am going to slowly decrease the diltiazem and introduce carvedilol which should not drop the blood pressure as much as the diltiazem. If need be we can institute digoxin therapy for rate control. 01/12/2019-I have increased the carvedilol again today and decreased the diltiazem in an effort to maintain rate control and allow his blood pressure to increase. January 13, 2019- (3) Acute renal failure superimposed on stage 4 chronic kidney disease Qualifiers: Acute renal failure type: with acute tubular necrosis Qualified Code(s): N17.0 - Acute kidney failure with tubular necrosis; N18.4 - Chronic kidney disease, stage 4 (severe) Is this a current diagnosis for this admission?: Yes Plan: 01/11/2019-as discussed with nephrology the lack of improvement in renal function could be due to the low blood pressures. Would like to see his blood pressure above 120 consistently. I am adjusting medications as noted above. In addition the patient had acute urinary retention. With Sorenson catheter in and the retention resolved we will see if his renal function improves. 01/12/2019-it seems that the serum creatinine has plateaued. Hopefully with no further urinary obstruction his creatinine will begin to come down. January 13, 2019-the patient's serum creatinine is improved. It was 5.50 yesterday and is now 5.13. This is likely due to relieving the urinary obstruction. Hopefully will continue to trend down. Once it is consistently decreasing the patient should be able to go to the skilled facility. (4) Cellulitis and abscess of left lower extremity Is this a current diagnosis for this admission?: Yes Plan: 01/09/2019-the patient had a polymicrobial infection. This is been debrided and he now has a VAC dressing in place. This will need to continue with outpatient surgical follow-up or follow-up with the wound care center. Complete antibiotic therapy as ordered. 01/10/2019-wound care/VAC per surgery. Complete antibiotics as ordered (January 17) 01/11/2019-no change in plan 01/12/2019-VAC changes on Tuesday and Sunday January 13, 2019-continue antibiotics and negative pressure wound care (5) Anemia Qualifiers: Anemia type: due to chronic kidney disease Chronic kidney disease stage: stage 5, not on chronic dialysis Qualified Code(s): N18.5 - Chronic kidney disease, stage 5; D63.1 - Anemia in chronic kidney disease Is this a current diagnosis for this admission?: Yes Plan: 01/09/2019-hemoglobin appears to be stable. The patient is receiving erythr opoietin. Continue to monitor. 01/10/2019-continue to monitor 01/11/2019-continue current treatment plan 01/12/2019-continue to monitor hemoglobin January 13, 2019-hemoglobin tends to remain at 8.0 give or take 0.2 g hemoglobin. It is unlikely that the amount of hematuria will cause the hemoglobin to drop significantly however we will continue to monitor. (6) Chronic acquired lymphedema Is this a current diagnosis for this admission?: Yes Plan: 01/09/2019-clearly the right leg exhibits evidence of chronicity for his marked lymphedema. Consider leg elevation, compression therapy and or pneumatic lymphedema therapy. Diuretic therapy will continue. 01/10/2019-unchanged 01/11/2019-the patient did ask about treatments for venous insufficiency. I described and sha a picture of the venous tree and how the vein valves can become incompetent. This leads to increased hydrostatic pressure in the lower extremity. When this is been chronic you get the thick fibrotic skin changes, occasionally ulcers and keratinization sometimes resembling cobblestones. After special venous ultrasound identifies retrograde flow intravenous ablation therapy can be performed. Obviously it is not without risk. He understands that he needs to get his renal function under control prior to even considering interventions for his leg. 01/12/2019-now applying hydrophilic preparation to the skin. This should help with dry skin, cracking and any pruritus January 13, 2019-at this point conservative care. I believe he told me that he has tried multiple devices such as Velcro closure compression wraps and pneumatic lymphedema pump therapy. This is something he needs to be more aggressive with as an outpatient. (7) UTI (urinary tract infection) Qualifiers: Urinary tract infection type: acute cystitis Hematuria presence: without hematuria Qualified Code(s): N30.00 - Acute cystitis without hematuria Is this a current diagnosis for this admission?: Yes Plan: 01/09/2019-polymicrobial. Complete antibiotic therapy as ordered. 01/10/2019-complete antibiotics 01/11/2019-as above 01/12/2019-continue antibiotics January 13, 2019-antibiotics for the leg wound provide coverage for the urinary tract infection. (8) Hyperkalemia Is this a current diagnosis for this admission?: Yes Plan: 01/09/2019-likely related to the acute on chronic kidney failure. We will continue to monitor. Treat as clinically indicated. 01/10/2019-still slightly high. Continue to monitor and utilize Kayexalate if needed. 01/11/2019-still above normal but not clinically significant. We will continue to monitor. 01/12/2019-potassium is normal today. Continue to monitor January 13, 2019-serum potassium is normal again today. We will continue to monitor along with renal function. (9) Congestive heart failure Qualifiers: Heart failure type: unspecified Heart failure chronicity: unspecified Qualified Code(s): I50.9 - Heart failure, unspecified Is this a current diagnosis for this admission?: Yes Plan: 01/09/2019-unfortunately there is no indication as to the chronicity of heart failure in the patient's records. It is likely chronic. It is most likely a combination of his atrial fibrillation and chronic kidney disease. There is also no echocardiogram so it is difficult to know the severity and specificity whether it is systolic, diastolic or combined. He will continue the current treatment plan including diuretic therapy and control of the atrial fibrillation. Heart failure stable at this time. 01/10/2019-stable. Continue current regimen. 01/11/2019-asymptomatic at this time 01/12/2019-continue current regimen January 13, 2019-the patient had a net negative fluid balance yesterday. We have backed off on diuretic therapy as we want his blood pressure to increase. He may need to utilize digoxin for rate control of his fibrillation and discontinue the diltiazem altogether. (10) Sepsis Qualifiers: Sepsis type: sepsis due to unspecified organism Sepsis acute organ dysfunction status: with acute organ dysfunction Severe sepsis acute organ dysfunction type: acute renal failure Acute renal failure type: unspecified Severe sepsis shock status: without septic shock Qualified Code(s): A41.9 - Sepsis, unspecified organism; R65.20 - Severe sepsis without septic shock; N17.9 - Acute kidney failure, unspecified Is this a current diagnosis for this admission?: Yes Plan: 01/09/2019-sepsis resolved - Plan Summary Summary: Anticipate the patient could be ready for discharged tomorrow. Awaiting final recommendations from nephrology given slight bump in creatinine today. Hopeful about improvement in gross hematuria tomorrow but can still be discharged with urology follow-up soon. Awaiting physical therapy recommendations for SNF versus home health. January 13, 2019-the patient's serum creatinine is starting to trend down. Dr. Magaña was waiting for this to occur before discharge. The patient's daughter wishes that he was able to go to a facility in [place]. He is not sure if he would like that or if he would like to be closer to home. - Time Time Spent with patient: 15-24 minutes Anticipated discharge: SNF
[2019-01-13] MEDS: MAGNESIUM OXIDE 400 MG TABLET PO SCH (15:19)
[2019-01-13] MEDS: GUAIFENESIN/D-METHORPHAN (200-20 MG) SYRUP 10 ML PO PRN (16:39)
[2019-01-13] MEDS: MELATONIN 3 MG TABLET PO SCH (22:26)
[2019-01-13] MEDS: DIPHENHYDRAMINE HCL 25 MG CAPSULE PO PRN (23:35)
[2019-01-13] MEDS ORDERED: ROPINIROLE HCL 2 MG TABLET ONE (23:55)
[2019-01-14] MEDS: ROPINIROLE HCL 2 MG TABLET PO PRN ×2 (00:02→23:07)
[2019-01-14] MEDS: GUAIFENESIN/D-METHORPHAN (200-20 MG) SYRUP 10 ML PO PRN ×3 (01:36→17:26)
[2019-01-14 06:55] LABS: ALBUMIN 2.8 g/dL (3.5-5.0); ANION GAP 10 (5-19); BLOOD UREA NITROGEN 58 mg/dL (7-20); CALCIUM 7.4 mg/dL (8.4-10.2); CARBON DIOXIDE 22 mmol/L (22-30); CHLORIDE 102 mmol/L (98-107); GLUCOSE 88 mg/dL (75-110); PHOSPHORUS 7.3 mg/dL (2.5-4.5); POTASSIUM 4.1 mmol/L (3.6-5.0)
[2019-01-14] MEDS: MAGNESIUM OXIDE 400 MG TABLET PO SCH (09:30)
[2019-01-14] MEDS: LACTOBACILLUS ACIDOPHILUS 250 MG TAB PO SCH ×2 (09:30→17:26)
[2019-01-14] MEDS: PANTOT AC/MIN OIL/PET HY-PHL OINT 50 GM TOP SCH (09:30)
[2019-01-14] MEDS: CARVEDILOL 6.25 MG TABLET PO SCH ×2 (09:30→21:00)
[2019-01-14] MEDS: AMOXICILLIN TR/POT CLAVULANATE 500-125 MG TAB PO SCH ×2 (09:30→21:00)
[2019-01-14] MEDS: DILTIAZEM HCL 180 MG CAPSULE.CR PO SCH (09:30)
[2019-01-14] MEDS: CALCITRIOL 0.25 MCG CAPSULE PO SCH ×2 (09:31→17:26)
--- NOTE | 2019-01-14 10:56 | PDOC PROGRESS REPORT ---
Subjective Progress Note for:: 01/14/19 Subjective:: Patient appears to be coughing more today. He was very pleased to know that his serum creatinine is improving. No new complaints other than the cough. Reason For Visit: RENAL FAILURE,INFECTED L LEG ULCER Physical Exam Vital Signs: Temp Pulse Resp BP Pulse Ox 98.5 F 109 H 22 H 121/67 94 01/14/19 08:25 01/14/19 08:25 01/14/19 08:25 01/14/19 08:25 01/14/19 08:25 Intake & Output 01/13/19 01/14/19 01/15/19 07:59 06:59 06:59 Intake Total Output Total Balance Weight General appearance: PRESENT: cooperative, mild distress, well-developed Head exam: PRESENT: atraumatic, normocephalic Eye exam: PRESENT: conjunctiva pale. ABSENT: scleral icterus Ear exam: PRESENT: normal external ear exam. ABSENT: bleeding, drainage Mouth exam: PRESENT: dry mucosa, tongue midline Respiratory exam: PRESENT: rhonchi - Right base, symmetrical, unlabored, other - Consistent cough during this encounter. ABSENT: rales, tachypnea, wheezes Cardiovascular exam: PRESENT: irregular rhythm GI/Abdominal exam: PRESENT: normal bowel sounds, soft. ABSENT: distended, tenderness Rectal exam: PRESENT: deferred Gentrourinary exam: PRESENT: indwelling catheter - Still with dark urine Extremities exam: PRESENT: other - Marked asymmetry right leg greater than left. Chronic venous insufficiency changes on the right. VAC on the left. Musculoskeletal exam: ABSENT: normal inspection Neurological exam: PRESENT: alert, awake, oriented to person, oriented to place, oriented to time, oriented to situation, CN II-XII grossly intact Psychiatric exam: PRESENT: flat affect. ABSENT: agitated, anxious Focused psych exam: ABSENT: delusional, restlessness Skin exam: PRESENT: dry, warm, other - Chronic changes venous insufficiency right leg including fibrotic changes and keratin scaling. ABSENT: jaundice Results Laboratory Results: 01/10/19 07:48 01/14/19 05:00 01/14/19 05:00 Sodium 133.9 L Potassium 4.1 Chloride 102 Carbon Dioxide 22 Anion Gap 10 BUN 58 H Creatinine 4.89 H Est GFR ( Amer) 14 L Glucose 88 Calcium 7.4 L Phosphorus 7.3 H Magnesium 2.1 Albumin 2.8 L Impressions: Tibia/Fibula X-Ray 12/27/18 14:42 IMPRESSION: 1. LARGE SOFT TISSUE DEFECT IN THE DISTAL LOWER LEG. NO GAS OR RADIOPAQUE FOREIGN OBJECT. NO RADIOGRAPHIC EVIDENCE OF OSTEOMYELITIS. 2. OLD FRACTURES OF THE TIBIA AND FIBULA. STABLE NICHELLE IN THE TIBIA. NO ACUTE FINDINGS. Chest X-Ray 12/28/18 00:00 IMPRESSION: Pulmonary vascular congestion without juan m pulmonary edema. Renal Ultrasound 12/28/18 09:00 IMPRESSION: MARKEDLY LIMITED STUDY. NO GROSS ABNORMALITY. Assessment and Plan - Diagnosis (1) Gross hematuria Is this a current diagnosis for this admission?: Yes Plan: 01/09/2019-the patient was on chronic anticoagulation. The patient is still having hematuria. We are holding anticoagulation as the hematuria would worsen and the patient does have follow-up with urology post discharge. He has had hematuria in the past on several occasions. It may be just due to trauma from the Sorenson catheter. With Sorenson catheter removed the patient should show resolution. We will hold the anticoagulation until the hematuria has resolved. Hemoglobin appears to be stable. 01/10/2019-the patient's urine is not pink and there are no blood clots. It has a greenish tinge and this could be old hemoglobin that is dissolved. I still feel he would benefit from seeing urology as an outpatient. I have started his anticoagulation at half the normal dose and if hematuria does not recur consider increasing it back to 5 mg twice daily. Continue to monitor hemoglobin. 01/11/2019-no juan m hematuria but the urine suggests evidence of old blood that has broken down into components. I did examine the Sorenson catheter drainage bag and several 100 cc of mid to green-colored urine observed. No clots. No fresh blood. Now that the Sorenson catheter is back we will monitor closely. If blood appears we will discontinue the anticoagulation. 01/12/2019-hematuria has returned. We will discontinue anticoagulation. January 13, 2019-still with hematuria. Anticoagulation is on hold. 01/14/2019-appears to be improving. Because of the urinary obstruction the Sorenson catheter will need to remain in place until he sees urology. We may need to hold his anticoagulation until after urology evaluation. (2) Atrial fibrillation with RVR Is this a current diagnosis for this admission?: Yes Plan: 01/09/2019-he is now on an increased dose of his diltiazem. He exhibits good rate control. Anticoagulation on hold as noted above. 01/10/2019-continue diltiazem. Adequate control. I am going to resume anticoagulation as described below. 01/11/2019-discussed with Dr. Magaña. Would like to see the patient's blood pressure higher. I am going to slowly decrease the diltiazem and introduce carvedilol which should not drop the blood pressure as much as the diltiazem. If need be we can institute digoxin therapy for rate control. 01/12/2019-I have increased the carvedilol again today and decreased the diltiazem in an effort to maintain rate control and allow his blood pressure to increase. January 13, 2019-slowly converting diltiazem to carvedilol 01/14/2019-the patient's pulses up this morning but is been coughing a lot. Blood pressure is improving which is the desired goal to see if he will get increased perfusion and hence better healing of his kidneys. We will likely decrease or eliminate diltiazem and increase the carvedilol tomorrow. (3) Acute renal failure superimposed on stage 4 chronic kidney disease Qualifiers: Acute renal failure type: with acute tubular necrosis Qualified Code(s): N17.0 - Acute kidney failure with tubular necrosis; N18.4 - Chronic kidney disease, stage 4 (severe) Is this a current diagnosis for this admission?: Yes Plan: 01/11/2019-as discussed with nephrology the lack of improvement in renal function could be due to the low blood pressures. Would like to see his blood pressure above 120 consistently. I am adjusting medications as noted above. In addition the patient had acute urinary retention. With Sorenson catheter in and the retention resolved we will see if his renal function improves. 01/12/2019-it seems that the serum creatinine has plateaued. Hopefully with no further urinary obstruction his creatinine will begin to come down. January 13, 2019-the patient's serum creatinine is improved. It was 5.50 yesterday and is now 5.13. This is likely due to relieving the urinary obstruction. Hopefully will continue to trend down. Once it is consistently decreasing the patient should be able to go to the skilled facility. 01/14/2019-creatinine is down to 4.89 today and seems to be improving daily. Will recheck tomorrow. If it continues to improve then he may build to move on to rehab soon. (4) Cellulitis and abscess of left lower extremity Is this a current diagnosis for this admission?: Yes Plan: 01/09/2019-the patient had a polymicrobial infection. This is been debrided and he now has a VAC dressing in place. This will need to continue with outpatient surgical follow-up or follow-up with the wound care center. Complete antibiotic therapy as ordered. 01/10/2019-wound care/VAC per surgery. Complete antibiotics as ordered (January 17) 01/11/2019-no change in plan 01/12/2019-VAC changes on Tuesday and Sunday January 13, 2019-continue antibiotics and negative pressure wound care 01/14/2019-complete antibiotics. Continue VAC therapy. (5) Anemia Qualifiers: Anemia type: due to chronic kidney disease Chronic kidney disease stage: stage 5, not on chronic dialysis Qualified Code(s): N18.5 - Chronic kidney disease, stage 5; D63.1 - Anemia in chronic kidney disease Is this a current diagnosis for this admission?: Yes Plan: 01/09/2019-hemoglobin appears to be stable. The patient is receiving erythropoietin. Continue to monitor. 01/10/2019-continue to monitor 01/11/2019-continue current treatment plan 01/12/2019-continue to monitor hemoglobin January 13, 2019-hemoglobin tends to remain at 8.0 give or take 0.2 g hemoglobin. It is unlikely that the amount of hematuria will cause the hemoglobin to drop significantly however we will continue to monitor. 01/14/2019-remains above 8.0. Continue to monitor. No transfusion at this time. I will discuss with nephrology. If it is felt that a unit of packed red blood cells will increase perfusion/oxygenation of renal tissue and this might be considered. (6) Chronic acquired lymphedema Is this a current diagnosis for this admission?: Yes Plan: 01/09/2019-clearly the right leg exhibits evidence of chronicity for his marked lymphedema. Consider leg elevation, compression therapy and or pneumatic lymphedema therapy. Diuretic therapy will continue. 01/10/2019-unchanged 01/11/2019-the patient did ask about treatments for venous insufficiency. I described and sha a picture of the venous tree and how the vein valves can become incompetent. This leads to increased hydrostatic pressure in the lower extremity. When this is been chronic you get the thick fibrotic skin changes, occasionally ulcers and keratinization sometimes resembling cobblestones. After special venous ultrasound identifies retrograde flow intravenous ablation therapy can be performed. Obviously it is not without risk. He understands that he needs to get his renal function under control prior to even considering interventions for his leg. 01/12/2019-now applying hydrophilic preparation to the skin. This should help with dry skin, cracking and any pruritus January 13, 2019-at this point conservative care. I believe he told me that he has tried multiple devices such as Velcro closure compression wraps and pneumatic lymphedema pump therapy. This is something he needs to be more aggressive with as an outpatient. 01/14/2019-no change in treatment plan at this time (7) UTI (urinary tract infection) Qualifiers: Urinary tract infection type: acute cystitis Hematuria presence: without hematuria Qualified Code(s): N30.00 - Acute cystitis without hematuria Is this a current diagnosis for this admission?: Yes Plan: 01/09/2019-polymicrobial. Complete antibiotic therapy as ordered. 01/10/2019-complete antibiotics 01/11/2019-as above 01/12/2019-continue antibiotics January 13, 2019-antibiotics for the leg wound provide coverage for the urinary tract infection. 01/14/2019-as above (8) Hyperkalemia Is this a current diagnosis for this admission?: Yes Plan: 01/09/2019-likely related to the acute on chronic kidney failure. We will continue to monitor. Treat as clinically indicated. 01/10/2019-still slightly high. Continue to monitor and utilize Kayexalate if needed. 01/11/2019-still above normal but not clinically significant. We will continue to monitor. 01/12/2019-potassium is normal today. Continue to monitor January 13, 2019-serum potassium is normal again today. We will continue to monitor along with renal function. 01/14/2019-potassium remains normal at this time. Continue to monitor. (9) Congestive heart failure Qualifiers: Heart failure type: unspecified Heart failure chronicity: unspecified Qualified Code(s): I50.9 - Heart failure, unspecified Is this a current diagnosis for this admission?: Yes Plan: 01/09/2019-unfortunately there is no indication as to the chronicity of heart failure in the patient's records. It is likely chronic. It is most likely a combination of his atrial fibrillation and chronic kidney disease. There is also no echocardiogram so it is difficult to know the severity and specificity whether it is systolic, diastolic or combined. He will continue the current treatment plan including diuretic therapy and control of the atrial fibrillation. Heart failure stable at this time. 01/10/2019-stable. Continue current regimen. 01/11/2019-asymptomatic at this time 01/12/2019-continue current regimen January 13, 2019-the patient had a net negative fluid balance yesterday. We have backed off on diuretic therapy as we want his blood pressure to increase. He may need to utilize digoxin for rate control of his fibrillation and discontinue the diltiazem altogether. 01/14/2019-the patient has been off diuretics for several days due to low blood pressure. The cough is concerning as it might be due to worsening failure. He does have rhonchi on the right. He may need a single dose of diuretic therapy today and in need to resume daily diuretic therapy. Chest x-ray is ordered. (10) Sepsis Qualifiers: Sepsis type: sepsis due to unspecified organism Sepsis acute organ dysfunction status: with acute organ dysfunction Severe sepsis acute organ dysfunction type: acute renal failure Acute renal failure type: unspecified Severe sepsis shock status: without septic shock Qualified Code(s): A41.9 - Sepsis, unspecified organism; R65.20 - Severe sepsis without septic shock; N17.9 - Acute kidney failure, unspecified Is this a current diagnosis for this admission?: Yes Plan: 01/09/2019-sepsis resolved - Plan Summary Summary: Anticipate the patient could be ready for discharged tomorrow. Awaiting final recommendations from nephrology given slight bump in creatinine today. Hopeful about improvement in gross hematuria tomorrow but can still be discharged with urology follow-up soon. Awaiting physical therapy recommendations for SNF versus home health. January 13, 2019-the patient's serum creatinine is starting to trend down. Dr. Magaña was waiting for this to occur before discharge. The patient's daughter wishes that he was able to go to a facility in [place]. He is not sure if he would like that or if he would like to be closer to home. - Time Time Spent with patient: 15-24 minutes Medications reviewed and adjusted accordingly: Yes Anticipated discharge: SNF
[2019-01-14] MEDS: CALCIUM ACETATE 667 MG CAPSULE PO SCH ×2 (11:55→17:26)
--- NOTE | 2019-01-14 12:01 | RADIOLOGY REPORT (SQ) ---
EXAM DESCRIPTION: CHEST SINGLE VIEW COMPLETED DATE/TIME: 01/14/2019 11:33 am REASON FOR STUDY: Shortness of breath, rhonchi right base COMPARISON: 12/28/2018 NUMBER OF VIEWS: One view. TECHNIQUE: Single frontal radiographic view of the chest acquired. LIMITATIONS: None. FINDINGS: LUNGS AND PLEURA: Low volumes. Probable skin fold over the right lateral base. Lungs oth erwise clear. MEDIASTINUM AND HILAR STRUCTURES: No masses. No contour abnormality. HEART AND VASCULAR STRUCTURES: Normal size. No evidence for failure. BONES: No acute findings. HARDWARE: None in the chest. OTHER: No other significant finding. IMPRESSION: LOW LUNG VOLUMES. NO SIGNIFICANT RADIOGRAPHIC FINDING IN THE CHEST. TECHNICAL DOCUMENTATION: JOB ID: [id number] [employer]- All Rights Reserved Reading location - IP/workstation name: [email or web address]
[2019-01-14] MEDS: MELATONIN 3 MG TABLET PO SCH (21:00)
[2019-01-14] MEDS ORDERED: ROPINIROLE HCL 2 MG TABLET ONE (21:47)
[2019-01-14] MEDS: DIPHENHYDRAMINE HCL 25 MG CAPSULE PO PRN (23:08)
[2019-01-15 06:11] LABS: ABSOLUTE BASOPHILS # (AUTO) 0.1 10^3/uL (0.0-0.2); ABSOLUTE EOSINOPHILS # (AUTO) 0.2 10^3/uL (0.0-0.6); ABSOLUTE LYMPHOCYTES (AUTO) 1.3 10^3/uL (0.5-4.7); ABSOLUTE MONOCYTES (AUTO) 0.8 10^3/uL (0.1-1.4); ABSOLUTE NEUT (AUTO) 4.5 10^3/uL (1.7-8.2); BASOPHILS % (AUTO) 1.3 % (0-2); EOSINOPHILS % (AUTO) 3.2 % (0-6); HEMATOCRIT 22.7 % (37.9-51.0); LYMPHOCYTES % (AUTO) 18.7 % (13-45); MEAN CORPUSCULAR HEMOGLOBIN 28.7 pg (27.0-33.4); MEAN CORPUSCULAR HGB CONC 33.2 g/dL (32.0-36.0); MEAN CORPUSCULAR VOLUME 87 fl (80-97); MONOCYTES % (AUTO) 11.8 % (3-13); PLATELET COUNT 256 10^3/uL (150-450); RED BLOOD COUNT 2.63 10^6/uL (4.35-5.55); RED CELL DISTRIBUTION WIDTH 20.6 % (11.5-14.0); TOTAL CELLS COUNTED % (AUTO) 100 %; WHITE BLOOD COUNT 6.9 10^3/uL (4.0-10.5)
[2019-01-15 06:14] LABS: HEMOGLOBIN 7.5 g/dL (13.5-17.0)
[2019-01-15 06:28] LABS: ALBUMIN 2.7 g/dL (3.5-5.0); ANION GAP 12 (5-19); BLOOD UREA NITROGEN 56 mg/dL (7-20); CALCIUM 7.8 mg/dL (8.4-10.2); CARBON DIOXIDE 21 mmol/L (22-30); CHLORIDE 101 mmol/L (98-107); GLUCOSE 92 mg/dL (75-110); PHOSPHORUS 6.7 mg/dL (2.5-4.5); POTASSIUM 3.9 mmol/L (3.6-5.0)
[2019-01-15] MEDS: CARVEDILOL 6.25 MG TABLET PO SCH (09:33)
[2019-01-15] MEDS: MAGNESIUM OXIDE 400 MG TABLET PO SCH (09:33)
[2019-01-15] MEDS: LACTOBACILLUS ACIDOPHILUS 250 MG TAB PO SCH ×2 (09:33→17:21)
[2019-01-15] MEDS: CALCIUM ACETATE 667 MG CAPSULE PO SCH ×3 (09:33→17:21)
[2019-01-15] MEDS: PANTOT AC/MIN OIL/PET HY-PHL OINT 50 GM TOP SCH (09:34)
[2019-01-15] MEDS: DILTIAZEM HCL 180 MG CAPSULE.CR PO SCH (09:34)
[2019-01-15] MEDS: AMOXICILLIN TR/POT CLAVULANATE 500-125 MG TAB PO SCH ×2 (09:34→21:22)
[2019-01-15] MEDS: CALCITRIOL 0.25 MCG CAPSULE PO SCH ×2 (09:34→17:21)
[2019-01-15] MEDS ORDERED: NORMAL SALINE 250 ML IV PRN ×2 (13:45)
--- NOTE | 2019-01-15 13:54 | PDOC PROGRESS REPORT ---
Subjective Progress Note for:: 01/15/19 Subjective:: Patient is sitting in bed. He still has intermittent cough. No other complaints. Reason For Visit: RENAL FAILURE,INFECTED L LEG ULCER Physical Exam Vital Signs: Temp Pulse Resp BP Pulse Ox 98.5 F 83 19 98/49 L 91 L 01/15/19 12:00 01/15/19 12:00 01/15/19 12:00 01/15/19 12:00 01/15/19 12:00 Intake & Output 01/14/19 01/15/19 01/16/19 06:59 06:59 06:59 Intake Total 1554 852 Output Total 1425 625 Balance 129 227 Weight 100.8 kg General appearance: PRESENT: no acute distress, cooperative, well-developed Head exam: PRESENT: atraumatic, normocephalic Eye exam: PRESENT: conjunctiva pale. ABSENT: scleral icterus Ear exam: PRESENT: normal external ear exam. ABSENT: bleeding, drainage Mouth exam: PRESENT: moist, tongue midline Respiratory exam: PRESENT: decreased breath sounds - At bases bilaterally, symmetrical, unlabored. ABSENT: rales, rhonchi, tachypnea, wheezes Cardiovascular exam: PRESENT: irregular rhythm GI/Abdominal exam: PRESENT: normal bowel sounds, soft. ABSENT: distended, guarding, tenderness Rectal exam: PRESENT: deferred Gentrourinary exam: PRESENT: indwelling catheter - The urine is very clear today Musculoskeletal exam: ABSENT: normal inspection - Asymmetry as before with right leg swelling greater than left Neurological exam: PRESENT: alert, awake, oriented to person, oriented to place, oriented to time, oriented to situation, CN II-XII grossly intact Psychiatric exam: PRESENT: flat affect. ABSENT: agitated, anxious Focused psych exam: ABSENT: delusional, restlessness Results Laboratory Results: 01/15/19 05:33 01/15/19 05:33 01/15/19 01/15/19 05:33 05:33 WBC 6.9 RBC 2.63 L Hgb 7.5 L Hct 22.7 L MCV 87 MCH 28.7 MCHC 33.2 RDW 20.6 H Plt Count 256 Seg Neutrophils % 65.0 Sodium 133.9 L Potassium 3.9 Chloride 101 Carbon Dioxide 21 L Anion Gap 12 BUN 56 H Creatinine 4.54 H Est GFR ( Amer) 15 L Glucose 92 Calcium 7.8 L Phosphorus 6.7 H Magnesium 2.0 Albumin 2.7 L Impressions: Tibia/Fibula X-Ray 12/27/18 14:42 IMPRESSION: 1. LARGE SOFT TISSUE DEFECT IN THE DISTAL LOWER LEG. NO GAS OR RADIOPAQUE FOREIGN OBJECT. NO RADIOGRAPHIC EVIDENCE OF OSTEOMYELITIS. 2. OLD FRACTURES OF THE TIBIA AND FIBULA. STABLE NICHELLE IN THE TIBIA. NO ACUTE FINDINGS. Renal Ultrasound 12/28/18 09:00 IMPRESSION: MARKEDLY LIMITED STUDY. NO GROSS ABNORMALITY. Chest X-Ray 01/14/19 00:00 IMPRESSION: LOW LUNG VOLUMES. NO SIGNIFICANT RADIOGRAPHIC FINDING IN THE CHEST. Assessment and Plan - Diagnosis (1) Gross hematuria Is this a current diagnosis for this admission?: Yes Plan: 01/09/2019-the patient was on chronic anticoagulation. The patient is still having hematuria. We are holding anticoagulation as the hematuria would worsen and the patient does have follow-up with urology post discharge. He has had hematuria in the past on several occasions. It may be just due to trauma from the Sorenson catheter. With Sorenson catheter removed the patient should show resolution. We will hold the anticoagulation until the hematuria has resolved. Hemoglobin appears to be stable. 01/10/2019-the patient's urine is not pink and there are no blood clots. It has a greenish tinge and this could be old hemoglobin that is dissolved. I still feel he would benefit from seeing urology as an outpatient. I have started his anticoagulation at half the normal dose and if hematuria does not recur consider increasing it back to 5 mg twice daily. Continue to monitor hemoglobin. 01/11/2019-no juan m hematuria but the urine suggests evidence of old blood that has broken down into components. I did examine the Sorenson catheter drainage bag and several 100 cc of mid to green-colored urine observed. No clots. No fresh blood. Now that the Sorenson catheter is back we will monitor closely. If blood appears we will discontinue the anticoagulation. 01/12/2019-hematuria has returned. We will discontinue anticoagulation. January 13, 2019-still with hematuria. Anticoagulation is on hold. 01/14/2019-appears to be improving. Because of the urinary obstruction the Sorenson catheter will need to remain in place until he sees urology. We may need to hold his anticoagulation until after urology evaluation. 01/15/2019-the urine is very clear today. Hematuria has resolved. I am holding off on restarting Eliquis until after he sees the urologist on . (2) Atrial fibrillation with RVR Is this a current diagnosis for this admission?: Yes Plan: 01/09/2019-he is now on an increased dose of his diltiazem. He exhibits good rate control. Anticoagulation on hold as noted above. 01/10/2019-continue diltiazem. Adequate control. I am going to resume anticoagulation as described below. 01/11/2019-discussed with Dr. Magaña. Would like to see the patient's blood pressure higher. I am going to slowly decrease the diltiazem and introduce carvedilol which should not drop the blood pressure as much as the diltiazem. If need be we can institute digoxin therapy for rate control. 01/12/2019-I have increased the carvedilol again today and decreased the diltiazem in an effort to maintain rate control and allow his blood pressure to increase. January 13, 2019-slowly converting diltiazem to carvedilol 01/14/2019-the patient's pulses up this morning but is been coughing a lot. Blood pressure is improving which is the desired goal to see if he will get increased perfusion and hence better healing of his kidneys. We will likely decrease or eliminate diltiazem and increase the carvedilol tomorrow. 01/15/2019-his blood pressure is still marginal and nephrology would like to see it higher. I will discontinue the diltiazem and increase his carvedilol to 12.5 mg twice daily. (3) Acute renal failure superimposed on stage 4 chronic kidney disease Qualifiers: Acute renal failure type: with acute tubular necrosis Qualified Code(s): N17.0 - Acute kidney failure with tubular necrosis; N18.4 - Chronic kidney disease, stage 4 (severe) Is this a current diagnosis for this admission?: Yes Plan: 01/11/2019-as discussed with nephrology the lack of improvement in renal function could be due to the low blood pressures. Would like to see his blood pressure above 120 consistently. I am adjusting medications as noted above. In addition the patient had acute urinary retention. With Sorenson catheter in and the retention resolved we will see if his renal function improves. 01/12/2019-it seems that the serum creatinine has plateaued. Hopefully with no further urinary obstruction his creatinine will begin to come down. January 13, 2019-the patient's serum creatinine is improved. It was 5.50 yesterday and is now 5.13. This is likely due to relieving the urinary obstruction. Hopefully will continue to trend down. Once it is consistently decreasing the patient should be able to go to the skilled facility. 01/14/2019-creatinine is down to 4.89 today and seems to be improving daily. Will recheck tomorrow. If it continues to improve then he may build to move on to rehab soon. 01/15/2019-creatinine is down to 4.54 today. It is continuing to trend down. I would expect it to keep trending down and either reach or be close to his former baseline. He will need to follow-up with nephrology. It is improved enough for the patient to transition to rehab. (4) Cellulitis and abscess of left lower extremity Is this a current diagnosis for this admission?: Yes Plan: 01/09/2019-the patient had a polymicrobial infection. This is been debrided and he now has a VAC dressing in place. This will need to continue with outpatient surgical follow-up or follow-up with the wound care center. Complete antibiotic therapy as ordered. 01/10/2019-wound care/VAC per surgery. Complete antibiotics as ordered (January 17) 01/11/2019-no change in plan 01/12/2019-VAC changes on Tuesday and Sunday January 13, 2019-continue antibiotics and negative pressure wound care 01/14/2019-complete antibiotics. Continue VAC therapy. 01/15/2019-current antibiotic therapy through January 17. (5) Anemia Qualifiers: Anemia type: due to chronic kidney disease Chronic kidney disease stage: stage 5, not on chronic dialysis Qualified Code(s): N18.5 - Chronic kidney disease, stage 5; D63.1 - Anemia in chronic kidney disease Is this a current diagnosis for this admission?: Yes Plan: 01/09/2019-hemoglobin appears to be stable. The patient is receiving erythropoietin. Continue to monitor. 01/10/2019-continue to monitor 01/11/2019-continue current treatment plan 01/12/2019-continue to monitor hemoglobin January 13, 2019-hemoglobin tends to remain at 8.0 give or take 0.2 g h emoglobin. It is unlikely that the amount of hematuria will cause the hemoglobin to drop significantly however we will continue to monitor. 01/14/2019-remains above 8.0. Continue to monitor. No transfusion at this time. I will discuss with nephrology. If it is felt that a unit of packed red blood cells will increase perfusion/oxygenation of renal tissue and this might be considered. 01/15/2019-the patient's hemoglobin has been hovering around 8.0 but today it is 7.5. I have ordered 1 unit of packed red blood cells. Repeat hemoglobin posttransfusion. (6) Chronic acquired lymphedema Is this a current diagnosis for this admission?: Yes Plan: 01/09/2019-clearly the right leg exhibits evidence of chronicity for his marked lymphedema. Consider leg elevation, compression therapy and or pneumatic lymphedema therapy. Diuretic therapy will continue. 01/10/2019-unchanged 01/11/2019-the patient did ask about treatments for venous insufficiency. I described and sha a picture of the venous tree and how the vein valves can become incompetent. This leads to increased hydrostatic pressure in the lower extremity. When this is been chronic you get the thick fibrotic skin changes, occasionally ulcers and keratinization sometimes resembling cobblestones. After special venous ultrasound identifies retrograde flow intravenous ablation therapy can be performed. Obviously it is not without risk. He understands that he needs to get his renal function under control prior to even considering interventions for his leg. 01/12/2019-now applying hydrophilic preparation to the skin. This should help with dry skin, cracking and any pruritus January 13, 2019-at this point conservative care. I believe he told me that he has tried multiple devices such as Velcro closure compression wraps and pneumatic lymphedema pump therapy. This is something he needs to be more aggressive with as an outpatient. 01/14/2019-no change in treatment plan at this time 01/15/2019-consider therapy specifically for lymphedema management as an outpatient. (7) UTI (urinary tract infection) Qualifiers: Urinary tract infection type: acute cystitis Hematuria presence: without hematuria Qualified Code(s): N30.00 - Acute cystitis without hematuria Is this a current diagnosis for this admission?: Yes Plan: 01/09/2019-polymicrobial. Complete antibiotic therapy as ordered. 01/10/2019-complete antibiotics 01/11/2019-as above 01/12/2019-continue antibiotics January 13, 2019-antibiotics for the leg wound provide coverage for the urinary tract infection. 01/14/2019-as above 01/15/2019-antibiotics are completed on January 17 (8) Hyperkalemia Is this a current diagnosis for this admission?: Yes Plan: 01/09/2019-likely related to the acute on chronic kidney failure. We will continue to monitor. Treat as clinically indicated. 01/10/2019-still slightly high. Continue to monitor and utilize Kayexalate if needed. 01/11/2019-still above normal but not clinically significant. We will continue to monitor. 01/12/2019-potassium is normal today. Continue to monitor January 13, 2019-serum potassium is normal again today. We will continue to monitor along with renal function. 01/14/2019-potassium remains normal at this time. Continue to monitor. 01/15/2019-potassium normal again today. Continue to monitor. (9) Congestive heart failure Qualifiers: Heart failure type: unspecified Heart failure chronicity: unspecified Qualified Code(s): I50.9 - Heart failure, unspecified Is this a current diagnosis for this admission?: Yes Plan: 01/09/2019-unfortunately there is no indication as to the chronicity of heart failure in the patient's records. It is likely chronic. It is most likely a combination of his atrial fibrillation and chronic kidney disease. There is also no echocardiogram so it is difficult to know the severity and specificity whether it is systolic, diastolic or combined. He will continue the current treatment plan including diuretic therapy and control of the atrial fibrillation. Heart failure stable at this time. 01/10/2019-stable. Continue current regimen. 01/11/2019-asymptomatic at this time 01/12/2019-continue current regimen January 13, 2019-the patient had a net negative fluid balance yesterday. We have backed off on diuretic therapy as we want his blood pressure to increase. He may need to utilize digoxin for rate control of his fibrillation and discontinue the diltiazem altogether. 01/14/2019-the patient has been off diuretics for several days due to low blood pressure. The cough is concerning as it might be due to worsening failure. He does have rhonchi on the right. He may need a single dose of diuretic therapy today and in need to resume daily diuretic therapy. Chest x-ray is ordered. 01/15/2019-continue current medication regimen (10) Sepsis Qualifiers: Sepsis type: sepsis due to unspecified organism Sepsis acute organ dysfunction status: with acute organ dysfunction Severe sepsis acute organ dysfunction type: acute renal failure Acute renal failure type: unspecified Severe sepsis shock status: without septic shock Qualified Code(s): A41.9 - Sepsis, unspecified organism; R65.20 - Severe sepsis without septic shock; N17.9 - Acute kidney failure, unspecified Is this a current diagnosis for this admission?: Yes Plan: 01/09/2019-sepsis resolved - Plan Summary Summary: Anticipate the patient could be ready for discharged tomorrow. Awaiting final recommendations from nephrology given slight bump in creatinine today. Hopeful about improvement in gross hematuria tomorrow but can still be discharged with urology follow-up soon. Awaiting physical therapy recommendations for SNF versus home health. January 13, 2019-the patient's serum creatinine is starting to trend down. Dr. Magaña was waiting for this to occur before discharge. The patient's daughter wishes that he was able to go to a facility in [place]. He is not sure if he would like that or if he would like to be closer to home. 01/15/2019-discussed with nephrology. The patient appears to be stable for discharge. Awaiting confirmation of a bed. - Time Time Spent with patient: 15-24 minutes Medications reviewed and adjusted accordingly: Yes Anticipated discharge: SNF
[2019-01-15] MEDS: GUAIFENESIN/D-METHORPHAN (200-20 MG) SYRUP 10 ML PO PRN (14:02)
[2019-01-15] MEDS: TAMSULOSIN HCL 0.4 MG CAP.SR.24H PO SCH (17:21)
[2019-01-15] MEDS: MELATONIN 3 MG TABLET PO SCH (21:22)
[2019-01-15] MEDS: CARVEDILOL 12.5 MG TABLET PO SCH (21:22)
[2019-01-15] MEDS ORDERED: ROPINIROLE HCL 2 MG TABLET ONE (23:09)
[2019-01-15] MEDS: DIPHENHYDRAMINE HCL 25 MG CAPSULE PO PRN (23:11)
[2019-01-15] MEDS: ROPINIROLE HCL 2 MG TABLET PO PRN (23:11)
[2019-01-15] MEDS: DEXTROSE 5%-WATER 1000 ML 1,000 ML IV PRN (23:14)
[2019-01-16] MEDS: MAGNESIUM OXIDE 400 MG TABLET PO SCH (09:10)
[2019-01-16] MEDS: AMOXICILLIN TR/POT CLAVULANATE 500-125 MG TAB PO SCH ×2 (09:10→22:02)
[2019-01-16] MEDS: CALCIUM ACETATE 667 MG CAPSULE PO SCH ×3 (09:10→16:58)
[2019-01-16] MEDS: CALCITRIOL 0.25 MCG CAPSULE PO SCH ×2 (09:10→17:04)
[2019-01-16] MEDS: CARVEDILOL 12.5 MG TABLET PO SCH ×2 (09:10→22:09)
[2019-01-16] MEDS: LACTOBACILLUS ACIDOPHILUS 250 MG TAB PO SCH ×2 (09:10→17:04)
[2019-01-16] MEDS: PANTOT AC/MIN OIL/PET HY-PHL OINT 50 GM TOP SCH (09:11)
[2019-01-16] MEDS: DEXTROSE 5%-WATER 1000 ML 1,000 ML IV PRN ×2 (09:23→20:01)
[2019-01-16 12:29] LABS: ABSOLUTE RETICS # 0.051 10^6/uL (0.028-0.122); RETICULOCYTE COUNT (AUTO) 1.66 % (0.66-2.85)
--- NOTE | 2019-01-16 13:03 | PDOC PROGRESS REPORT ---
Subjective Progress Note for:: 01/16/19 Subjective:: Patient seen in follow-up regarding renal failure and hematuria. Patient continues to state that hematuria is resolved. Patient denies any nausea vomiting chest pain shortness of breath dizziness lightheadedness or decrease in urinary stream. Reason For Visit: RENAL FAILURE,INFECTED L LEG ULCER Physical Exam Vital Signs: Temp Pulse Resp BP Pulse Ox 98.4 F 97 22 H 112/64 98 01/16/19 12:00 01/16/19 12:00 01/16/19 12:00 01/16/19 12:00 01/16/19 12:00 Intake & Output 01/15/19 01/16/19 01/17/19 06:59 06:59 06:59 Intake Total 1554 1474 1360 Output Total 1425 1650 600 Balance 129 -176 760 Weight 100.8 kg 97.1 kg General appearance: PRESENT: no acute distress, cooperative Head exam: PRESENT: normocephalic Eye exam: PRESENT: EOMI Neck exam: ABSENT: JVD, tracheal deviation Respiratory exam: PRESENT: clear to auscultation moustapha, symmetrical, unlabored. ABSENT: tachypnea Cardiovascular exam: PRESENT: irregular rhythm, +S1, +S2. ABSENT: tachycardia GI/Abdominal exam: PRESENT: normal bowel sounds, soft. ABSENT: rebound, rigid, tenderness Neurological exam: PRESENT: alert, awake, oriented to person, oriented to place, oriented to time, oriented to situation Results Laboratory Results: 01/15/19 05:33 01/15/19 05:33 01/15/19 01/16/19 14:33 11:35 Retic Count (auto) 1.66 Blood Type O POSITIVE Antibody Screen NEGATIVE Impressions: Tibia/Fibula X-Ray 12/27/18 14:42 IMPRESSION: 1. LARGE SOFT TISSUE DEFECT IN THE DISTAL LOWER LEG. NO GAS OR RADIOPAQUE FOREIGN OBJECT. NO RADIOGRAPHIC EVIDENCE OF OSTEOMYELITIS. 2. OLD FRACTURES OF THE TIBIA AND FIBULA. STABLE NICHELLE IN THE TIBIA. NO ACUTE FINDINGS. Renal Ultrasound 12/28/18 09:00 IMPRESSION: MARKEDLY LIMITED STUDY. NO GROSS ABNORMALITY. Chest X-Ray 01/14/19 00:00 IMPRESSION: LOW LUNG VOLUMES. NO SIGNIFICANT RADIOGRAPHIC FINDING IN THE CHEST. Assessment and Plan - Diagnosis (1) Gross hematuria Is this a current diagnosis for this admission?: Yes Plan: Currently resolved. we will continue to hold Xarelto until follow-up visit with urology outpatient. (2) Atrial fibrillation with RVR Is this a current diagnosis for this admission?: Yes Plan: Continue with Coreg Seems to be having better control of his A. fib currently (3) Acute renal failure Qualifiers: Acute renal failure type: with acute tubular necrosis Qualified Code(s): N17.0 - Acute kidney failure with tubular necrosis Is this a current diagnosis for this admission?: Yes Plan: Patient appears to have plateaued a new baseline. Currently CKD stage V. No current need for dialysis. Cleared by nephrology as per prior documentation. Outpatient follow-up with nephrology for continued management of chronic kidney disease. (4) Cellulitis and abscess of left lower extremity Is this a current diagnosis for this admission?: Yes Plan: Wound VAC still in place Antibiotics to be continued till January 17 (5) Anemia Qualifiers: Anemia type: due to chronic kidney disease Chronic kidney disease stage: stage 5, not on chronic dialysis Qualified Code(s): N18.5 - Chronic kidney disease, stage 5; D63.1 - Anemia in chronic kidney disease Is this a current diagnosis for this admission?: Yes Plan: Iron studies sent (6) Chronic acquired lymphedema Is this a current diagnosis for this admission?: Yes (7) Congestive heart failure Qualifiers: Heart failure type: unspecified Heart failure chronicity: unspecified Qualified Code(s): I50.9 - Heart failure, unspecified Is this a current diagnosis for this admission?: Yes - Plan Summary Summary: Awaiting discharge to residential facility. Currently waiting on a bed.
[2019-01-16 14:45] LABS: FOLATE 4.66 ng/mL (>2.76)
[2019-01-16 14:47] LABS: IRON(TIBC) < 10.1 ug/dL (49-181)
[2019-01-16] MEDS: TAMSULOSIN HCL 0.4 MG CAP.SR.24H PO SCH (17:04)
[2019-01-16] MEDS ORDERED: IRON SUCROSE COMPLEX INJ/PF 100 MG/5 ML SDV IV SCH (18:00)
[2019-01-16] MEDS ORDERED: BENZONATATE 100 MG CAPSULE PO PRN (18:51)
[2019-01-16] MEDS: GUAIFENESIN/D-METHORPHAN (200-20 MG) SYRUP 10 ML PO PRN (20:01)
[2019-01-16] MEDS: MELATONIN 3 MG TABLET PO SCH (22:02)
[2019-01-16] MEDS: DIPHENHYDRAMINE HCL 25 MG CAPSULE PO PRN (22:02)
[2019-01-16] MEDS: ROPINIROLE HCL 2 MG TABLET PO PRN (22:02)
[2019-01-16] MEDS: IRON SUCROSE COMPLEX 300 MG in NORMAL SALINE 250 ML IV SCH (22:03)
[2019-01-17 06:21] LABS: HEMATOCRIT 25.6 % (37.9-51.0); HEMOGLOBIN 8.6 g/dL (13.5-17.0); MEAN CORPUSCULAR HEMOGLOBIN 28.9 pg (27.0-33.4); MEAN CORPUSCULAR HGB CONC 33.6 g/dL (32.0-36.0); MEAN CORPUSCULAR VOLUME 86 fl (80-97); PLATELET COUNT 296 10^3/uL (150-450); RED BLOOD COUNT 2.98 10^6/uL (4.35-5.55); RED CELL DISTRIBUTION WIDTH 19.4 % (11.5-14.0); WHITE BLOOD COUNT 6.7 10^3/uL (4.0-10.5)
[2019-01-17 06:41] LABS: ANION GAP 12 (5-19); BLOOD UREA NITROGEN 54 mg/dL (7-20); CALCIUM 8.6 mg/dL (8.4-10.2); CARBON DIOXIDE 20 mmol/L (22-30); CHLORIDE 100 mmol/L (98-107); GLUCOSE 103 mg/dL (75-110)
[2019-01-17] MEDS: IRON SUCROSE COMPLEX 300 MG in NORMAL SALINE 250 ML IV SCH (09:29)
[2019-01-17] MEDS: DEXTROSE 5%-WATER 1000 ML 1,000 ML IV PRN (09:29)
[2019-01-17] MEDS: LACTOBACILLUS ACIDOPHILUS 250 MG TAB PO SCH ×2 (09:32→17:18)
[2019-01-17] MEDS: CARVEDILOL 12.5 MG TABLET PO SCH (09:32)
[2019-01-17] MEDS: MAGNESIUM OXIDE 400 MG TABLET PO SCH (09:33)
[2019-01-17] MEDS: CALCITRIOL 0.25 MCG CAPSULE PO SCH ×2 (09:33→17:18)
[2019-01-17] MEDS: CALCIUM ACETATE 667 MG CAPSULE PO SCH ×3 (09:33→17:18)
[2019-01-17] MEDS: PANTOT AC/MIN OIL/PET HY-PHL OINT 50 GM TOP SCH (09:33)
[2019-01-17] MEDS ORDERED: FERROUS SULFATE 325 MG TABLET PO SCH (10:00)
--- NOTE | 2019-01-17 13:39 | PDOC TRANSFER SUMMARY ---
Impression - Admit/DC Date/PCP Admission Date/Primary Care Provider: 12/27/18 17:34 YINKA ACE MD Discharge Date: 01/17/19 - Discharge Diagnosis (1) Gross hematuria Is this a current diagnosis for this admission?: Yes (2) Atrial fibrillation with RVR Is this a current diagnosis for this admission?: Yes (3) Acute renal failure Is this a current diagnosis for this admission?: Yes (4) Cellulitis and abscess of left lower extremity Is this a current diagnosis for this admission?: Yes (5) Anemia Is this a current diagnosis for this admission?: Yes (6) Chronic acquired lymphedema Is this a current diagnosis for this admission?: Yes (7) Congestive heart failure Is this a current diagnosis for this admission?: Yes (8) Hypocalcemia Is this a current diagnosis for this admission?: Yes (9) Hypomagnesemia Is this a current diagnosis for this admission?: Yes (10) CKD (chronic kidney disease) stage 4, GFR 15-29 ml/min Is this a current diagnosis for this admission?: Yes - Assessment Summary: Mr. Joe has had an extensive stay in the hospital. He was initially admitted to the ICU due to acute renal failure superimposed on chronic kidney disease with metabolic acidosis. On presentation patient's creatinine was over 6. Patient had reportedly stopped taking his Lasix. Patient was noted to be very much fluid overloaded. Patient was started on aggressive IV diuresis for several days with significant improvement in his creatinine. His creatinine seems to have plateaued around 3.8-4.3. He has been followed by nephrology and will continue to be followed by nephrology in the outpatient setting. Patient has a follow-up appointment scheduled. Patient never required hemodialysis during his stay and has had good urinary output. Renal ultrasound showed medical renal disease without hydronephrosis. During patient stay patient also was noted to be in A. fib with RVR. This later on resolved with placing patient on Coreg. Can resume his diltiazem if his blood pressure tolerates but first maximize the Coreg if A. fib with RVR returns. Of note patient is persistently in A. fib throughout his stay in the hospital. Patient is to follow-up with his primary tele rn if not contact information for our tele rn Dr. Deal has been left. Of note patient's Xarelto is on hold secondary to persistent hematuria causing dropping hemoglobin levels. Regards to patient's gross hematuria, this has been going on even prior to patient's admission to the hospital. Given persistence of this for several days after his Sorenson removal, Xarelto was discontinued and patient was set up with a follow-up appointment for urology for evaluation and possible cystoscopy before his Xarelto is to be resumed. 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 Patient is to follow-up with urology for voiding trial. Urologist name is Amandeep Dhaliwal. Patient also so during his stay was noted to be septic secondary to an infected leg wound. He has received over 2 weeks of antibiotics which was completed today. He initially received broad-spectrum antibiotics which was later de- escalated to Unasyn and then to Augmentin. Wound culture grew Bacteroides. Blood cultures have been negative throughout. Patient is follow-up with surgery for further management of his wound. Regarding patient's hypocalcemia, this has resolved with starting patient on calcitriol. Please note to the patient's current hypocalcemia is actually only pseudo-hypocalcemia due to low albumin levels. - Additional Information Resuscitation Status: Full Code Discharge Diet: Other (Comments) - Renal low potassium diet Discharge Activity: Activity As Tolerated Referrals: [facility] [Outside] [facility] [Outside] WOUND CARE [Outside] - 02/10/19 (Call to make appointment) [facility] [Provider Group] (Call to schedule appointment for management of leg ulcer) ADALID RICARDO MD [ACTIVE STAFF] - (follow within 1 week of discharge. Call to make appointment.) JOSIAH DEAL MD [ACTIVE STAFF] - (If you are unable to follow up with your tele rn, you can schedule a follow up visit with Dr. Berrios.) Home Medications: Melatonin [Melatonin 5 mg Tablet] 5 mg PO QHS 12/27/18 Acetaminophen [Tylenol 325 mg Tablet] 650 mg PO Q6HP PRN tablet 01/17/19 Benzocaine/Menthol [Chloraseptic Sore Throat Lozenge] 1 each BUCCAL Q4HP PRN lozenge 01/17/19 Benzonatate [Tessalon Perles 100 mg Capsule] 100 mg PO Q8HP PRN capsule 01/17/19 Calcitriol [Rocaltrol 0.25 mcg Capsule] 0.5 mcg PO BID capsule 01/17/19 Calcium Acetate [Phoslo 667 mg Capsule] 1,334 mg PO MEALS capsule 01/17/19 Carvedilol [Coreg 12.5 mg Tablet] 12.5 mg PO Q12 tablet 01/17/19 Epoetin Bossman-Epbx [Retacrit 10,000 Unit/ml Vial (Non-Esrd)] 10,000 unit SUBCUT Sa@0800 vial 01/17/19 Ferrous Sulfate [Feosol 325 mg Tablet] 325 mg PO DAILY tablet 01/17/19 Magnesium Oxide [Mag-Ox 400 mg Tablet] 400 mg PO DAILY tablet 01/17/19 Ropinirole HCl [Requip 2 mg Tablet] 2 mg PO HSP PRN tablet 01/17/19 Tamsulosin HCl [Flomax 0.4 mg Cap.sr] 0.4 mg PO PCSUPPER cap.sr.24h 01/17/19 History of Present Illiness History of Present Illness: LALA JOE is a 78 year old male who was admitted from the ER nonhealing ulcer of his left lower leg. She was actually admitted to the ICU due to renal failure with acidosis. he had taken himself off of Lasix. Since then patient has gone to the OR 2 days ago for debridement of stage IV left lower extremity chronic wound Patient has also been seen by nephrology 2 days ago was found to be growing gram-negative rods from his wound and diagnosed also with a UTI with gram- negative organisms. Nephrology felt the patient was oliguric, as well as septic, and metabolic acidosis patient was also found to be hypocalcemic, atrial fib with controlled rate and stable, and congestive heart failure The patient was felt to be stable enough to move from ICU to medical bed ever patient still has grossly abnormal labs with creatinine at 6.2, GFR 9 bicarb 18 and potassium 4.2 patient may soon be a dialysis candidate.. Patient was started on Epogen Physical Exam Vital Signs: Temp Pulse Resp BP Pulse Ox 98.4 F 104 H 18 115/90 H 99 01/17/19 11:34 01/17/19 11:34 01/17/19 11:34 01/17/19 11:34 01/17/19 11:34 Intake & Output 01/16/19 01/17/19 01/18/19 06:59 06:59 06:59 Intake Total 3717 3622 265 Output Total 6167 5666 Balance -176 1246 265 Weight 97.1 kg 98.6 kg Results Laboratory Results: WBC 6.7 10^3/uL (4.0-10.5) 01/17/19 05:46 RBC 2.98 10^6/uL (4.35-5.55) L 01/17/19 05:46 Hgb 8.6 g/dL (13.5-17.0) L 01/17/19 05:46 Hct 25.6 % (37.9-51.0) L 01/17/19 05:46 MCV 86 fl (80-97) 01/17/19 05:46 MCH 28.9 pg (27.0-33.4) 01/17/19 05:46 MCHC 33.6 g/dL (32.0-36.0) 01/17/19 05:46 RDW 19.4 % (11.5-14.0) H 01/17/19 05:46 Plt Count 296 10^3/uL (150-450) 01/17/19 05:46 Lymph % (Auto) 18.7 % (13-45) 01/15/19 05:33 Kingfisher % (Auto) 11.8 % (3-13) 01/15/19 05:33 Eos % (Auto) 3.2 % (0-6) 01/15/19 05:33 Baso % (Auto) 1.3 % (0-2) 01/15/19 05:33 Reticulocyte # 0.051 10^6/uL (0.028-0.122) 01/16/19 11:35 Absolute Neuts (auto) 4.5 10^3/uL (1.7-8.2) 01/15/19 05:33 Absolute Lymphs (auto) 1.3 10^3/uL (0.5-4.7) 01/15/19 05:33 Absolute Monos (auto) 0.8 10^3/uL (0.1-1.4) 01/15/19 05:33 Absolute Eos (auto) 0.2 10^3/uL (0.0-0.6) 01/15/19 05:33 Absolute Basos (auto) 0.1 10^3/uL (0.0-0.2) 01/15/19 05:33 Seg Neutrophils % 65.0 % (42-78) 01/15/19 05:33 Retic Count (auto) 1.66 % (0.66-2.85) 01/16/19 11:35 PT 21.9 SEC (11.4-15.4) H 12/30/18 16:25 INR 1.88 12/30/18 16:25 Carbonic Acid 0.93 mmol/L (1.05-1.35) L 12/28/18 11:50 HCO3/H2CO3 Ratio 19:1 12/28/18 11:50 ABG pH 7.39 (7.35-7.45) 12/28/18 11:50 ABG pCO2 30.8 mmHg (35-45) L 12/28/18 11:50 ABG pO2 71.2 mmHg (80-100) L 12/28/18 11:50 ABG HCO3 18.1 mmol/L (20-24) L 12/28/18 11:50 ABG Total CO2 19.0 mmol/L (23-27) L 12/28/18 11:50 ABG O2 Saturation 94.4 % (94-98) 12/28/18 11:50 ABG Base Excess -6.2 mmol/L 12/28/18 11:50 VBG pH 7.23 (7.30-7.42) L 12/27/18 14:45 VBG pCO2 34.3 mmHg (35-63) L 12/27/18 14:45 VBG HCO3 14.0 mmol/L (20-32) L 12/27/18 14:45 VBG Base Excess -12.3 mmol/L 12/27/18 14:45 FiO2 ROOM AIR 12/28/18 11:50 Sodium 131.6 mmol/L (137-145) L 01/17/19 05:46 Potassium 4.0 mmol/L (3.6-5.0) 01/17/19 05:46 Chloride 100 mmol/L (98-107) 01/17/19 05:46 Carbon Dioxide 20 mmol/L (22-30) L 01/17/19 05:46 Anion Gap 12 (5-19) 01/17/19 05:46 BUN 54 mg/dL (7-20) H 01/17/19 05:46 Creatinine 3.73 mg/dL (0.52-1.25) H 01/17/19 05:46 Est GFR ( Amer) 19 (>60) L 01/17/19 05:46 Est GFR (MDRD) Non-Af 16 (>60) L 01/17/19 05:46 Glucose 103 mg/dL (75-110) 01/17/19 05:46 POC Glucose 151 mg/dL (70-110) H 12/30/18 12:21 Lactic Acid 1.0 mmol/L (0.7-2.1) 12/27/18 14:45 Calcium 8.6 mg/dL (8.4-10.2) 01/17/19 05:46 Ionized Calcium Sonia 0.92 mmol/L (1.14-1.30) L 12/29/18 10:13 Phosphorus 6.7 mg/dL (2.5-4.5) H 01/15/19 05:33 Magnesium 2.0 mg/dL (1.6-2.3) 01/15/19 05:33 Iron < 10.1 ug/dL (49-181) L 01/16/19 11:35 TIBC 208 ug/dL (250-450) L 01/16/19 11:35 Iron Saturation UNABLE TO CALCULATE % (20% - 50%) 01/16/19 11:35 Ferritin 139.00 ng/mL (17.9-464.0) 01/16/19 11:35 Total Bilirubin 0.4 mg/dL (0.2-1.3) 12/27/18 14:45 Direct Bilirubin 0.4 mg/dL (0.0-0.4) 12/27/18 14:45 Neonat Total Bilirubin Not Reportable 12/27/18 14:45 Neonat Direct Bilirubin Not Reportable 12/27/18 14:45 Neonat Indirect Bili Not Reportable 12/27/18 14:45 AST 19 U/L (17-59) 12/27/18 14:45 ALT 12 U/L (<50) 12/27/18 14:45 Alkaline Phosphatase 149 U/L (38-126) H 12/27/18 14:45 Total Protein 7.4 g/dL (6.3-8.2) 12/27/18 14:45 Albumin 2.7 g/dL (3.5-5.0) L 01/15/19 05:33 Vitamin B12 362.0 pg/mL (239-931) 01/16/19 11:35 Folate 4.66 ng/mL (>2.76) 01/16/19 11:35 TSH 2.66 uIU/mL (0.47-4.68) 12/29/18 03:23 PTH Intact 466.8 pg/mL (10.0-65.0) H 12/29/18 03:23 Urine Color LIGHT YELLOW 12/27/18 15:05 Urine Appearance TURBID 12/27/18 15:05 Urine pH 6.0 (5.0-9.0) 12/27/18 15:05 Ur Specific [place]ult[place] 1.008 12/27/18 15:05 Urine Protein 100 mg/dL (NEGATIVE) H 12/27/18 15:05 Urine Glucose (UA) NEGATIVE mg/dL (NEGATIVE) 12/27/18 15:05 Urine Ketones NEGATIVE mg/dL (NEGATIVE) 12/27/18 15:05 Urine Blood MODERATE (NEGATIVE) H 12/27/18 15:05 Urine Nitrite (Reflex) POSITIVE (NEGATIVE) H 12/27/18 15:05 Urine Bilirubin NEGATIVE (NEGATIVE) 12/27/18 15:05 Urine Urobilinogen NEGATIVE mg/dL (<2.0) 12/27/18 15:05 Leukocyte Esterase Rfl LARGE (NEGATIVE) H 12/27/18 15:05 Urine RBC (Auto) 27 /HPF 12/27/18 15:05 Urine Bacteria (Auto) 1+ /HPF 12/27/18 15:05 Urine WBC (Reflex) > 182 /HPF 12/27/18 15:05 Urine WBC Clumps MANY /HPF 12/27/18 15:05 Squamous Epi Cells Auto 1 /HPF 12/27/18 15:05 Urine Ascorbic Acid NEGATIVE (NEGATIVE) 12/27/18 15:05 Blood Type O POSITIVE 01/15/19 14:33 Blood Type Confirm O POSITIVE 01/15/19 14:40 Antibody Screen NEGATIVE 01/15/19 14:33 Crossmatch See Detail 01/15/19 14:33 Impressions: Tibia/Fibula X-Ray 12/27/18 14:42 IMPRESSION: 1. LARGE SOFT TISSUE DEFECT IN THE DISTAL LOWER LEG. NO GAS OR RADIOPAQUE FOREIGN OBJECT. NO RADIOGRAPHIC EVIDENCE OF OSTEOMYELITIS. 2. OLD FRACTURES OF THE TIBIA AND FIBULA. STABLE NICHELLE IN THE TIBIA. NO ACUTE FINDINGS. Chest X-Ray 12/28/18 00:00 IMPRESSION: Pulmonary vascular congestion without juan m pulmonary edema. Renal Ultrasound 12/28/18 09:00 IMPRESSION: MARKEDLY LIMITED STUDY. NO GROSS ABNORMALITY. Chest X-Ray 01/14/19 00:00 IMPRESSION: LOW LUNG VOLUMES. NO SIGNIFICANT RADIOGRAPHIC FINDING IN THE CHEST. Stroke Is this a Stroke Patient?: No Acute Heart Failure - Is this a Heart Failure Patient?: Yes Documentation of LVEF assessment?: Planned for after discharge LVEF < 40%?: No- if no continue to question #3 3. Anticoagulant therapy for permanect/persistent/paraoxysmal Afib or Aflutter: No, document contraindications - Persistent hematuria with drop in hemoglobin. Placed on hold pending urology evaluation Reason(s) not discharged on anticoagulant therapy for permanect/persistent/paraoxysmal Afib or Aflutter: Other
[2019-01-17] MEDS: TAMSULOSIN HCL 0.4 MG CAP.SR.24H PO SCH (17:19)
[2019-01-17] MEDS: ROPINIROLE HCL 2 MG TABLET PO PRN (19:46)
[2019-01-17 22:34] VITALS: BP 117/62
--- NOTE | 2019-02-01 12:26 | Physician Advisory Note ---
<JANITIFFANIE - Last Filed: 02/01/19 12:41> Physician Advisor ProgressNote .: Pursuant to the plan for [facility], I have reviewed the medical record for this patient. Physician Advisor Statement: Asked by route vending machine servicer to review chart to help clarify whether pt had sepsis POA, or s epsis developing during adm, or no sepsis. Attending, please clarify: 1. Was there sepsis present on admission (or sepsis developed during adm), or no sepsis? -Definition = "life-threatening organ dysfn caused by dysregulated host response to infxn". - This pt's SOFA score = 2 (from NICKI & acute MAP<70). qSOFA score = 2, (from sBP<100 & RR>22). - On d1, this pt's highest temps were 99s. WBCs not high. (+) HRs 90s- 100s. RR up to 24. - 78yo pt. (+)Afib. 2. Was CHF acute, chronic, or acute on chronic? Likely systolic, diastolic, or both? (see below) A. After d1's copious IVF resuscitation, on d2 AM pt developed crackles, wheezes, MURPHY, dyspnea, & pulm vasc congestion on CXR. Pt had BLE edema. After Lasix IV began on d2, by that PM, lungs CTAB again, no more dypsnea. B. CHF is more likely diastolic if pt has chronic HTN & nl heart size. CHF is more likely systolic if pt has enlarged heart & nl BP. CXR may even be neg in acute diast CHF if there is no systolic CHF present. - This pt had underlying chronic HTN, & nl heart size. 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 (+)ARF (Cr up from baseline 2 to 7.56), w/acute metabolic acidosis (bicarb 14, pH 7.2), (+)U/A, but nl lactate/WBC/plts. - ED dr ordered abx & immediate 30ml/kg IVF bolus (of 3220ml over 4 hrs), which began infusing at 15:18. --> As of 16:01, BP was 126/71 (MAP 89), & continued to increase subsequently. - ED dr dx'd sepsis w/ARF. - Admitting dr ordered bicarb/D5W at 200ml/hr (which was continued x 3000mL before decreasing rate to 125ml/hr the next day). - Admitting dr said pt was not septic because he had no fever or leukocytosis, pt's tachypnea could be due to the acidosis, & the tachycardia could be due to dehydration. He dx'd ARF, without stating its cause. He did not mention Sepsis-3 criteria, only Sepsis-2 criteria. On 12/28 AM (d2), Cr down to 6.45, bicarb barely different at 15. - Nurse documented pt "increasingly lethargic" that am, but VS not out of range. - Appx 1 hr later, excisional debridement was done at bedside, & ICU attending documented pt "feeling better", (+)mucosae dry, (+)pallor. - Environmental Test Technician then noted (+)SOB & MURPHY, & crackles on exam, LE's mottled ... Environmental Test Technician dx'd (1) NICKI/ATN, oliguric type, due to sepsis from ulcer. (2) "CHF" (& ordered IV Lasix 20 q8h) Subsequent notes mostly documented sepsis, but none stated whether present on adm or not. Thanks! CK <OJYA WILLIS - Last Filed: 02/02/19 18:30> Physician Advisor ProgressNote .: Pursuant to the plan for [facility], I have reviewed the medical record for this patient. Physician Advisor Statement: Please refer to my addendum of discharge summary. Thanks.
== END 2019-01-17 20:40 | DRG 853 ==
LOC: ER 14:07 → EH 17:34 → ICU 18:58 → 3W 12-30 05:25 → 4N 12-31 00:54
PROVIDERS: ADMIT Anesthesiology; ATTEND Internal Medicine
PROC: 0JBP0ZZ Excision of Left Lower Leg Subcutaneous Tissue and Fascia, Open Approach (ICD-10-PCS; principal; 2018-12-28)
PROC: 0KBT0ZZ Excision of Left Lower Leg Muscle, Open Approach (ICD-10-PCS; 2018-12-29)
PROC: 30233N1 Transfusion of Nonautologous Red Blood Cells into Peripheral Vein, Percutaneous Approach (ICD-10-PCS; 2019-01-15)
PROC: 3E02340 Introduction of Influenza Vaccine into Muscle, Percutaneous Approach (ICD-10-PCS; 2019-01-17)
DX: A41.9 Sepsis, unspecified organism (principal); L89.894 Pressure ulcer of other site, stage 4; N17.0 Acute kidney failure with tubular necrosis; L03.116 Cellulitis of left lower limb; E87.2 Acidosis; N39.0 Urinary tract infection, site not specified; I13.0 Hypertensive heart and chronic kidney disease with heart failure and stage 1 through stage 4 chronic kidney disease, or unspecified chronic kidney disease; N18.4 Chronic kidney disease, stage 4 (severe); I50.30 Unspecified diastolic (congestive) heart failure; R65.20 Severe sepsis without septic shock; R31.0 Gross hematuria; D63.1 Anemia in chronic kidney disease; I48.91 Unspecified atrial fibrillation; E83.51 Hypocalcemia; E83.42 Hypomagnesemia; B96.4 Proteus (mirabilis) (morganii) as the cause of diseases classified elsewhere; I89.0 Lymphedema, not elsewhere classified; E87.5 Hyperkalemia; B96.89 Other specified bacterial agents as the cause of diseases classified elsewhere; Z79.02 Long term (current) use of antithrombotics/antiplatelets; R33.9 Retention of urine, unspecified; Z23 Encounter for immunization; Z85.46 Personal history of malignant neoplasm of prostate; Z91.041 Radiographic dye allergy status; Z92.3 Personal history of irradiation
CPT/HCPCS: 36415; 36430; 71045; 76770; 80048; 80053; 80069; 81001; 82040; 82330; 82607; 82728; 82746; 82803; 82962; 83540; 83550; 83605; 83735; 83970; 84100; 84443; 85025; 85027; 85045; 85610; 86850; 86900; 86901; 86920; 87040; 87070; 87075; 87077; 87086; 87088; 87186; 87205; 90686; 93005; 93010; 94799; 96365; 96366; 96367; 99214; 99215; 99232; 99285; 99291; C1758; J0295; J0610; J0692; J0696; J1756; J1940; J3370; J3475; J3490; J7050; J7060; J7120; P9016; Q5106

== ENCOUNTER 2019-07-13 15:48 | Inpatient (IN) | payer MEDICARE ==
[2019-07-13 16:21] LABS: ABSOLUTE BASOPHILS # (AUTO) 0.1 10^3/uL (0.0-0.2); ABSOLUTE EOSINOPHILS # (AUTO) 0.1 10^3/uL (0.0-0.6); ABSOLUTE LYMPHOCYTES (AUTO) 1.3 10^3/uL (0.5-4.7); ABSOLUTE MONOCYTES (AUTO) 0.9 10^3/uL (0.1-1.4); ABSOLUTE NEUT (AUTO) 4.9 10^3/uL (1.7-8.2); BASOPHILS % (AUTO) 0.8 % (0-2); EOSINOPHILS % (AUTO) 1.6 % (0-6); HEMATOCRIT 24.6 % (37.9-51.0); HEMOGLOBIN 8.3 g/dL (13.5-17.0); LYMPHOCYTES % (AUTO) 18.3 % (13-45); MEAN CORPUSCULAR HEMOGLOBIN 29.9 pg (27.0-33.4); MEAN CORPUSCULAR HGB CONC 33.9 g/dL (32.0-36.0); MEAN CORPUSCULAR VOLUME 88 fl (80-97); MONOCYTES % (AUTO) 11.8 % (3-13); PLATELET COUNT 226 10^3/uL (150-450); RED BLOOD COUNT 2.78 10^6/uL (4.35-5.55); RED CELL DISTRIBUTION WIDTH 15.8 % (11.5-14.0); SEGMENTED NEUTROPHILS % (AUTO) 67.5 % (42-78); TOTAL CELLS COUNTED % (AUTO) 100 %; WHITE BLOOD COUNT 7.3 10^3/uL (4.0-10.5)
[2019-07-13 16:27] LABS: ALBUMIN 2.4 g/dL (3.5-5.0); ALKALINE PHOSPHATASE 131 U/L (38-126); ANION GAP 12 (5-19); ASPARTATE AMINO TRANSFERASE 25 U/L (17-59); BILIRUBIN,DIRECT 0.3 mg/dL (0.0-0.4); BILIRUBIN,TOTAL 0.6 mg/dL (0.2-1.3); BLOOD UREA NITROGEN 85 mg/dL (7-20); CARBON DIOXIDE 12 mmol/L (22-30); CHLORIDE 112 mmol/L (98-107); GLUCOSE 122 mg/dL (75-110); POTASSIUM 3.4 mmol/L (3.6-5.0)
[2019-07-13 16:38] LABS: INTERNATIONAL RATION (INR) 1.75; PROTHROMBIN TIME 20.7 SEC (11.4-15.4)
[2019-07-13 16:42] LABS: CALCIUM 6.8 mg/dL (8.4-10.2)
[2019-07-13 16:51] LABS: VENOUS BLOOD BASE EXCESS -12.5 mmol/L; VENOUS BLOOD PCO2 34.1 mmHg (35-63); VENOUS BLOOD PH 7.23 (7.30-7.42)
[2019-07-13 17:47] LABS: APPEARANCE,URINE SLIGHTLY-CLOUDY; BILIRUBIN,URINE NEGATIVE (NEGATIVE); COLOR,URINE YELLOW; GLUCOSE, URINE NEGATIVE (NEGATIVE); KETONES,URINE NEGATIVE (NEGATIVE); LEUKOCYTE ESTERASE,URINE LARGE (NEGATIVE); NITRITE,URINE NEGATIVE (NEGATIVE); PROTEIN,URINE 100 mg/dL (NEGATIVE); UROBILINOGEN,URINE NEGATIVE mg/dL (<2.0)
--- NOTE | 2019-07-13 17:48 | EKG REPORT ---
SEVERITY:- ABNORMAL ECG - ATRIAL FIBRILLATION, V-RATE 97-134 VENTRICULAR TRIGEMINY BORDERLINE LEFT AXIS DEVIATION NONSPECIFIC T ABNORMALITIES, LATERAL LEADS : Confirmed by: Danisha Wood MD 13-Jul-2019 17:47:50
[2019-07-13] MEDS ORDERED: HYDROMORPHONE HCL INJ/PF 2 MG/ML AMPULE IV ONE (17:53)
--- NOTE | 2019-07-13 18:11 | RADIOLOGY REPORT (SQ) ---
EXAM DESCRIPTION: HIP RIGHT AP/LATERAL IMAGES COMPLETED DATE/TIME: 07/13/2019 5:24 pm REASON FOR STUDY: pain COMPARISON: 12/21/2016 NUMBER OF VIEWS: Two views. TECHNIQUE: AP pelvis and additional frog-leg view of the right hip. LIMITATIONS: None. FINDINGS: MINERALIZATION: Normal. 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 There is again evidence of a surrounding radiolucent lesion which ap pears slightly larger than on the prior study. The right symphysis pubis and ischium multiple radiol ucent lesions are again identified. There appears be a pathologic fracture involving the right ischi um new finding. LEFT HIP: Partially visualized total left hip prostheses. Small lucent lesions are again identified in the symphysis pubis on the left stable findings. No fracture or dislocation. PUBIS AND ISCHIUM: See above discussion. PELVIS: See above discussion. SACRUM: No fracture or dislocation. LOWER LUMBAR SPINE: Degenerative disc disease. SOFT TISSUES: No findings. OTHER: No other significant finding. IMPRESSION: 1. Since the previous examination dated 12/21/2016, pathologic fracture involving the r ight ischium with fairly large extensive lucent lesion. Stable multiple lytic lesions in the symphys is pubis bilaterally. Differential diagnosis again includes metastatic disease, multiple myeloma. 2. As on the prior study, protrusion of the right hip replacement through the acetabulum into the p elvic region. The lucent lesion in the pelvis surrounding the right hip replacement appears larger t plunkett on the prior examination which may be on the basis of interval progression of disease. TECHNICAL DOCUMENTATION: JOB ID: [id number] 2010 [employer]- All Rights Reserved Reading location - IP/workstation name: [email or web address]
--- NOTE | 2019-07-13 18:14 | RADIOLOGY REPORT (SQ) ---
EXAM DESCRIPTION: CHEST SINGLE VIEW IMAGES COMPLETED DATE/TIME: 07/13/2019 5:24 pm REASON FOR STUDY: tachycardia COMPARISON: 01/14/2019 EXAM PARAMETERS: NUMBER OF VIEWS: One view. TECHNIQUE: Single frontal radiographic view of the chest acquired. RADIATION DOSE: NA LIMITATIONS: None. FINDINGS: LUNGS AND PLEURA: Examination is limited due to low lung volumes and patient positioning. Parenchymal opacity is suggested at the left lung base may be on the basis of infiltrate. The left apical nodule appears slightly larger. No pneumothorax or pleural effusion. MEDIASTINUM AND HILAR STRUCTURES: No masses. Contour normal. HEART AND VASCULAR STRUCTURES: Heart normal in size. Normal vasculature. BONES: No acute findings. HARDWARE: None in the chest. OTHER: No other significant finding. IMPRESSION: 1. Examination is limited due to low lung volumes and patient positioning. Parenchymal opacity is suggested at the right lung base may represent pneumonia. 2. The left apical nodule appears slightly larger in size. TECHNICAL DOCUMENTATION: JOB ID: [id number] 2010 [employer]- All Rights Reserved Reading location - IP/workstation name: [email or web address]
[2019-07-13] MEDS ORDERED: AZITHROMYCIN INJ 500 MG VIAL IV ONE (18:45)
[2019-07-13] MEDS ORDERED: CEFTRIAXONE 1 GM/D5W RTU 1 GM/50 ML RTUPB IV ONE (18:45)
[2019-07-13] MEDS ORDERED: DEXTROSE 5%-WATER 1000 ML 1,000 ML with SODIUM BICARBONATE 150 MEQ IV PRN ×4 (18:46→20:35)
[2019-07-13] MEDS ORDERED: NORMAL SALINE 1000 ML 1,000 ML IV ONE (18:50)
--- NOTE | 2019-07-13 19:01 | ER Document Report ---
ED General - General Chief Complaint: Leg Swelling Stated Complaint: CELLULITIS Time Seen by Provider: 07/13/19 16:10 Primary Care Provider: OLIVER MARI MD [Primary Care Provider] - Follow up as needed TRAVEL OUTSIDE OF THE [place] IN LAST 30 DAYS: No - HPI Notes: Patient is a 79-year-old male who presents to the emergency department for evaluation. He is not a very forthcoming historian. Evidently he is having increased difficulty taking care of himself. He has home health, but he has had increased pain in his right hip. He used to be able to ambulate, has not been able to at all, even with the assistance of a walker, over the last several weeks. He has had frequent diarrhea per home health. He has been generally weak and deconditioned worse over the last several weeks. He has pain in his right hip that he rates an 8 out of 10. He denies any nausea or vomiting. Home health was also concerned that he might have an infection in his right leg. He has chronic lymphedema in that leg. - Related Data Allergies/Adverse Reactions: Iodinated Contrast Media [Iodinated Contrast- Oral and IV Dye] Allergy (Unknown, Verified 12/21/16 13:18) Home Medications: percocet, eliquis, adderall, carvedilol, iron, requip, benzonatate, tamsulosin Past Medical History - General Information source: Patient, Relative, [facility] Records - Social History Smoking Status: Never Smoker Family History: Hypertension Patient has homicidal ideation: No - Past Medical History Cardiac Medical History: Reports: Hx Atrial Fibrillation, Hx Hypertension Renal/ Medical History: Reports: Hx Benign Prostatic Hyperplasia, Hx Renal Insufficiency. Denies: Hx Peritoneal Dialysis Musculoskeletal Medical History: Reports Other Past Surgical History: Reports: Hx Orthopedic Surgery - Sd hip, Other - L leg Wound care Review of Systems - Review of Systems Constitutional: See HPI Gastrointestinal: See HPI -: Yes All other systems reviewed and negative Physical Exam - Vital signs Vitals: Resp BP Pulse Ox 24 H 110/71 97 07/13/19 15:55 07/13/19 15:55 07/13/19 15:55 - Notes Notes: This is a 79-year-old male appears his stated age, no acute distress. Head is normocephalic and atraumatic, pupils are equal round, reactive to light. Oral mucosa is moist. Heart is irregularly irregular. Lungs show diminished breath sounds, likely secondary to body habitus, but no juan m wheezes, rales, rhonchi n oted. Abdomen is obese, soft, nontender. Right lower extremity shows chronic changes of lymphedema with skin thickening. He does have some skin breakdown in the posterior right calf. His leg is externally rotated and shortened. Neurovascularly intact distally. He has some mild erythema and calor noted. Left lower extremity without cyanosis or clubbing. Peripheral pulses are equal. Course - Re-evaluation Re-evalutation: 07/13/19 18:59 Patient presents emergency department for evaluation. Laboratory investigations were obtained. He was found to have acute on chronic renal failure. He has markedly acidotic, with a bicarb of 12. He has findings consistent with a pneumonia as well as a urinary tract infection. He already has a chronic hip issue, with broken down acetabulum, and this appears to have worsened. Patient is given pain medication. He is given sodium bicarb and IV fluids. He is given Rocephin and Zithromax for pneumonia and urinary tract infection. His calcium was found to be low, but it corrects to over 7. I spoke preliminarily with Dr. Saha. He was on the day team today, believes that the patient is a reasonable candidate for [place] [facility] [place]. Will speak with Dr. Monroe once he comes on. 07/13/19 19:[address] Monroe, he will admit the patient for further care. - Vital Signs Vital signs: Temp Pulse Resp BP Pulse Ox 98.2 F 113 H 19 90/60 L 98 07/13/19 19:41 07/13/19 19:41 07/13/19 19:41 07/13/19 19:41 07/13/19 19:41 - Laboratory Result Diagrams: 07/13/19 16:00 07/13/19 16:00 Laboratory results interpreted by me: 07/13/19 07/13/19 07/13/19 16:00 16:00 16:00 RBC 2.78 L Hgb 8.3 L Hct 24.6 L RDW 15.8 H PT 20.7 H VBG pH VBG pCO2 VBG HCO3 Sodium 136.4 L Potassium 3.4 L Chloride 112 H Carbon Dioxide 12 L BUN 85 H Creatinine 5.11 H Est GFR ( Amer) 13 L Est GFR (MDRD) Non-Af 11 L Glucose 122 H Calcium 6.8 L* Alkaline Phosphatase 131 H Total Protein 6.0 L Albumin 2.4 L Urine Protein Urine Blood Ur Leukocyte Esterase 07/13/19 07/13/19 16:35 17:30 RBC Hgb Hct RDW PT VBG pH 7.23 L VBG pCO2 34.1 L VBG HCO3 14.0 L Sodium Potassium Chloride Carbon Dioxide BUN Creatinine Est GFR ( Amer) Est GFR (MDRD) Non-Af Glucose Calcium Alkaline Phosphatase Total Protein Albumin Urine Protein 100 H Urine Blood MODERATE H Ur Leukocyte Esterase LARGE H - Diagnostic Test Radiology reviewed: Image reviewed, Reports reviewed Radiology results interpreted by me: 07/13/19 19:41 Chest X-Ray 07/13/19 16:50 IMPRESSION: 1. Examination is limited due to low lung volumes and patient positioning. Parenchymal opacity is suggested at the right lung base may represent pneumonia. 2. The left apical nodule appears slightly larger in size. Hip/Pelvis X-Ray 07/13/19 16:51 IMPRESSION: 1. Since the previous examination dated 12/21/2016, pathologic fracture involving the right ischium with fairly large extensive lucent lesion. Stable multiple lytic lesions in the symphysis pubis bilaterally. Differential diagnosis again includes metastatic disease, multiple myeloma. 2. 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 The lucent lesion in the pelvis surrounding the right hip replacement appears larger than on the prior examination which may be on the basis of interval progression of disease. - EKG Interpretation by Me Additional EKG results interpreted by me: 07/13/19 19:42 Atrial fibrillation, PVCs noted, rate of 118 bpm. Left axis deviation, IVCD. Nonspecific ST changes, but no acute elevation concerning for infarction, and no change compared to prior study of January 05, 2019. Critical Care Note - Critical Care Note Total time excluding time spent on procedures (mins): 30 Discharge - Discharge Clinical Impression: NICKI (acute kidney injury), Metabolic acidosis, Pneumonia, Diarrhea, Hypocalcemia UTI (urinary tract infection) Qualifiers: Urinary tract infection type: site unspecified Hematuria presence: without hematuria Qualified Code(s): N39.0 - Urinary tract infection, site not specified Atrial fibrillation Qualifiers: Atrial fibrillation type: unspecified chronic Qualified Code(s): I48.20 - Chronic atrial fibrillation, unspecified Condition: Stable Disposition: ADMITTED INPATIENT Admitting Provider: Mabel (Hospitalist) Unit Admitted: Telemetry Referrals: OLIVER MARI MD [Primary Care Provider] - Follow up as needed
[2019-07-13] MEDS ORDERED: SODIUM BICARBONATE 8.4% INJ 50 MEQ/50 ML DISP.SYRIN ONE (19:43)
[2019-07-13] MEDS ORDERED: MAGNESIUM HYDROXIDE SUSP 30 ML UDCUP PO PRN (20:17)
[2019-07-13] MEDS ORDERED: PROMETHAZINE HCL INJ 25 MG/1 ML VIAL IV PRN (20:17)
[2019-07-13] MEDS ORDERED: MAG HYDROX/AL HYDROX/SIMETH SUSP 30 ML UDCUP PO PRN (20:17)
[2019-07-13] MEDS ORDERED: LOPERAMIDE HCL 2 MG CAPSULE PO PRN (20:26)
[2019-07-13] MEDS ORDERED: MORPHINE SULFATE 10 MG/ML INJ IV PRN ×3 (20:28)
[2019-07-13] MEDS ORDERED: LORAZEPAM INJ 2 MG/1 ML VIAL IV PRN (20:28)
[2019-07-13] MEDS ORDERED: LEVOFLOXACIN 750 MG/D5W RTU 750 MG/150 ML RTUPB IV SCH (21:00)
[2019-07-13] MEDS ORDERED: LEVOFLOXACIN 500 MG/D5W RTU 500 MG/100 ML RTUPB IV ONE (22:00)
--- NOTE | 2019-07-13 22:36 | PDOC H&P ---
History of Present Illness Admission Date/PCP: 07/13/2019 19:42 OLIVER MARI MD Patient complains of: Weakness History of Present Illness: LALA JOE is a 79 year old male who presented the emergency room with a 3-week history of weakness. Patient is a very poor historian but admits progressively worsening generalized weakness over the last 3 weeks associated with frequent diarrhea stools (several per day) and accompanied by increased weakness and pain in his right lower extremity. He admits that he is no longer able to walk using his walker due to the increased pain and weakness in the right leg. His right hip pain is a constant nonradiating severe grating/aching becoming extremely sharp with movement of the hip. He further reports that he has not been eating a balanced diet and has not been consuming as much fluid as he should. He denies other associated or accompanying signs and symptoms. He admits to prior similar episodes. He denies identification of any additional aggravating or ameliorating factors for his weakness. In the emergency room he was found to have acute on chronic kidney injury with a metabolic acidosis, a probable urinary tract infection (chronic indwelling Sorenson catheter) and a possible pneumonia on his chest x-ray. He was subsequently admitted to the hospital for further evaluation and treatment. Past Medical History Cardiac Medical History: Reports: Atrial Fibrillation, Hypertension Denies: Coronary Artery Disease, Myocardial Infarction, Hyperlipidema Pulmonary Medical History: Denies: Asthma, Chronic Obstructive Pulmonary Disease (COPD) EENT Medical History: Denies: Cataracts, Ears - Hearing aids Neurological Medical History: Denies: Hemorrhagic CVA, Ischemic CVA, Seizures Endocrine Medical History: Denies: Diabetes Mellitus Type 1, Diabetes Mellitus Type 2, Hyperthyroidism, Hypothyroidism Renal/ Medical History: Reports: Chronic Kidney Disease Denies: Nephrolithiasis Malignancy Medical History: Reports: Other - 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 GI Medical History: Denies: Cirrhosis, Crohn's Disease, Gastroesophageal Reflux Disease, Hepatitis, Peptic Ulcer Disease, Ulcerative Colitis Musculoskeltal Medical History: Reports: Arthritis Denies: Gout Skin Medical History: Reports: Other - Chronic lymphedema of the right lower extremity with frequent ulcerations Denies: Eczema, Psoriasis Psychiatric Medical History: Reports: Attention Deficit Hyperactivity Disorder Denies: Alcohol Dependency, Substance Abuse, Tobacco Dependency Traumatic Medical History: Reports: None Hematology: Reports: Anemia - Chronic Denies: Bleeding Tendencies Infectious Medical History: Reports: None Past Surgical History Past Surgical History: Reports: Hip Replacement, Orthopedic Surgery - Bilateral hip surgeries, Other - Right leg wound care Social History Information Source: Patient Lives with: Family Smoking Status: Never Smoker Electronic Cigarette use?: No Frequency of Alcohol Use: None Hx Recreational Drug Use: No Drugs: None Hx Prescription Drug Abuse: No - Advance Directive Resuscitation Status: Full Code Surrogate healthcare decision maker:: Rayne figueroa Family History Family History: Hypertension. denies: CAD, DM, Malignancy Parental Family History Reviewed: Yes Children Family History Reviewed: No Sibling(s) Family History Reviewed.: Yes Medication/Allergy Home Medications: Apixaban [Eliquis 5 mg Tablet] 5 mg PO BID 07/13/19 Dextroamphetamine/Amphetamine [Adderall 12.5 mg Tablet] 25 mg PO BID 07/13/19 Loperamide HCl [Imodium 2 mg Capsule] 2 mg PO TIDP PRN 07/13/19 Oxycodone HCl/Acetaminophen [Percocet 2.5-325 Mg Tablet] 1 each PO Q12HP PRN 07/13/19 Ropinirole HCl [Requip 2 Mg Tablet] 2 mg PO QHS 07/13/19 Allergies/Adverse Reactions: Iodinated Contrast Media [Iodinated Contrast- Oral and IV Dye] Allergy (Unknown, Verified 12/21/16 13:18) Review of Systems Constitutional: PRESENT: as per HPI, weakness. ABSENT: chills, fever(s) Eyes: ABSENT: visual disturbances, other - Eye pain Ears: ABSENT: hearing changes, other - Ear pain Nose, Mouth, and Throat: ABSENT: headache(s), sore throat Cardiovascular: ABSENT: chest pain, palpitations Respiratory: ABSENT: cough, dyspnea Gastrointestinal: PRESENT: diarrhea. ABSENT: abdominal pain, constipation, hematochezia, melena, nausea, vomiting Genitourinary: PRESENT: other - Chronic indwelling Sorenson catheter. ABSENT: dysuria, hematuria Musculoskeletal: PRESENT: as per HPI, deformity - Right hip, muscle weakness - Right lower extremity, other - Chronic lymphedema right lower extremity. ABSENT: back pain, joint swelling Integumentary: PRESENT: other - Chronic lymphedema right lower extremity. ABSENT: diaphoresis, pruritus, rash Neurological: PRESENT: as per HPI, abnormal gait - Unable to ambulate due to weakness and pain in the right lower extremity, weakness. ABSENT: confusion, convulsions, focal weakness, memory loss, syncope Psychiatric: ABSENT: anxiety, depression Endocrine: ABSENT: cold intolerance, heat intolerance, polydipsia, polyphagia, polyuria Hematologic/Lymphatic: ABSENT: easy bleeding, easy bruising Allergic/Immunologic: ABSENT: seasonal rhinorrhea Physical Exam Vital Signs: Temp Pulse Resp BP Pulse Ox 98.2 F 113 H 19 90/60 L 98 07/13/19 19:41 07/13/19 19:41 07/13/19 19:41 07/13/19 19:41 07/13/19 19:41 Intake & Output 07/11/19 07/12/19 07/13/19 23:59 23:59 23:59 Weight 91.3 kg General appearance: PRESENT: cooperative, disheveled, mild distress - Secondary to right hip/lower extremity pain Head exam: PRESENT: atraumatic, normocephalic Eye exam: PRESENT: conjunctiva pink. ABSENT: conjunctival injection, scleral i cterus Ear exam: PRESENT: normal external ear exam. ABSENT: bleeding, drainage Mouth exam: PRESENT: dry mucosa, neck supple Neck exam: ABSENT: thyromegaly, tracheal deviation Respiratory exam: PRESENT: clear to auscultation moustapha, symmetrical, unlabored Cardiovascular exam: PRESENT: irregular rhythm. ABSENT: clicks, gallop, rubs Pulses: PRESENT: normal carotid pulses, normal radial pulses Vascular exam: ABSENT: normal capillary refill - Capillary refill delayed greater than 3 seconds, pallor GI/Abdominal exam: PRESENT: normal bowel sounds, soft Rectal exam: PRESENT: deferred Gentrourinary exam: PRESENT: indwelling catheter Extremities exam: PRESENT: tenderness - Painful right hip to palpation or movement, other - 3+ lymphedema right lower extremity Musculoskeletal exam: PRESENT: deformity - Right lower extremity shortened and externally rotated, tenderness - Painful right hip on palpation or movement Neurological exam: PRESENT: alert, oriented to person, oriented to place, oriented to time, CN II-XII grossly intact. ABSENT: motor sensory deficit Psychiatric exam: PRESENT: depressed, flat affect Skin exam: PRESENT: dry, intact, warm. ABSENT: jaundice, rash, urticaria Results Laboratory Results: 07/13/19 16:00 07/13/19 16:00 05/01/20 05/01/20 05/01/20 16:00 16:00 16:35 WBC 7.3 RBC 2.78 L Hgb 8.3 L Hct 24.6 L MCV 88 MCH 29.9 MCHC 33.9 RDW 15.8 H Plt Count 226 Seg Neutrophils % 67.5 VBG pH 7.23 L VBG pCO2 34.1 L VBG HCO3 14.0 L VBG Base Excess -12.5 Sodium 136.4 L Potassium 3.4 L Chloride 112 H Carbon Dioxide 12 L Anion Gap 12 BUN 85 H Creatinine 5.11 H Est GFR ( Amer) 13 L Glucose 122 H Lactic Acid Calcium 6.8 L* Total Bilirubin 0.6 AST 25 Alkaline Phosphatase 131 H Total Protein 6.0 L Albumin 2.4 L Urine Color Urine Appearance Urine pH Ur Specific Solomon Urine Protein Urine Glucose (UA) Urine Ketones Urine Blood Urine Nitrite Ur Leukocyte Esterase Urine WBC (Auto) Urine RBC (Auto) 07/13/19 07/13/19 07/13/19 16:35 17:30 19:00 WBC RBC Hgb Hct MCV MCH MCHC RDW Plt Count Seg Neutrophils % VBG pH VBG pCO2 VBG HCO3 VBG Base Excess Sodium Potassium Chloride Carbon Dioxide Anion Gap BUN Creatinine Est GFR ( Amer) Glucose Lactic Acid 1.1 0.8 Calcium Total Bilirubin AST Alkaline Phosphatase Total Protein Albumin Urine Color YELLOW Urine Appearance SLIGHTLY-CLOUDY Urine pH 5.0 Ur Specific Solomon 1.010 Urine Protein 100 H Urine Glucose (UA) NEGATIVE Urine Ketones NEGATIVE Urine Blood MODERATE H Urine Nitrite NEGATIVE Ur Leukocyte Esterase LARGE H Urine WBC (Auto) 54 Urine RBC (Auto) 25 Impressions: Chest X-Ray 07/13/19 16:50 IMPRESSION: 1. Examination is limited due to low lung volumes and patient positioning. Parenchymal opacity is suggested at the right lung base may represent pneumonia. 2. The left apical nodule appears slightly larger in size. Hip/Pelvis X-Ray 07/13/19 16:51 IMPRESSION: 1. Since the previous examination dated 12/21/2016, pathologic fracture involving the right ischium with fairly large extensive lucent lesion. Stable multiple lytic lesions in the symphysis pubis bilaterally. Differential diagnosis again includes metastatic disease, multiple myeloma. 2. 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 The lucent lesion in the pelvis surrounding the right hip replacement appears larger than on the prior examination which may be on the basis of interval progression of disease. Assessment and Plan - Diagnosis (1) Generalized weakness Is this a current diagnosis for this admission?: Yes (2) Acute renal failure superimposed on stage 4 chronic kidney disease Qualifiers: Acute renal failure type: with acute tubular necrosis Qualified Code(s): N17.0 - Acute kidney failure with tubular necrosis; N18.4 - Chronic kidney disease, stage 4 (severe) Is this a current diagnosis for this admission?: Yes (3) Acidosis, metabolic Is this a current diagnosis for this admission?: Yes (4) Diarrhea Qualifiers: Diarrhea type: unspecified type Qualified Code(s): R19.7 - Diarrhea, unspecified Is this a current diagnosis for this admission?: Yes (5) UTI (urinary tract infection) Qualifiers: Urinary tract infection type: catheter-associated UTI Indwelling urinary catheter type: indwelling urethral catheter Encounter type: initial encounter Qualified Code(s): T83.511A - Infection and inflammatory reaction due to indwelling urethral catheter, initial encounter; N39.0 - Urinary tract infection, site not specified Is this a current diagnosis for this admission?: Yes (6) Community acquired pneumonia Qualifiers: Laterality: right Lung location: lower lobe of lung Qualified Code(s): J18.9 - Pneumonia, unspecified organism Is this a current diagnosis for this admission?: Yes (7) Chronic acquired lymphedema Is this a current diagnosis for this admission?: Yes (8) Anemia in chronic kidney disease (CKD) Qualifiers: Chronic kidney disease stage: stage 4 (severe) Qualified Code(s): N18.4 - Chronic kidney disease, stage 4 (severe); D63.1 - Anemia in chronic kidney disease Is this a current diagnosis for this admission?: Yes (9) Atrial fibrillation Qualifiers: Atrial fibrillation type: unspecified chronic Qualified Code(s): I48.20 - Chronic atrial fibrillation, unspecified; I48.2 - Chronic atrial fibrillation Is this a current diagnosis for this admission?: Yes - Plan Summary Summary: Patient is admitted to a telemetry bed on the medical floor where he will receive routine symptomatic and supportive cares. He will be treated with IV antibiotics utilizing Levaquin 750 mg x 1 initially with blood and urine cultures pending and further doses as appropriate based on renal function to be determined by Dr. Carlson. Stool cultures will be performed. Serial lactic acid levels will be obtained. He will receive IV fluids utilizing a bicarbonate drip initially as well as lactated Ringer's solution. He will receive morphine sulfate 2 to 4 mg IV every 2 hours as needed for pain control. He will receive Ativan 1 mg IV every 4 hours as needed for anxiety or restlessness. He will be continued on his usual home medications, as appropriate, once his medication list has been verified and reconciled. CBCs, metabolic profiles, magnesium levels, venous and/or arterial blood gases as well as additional radiography w ill be obtained as appropriate. Nephrology consultation with Dr. Tj Carlson will be obtained. . 07/14/2019 Please see the note above under reason for visit. Patient currently being worked up for his abnormal x-ray of the pelvis, intractable right hip and leg pain, probable UTI, probable RLL pneumonia Will continue Zithromax and Levaquin IV for now. Oncology, nephrology, orthopedics have been consulted - Time Time Spent with patient: 15-24 minutes Medications reviewed and adjusted accordingly: Yes Anticipated discharge: SNF - Inpatient Certification Based on my medical assessment, after consideration of the patient's comorbidities, presenting symptoms, or acuity I expect that the services needed warrant INPATIENT care.: Yes Medical Necessity: Significant Comorbidiites Make Outpatient Treatment Too Risky, Need Close Monitoring Due to Risk of Patient Decompensation, Need For IV Fluids, Need For Continuous Telemetry Monitoring, Need for Pain Control, Need for IV Antibiotics, Risk of Complication if Not Cared For in Hospital
[2019-07-13] MEDS: FAMOTIDINE 20 MG TABLET PO SCH (22:44)
[2019-07-13] MEDS: ROPINIROLE HCL 2 MG TABLET PO SCH (22:44)
[2019-07-14] MEDS: RINGERS SOLUTION,LACTATED 1,000 ML IV PRN ×4 (02:10→23:49)
[2019-07-14 05:01] LABS: VENOUS BLOOD BASE EXCESS -10.2 mmol/L; VENOUS BLOOD HCO3 15.8 mmol/L (20-32); VENOUS BLOOD PCO2 35.6 mmHg (35-63); VENOUS BLOOD PH 7.27 (7.30-7.42)
[2019-07-14 05:10] LABS: HEMATOCRIT 21.6 % (37.9-51.0); MEAN CORPUSCULAR HEMOGLOBIN 29.8 pg (27.0-33.4); MEAN CORPUSCULAR HGB CONC 34.5 g/dL (32.0-36.0); MEAN CORPUSCULAR VOLUME 86 fl (80-97); PLATELET COUNT 200 10^3/uL (150-450); RED CELL DISTRIBUTION WIDTH 15.6 % (11.5-14.0); WHITE BLOOD COUNT 7.4 10^3/uL (4.0-10.5)
[2019-07-14 05:19] LABS: ANION GAP 12 (5-19); BLOOD UREA NITROGEN 80 mg/dL (7-20); CARBON DIOXIDE 16 mmol/L (22-30); CHLORIDE 109 mmol/L (98-107); GLUCOSE 98 mg/dL (75-110); POTASSIUM 3.1 mmol/L (3.6-5.0)
[2019-07-14 05:22] LABS: HEMOGLOBIN 7.5 g/dL (13.5-17.0)
[2019-07-14] MEDS ORDERED: DIGOXIN INJ 0.5 MG/2 ML AMPULE IV ONE (05:30)
[2019-07-14 05:49] LABS: CALCIUM 6.3 mg/dL (8.4-10.2)
[2019-07-14] MEDS: FAMOTIDINE 20 MG TABLET PO SCH ×2 (09:51→21:05)
[2019-07-14] MEDS: APIXABAN 2.5 MG TABLET PO SCH ×2 (09:51→17:45)
[2019-07-14] MEDS: AZITHROMYCIN 500 MG in DEXTROSE 5%-WATER 250 ML IV SCH (09:52)
[2019-07-14] MEDS ORDERED: CEFTRIAXONE 1 GM/D5W RTU 1 GM/50 ML RTUPB IV SCH (10:00)
[2019-07-14] MEDS ORDERED: AZITHROMYCIN INJ 500 MG VIAL IV SCH (10:00)
--- NOTE | 2019-07-14 11:09 | PDOC CONSULTATION ---
Consultation Consult Date: 07/14/19 Attending physician:: SHAZIA JOYCE Provider Consulted: KATIE GILES Consult reason:: Pt w/ h/o prostate ca in past here w/ lytic lesion R hip, pathologic fx History of Present Illness Admission Date/PCP: 07/13/19 19:52 OLIVER MARI MD Patient complains of: pain, can't bear wt History of Present Illness: LALA JOE is a 79 year old male w/ pathologic R acetabular fx, R sided lytic lesion. This is a chart review done b/c of recent COVID restrictions. He had this noted in 2017 and per chart was transferred to [facility], though we don't currently have those records. Per hx pt had prostate ca 4 yrs ago. 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 Presents w/ severe R hip pain, now can't bear wt on that area, on admit xrays done indicated pathologic fx R ischium, multiple lytic lesions in hip area, protrusion of hardware into lytic lesion, lytic lesion noted on xray from 2017 but worsened on current xray. Pt does not remember ever being told he has metastatic disease. PSA never done here, pending now. Past Medical History Cardiac Medical History: Reports: Atrial Fibrillation, Hypertension Denies: Coronary Artery Disease, Myocardial Infarction, Hyperlipidema Pulmonary Medical History: Denies: Asthma, Chronic Obstructive Pulmonary Disease (COPD) EENT Medical History: Denies: Cataracts, Ears - Hearing aids Neurological Medical History: Denies: Hemorrhagic CVA, Ischemic CVA, Seizures Endocrine Medical History: Denies: Diabetes Mellitus Type 1, Diabetes Mellitus Type 2, Hyperthyroidism, Hypothyroidism Renal/ Medical History: Reports: Chronic Kidney Disease Denies: Nephrolithiasis Malignancy Medical History: Reports: Other - prostate ca rx 4 yrs ago xrt only GI Medical History: Denies: Cirrhosis, Crohn's Disease, Gastroesophageal Reflux Disease, Hepatitis, Peptic Ulcer Disease, Ulcerative Colitis Musculoskeltal Medical History: Reports: Arthritis, Other Denies: Gout Skin Medical History: Reports: Other - Chronic lymphedema of the right lower extremity with frequent ulcerations Denies: Eczema, Psoriasis Psychiatric Medical History: Reports: Attention Deficit Hyperactivity Disorder Denies: Alcohol Dependency, Depression, Substance Abuse, Tobacco Dependency Traumatic Medical History: Reports: None Hematology: Reports: Anemia - Chronic Denies: Bleeding Tendencies Infectious Medical History: Reports: None Past Surgical History Past Surgical History: Reports: Hip Replacement, Orthopedic Surgery - Bilateral hip surgeries, Other - Right leg wound care Social History Lives with: Family Smoking Status: Never Smoker Electronic Cigarette use?: No Frequency of Alcohol Use: None Hx Recreational Drug Use: No Drugs: None Hx Prescription Drug Abuse: No - Advance Directive Resuscitation Status: Full Code Family History Family History: Hypertension. denies: CAD, DM, Malignancy Parental Family History Reviewed: Yes Children Family History Reviewed: Yes Sibling(s) Family History Reviewed.: Yes Medication/Allergy Home Medications: Apixaban [Eliquis 5 mg Tablet] 5 mg PO BID 07/13/19 Dextroamphetamine/Amphetamine [Adderall 12.5 mg Tablet] 25 mg PO BID 07/13/19 Loperamide HCl [Imodium 2 mg Capsule] 2 mg PO TIDP PRN 07/13/19 Oxycodone HCl/Acetaminophen [Percocet 2.5-325 Mg Tablet] 1 each PO Q12HP PRN 07/13/19 Ropinirole HCl [Requip 2 Mg Tablet] 2 mg PO QHS 07/13/19 Allergies/Adverse Reactions: Iodinated Contrast Media [Iodinated Contrast- Oral and IV Dye] Allergy (Unknown, Verified 12/21/16 13:18) Physical Exam Vital Signs: Temp Pulse Resp BP Pulse Ox 98.2 F 113 H 24 H 97/33 L 94 07/14/19 08:00 07/14/19 08:00 07/14/19 08:00 07/14/19 08:00 07/14/19 08:00 Intake & Output 07/13/19 07/14/19 07/15/19 06:59 06:59 06:59 Intake Total 3375 Output Total 1100 Balance 2275 Weight 92.8 kg 92.8 kg Results Laboratory Results: 07/14/19 04:46 07/14/19 04:46 07/13/19 07/13/19 07/13/19 16:00 16:00 16:35 WBC 7.3 RBC 2.78 L Hgb 8.3 L Hct 24.6 L MCV 88 MCH 29.9 MCHC 33.9 RDW 15.8 H Plt Count 226 Seg Neutrophils % 67.5 VBG pH 7.23 L VBG pCO2 34.1 L VBG HCO3 14.0 L VBG Base Excess -12.5 Sodium 136.4 L Potassium 3.4 L Chloride 112 H Carbon Dioxide 12 L Anion Gap 12 BUN 85 H Creatinine 5.11 H Est GFR ( Amer) 13 L Glucose 122 H Lactic Acid Calcium 6.8 L* Magnesium Total Bilirubin 0.6 AST 25 Alkaline Phosphatase 131 H Total Protein 6.0 L Albumin 2.4 L Urine Color Urine Appearance Urine pH Ur Specific Watson Urine Protein Urine Glucose (UA) Urine Ketones Urine Blood Urine Nitrite Ur Leukocyte Esterase Urine WBC (Auto) Urine RBC (Auto) 07/13/19 07/13/19 07/13/19 16:35 17:30 19:00 WBC RBC Hgb Hct MCV MCH MCHC RDW Plt Count Seg Neutrophils % VBG pH VBG pCO2 VBG HCO3 VBG Base Excess Sodium Potassium Chloride Carbon Dioxide Anion Gap BUN Creatinine Est GFR ( Amer) Glucose Lactic Acid 1.1 0.8 Calcium Magnesium Total Bilirubin AST Alkaline Phosphatase Total Protein Albumin Urine Color YELLOW Urine Appearance SLIGHTLY-CLOUDY Urine pH 5.0 Ur Specific Watson 1.010 Urine Protein 100 H Urine Glucose (UA) NEGATIVE Urine Ketones NEGATIVE Urine Blood MODERATE H Urine Nitrite NEGATIVE Ur Leukocyte Esterase LARGE H Urine WBC (Auto) 54 Urine RBC (Auto) 07/13/19 07/14/19 07/14/19 20:59 01:32 04:46 WBC RBC Hgb Hct MCV MCH MCHC RDW Plt Count Seg Neutrophils % VBG pH VBG pCO2 VBG HCO3 VBG Base Excess Sodium Potassium Chloride Carbon Dioxide Anion Gap BUN Creatinine Est GFR ( Amer) Glucose Lactic Acid 0.7 0.9 1.2 Calcium Magnesium Total Bilirubin AST Alkaline Phosphatase Total Protein Albumin Urine Color Urine Appearance Urine pH Ur Specific Watson Urine Protein Urine Glucose (UA) Urine Ketones Urine Blood Urine Nitrite Ur Leukocyte Esterase Urine WBC (Auto) Urine RBC (Auto) 07/14/19 07/14/19 07/14/19 04:46 04:46 04:46 WBC 7.4 RBC 2.50 L Hgb 7.5 L Hct 21.6 L MCV 86 MCH 29.8 MCHC 34.5 RDW 15.6 H Plt Count 200 Seg Neutrophils % VBG pH 7.27 L VBG pCO2 35.6 VBG HCO3 15.8 L VBG Base Excess -10.2 Sodium 136.9 L Potassium 3.1 L Chloride 109 H Carbon Dioxide 16 L Anion Gap 12 BUN 80 H Creatinine 4.60 H Est GFR ( Amer) 15 L Glucose 98 Lactic Acid Calcium 6.3 L* Magnesium 1.6 Total Bilirubin AST Alkaline Phosphatase Total Protein Albumin Urine Color Urine Appearance Urine pH Ur Specific Watson Urine Protein Urine Glucose (UA) Urine Ketones Urine Blood Urine Nitrite Ur Leukocyte Esterase Urine WBC (Auto) Urine RBC (Auto) Impressions: Chest X-Ray 07/13/19 16:50 IMPRESSION: 1. Examination is limited due to low lung volumes and patient positioning. Parenchymal opacity is suggested at the right lung base may represent pneumonia. 2. The left apical nodule appears slightly larger in size. Hip/Pelvis X-Ray 07/13/19 16:51 IMPRESSION: 1. Since the previous examination dated 12/21/2016, pathologic fracture involving the right ischium with fairly large extensive lucent lesion. Stable multiple lytic lesions in the symphysis pubis bilaterally. Differential diagnosis again includes metastatic disease, multiple myeloma. 2. 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 The lucent lesion in the pelvis surrounding the right hip replacement appears larger than on the prior examination which may be on the basis of interval progression of disease. Assessment & Plan - Diagnosis (1) Secondary malignant neoplasm of bone Is this a current diagnosis for this admission?: Yes Plan: Probably mets from prostate ca, plan CT C/A/P wout contrast 2nd CKD, PSA pending, myeloma w/u pending, ortho consult pending. - Time Time Spent: 50 to 70 Minutes
--- NOTE | 2019-07-14 12:22 | PDOC PROGRESS REPORT ---
Subjective Progress Note for:: 07/14/19 Reason For Visit: GENERAL WEAKNESS, ACUTE KIDNEY INJURY SUPERIMPOSED Patient admitted to the hospital through the emergency room last night with increased pain in the right lower extremity and pellety to ambulate due to increased pain. Patient states this is been getting worse now over the last 2 weeks. Patient states prior to this he was able to ambulate with a walker and the pain was bearable. Recently however he has been unable to bear weight at all on the right hip due to pain. History is a little confusing but it sounds like he was diagnosed and treated with prostate cancer about 4 years ago in [facility]. Also about 3 years ago he had his right hip replaced at [facility], this may have been due to a pathological fracture. Currently last night x-rays of the pelvis and hips show increase in lytic lesions, when compared to x-rays of 2017. Patient tells me he has never been diagnosed with metastatic cancer. Comparison of x-rays show significantly worsening with deepening impaction of the right prosthetic into the pelvis. Patient has a history of chronic lymphedema bilaterally with the right worse than the left. Patient has had a Sorenson catheter now for the last 6 months or so. States it was just changed yesterday by home health. Patient has a history of chronic kidney disease with BUN normally between 60 and 70 and on this admission it was 85. Creatinine normally in the 4 or 5's on this admission it was 5.11 and today is come down to 4.6. Patient may in fact be at his baseline concerning his renal functions. Patient also has a history of running low serum calcium levels. Also according to chart review patient has a history of running low blood pressures down to 100 systolic and 60 diastolic. Patient is currently afebrile, and maintaining his oxygen saturations at 95% on room air Patient's current white blood cell count is 7.4 hemoglobin of 7.5 INR 1.75. Patient's admission urinalysis shows a large amount of leukocytes and moderate blood. Blood cultures and urine cultures are pending. I have consulted oncology for their recommendations concerning further work-up of his lytic lesions. Have consulted orthopedics for their opinion concerning worsening location of the right hip prosthesis Will continue IV antibiotics for probable UTI Patient desires to be a full code Physical Exam Vital Signs: Temp Pulse Resp BP Pulse Ox 98.2 F 113 H 24 H 97/33 L 94 07/14/19 08:00 07/14/19 08:00 07/14/19 08:00 07/14/19 08:00 07/14/19 08:00 Intake & Output 07/13/19 07/14/19 07/15/19 06:59 06:59 06:59 Intake Total 3375 Output Total 1100 Balance 2275 Weight 92.8 kg 92.8 kg Results Laboratory Results: 07/14/19 04:46 07/14/19 04:46 07/13/19 07/13/19 07/13/19 16:00 16:00 16:35 WBC 7.3 RBC 2.78 L Hgb 8.3 L Hct 24.6 L MCV 88 MCH 29.9 MCHC 33.9 RDW 15.8 H Plt Count 226 Seg Neutrophils % 67.5 VBG pH 7.23 L VBG pCO2 34.1 L VBG HCO3 14.0 L VBG Base Excess -12.5 Sodium 136.4 L Potassium 3.4 L Chloride 112 H Carbon Dioxide 12 L Anion Gap 12 BUN 85 H Creatinine 5.11 H Est GFR ( Amer) 13 L Glucose 122 H Lactic Acid Calcium 6.8 L* Magnesium Total Bilirubin 0.6 AST 25 Alkaline Phosphatase 131 H Total Protein 6.0 L Albumin 2.4 L Urine Color Urine Appearance Urine pH Ur Specific Freer Urine Protein Urine Glucose (UA) Urine Ketones Urine Blood Urine Nitrite Ur Leukocyte Esterase Urine WBC (Auto) Urine RBC (Auto) 07/13/19 07/13/19 07/13/19 16:35 17:30 19:00 WBC RBC Hgb Hct MCV MCH MCHC RDW Plt Count Seg Neutrophils % VBG pH VBG pCO2 VBG HCO3 VBG Base Excess Sodium Potassium Chloride Carbon Dioxide Anion Gap BUN Creatinine Est GFR ( Amer) Glucose Lactic Acid 1.1 0.8 Calcium Magnesium Total Bilirubin AST Alkaline Phosphatase Total Protein Albumin Urine Color YELLOW Urine Appearance SLIGHTLY-CLOUDY Urine pH 5.0 Ur Specific Freer 1.010 Urine Protein 100 H Urine Glucose (UA) NEGATIVE Urine Ketones NEGATIVE Urine Blood MODERATE H Urine Nitrite NEGATIVE Ur Leukocyte Esterase LARGE H Urine WBC (Auto) 54 Urine RBC (Auto) 25 07/13/19 07/14/19 07/14/19 20:59 01:32 04:46 WBC RBC Hgb Hct MCV MCH MCHC RDW Plt Count Seg Neutrophils % VBG pH VBG pCO2 VBG HCO3 VBG Base Excess Sodium Potassium Chloride Carbon Dioxide Anion Gap BUN Creatinine Est GFR ( Amer) Glucose Lactic Acid 0.7 0.9 1.2 Calcium Magnesium Total Bilirubin AST Alkaline Phosphatase Total Protein Albumin Urine Color Urine Appearance Urine pH Ur Specific Freer Urine Protein Urine Glucose (UA) Urine Ketones Urine Blood Urine Nitrite Ur Leukocyte Esterase Urine WBC (Auto) Urine RBC (Auto) 07/14/19 07/14/19 07/14/19 04:46 04:46 04:46 WBC 7.4 RBC 2.50 L Hgb 7.5 L Hct 21.6 L MCV 86 MCH 29.8 MCHC 34.5 RDW 15.6 H Plt Count 200 Seg Neutrophils % VBG pH 7.27 L VBG pCO2 35.6 VBG HCO3 15.8 L VBG Base Excess -10.2 Sodium 136.9 L Potassium 3.1 L Chloride 109 H Carbon Dioxide 16 L Anion Gap 12 BUN 80 H Creatinine 4.60 H Est GFR ( Amer) 15 L Glucose 98 Lactic Acid Calcium 6.3 L* Magnesium 1.6 Total Bilirubin AST Alkaline Phosphatase Total Protein Albumin Urine Color Urine Appearance Urine pH Ur Specific Freer Urine Protein Urine Glucose (UA) Urine Ketones Urine Blood Urine Nitrite Ur Leukocyte Esterase Urine WBC (Auto) Urine RBC (Auto) Impressions: Chest X-Ray 07/13/19 16:50 IMPRESSION: 1. Examination is limited due to low lung volumes and patient positioning. Parenchymal opacity is suggested at the right lung base may represent pneumonia. 2. The left apical nodule appears slightly larger in size. Hip/Pelvis X-Ray 07/13/19 16:51 IMPRESSION: 1. Since the previous examination dated 12/21/2016, pathologic fracture involving the right ischium with fairly large extensive lucent lesion. Stable multiple lytic lesions in the symphysis pubis bilaterally. Differential diagnosis again includes metastatic disease, multiple myeloma. 2. 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 The lucent lesion in the pelvis surrounding the right hip replacement appears larger than on the prior examination which may be on the basis of interval progression of disease. Assessment and Plan - Diagnosis (1) Intractable leg pain Is this a current diagnosis for this admission?: Yes (2) Lytic lesions of the pelvis Is this a current diagnosis for this admission?: Yes (3) Generalized weakness Is this a current diagnosis for this admission?: Yes (4) UTI (urinary tract infection) Qualifiers: Urinary tract infection type: catheter-associated UTI Indwelling urinary catheter type: indwelling urethral catheter Encounter type: initial encounter Qualified Code(s): T83.511A - Infection and inflammatory reaction due to indwelling urethral catheter, initial encounter; N39.0 - Urinary tract infection, site not specified Is this a current diagnosis for this admission?: Yes (5) Acute renal failure superimposed on stage 4 chronic kidney disease Qualifiers: Acute renal failure type: with acute tubular necrosis Qualified Code(s): N1 7.0 - Acute kidney failure with tubular necrosis; N18.4 - Chronic kidney disease, stage 4 (severe) Is this a current diagnosis for this admission?: Yes (6) Anemia in chronic kidney disease (CKD) Qualifiers: Chronic kidney disease stage: stage 4 (severe) Qualified Code(s): N18.4 - Chronic kidney disease, stage 4 (severe); D63.1 - Anemia in chronic kidney disease Is this a current diagnosis for this admission?: Yes (7) Hypocalcemia Is this a current diagnosis for this admission?: Yes - Plan Summary Summary: Patient is admitted to a telemetry bed on the medical floor where he will r eceive routine symptomatic and supportive cares. He will be treated with IV antibiotics utilizing Levaquin 750 mg x 1 initially with blood and urine cultures pending and further doses as appropriate based on renal function to be determined by Dr. Carlson. Stool cultures will be performed. Serial lactic acid levels will be obtained. He will receive IV fluids utilizing a bicarbonate drip initially as well as lactated Ringer's solution. He will receive morphine sulfate 2 to 4 mg IV every 2 hours as needed for pain control. He will receive Ativan 1 mg IV every 4 hours as needed for anxiety or restlessness. He will be continued on his usual home medications, as appropriate, once his medication list has been verified and reconciled. CBCs, metabolic profiles, magnesium levels, venous and/or arterial blood gases as well as additional radiography will be obtained as appropriate. Nephrology consultation with Dr. Tj Carlson will be obtained. . 07/14/2019 Please see the note above under reason for visit. Patient currently being worked up for his abnormal x-ray of the pelvis, intract able right hip and leg pain, probable UTI Oncology, nephrology, orthopedics have been consulted - Time Time Spent with patient: 35 or more minutes
[2019-07-14] MEDS: DOCUSATE SODIUM 100 MG/10 ML UDC PO SCH ×2 (12:59→17:47)
[2019-07-14] MEDS: ACETAMINOPHEN 325 MG TABLET PO PRN ×2 (13:10→21:04)
[2019-07-14] MEDS: OXYCODONE-ACETAMINOPHEN 5-325 MG TABLET PO PRN ×2 (13:53→21:05)
--- NOTE | 2019-07-14 14:47 | RADIOLOGY REPORT (SQ) ---
EXAM DESCRIPTION: CT CHEST WITHOUT; CT ABD/PELVIS NO ORAL OR IV IMAGES COMPLETED DATE/TIME: 07/14/2019 2:25 pm REASON FOR STUDY: metastatic disease COMPARISON: None. TECHNIQUE: CT scan of the chest performed without intravenous contrast using helical scanning techni que. Images reviewed with lung, soft tissue and bone windows. Reconstructed coronal and sagittal MPR images reviewed. All images stored on PACS. All CT scanners at this facility use dose modulation, iterative reconstruction, and/or weight based d osing when appropriate to reduce radiation dose to as low as reasonably achievable (ALARA). [facility]: Dose Right [facility]: CareDose [facility]: Dose Right [facility]: [employer] 4D [facility]: [employer] RADIATION DOSE: CT Rad equipment meets quality standard of care and radiation dose reduction techniq ues were employed. CTDIvol: 16.0 - 18.0 mGy. DLP: 1341 mGy-cm. mGy. LIMITATIONS: None. FINDINGS: AXILLAE: No adenopathy. CHEST WALL: Bilateral gynecomastia. LUNGS: Consolidation in the right lower lobe. Limiting motion. Mass here is not entirely excluded. Trace pleural fluid bilaterally. 8 mm right upper lobe nodule image 6. 1.6 cm left upper lobe nodu le image 2. PLEURA: As above. THYROID: No masses or significant asymmetry. HILAR AND MEDIASTINAL STRUCTURES: No identified masses or abnormal nodes. AORTA AND GREAT VESSELS: No aneurysm. HEART: Cardiomegaly without pericardial effusion. Moderate coronary calcification. HARDWARE AND LIFELINES: None. BONES: No significant finding. OTHER: No other significant finding. IMPRESSION: 1. Consolidation in the right lower lobe is presumably pneumonia. Underlying mass is not excluded, h owever. At least 2 other upper lobe nodules as described. 2. Cardiomegaly and trace pleural fluid. COMPARISON: None. TECHNIQUE: CT scan of the abdomen and pelvis performed without intravenous contrast and withoutoral contrast using helical scanning technique with dynamic intravenous contrast injection. Images review ed with lung, soft tissue and bone windows. Reconstructed coronal and sagittal MPR images reviewed. All images stored on PACS. All CT scanners at this facility use dose modulation, iterative reconstruction, and/or weight based d osing when appropriate to reduce radiation dose to as low as reasonably achievable (ALARA). [facility]: Dose Right [facility]: [employer] [facility]: Dose Right [facility]: [employer] [facility]: [employer] RADIATION DOSE: CT Rad equipment meets quality standard of care and radiation dose reduction techniq ues were employed. CTDIvol: 16.0 - 18.0 mGy. DLP: 1341 mGy-cm.mGy. LIMITATIONS: None. FINDINGS: LIVER: No gross mass. SPLEEN: Normal size. No focal lesions. PANCREAS: No gross mass pre GALLBLADDER: No identified stones by CT criteria. No inflammatory changes to suggest cholecystitis. ADRENAL GLANDS: No significant masses or asymmetry. RIGHT KIDNEY AND URETER: Renal atrophy. Slight fullness in the renal collecting system without obstr ucting stones in the abdomen. See pelvic findings described below. LEFT KIDNEY AND URETER: No solid masses. Assessment limited by lack of IV contrast. No significant ca lcification. No hydronephrosis or hydroureter. AORTA AND VESSELS: No aneurysm. RETROPERITONEUM: No retroperitoneal adenopathy, hemorrhage or masses. APPENDIX: Not visualized. LARGE AND SMALL BOWEL: No dilatation. No masses. No wall thickening. ABDOMINAL WALL: Stranding, edema in the lower abdomen and extending into the flanks and lower extremi ties. PERITONEAL CAVITY: No abnormal gas or fluid detected. PELVIS: Extensive streak artifact related to bilateral hip replacements. The right hip replacement i s displaced into the right upper hemipelvis and includes acetabular and femoral components which are otherwise articulated. Diffuse lysis through this area of the pelvis. Patchy sclerosis and enlargem ent in the right inferior pubic ramus. BONES: As above. Scoliosis. No spine lesions. OTHER: No other significant finding. IMPRESSION: 1. Pelvic findings as above. Lytic expansion in the right hemipelvis with displacement of the arthro plasty into the superior aspect intrapelvic. This pathologic fracture/dislocation could be related t o underlying malignancy depending on presentation. 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 2. Slight fullness in the right renal collecting system may be related to relative obstruction of the distal ureter by the displaced hip implant. TECHNICAL DOCUMENTATION: JOB ID: [id number] Quality ID # [id number]: Final reports with documentation of one or more dose reduction techniques (e.g., Au tomated exposure control, adjustment of the mA and/or kV according to patient size, use of iterative reconstruction technique) 2010 [employer]- All Rights Reserved Reading location - IP/workstation name: [email or web address]
--- NOTE | 2019-07-14 14:47 | RADIOLOGY REPORT (SQ) ---
EXAM DESCRIPTION: CT CHEST WITHOUT; CT ABD/PELVIS NO ORAL OR IV IMAGES COMPLETED DATE/TIME: 07/14/2019 2:25 pm REASON FOR STUDY: metastatic disease COMPARISON: None. TECHNIQUE: CT scan of the chest performed without intravenous contrast using helical scanning techni que. Images reviewed with lung, soft tissue and bone windows. Reconstructed coronal and sagittal MPR images reviewed. All images stored on PACS. All CT scanners at this facility use dose modulation, iterative reconstruction, and/or weight based d osing when appropriate to reduce radiation dose to as low as reasonably achievable (ALARA). [facility]: Dose Right [facility]: CareDose [facility]: Dose Right [facility]: [employer] [facility]: [employer] RADIATION DOSE: CT Rad equipment meets quality standard of care and radiation dose reduction techniq ues were employed. CTDIvol: 16.0 - 18.0 mGy. DLP: 1341 mGy-cm. mGy. LIMITATIONS: None. FINDINGS: AXILLAE: No adenopathy. CHEST WALL: Bilateral gynecomastia. LUNGS: Consolidation in the right lower lobe. Limiting motion. Mass here is not entirely excluded. Trace pleural fluid bilaterally. 8 mm right upper lobe nodule image 6. 1.6 cm left upper lobe nodu le image 2. PLEURA: As above. THYROID: No masses or significant asymmetry. HILAR AND MEDIASTINAL STRUCTURES: No identified masses or abnormal nodes. AORTA AND GREAT VESSELS: No aneurysm. HEART: Cardiomegaly without pericardial effusion. Moderate coronary calcification. HARDWARE AND LIFELINES: None. BONES: No significant finding. OTHER: No other significant finding. IMPRESSION: 1. Consolidation in the right lower lobe is presumably pneumonia. Underlying mass is not excluded, h owever. At least 2 other upper lobe nodules as described. 2. Cardiomegaly and trace pleural fluid. COMPARISON: None. TECHNIQUE: CT scan of the abdomen and pelvis performed without intravenous contrast and withoutoral contrast using helical scanning technique with dynamic intravenous contrast injection. Images review ed with lung, soft tissue and bone windows. Reconstructed coronal and sagittal MPR images reviewed. All images stored on PACS. All CT scanners at this facility use dose modulation, iterative reconstruction, and/or weight based d osing when appropriate to reduce radiation dose to as low as reasonably achievable (ALARA). [facility]: Dose Right [facility]: [employer] [facility]: Dose Right [facility]: [employer] [facility]: [employer] RADIATION DOSE: CT Rad equipment meets quality standard of care and radiation dose reduction techniq ues were employed. CTDIvol: 16.0 - 18.0 mGy. DLP: 1341 mGy-cm.mGy. LIMITATIONS: None. FINDINGS: LIVER: No gross mass. SPLEEN: Normal size. No focal lesions. PANCREAS: No gross mass pre GALLBLADDER: No identified stones by CT criteria. No inflammatory changes to suggest cholecystitis. ADRENAL GLANDS: No significant masses or asymmetry. RIGHT KIDNEY AND URETER: Renal atrophy. Slight fullness in the renal collecting system without obstr ucting stones in the abdomen. See pelvic findings described below. LEFT KIDNEY AND URETER: No solid masses. Assessment limited by lack of IV contrast. No significant ca lcification. No hydronephrosis or hydroureter. AORTA AND VESSELS: No aneurysm. RETROPERITONEUM: No retroperitoneal adenopathy, hemorrhage or masses. APPENDIX: Not visualized. LARGE AND SMALL BOWEL: No dilatation. No masses. No wall thickening. ABDOMINAL WALL: Stranding, edema in the lower abdomen and extending into the flanks and lower extremi ties. PERITONEAL CAVITY: No abnormal gas or fluid detected. PELVIS: Extensive streak artifact related to bilateral hip replacements. The right hip replacement i s displaced into the right upper hemipelvis and includes acetabular and femoral components which are otherwise articulated. Diffuse lysis through this area of the pelvis. Patchy sclerosis and enlargem ent in the right inferior pubic ramus. BONES: As above. Scoliosis. No spine lesions. OTHER: No other significant finding. IMPRESSION: 1. Pelvic findings as above. Lytic expansion in the right hemipelvis with displacement of the arthro plasty into the superior aspect intrapelvic. This pathologic fracture/dislocation could be related t o underlying malignancy depending on presentation. 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 2. Slight fullness in the right renal collecting system may be related to relative obstruction of the distal ureter by the displaced hip implant. TECHNICAL DOCUMENTATION: JOB ID: [id number] Quality ID # [id number]: Final reports with documentation of one or more dose reduction techniques (e.g., Au tomated exposure control, adjustment of the mA and/or kV according to patient size, use of iterative reconstruction technique) 2010 [employer]- All Rights Reserved Reading location - IP/workstation name: [email or web address]
[2019-07-14] MEDS ORDERED: NORMAL SALINE 500 ML IV ONE (16:00)
[2019-07-14] MEDS ORDERED: LORAZEPAM INJ 2 MG/1 ML VIAL IV PRN (18:46)
--- NOTE | 2019-07-14 18:49 | Progress Note ---
Provider Note Provider Note: Patient's pain medications seem to be lasting longer probably due to decreased renal functions, patient's debilitated condition. I have decreased patient's pain medicines as well as his anxiolytics for this reason. Also patient typically runs a low blood pressure, as noted from previous hospitalizations.
[2019-07-14] MEDS: POTASSIUM CHLORIDE 10 MEQ TABLET.ER PO SCH ×2 (20:08→21:54)
[2019-07-14] MEDS: ROPINIROLE HCL 2 MG TABLET PO SCH (21:05)
[2019-07-15] MEDS: OXYCODONE-ACETAMINOPHEN 5-325 MG TABLET PO PRN ×2 (05:00→21:22)
[2019-07-15 05:38] LABS: HEMATOCRIT 22.9 % (37.9-51.0); MEAN CORPUSCULAR HGB CONC 34.3 g/dL (32.0-36.0); MEAN CORPUSCULAR VOLUME 88 fl (80-97); PLATELET COUNT 187 10^3/uL (150-450); RED BLOOD COUNT 2.61 10^6/uL (4.35-5.55); RED CELL DISTRIBUTION WIDTH 15.9 % (11.5-14.0); WHITE BLOOD COUNT 5.6 10^3/uL (4.0-10.5)
[2019-07-15 05:41] LABS: HEMOGLOBIN 7.8 g/dL (13.5-17.0)
[2019-07-15 05:53] LABS: ANION GAP 11 (5-19); BLOOD UREA NITROGEN 74 mg/dL (7-20); CARBON DIOXIDE 16 mmol/L (22-30); CHLORIDE 109 mmol/L (98-107); GLUCOSE 101 mg/dL (75-110); POTASSIUM 3.2 mmol/L (3.6-5.0)
[2019-07-15 06:44] LABS: CALCIUM 6.5 mg/dL (8.4-10.2)
[2019-07-15] MEDS: RINGERS SOLUTION,LACTATED 1,000 ML IV PRN ×2 (08:37→21:22)
[2019-07-15] MEDS: FAMOTIDINE 20 MG TABLET PO SCH ×2 (10:10→21:21)
[2019-07-15] MEDS: AZITHROMYCIN 500 MG in DEXTROSE 5%-WATER 250 ML IV SCH (10:10)
[2019-07-15] MEDS: APIXABAN 2.5 MG TABLET PO SCH ×2 (10:10→18:14)
[2019-07-15] MEDS: POTASSIUM CHLORIDE 10 MEQ TABLET.ER PO SCH ×2 (10:10→21:22)
[2019-07-15] MEDS: DOCUSATE SODIUM 100 MG/10 ML UDC PO SCH ×2 (11:11→17:02)
--- NOTE | 2019-07-15 13:55 | PDOC PROGRESS REPORT ---
Subjective Progress Note for:: 07/15/19 Reason For Visit: GENERAL WEAKNESS, ACUTE KIDNEY INJURY SUPERIMPOSED 07/15/2019 Admitted for intractable right leg pain, generalized weakness, UTI, acute on chronic renal disease, anemia of chronic kidney disease and probable right lower lobe pneumonia Physical Exam Vital Signs: Temp Pulse Resp BP Pulse Ox 97.9 F 91 17 94/62 L 96 07/15/19 07:54 07/15/19 07:54 07/15/19 07:54 07/15/19 07:54 07/15/19 07:54 Intake & Output 07/14/19 07/15/19 07/16/19 06:59 06:59 06:59 Intake Total 3375 3168 1250 Output Total 1100 1450 Balance 2275 1718 1250 Weight 92.8 kg 96.5 kg General appearance: PRESENT: no acute distress Respiratory exam: PRESENT: clear to auscultation moustapha. ABSENT: rales, rhonchi, wheezes Cardiovascular exam: PRESENT: RRR. ABSENT: diastolic murmur, rubs, systolic murmur Neurological exam: PRESENT: alert, awake, oriented to person, oriented to place, oriented to time, oriented to situation, CN II-XII grossly intact, other - Patient has significant lymphedema right lower extremity and weakness of both lower extremities, both of these are chronic in nature. ABSENT: motor sensory deficit Psychiatric exam: PRESENT: appropriate affect, normal mood. ABSENT: homicidal ideation, suicidal ideation Results Laboratory Results: 07/15/19 05:22 07/15/19 05:22 07/15/19 07/15/19 07/15/19 05:22 05:22 05:22 WBC 5.6 RBC 2.61 L Hgb 7.8 L Hct 22.9 L MCV 88 MCH 30.0 MCHC 34.3 RDW 15.9 H Plt Count 187 Sodium 135.8 L Potassium 3.2 L Chloride 109 H Carbon Dioxide 16 L Anion Gap 11 BUN 74 H Creatinine 4.21 H Est GFR ( Amer) 17 L Glucose 101 Calcium 6.5 L* Magnesium 1.5 L Albumin 2.0 L 07/13/19 16:35 Blood Blood Culture (PCR) - Final Pseudomonas Aeruginosa Impressions: Chest X-Ray 07/13/19 16:50 IMPRESSION: 1. Examination is limited due to low lung volumes and patient positioning. Parenchymal opacity is suggested at the right lung base may represent pneumonia. 2. The left apical nodule appears slightly larger in size. Hip/Pelvis X-Ray 07/13/19 16:51 IMPRESSION: 1. Since the previous examination dated 12/21/2016, pathologic fracture involving the right ischium with fairly large extensive lucent lesion. Stable multiple lytic lesions in the symphysis pubis bilaterally. Differential diagnosis again includes metastatic disease, multiple myeloma. 2. 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 The lucent lesion in the pelvis surrounding the right hip replacement appears larger than on the prior examination which may be on the basis of interval progression of disease. Abdomen/Pelvis CT 07/14/19 00:00 IMPRESSION: 1. Consolidation in the right lower lobe is presumably pneumonia. Underlying mass is not excluded, however. At least 2 other upper lobe nodules as described. 2. Cardiomegaly and trace pleural fluid. IMPRESSION: 1. Pelvic findings as above. Lytic expansion in the right hemipelvis with displacement of the arthroplasty into the superior aspect intrapelvic. This pathologic fracture/dislocation could be related to underlying malignancy depending on presentation. 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 2. Slight fullness in the right renal collecting system may be related to relative obstruction of the distal ureter by the displaced hip implant. Chest CT 07/14/19 00:00 IMPRESSION: 1. Consolidation in the right lower lobe is presumably pneumonia. Underlying mass is not excluded, however. At least 2 other upper lobe nodules as described. 2. Cardiomegaly and trace pleural fluid. IMPRESSION: 1. Pelvic findings as above. Lytic expansion in the right hemipelvis with displacement of the arthroplasty into the superior aspect intrapelvic. This pathologic fracture/dislocation could be related to underlying malignancy depending on presentation. 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 2. Slight fullness in the right renal collecting system may be related to relative obstruction of the distal ureter by the displaced hip implant. Assessment and Plan - Diagnosis (1) Intractable leg pain Is this a current diagnosis for this admission?: Yes (2) Lytic lesions of the pelvis Is this a current diagnosis for this admission?: Yes (3) Generalized weakness Is this a current diagnosis for this admission?: Yes (4) UTI (urinary tract infection) Qualifiers: Urinary tract infection type: catheter-associated UTI Indwelling urinary catheter type: indwelling urethral catheter Encounter type: initial encounter Qualified Code(s): T83.511A - Infection and inflammatory reaction due to indwelling urethral catheter, initial encounter; N39.0 - Urinary tract infection, site not specified Is this a current diagnosis for this admission?: Yes (5) Acute renal failure superimposed on stage 4 chronic kidney disease Qualifiers: Acute renal failure type: with acute tubular necrosis Qualified Code(s): N17.0 - Acute kidney failure with tubular necrosis; N18.4 - Chronic kidney disease, stage 4 (severe) Is this a current diagnosis for this admission?: Yes (6) Anemia in chronic kidney disease (CKD) Qualifiers: Chronic kidney disease stage: stage 4 (severe) Qualified Code(s): N18.4 - Chronic kidney disease, stage 4 (severe); D63.1 - Anemia in chronic kidney disease Is this a current diagnosis for this admission?: Yes (7) Hypocalcemia Is this a current diagnosis for this admission?: Yes (8) RLL pneumonia Is this a current diagnosis for this admission?: Yes - Plan Summary Summary: Patient is admitted to a telemetry bed on the medical floor where he will receive routine symptomatic and supportive cares. He will be treated with IV antibiotics utilizing Levaquin 750 mg x 1 initially with blood and urine cultures pending and further doses as appropriate based on renal function to be determined by Dr. Carlson. Stool cultures will be performed. Serial lactic acid levels will be obtained. He will receive IV fluids utilizing a bicarbonate drip initially as well as lactated Ringer's solution. He will receive morphine sulfate 2 to 4 mg IV every 2 hours as needed for pain control. He will receive Ativan 1 mg IV every 4 hours as needed for anxiety or restlessness. He will be continued on his usual home medications, as appropriate, once his medication list has been verified and reconciled. CBCs, metabolic profiles, magnesium levels, venous and/or arterial blood gases as well as additional radiography will be obtained as appropriate. Nephrology consultation with Dr. Tj Carlson will be obtained. . 07/14/2019 Please see the note above under reason for visit. Patient currently being worked up for his abnormal x-ray of the pelvis, intractable right hip and leg pain, probable UTI, probable RLL pneumonia Will continue Zithromax and Levaquin IV for now. 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 Even x-rays dated 2017 have evidence of this. Once again asked the patient if he knew that he had metastatic disease and he said no that he had never been told that. I told him that his bones in his pelvis were such that they could not support the weight of his lower extremities and that his right hip was protruding into his pelvis secondary to the weakness of the bones. Patient CBC is relatively stable his white count is normal 5.6 hemoglobin is stable at 7.8 platelets 187,000 Potassium slightly low at 3.2 will replace this Renal functions continue to slowly improve BUN is down to 74 creatinine is down to 4.21 Calcium is low at 6.5 but albumin is low as well 2.0 I am going to add IV calcium and albumin today, however patient always runs a low level Urine culture preliminary Pseudomonas blood culture final is Pseudomonas. Patient is on IV Zithromax and IV Levaquin for his pneumonia and his urine. Labs from oncology are pending We will put SCDs on patient's right lower leg for his chronic lymphedema and wrap his thighs with Frederick wraps Further consultation with oncology concerning prognosis and treatment plan is needed, once all test results have returned Patient's admission complaint intractable right leg pain and pelvis pain has improved, although this may be due to patient being nonambulatory, Patient's renal functions have improved dramatically and patient's pneumonia is currently being treated with IV antibiotics. Course patient's biggest problem now is his metastatic cancer and disposition concerning future care - Time Time Spent with patient: 35 or more minutes
[2019-07-15] MEDS: CALCIUM GLUC IN NACL, ISO-OSM 1 GM/50 ML RTUPB IV SCH ×2 (16:57→19:01)
--- NOTE | 2019-07-15 17:04 | PDOC CONSULTATION ---
Consultation Consult Date: 07/15/19 Attending physician:: JESSA MCDONALD JR Provider Consulted: NURA AVINA History of Present Illness Admission Date/PCP: 07/13/19 19:52 OLIVER MARI MD Patient complains of: Right hip pain History of Present Illness: LALA JOE is a 79 year old male with longstanding history of bilateral hip replacements. States over the past 4 weeks he has noticed increasing pain in his right hip and then was unable to ambulate in the past few days. Denies specific injury. Patient has had 3 prior hip replacements on the right side most recently in [place]. Patient unaware of exact details of his prior surgeries but denied pain prior to 1 month ago. Patient states he is unable to ambulate and has pain with attempted motion. Denies pain at rest. Has noticed increasing swelling in his bilateral lower extremities but does have history of lymphedema. Patient denies numbness or tingling. Pain 4/5. Past Medical History Cardiac Medical History: Reports: Atrial Fibrillation, Hypertension Denies: Coronary Artery Disease, Myocardial Infarction, Hyperlipidema Pulmonary Medical History: Denies: Asthma, Chronic Obstructive Pulmonary Disease (COPD) EENT Medical History: Denies: Cataracts, Ears - Hearing aids Neurological Medical History: Denies: Hemorrhagic CVA, Ischemic CVA, Seizures Endocrine Medical History: Denies: Diabetes Mellitus Type 1, Diabetes Mellitus Type 2, Hyperthyroidism, Hypothyroidism Renal/ Medical History: Reports: Chronic Kidney Disease Denies: Nephrolithiasis Malignancy Medical History: Reports: Other - 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 GI Medical History: Denies: Cirrhosis, Crohn's Disease, Gastroesophageal Reflux Disease, Hepatitis, Peptic Ulcer Disease, Ulcerative Colitis Musculoskeltal Medical History: Reports: Arthritis, Other Denies: Gout Skin Medical History: Reports: Other - Chronic lymphedema of the right lower extremity with frequent ulcerations Denies: Eczema, Psoriasis Psychiatric Medical History: Reports: Attention Deficit Hyperactivity Disorder Denies: Alcohol Dependency, Depression, Substance Abuse, Tobacco Dependency Traumatic Medical History: Reports: None Hematology: Reports: Anemia - Chronic Denies: Bleeding Tendencies Infectious Medical History: Reports: None Past Surgical History Past Surgical History: Reports: Hip Replacement, Orthopedic Surgery - Bilateral hip surgeries, Other - Right leg wound care Social History Lives with: Family Smoking Status: Never Smoker Electronic Cigarette use?: No Frequency of Alcohol Use: None Hx Recreational Drug Use: No Drugs: None Hx Prescription Drug Abuse: No - Advance Directive Resuscitation Status: Full Code Family History Family History: Hypertension. denies: CAD, DM, Malignancy Parental Family History Reviewed: No Children Family History Reviewed: No Sibling(s) Family History Reviewed.: No Medication/Allergy Home Medications: Apixaban [Eliquis 5 mg Tablet] 5 mg PO BID 07/13/19 Dextroamphetamine/Amphetamine [Adderall 12.5 mg Tablet] 25 mg PO BID 07/13/19 Loperamide HCl [Imodium 2 mg Capsule] 2 mg PO TIDP PRN 07/13/19 Oxycodone HCl/Acetaminophen [Percocet 2.5-325 Mg Tablet] 1 each PO Q12HP PRN 07/13/19 Ropinirole HCl [Requip 2 Mg Tablet] 2 mg PO QHS 07/13/19 Allergies/Adverse Reactions: Iodinated Contrast Media [Iodinated Contrast- Oral and IV Dye] Allergy (Unknown, Verified 12/21/16 13:18) Review of Systems Constitutional: ABSENT: chills, fever(s), headache(s), weight gain, weight loss Eyes: ABSENT: visual disturbances Ears: ABSENT: hearing changes Cardiovascular: ABSENT: chest pain, dyspnea on exertion, edema, orthropnea, palpitations Respiratory: ABSENT: cough, hemoptysis Gastrointestinal: PRESENT: diarrhea. ABSENT: abdominal pain, constipation, hematemesis, hematochezia, nausea, vomiting Genitourinary: PRESENT: difficulty urinating. ABSENT: dysuria, hematuria Musculoskeletal: PRESENT: as per HPI Integumentary: PRESENT: as per HPI. ABSENT: rash, wounds Neurological: ABSENT: abnormal gait, abnormal speech, confusion, dizziness, focal weakness, syncope Psychiatric: ABSENT: anxiety, depression, homidical ideation, suicidal ideation Endocrine: ABSENT: cold intolerance, heat intolerance, menstrual abnormalities, polydipsia, polyuria Hematologic/Lymphatic: PRESENT: other - Chronic lymphedema. ABSENT: easy bleeding, easy bruising, lymphadenopathy Physical Exam Vital Signs: Temp Pulse Resp BP Pulse Ox 98.2 F 88 18 104/58 L 90 L 07/15/19 11:46 07/15/19 14:00 07/15/19 11:46 07/15/19 11:46 07/15/19 11:46 Intake & Output 07/14/19 07/15/19 07/16/19 06:59 06:59 06:59 Intake Total 9463 3161 2090 Output Total 1100 1450 350 Balance 2275 1718 1740 Weight 92.8 kg 96.5 kg General appearance: PRESENT: no acute distress, morbidly obese, well-developed, well-nourished Head exam: PRESENT: atraumatic, normocephalic Eye exam: PRESENT: conjunctiva pink, EOMI, PERRLA. ABSENT: scleral icterus Ear exam: PRESENT: normal external ear exam Mouth exam: PRESENT: moist, tongue midline Neck exam: PRESENT: full ROM. ABSENT: carotid bruit, JVD, lymphadenopathy, thyromegaly Respiratory exam: PRESENT: unlabored Cardiovascular exam: PRESENT: RRR. ABSENT: diastolic murmur, rubs, systolic murmur Vascular exam: PRESENT: normal capillary refill GI/Abdominal exam: PRESENT: soft. ABSENT: distended, guarding, mass, organolmegaly, rebound, tenderness Rectal exam: PRESENT: deferred Gentrourinary exam: PRESENT: indwelling catheter Musculoskeletal exam: PRESENT: other - Right lower extremity Short/externally rotated. Chronic lymphedema with stasis dermatitis. Intact plantarflexion/dorsiflexion. Intact sensation to light touch. No erythema along the previous surgical site. Tenderness along the lateral aspect of the hip. No evidence of open wound. Neurological exam: PRESENT: alert, awake, oriented to person, oriented to place, oriented to time, oriented to situation, CN II-XII grossly intact. ABSENT: motor sensory deficit Psychiatric exam: PRESENT: appropriate affect, normal mood. ABSENT: homicidal ideation, suicidal ideation Skin exam: PRESENT: dry, intact, warm. ABSENT: cyanosis, rash Results Laboratory Results: 07/15/19 05:22 07/15/19 05:22 07/15/19 07/15/19 07/15/19 05:22 05:22 05:22 WBC 5.6 RBC 2.61 L Hgb 7.8 L Hct 22.9 L MCV 88 MCH 30.0 MCHC 34.3 RDW 15.9 H Plt Count 187 Sodium 135.8 L Potassium 3.2 L Chloride 109 H Carbon Dioxide 16 L Anion Gap 11 BUN 74 H Creatinine 4.21 H Est GFR ( Amer) 17 L Glucose 101 Calcium 6.5 L* Magnesium 1.5 L Albumin 2.0 L 07/13/19 16:35 Blood Blood Culture (PCR) - Final Pseudomonas Aeruginosa Impressions: Chest X-Ray 07/13/19 16:50 IMPRESSION: 1. Examination is limited due to low lung volumes and patient positioning. Parenchymal opacity is suggested at the right lung base may represent pneumonia. 2. The left apical nodule appears slightly larger in size. Hip/Pelvis X-Ray 07/13/19 16:51 IMPRESSION: 1. Since the previous examination dated 12/21/2016, pathologic fracture involving the right ischium with fairly large extensive lucent lesion. Stable multiple lytic lesions in the symphysis pubis bilaterally. Differential diagnosis again includes metastatic disease, multiple myeloma. 2. 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 The lucent lesion in the pelvis surrounding the right hip replacement appears larger than on the prior examination which may be on the basis of interval progression of disease. Abdomen/Pelvis CT 07/14/19 00:00 IMPRESSION: 1. Consolidation in the right lower lobe is presumably pneumonia. Underlying mass is not excluded, however. At least 2 other upper lobe nodules as described. 2. Cardiomegaly and trace pleural fluid. IMPRESSION: 1. Pelvic findings as above. Lytic expansion in the right hemipelvis with displacement of the arthroplasty into the superior aspect intrapelvic. This pathologic fracture/dislocation could be related to underlying malignancy depending on presentation. 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 2. Slight fullness in the right renal collecting system may be related to relative obstruction of the distal ureter by the displaced hip implant. Chest CT 07/14/19 00:00 IMPRESSION: 1. Consolidation in the right lower lobe is presumably pneumonia. Underlying mass is not excluded, however. At least 2 other upper lobe nodules as de scribed. 2. Cardiomegaly and trace pleural fluid. IMPRESSION: 1. Pelvic findings as above. Lytic expansion in the right hemipelvis with displacement of the arthroplasty into the superior aspect intrapelvic. This pathologic fracture/dislocation could be related to underlying malignancy depending on presentation. 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 2. Slight fullness in the right renal collecting system may be related to relative obstruction of the distal ureter by the displaced hip implant. Status: Image reviewed by me - I have reviewed patient's radiographs and CT scan consistent with lytic lesions along the ischium and pelvis which were present on prior radiographs. However there is increased evidence of acetabular protrusion within the pelvic diaphragm compared to 2017. Assessment & Plan - Diagnosis (1) Lytic lesions of the pelvis Is this a current diagnosis for this admission?: Yes Plan: Unfortunately patient situation is complicated given the severity of his right hip he has had 3 prior surgeries in the past was unable to detail prior surgeries but reviewing radiographs demonstrate likely significant acetabular reconstruction with cement was likely noted and it has increased compared to previously. As for the patient's lytic lesions there is the possibility of prostate metastasis although prostate tends to be more of a blastic type metastatic cancer thus other differentials include alternative metastatic disease, myeloma, lymphoma or additional primary bone disease. Bone scan may be somewhat beneficial to further diagnose prostate mets if necessary. In terms of the patient's right hip he has severe acetabular protrusio and thus any surgical treatment to his right hip would require transfer to tertiary care facility if surgery is deemed warranted I do feel ambulation is highly unlikely given the severity of patient's protrusio furthermore there is no serial x-rays to evaluate migration of the prosthesis.
[2019-07-15] MEDS: ALBUMIN HUMAN 12.5 GM/50 ML RTUINJ IV SCH ×2 (18:14→18:37)
[2019-07-15] MEDS: ROPINIROLE HCL 2 MG TABLET PO SCH (21:21)
[2019-07-15] MEDS ORDERED: LEVOFLOXACIN 250 MG/D5W RTU 250 MG/50 ML RTUPB IV SCH (22:00)
[2019-07-16 06:34] LABS: HEMATOCRIT 21.1 % (37.9-51.0); MEAN CORPUSCULAR HGB CONC 34.4 g/dL (32.0-36.0); MEAN CORPUSCULAR VOLUME 87 fl (80-97); PLATELET COUNT 181 10^3/uL (150-450); RED BLOOD COUNT 2.42 10^6/uL (4.35-5.55); RED CELL DISTRIBUTION WIDTH 15.5 % (11.5-14.0); WHITE BLOOD COUNT 5.9 10^3/uL (4.0-10.5)
[2019-07-16 06:40] LABS: HEMOGLOBIN 7.3 g/dL (13.5-17.0)
[2019-07-16 06:50] LABS: ANION GAP 9 (5-19); CARBON DIOXIDE 17 mmol/L (22-30); CHLORIDE 110 mmol/L (98-107); GLUCOSE 93 mg/dL (75-110); POTASSIUM 4.1 mmol/L (3.6-5.0)
[2019-07-16 06:51] LABS: BLOOD UREA NITROGEN 61 mg/dL (7-20)
[2019-07-16 06:56] LABS: CALCIUM 6.8 mg/dL (8.4-10.2)
[2019-07-16] MEDS: APIXABAN 2.5 MG TABLET PO SCH ×2 (09:43→17:31)
[2019-07-16] MEDS: POTASSIUM CHLORIDE 10 MEQ TABLET.ER PO SCH ×2 (09:43→22:12)
[2019-07-16] MEDS: FAMOTIDINE 20 MG TABLET PO SCH (09:43)
[2019-07-16] MEDS: DOCUSATE SODIUM 100 MG/10 ML UDC PO SCH (09:44)
[2019-07-16] MEDS ORDERED: MAGNESIUM SULFATE INJ 8 MEQ/2 ML IV ONE (12:03)
--- NOTE | 2019-07-16 12:03 | PDOC CONSULTATION ---
Consultation Consult Date: 07/16/19 Provider Consulted: Kasie DANIELS Consult reason:: Acute on chronic kidney disease History of Present Illness Admission Date/PCP: 07/13/19 19:52 OLIVER MARI MD History of Present Illness: LALA JOE is a 79 year old male with a past medical history that significant for hypertension, Atrial fib, cancer of the prostate for which he apparently only had radiation treatment, CKD with base creatinine 3.5-4.5 but not seeing any assistant service manager was admitted with history of progressive weakness, pain of right hip. Patient is a very poor historian and is not very forthcoming with most of the history. He does not answer to your questions but most of the times. He also gives a history of having had a chronic Sorenson catheter introduced about 3 to 4 months ago apparently at his own behest after talking with his family doctor because he was having urinary incontinence. There is no history to indicate any obstructive symptoms. He says he has not seen his urologist for a long long time. He says the home health nurse changes his catheter every month. He denies any history of dysuria or abdominal pains, fever or chills. Apparent intermittent diarrhea. No history to indicate any GI bleeds. Evaluations and since being in the hospital has revealed that he has a right pathological hip fracture with lytic lesions, Pseudomonas UTI with bacteremia as well, Acute on chronic kidney disease with a creatinine of 5+, profound anemia between 7 and 8 of hemoglobin. Labs and medications were reviewed. Past Medical History Cardiac Medical History: Reports: Atrial Fibrillation, Hypertension-primary Denies: Coronary Artery Disease, Hyperlipidemia, Myocardial Infarction Pulmonary Medical History: Denies: Asthma, Chronic Obstructive Pulmonary Disease (COPD) EENT Medical History: Denies: Cataracts, Ears - Hearing aids Neurological Medical History: Denies: Hemorrhagic CVA, Ischemic CVA, Seizures Endocrine Medical History: Denies: Diabetes Mellitus Type 1, Diabetes Mellitus Type 2, Hyperthyroidism, Hypothyroidism Complications of Diabetes: Reports: None Renal/ Medical History: Reports: Benign Prostatic Hyperplasia, Chronic Kidney Disease Stage IV Denies: Nephrolithiasis Malignancy Medical History: Reports: Other - 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 GI Medical History: Denies: Cirrhosis, Crohn's Disease, Gastroesophageal Reflux Disease, Hepatitis, Peptic Ulcer Disease, Ulcerative Colitis Musculoskeltal Medical History: Reports: Arthritis, Other Denies: Gout Skin Medical History: Reports: Other - Chronic lymphedema of the right lower extremity with frequent ulcerations Denies: Eczema, Psoriasis Psychiatric Medical History: Reports: Attention Deficit Hyperactivity Disorder Denies: Alcohol Dependency, Depression, Substance Abuse, Tobacco Dependency Traumatic Medical History: Reports: None Infectious Medical History: Reports: None Past Surgical History Past Surgical History: Reports: Hip Replacement, Orthopedic Surgery - Bilateral hip surgeries, Other - Right leg wound care Social History Lives with: Family Smoking Status: Never Smoker Electronic Cigarette use?: No Frequency of Alcohol Use: None Hx Recreational Drug Use: No Drugs: None Hx Prescription Drug Abuse: No - Advance Directive Resuscitation Status: Full Code Family History Parental Family History Reviewed: Yes - Denies history of ESRD Children Family History Reviewed: No Sibling(s) Family History Reviewed.: No Medication/Allergy Home Medications: Apixaban [Eliquis 5 mg Tablet] 5 mg PO BID 07/13/19 Dextroamphetamine/Amphetamine [Adderall 12.5 mg Tablet] 25 mg PO BID 07/13/19 Loperamide HCl [Imodium 2 mg Capsule] 2 mg PO TIDP PRN 07/13/19 Oxycodone HCl/Acetaminophen [Percocet 2.5-325 Mg Tablet] 1 each PO Q12HP PRN 07/13/19 Ropinirole HCl [Requip 2 Mg Tablet] 2 mg PO QHS 07/13/19 Allergies/Adverse Reactions: Iodinated Contrast Media [Iodinated Contrast- Oral and IV Dye] Allergy (Unknown, Verified 12/21/16 13:18) Review of Systems Constitutional: PRESENT: anorexia, fatigue, weakness. ABSENT: chills, fever(s), headache(s), night sweats Nose, Mouth, and Throat: ABSENT: mouth pain, sore throat Cardiovascular: PRESENT: edema - Chronic. ABSENT: chest pain, dyspnea on exertion, orthropnea, palpitations Gastrointestinal: PRESENT: diarrhea, nausea. ABSENT: abdominal pain, bloating, coffee ground emesis, constipation, dysphagia, heartburn, hematemesis, hematochezia, vomiting Genitourinary: ABSENT: dysuria, hematuria Musculoskeletal: ABSENT: deformity, joint swelling Integumentary: ABSENT: lesions, pruritus, rash Neurological: ABSENT: abnormal gait, abnormal movements, abnormal speech, confusion, convulsions, focal weakness, frequent falls, tremor(s) Endocrine: ABSENT: polydipsia Hematologic/Lymphatic: ABSENT: easy bruising, lymphadenopathy Physical Exam Vital Signs: Temp Pulse Resp BP Pulse Ox 98.5 F 108 H 17 96/58 L 98 07/16/19 07:22 07/16/19 07:22 07/16/19 07:22 07/16/19 07:22 07/16/19 07:22 Intake & Output 07/15/19 07/16/19 07/17/19 06:59 06:59 06:59 Intake Total 3168 3609 Output Total 1450 1950 Balance 1718 1659 Weight 96.5 kg 96.6 kg General appearance: PRESENT: no acute distress Eye exam: PRESENT: EOMI, PERRLA. ABSENT: scleral icterus Ear exam: PRESENT: normal external ear exam Mouth exam: PRESENT: neck supple. ABSENT: moist Neck exam: ABSENT: lymphadenopathy, meningismus, tenderness, thyromegaly, tracheal deviation Respiratory exam: PRESENT: clear to auscultation moustapha, decreased breath sounds. ABSENT: crackles Cardiovascular exam: PRESENT: +S1, +S2 GI/Abdominal exam: PRESENT: normal bowel sounds, soft. ABSENT: organomegaly Extremities exam: PRESENT: +1 edema - Looks like chronic lymphedema as well. Neurological exam: PRESENT: alert, awake, oriented to person Psychiatric exam: PRESENT: appropriate affect Skin exam: PRESENT: rash - Chronic venous stasis in both lower extremities. Has got a bandage also as well.. ABSENT: erythema, mottled Results Laboratory Results: 07/16/19 05:49 07/16/19 05:49 07/16/19 07/16/19 05:49 05:49 WBC 5.9 RBC 2.42 L Hgb 7.3 L Hct 21.1 L MCV 87 MCH 30.0 MCHC 34.4 RDW 15.5 H Plt Count 181 Sodium 136.1 L Potassium 4.1 Chloride 110 H Carbon Dioxide 17 L Anion Gap 9 BUN 61 H Creatinine 3.86 H Est GFR ( Amer) 18 L Glucose 93 Calcium 6.8 L* Magnesium 1.5 L 07/13/19 16:35 Blood Blood Culture (PCR) - Final Pseudomonas Aeruginosa 07/13/19 16:35 Blood Blood Culture - Final Pseudomonas Aeruginosa Impressions: Chest X-Ray 07/13/19 16:50 IMPRESSION: 1. Examination is limited due to low lung volumes and patient positioning. Parenchymal opacity is suggested at the right lung base may represent pneumonia. 2. The left apical nodule appears slightly larger in size. Hip/Pelvis X-Ray 07/13/19 16:51 IMPRESSION: 1. Since the previous examination dated 12/21/2016, pathologic fracture involving the right ischium with fairly large extensive lucent lesion. Stable multiple lytic lesions in the symphysis pubis bilaterally. Differential diagnosis again includes metastatic disease, multiple myeloma. 2. 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 The lucent lesion in the pelvis surrounding the right hip replacement appears larger than on the prior examination which may be on the basis of interval progression of disease. Abdomen/Pelvis CT 07/14/19 00:00 IMPRESSION: 1. Consolidation in the right lower lobe is presumably pneumonia. Underlying mass is not excluded, however. At least 2 other upper lobe nodules as described. 2. Cardiomegaly and trace pleural fluid. IMPRESSION: 1. Pelvic findings as above. Lytic expansion in the right hemipelvis with displacement of the arthroplasty into the superior aspect intrapelvic. This pathologic fracture/dislocation could be related to underlying malignancy depending on presentation. 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 2. Slight fullness in the right renal collecting system may be related to relative obstruction of the distal ureter by the displaced hip implant. Chest CT 07/14/19 00:00 IMPRESSION: 1. Consolidation in the right lower lobe is presumably pneumonia. Underlying mass is not excluded, however. At least 2 other upper lobe nodules as described. 2. Cardiomegaly and trace pleural fluid. IMPRESSION: 1. Pelvic findings as above. Lytic expansion in the right hemipelvis with displacement of the arthroplasty into the superior aspect intrapelvic. This pathologic fracture/dislocation could be related to underlying malignancy depending on presentation. 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 2. Slight fullness in the right renal collecting system may be related to relative obstruction of the distal ureter by the displaced hip implant. Assessment & Plan - Diagnosis (1) Acute renal failure superimposed on stage 4 chronic kidney disease Qualifiers: Acute renal failure type: with acute tubular necrosis Qualified Code(s): N17.0 - Acute kidney failure with tubular necrosis; N18.4 - Chronic kidney disease, stage 4 (severe) Is this a current diagnosis for this admission?: Yes Plan: Nonoliguric. Patient came in with some decompensation of his CKD stage IV but looks like he is now back at baseline. His Recent CT imaging studies shows some fullness of his right collecting system most likely secondary to the relative obstruction of his distal right ureter by the displaced hip prosthesis. Patient has not been following with any assistant service manager. He is however thinks he will be willing to go on dialysis if he came to that stage even though he has no indications for that at the moment. Advised him given his current Pseudomonas UTI as well as pseudomonal bacteremia that he has to discontinue Sorenson catheter which apparently he reported got it for incontinence via his ? PCP and not for any obstructive symptoms that I can see. Advised him on the long-term complications and recurrence of severe infections which can be life- threatening.Avoid nephrotoxic drugs. Please dose medications for GFR of less than 25 cc/min. (2) Pseudomonal bacteremia Plan: He is growing Pseudomonas in his bladder as well as in his sputum. He has been appropriately treated with antibiotics. Please dose medications for GFR of less than 25 cc/min. (3) Acidosis, metabolic Is this a current diagnosis for this admission?: Yes Plan: Non-gap. Start bicarb replacements and monitor. (4) Community acquired pneumonia Qualifiers: Laterality: right Lung location: lower lobe of lung Qualified Code(s): J18.9 - Pneumonia, unspecified organism Is this a current diagnosis for this admission?: Yes Plan: With Pseudomonas. Being managed by hospitalist (5) Generalized weakness Is this a current diagnosis for this admission?: Yes Plan: Chronic debilitation. He is dependent on others for his ADLs. He lives in a house with his nephew and gets home health nurse to help him with his ADLs as well. He is wheelchair-bound. Currently he is a full code but is thinking about being a DNR. (6) Lytic lesions of the pelvis Is this a current diagnosis for this admission?: Yes Plan: Being worked up by heme oncologist. Looks like he is also got a pathological fracture of the right pelvis. (7) UTI (urinary tract infection) Qualifiers: Urinary tract infection type: catheter-associated UTI Indwelling urinary catheter type: indwelling urethral catheter Encounter type: initial encounter Qualified Code(s): T83.511A - Infection and inflammatory reaction due to indwelling urethral catheter, initial encounter; N39.0 - Urinary tract infection, site not specified Is this a current diagnosis for this admission?: Yes Plan: Pseudomonas on levofloxacin. Monitor. Ideally he needs to have his Sorenson catheter removed. I discussed at length with patient but he wants it to be retained because he does not/unable to get up from bed for frequent urination given his debilitated state and dependency for ADLs. (8) Hypocalcemia Is this a current diagnosis for this admission?: Yes Plan: Replace. Initiate work-up. (9) Hypomagnesemia Plan: Replace. (10) Anemia Qualifiers: Anemia type: due to chronic kidney disease Chronic kidney disease stage: stage 5, not on chronic dialysis Qualified Code(s): N18.5 - Chronic kidney disease, stage 5; D63.1 - Anemia in chronic kidney disease Plan: Being worked up by heme oncologist. I will add iron studies as well.
[2019-07-16] MEDS ORDERED: CALCIUM GLUCONATE 1000 MG/10 ML INJ IV ONE (12:04)
--- NOTE | 2019-07-16 12:20 | PDOC PROGRESS REPORT ---
Subjective Progress Note for:: 07/16/19 Reason For Visit: GENERAL WEAKNESS, ACUTE KIDNEY INJURY SUPERIMPOSED 07/16/2019 Patient admitted with increased right hip pain, generalized weakness, acute on chronic kidney injury, UTI, anemia of chronic kidney disease, and probable right lower lobe pneumonia Physical Exam Vital Signs: Temp Pulse Resp BP Pulse Ox 98.5 F 108 H 17 96/58 L 98 07/16/19 07:22 07/16/19 07:22 07/16/19 07:22 07/16/19 07:22 07/16/19 07:22 Intake & Output 07/15/19 07/16/19 07/17/19 06:59 06:59 06:59 Intake Total 3168 3609 Output Total 1450 1950 Balance 1718 1659 Weight 96.5 kg 96.6 kg General appearance: PRESENT: mild distress, other - With any movement of his pel vis and right hip he has significant pain Respiratory exam: PRESENT: clear to auscultation moustapha. ABSENT: rales, rhonchi, wheezes Cardiovascular exam: PRESENT: RRR. ABSENT: diastolic murmur, rubs, systolic murmur Extremities exam: PRESENT: other - I watched the PACKAGER AND STRAPPER's turn patient over in the bed. Just turning from side to side patient was in tremendous pelvis and hip pain Neurological exam: PRESENT: alert, awake, oriented to person, oriented to place, oriented to time, oriented to situation, CN II-XII grossly intact. ABSENT: motor sensory deficit Psychiatric exam: PRESENT: flat affect Results Laboratory Results: 07/16/19 05:49 07/16/19 05:49 07/16/19 07/16/19 05:49 05:49 WBC 5.9 RBC 2.42 L Hgb 7.3 L Hct 21.1 L MCV 87 MCH 30.0 MCHC 34.4 RDW 15.5 H Plt Count 181 Sodium 136.1 L Potassium 4.1 Chloride 110 H Carbon Dioxide 17 L Anion Gap 9 BUN 61 H Creatinine 3.86 H Est GFR ( Amer) 18 L Glucose 93 Calcium 6.8 L* Magnesium 1.5 L 07/13/19 16:35 Blood Blood Culture (PCR) - Final Pseudomonas Aeruginosa 07/13/19 16:35 Blood Blood Culture - Final Pseudomonas Aeruginosa Impressions: Chest X-Ray 07/13/19 16:50 IMPRESSION: 1. Examination is limited due to low lung volumes and patient positioning. Parenchymal opacity is suggested at the right lung base may represent pneumonia. 2. The left apical nodule appears slightly larger in size. Hip/Pelvis X-Ray 07/13/19 16:51 IMPRESSION: 1. Since the previous examination dated 12/21/2016, pathologic fracture involving the right ischium with fairly large extensive lucent lesion. Stable multiple lytic lesions in the symphysis pubis bilaterally. Differential diagnosis again includes metastatic disease, multiple myeloma. 2. 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 The lucent lesion in the pelvis surrounding the right hip replacement appears larger than on the prior examination which may be on the basis of interval progression of disease. Abdomen/Pelvis CT 07/14/19 00:00 IMPRESSION: 1. Consolidation in the right lower lobe is presumably pneumonia. Underlying mass is not excluded, however. At least 2 other upper lobe nodules as described. 2. Cardiomegaly and trace pleural fluid. IMPRESSION: 1. Pelvic findings as above. Lytic expansion in the right hemipelvis with displacement of the arthroplasty into the superior aspect intrapelvic. This pathologic fracture/dislocation could be related to underlying malignancy d epending on presentation. 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 2. Slight fullness in the right renal collecting system may be related to relative obstruction of the distal ureter by the displaced hip implant. Chest CT 07/14/19 00:00 IMPRESSION: 1. Consolidation in the right lower lobe is presumably pneumonia. Underlying mass is not excluded, however. At least 2 other upper lobe nodules as described. 2. Cardiomegaly and trace pleural fluid. IMPRESSION: 1. Pelvic findings as above. Lytic expansion in the right hemipelvis with displacement of the arthroplasty into the superior aspect intrapelvic. This pathologic fracture/dislocation could be related to underlying malignancy depending on presentation. 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 2. Slight fullness in the right renal collecting system may be related to relative obstruction of the distal ureter by the displaced hip implant. Assessment and Plan - Diagnosis (1) Intractable leg pain Is this a current diagnosis for this admission?: Yes (2) Lytic lesions of the pelvis Is this a current diagnosis for this admission?: Yes (3) Generalized weakness Is this a current diagnosis for this admission?: Yes (4) UTI (urinary tract infection) Qualifiers: Urinary tract infection type: catheter-associated UTI Indwelling urinary catheter type: indwelling urethral catheter Encounter type: initial encounter Qualified Code(s): T83.511A - Infection and inflammatory reaction due to indwelling urethral catheter, initial encounter; N39.0 - Urinary tract infection, site not specified Is this a current diagnosis for this admission?: Yes (5) Acute renal failure superimposed on stage 4 chronic kidney disease Qualifiers: Acute renal failure type: with acute tubular necrosis Qualified Code(s): N17.0 - Acute kidney failure with tubular necrosis; N18.4 - Chronic kidney disease, stage 4 (severe) Is this a current diagnosis for this admission?: Yes (6) Anemia in chronic kidney disease (CKD) Qualifiers: Chronic kidney disease stage: stage 4 (severe) Qualified Code(s): N18.4 - Chronic kidney disease, stage 4 (severe); D63.1 - Anemia in chronic kidney disease Is this a current diagnosis for this admission?: Yes (7) Hypocalcemia Is this a current diagnosis for this admission?: Yes (8) RLL pneumonia Is this a current diagnosis for this admission?: Yes - Plan Summary Summary: Patient is admitted to a telemetry bed on the medical floor where he will receive routine symptomatic and supportive cares. He will be treated with IV antibiotics utilizing Levaquin 750 mg x 1 initially with blood and urine cultures pending and further doses as appropriate based on renal function to be determined by Dr. Carlson. Stool cultures will be performed. Serial lactic acid levels will be obtained. He will receive IV fluids utilizing a bicarbonate drip initially as well as lactated Ringer's solution. He will receive morphine sulfate 2 to 4 mg IV every 2 hours as needed for pain control. He will receive Ativan 1 mg IV every 4 hours as needed for anxiety or restlessness. He will be continued on his usual home medications, as appropriate, once his medication list has been verified and reconciled. CBCs, metabolic profiles, magnesium levels, venous and/or arterial blood gases as well as additional radiography will be obtained as appropriate. Nephrology consultation with Dr. Tj Carlson will be obtained. . 07/14/2019 Please see the note above under reason for visit. Patient currently being worked up for his abnormal x-ray of the pelvis, int ractable right hip and leg pain, probable UTI, probable RLL pneumonia Will continue Zithromax and Levaquin IV for now. 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 Even x-rays dated 2017 have evidence of this. Once again asked the patient if he knew that he had metastatic disease and he said no that he had never been told that. I told him that his bones in his pelvis were such that they could not support the weight of his lower extremities and that his right hip was protruding into his pelvis secondary to the weakness of the bones. Patient CBC is relatively stable his white count is normal 5.6 hemoglobin is stable at 7.8 platelets 187,000 Potassium slightly low at 3.2 will replace this Renal functions continue to slowly improve BUN is down to 74 creatinine is down to 4.21 Calcium is low at 6.5 but albumin is low as well 2.0 I am going to add IV calcium and albumin today, however patient always runs a low level Urine culture preliminary Pseudomonas blood culture final is Pseudomonas. Patient is on IV Zithromax and IV Levaquin for his pneumonia and his urine. Labs from oncology are pending We will put SCDs on patient's right lower leg for his chronic lymphedema and wrap his thighs with [place] wraps Further consultation with oncology concerning prognosis and treatment plan is needed, once all test results have returned Patient's admission complaint intractable right leg pain and pelvis pain has improved, although this may be due to patient being nonambulatory, Patient's renal functions have improved dramatically and patient's pneumonia is currently being treated with IV antibiotics. Course patient's biggest problem now is his metastatic cancer and disposition concerning future care 07/16/2019 Patient's vital signs remained very stable temperature 98.1 pulse between 101 115 which is normal for him and his blood pressure 96/58 which is also normal for him White count remains normal 5.9 hemoglobin is stable at 7.3 which is normal for him Calcium continues to remain low even with added extra calcium magnesium remains low even with extra magnesium BUN is low as well I have discontinued his IV Zithromax and left him on IV Levaquin only for his Pseudomonas in his blood and urine Patient is being seen by the appropriate consultants, nephrology, oncology, orthopedics Patient has a difficult time grasping his prior potential problem starting his right hip pain and I have drawn a picture up on the board concerning this problem. There is NO surgical alleviation of his pelvic and right hip pain. I have told him at this point rely on oncology to advise us as to treatment protocol and options. I offered to call his daughter today and explaine all this to her as well and he said that he would be able to give this information to her himself I have stood in the room today while the PACKAGER AND STRAPPER's turn him over in bed and cleaned him and even just turning over in bed he has a significant amount of pelvic pain. We will continue to supportive care doing future treatment plans. - Time Time Spent with patient: 35 or more minutes
[2019-07-16] MEDS: RINGERS SOLUTION,LACTATED 1,000 ML IV PRN (12:25)
[2019-07-16] MEDS: OXYCODONE-ACETAMINOPHEN 5-325 MG TABLET PO PRN (12:29)
[2019-07-16] MEDS ORDERED: MAGNESIUM SULFATE/D5W 1 GM/100 ML RTUPB IV ONE (12:30)
[2019-07-16] MEDS ORDERED: CALCIUM GLUCONATE 1 GM/NS 50 ML RTU IV ONE (13:00)
[2019-07-16] MEDS ORDERED: PROMETHAZINE HCL INJ 25 MG/1 ML VIAL IV PRN (13:00)
[2019-07-16 14:36] LABS: FREE KAPPA LIGHT CHAINS 236.6 mg/L (3.3-19.4)
[2019-07-16 14:40] LABS: C DIFFICILE GDH NEGATIVE (NEGATIVE)
[2019-07-16 14:40] LABS: KAPPA LAMBDA RATIO 1.39 (0.26-1.65)
--- NOTE | 2019-07-16 16:33 | PDOC PROGRESS REPORT ---
Subjective Progress Note for:: 07/16/19 Subjective:: Still w pain, can't really move much Reason For Visit: GENERAL WEAKNESS, ACUTE KIDNEY INJURY SUPERIMPOSED Physical Exam Vital Signs: Temp Pulse Resp BP Pulse Ox 98.5 F 109 H 17 96/58 L 98 07/16/19 07:22 07/16/19 14:00 07/16/19 07:22 07/16/19 07:22 07/16/19 07:22 Intake & Output 07/15/19 07/16/19 07/17/19 06:59 06:59 06:59 Intake Total 3168 4609 600 Output Total 1450 1950 400 Balance 1718 2659 200 Weight 96.5 kg 96.6 kg Results Laboratory Results: 07/16/19 05:49 07/16/19 05:49 07/16/19 07/16/19 05:49 05:49 WBC 5.9 RBC 2.42 L Hgb 7.3 L Hct 21.1 L MCV 87 MCH 30.0 MCHC 34.4 RDW 15.5 H Plt Count 181 Sodium 136.1 L Potassium 4.1 Chloride 110 H Carbon Dioxide 17 L Anion Gap 9 BUN 61 H Creatinine 3.86 H Est GFR ( Amer) 18 L Glucose 93 Calcium 6.8 L* Magnesium 1.5 L 07/13/19 16:35 Blood Blood Culture (PCR) - Final Pseudomonas Aeruginosa 07/13/19 16:35 Blood Blood Culture - Final Pseudomonas Aeruginosa Impressions: Chest X-Ray 07/13/19 16:50 IMPRESSION: 1. Examination is limited due to low lung volumes and patient positioning. Parenchymal opacity is suggested at the right lung base may represent pneumonia. 2. The left apical nodule appears slightly larger in size. Hip/Pelvis X-Ray 07/13/19 16:51 IMPRESSION: 1. Since the previous examination dated 12/21/2016, pathologic fracture involving the right ischium with fairly large extensive lucent lesion. Stable multiple lytic lesions in the symphysis pubis bilaterally. Differential diagnosis again includes metastatic disease, multiple myeloma. 2. 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 The lucent lesion in the pelvis surrounding the right hip replacement appears larger than on the prior examination which may be on the basis of interval progression of disease. Abdomen/Pelvis CT 07/14/19 00:00 IMPRESSION: 1. Consolidation in the right lower lobe is presumably pneumonia. Underlying mass is not excluded, however. At least 2 other upper lobe nodules as described. 2. Cardiomegaly and trace pleural fluid. IMPRESSION: 1. Pelvic findings as above. Lytic expansion in the right hemipelvis with displacement of the arthroplasty into the superior aspect intrapelvic. This pa thologic fracture/dislocation could be related to underlying malignancy depending on presentation. 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 2. Slight fullness in the right renal collecting system may be related to relative obstruction of the distal ureter by the displaced hip implant. Chest CT 07/14/19 00:00 IMPRESSION: 1. Consolidation in the right lower lobe is presumably pneumonia. Underlying mass is not excluded, however. At least 2 other upper lobe nodules as described. 2. Cardiomegaly and trace pleural fluid. IMPRESSION: 1. Pelvic findings as above. Lytic expansion in the right hemipelvis with displacement of the arthroplasty into the superior aspect intrapelvic. This pathologic fracture/dislocation could be related to underlying malignancy depe nding on presentation. 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 2. Slight fullness in the right renal collecting system may be related to relative obstruction of the distal ureter by the displaced hip implant. Assessment & Plan - Diagnosis (1) Secondary malignant neoplasm of bone Is this a current diagnosis for this admission?: Yes Plan: Discussed extensively with radiology, reviewed imaging. 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 BMBx possible via radiology but no other true blastic area noted for regular bone bx. CT C/A/P w/ no major areas of concern except for small pulm nodule. Await myeloma w/u. 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
[2019-07-16] MEDS: DOCUSATE SODIUM 100 MG CAPSULE PO SCH (17:31)
[2019-07-16] MEDS: SODIUM BICARBONATE 650 MG TABLET PO SCH (22:12)
[2019-07-16] MEDS: ROPINIROLE HCL 2 MG TABLET PO SCH (22:12)
[2019-07-17 06:01] LABS: HEMATOCRIT 24.8 % (37.9-51.0); HEMOGLOBIN 8.5 g/dL (13.5-17.0); MEAN CORPUSCULAR HEMOGLOBIN 30.1 pg (27.0-33.4); MEAN CORPUSCULAR HGB CONC 34.2 g/dL (32.0-36.0); MEAN CORPUSCULAR VOLUME 88 fl (80-97); PLATELET COUNT 205 10^3/uL (150-450); RED BLOOD COUNT 2.82 10^6/uL (4.35-5.55); RED CELL DISTRIBUTION WIDTH 15.8 % (11.5-14.0); RETICULOCYTE COUNT (AUTO) 1.42 % (0.66-2.85)
[2019-07-17 06:17] LABS: ALBUMIN 2.4 g/dL (3.5-5.0); ALKALINE PHOSPHATASE 107 U/L (38-126); ANION GAP 7 (5-19); ASPARTATE AMINO TRANSFERASE 18 U/L (17-59); BILIRUBIN,DIRECT 0.1 mg/dL (0.0-0.4); BILIRUBIN,TOTAL 0.3 mg/dL (0.2-1.3); BLOOD UREA NITROGEN 60 mg/dL (7-20); CALCIUM 7.3 mg/dL (8.4-10.2); CARBON DIOXIDE 17 mmol/L (22-30); CHLORIDE 114 mmol/L (98-107); GLUCOSE 94 mg/dL (75-110); PHOSPHORUS 4.5 mg/dL (2.5-4.5); POTASSIUM 4.5 mmol/L (3.6-5.0); TOTAL PROTEIN 5.7 g/dL (6.3-8.2)
[2019-07-17 07:21] LABS: FOLATE 9.71 ng/mL (>2.76)
[2019-07-17] MEDS: SODIUM BICARBONATE 650 MG TABLET PO SCH ×2 (09:42→21:24)
[2019-07-17] MEDS: POTASSIUM CHLORIDE 10 MEQ TABLET.ER PO SCH ×2 (09:42→21:24)
[2019-07-17] MEDS: APIXABAN 2.5 MG TABLET PO SCH ×2 (09:42→18:38)
[2019-07-17] MEDS: FAMOTIDINE 20 MG TABLET PO SCH (09:42)
[2019-07-17] MEDS: DOCUSATE SODIUM 100 MG CAPSULE PO SCH ×2 (09:42→18:49)
[2019-07-17 10:36] LABS: A/G RATIO. 0.7 (0.7-1.7); ALBUMIN 3 2.3 g/dL (2.9-4.4); ALPHA-1-GLOBULIN 0.4 g/dL (0.0-0.4); BETA GLOBULIN 0.8 g/dL (0.7-1.3); GAMMA GLOBULINS 1.5 g/dL (0.4-1.8); IMMUNOGLOBULIN A 530 mg/dL (61-437); IMMUNOGLOBULIN G 1447 mg/dL (603-1613); IMMUNOGLOBULIN M 83 mg/dL (15-143); MONOCLONAL-SPIKE Not Observed g/dL (Not Observ); PROTEIN TOTAL SERUM 5.7 g/dL (6.0-8.5)
--- NOTE | 2019-07-17 12:51 | PDOC PROGRESS REPORT ---
Subjective Progress Note for:: 07/17/19 Subjective:: Patient denies any pain today but has not tried to ambulate. Denies any shortness of breath at this time. Still having swelling. States he was told that he may have cancer that spread to his bones. Discussed plan for patient that we are waiting on results from multiple myeloma work-up and the possibility of cancer versus Paget's disease. Reason For Visit: GENERAL WEAKNESS, ACUTE KIDNEY INJURY SUPERIMPOSED Physical Exam Vital Signs: Temp Pulse Resp BP Pulse Ox 97.7 F 86 17 106/75 99 07/17/19 07:37 07/17/19 07:37 07/17/19 07:37 07/17/19 07:37 07/17/19 07:37 Intake & Output 07/16/19 07/17/19 07/18/19 06:59 06:59 06:59 Intake Total 4609 920 1000 Output Total 1950 1900 Balance 2659 -980 1000 Weight 96.6 kg 102.5 kg General appearance: PRESENT: no acute distress, cooperative Neck exam: ABSENT: JVD Respiratory exam: PRESENT: clear to auscultation moustapha, unlabored. ABSENT: tachypnea, wheezes Cardiovascular exam: PRESENT: irregular rhythm, +S1, +S2, tachycardia GI/Abdominal exam: PRESENT: soft. ABSENT: rebound, rigid, tenderness Extremities exam: PRESENT: other - 3+ edema in lower extremities worse on his right leg not left all the way up to the thigh Neurological exam: PRESENT: alert, awake, oriented to person, oriented to place, oriented to time, oriented to situation Results Laboratory Results: 07/17/19 05:49 07/17/19 05:49 07/14/19 07/17/19 07/17/19 11:25 05:49 05:49 WBC 7.0 RBC 2.82 L Hgb 8.5 L Hct 24.8 L MCV 88 MCH 30.1 MCHC 34.2 RDW 15.8 H Plt Count 205 Retic Count (auto) 1.42 Sodium 137.9 Potassium 4.5 Chloride 114 H Carbon Dioxide 17 L Anion Gap 7 BUN 60 H Creatinine 3.92 H Est GFR ( Amer) 18 L Glucose 94 Calcium 7.3 L Phosphorus 4.5 Iron 48.0 L TIBC 140 L % Saturation 34 Ferritin 327.00 Total Bilirubin 0.3 AST 18 Alkaline Phosphatase 107 Total Protein 5.7 L 5.7 L Albumin 2.4 L Vitamin B12 783.0 Folate 9.71 PTH Intact 07/17/19 05:49 WBC RBC Hgb Hct MCV MCH MCHC RDW Plt Count Retic Count (auto) Sodium Potassium Chloride Carbon Dioxide Anion Gap BUN Creatinine Est GFR ( Amer) Glucose Calcium Phosphorus Iron TIBC % Saturation Ferritin Total Bilirubin AST Alkaline Phosphatase Total Protein Albumin Vitamin B12 Folate PTH Intact 145.1 H 07/13/19 17:30 Sorenson Catheter Urine Culture - Final Escherichia Coli Pseudomonas Aeruginosa 07/13/19 16:35 Blood Blood Culture (PCR) - Final Pseudomonas Aeruginosa 07/13/19 16:35 Blood Blood Culture - Final Pseudomonas Aeruginosa Impressions: Chest X-Ray 07/13/19 16:50 IMPRESSION: 1. Examination is limited due to low lung volumes and patient positioning. Parenchymal opacity is suggested at the right lung base may represent pneumonia. 2. The left apical nodule appears slightly larger in size. Hip/Pelvis X-Ray 07/13/19 16:51 IMPRESSION: 1. Since the previous examination dated 12/21/2016, pathologic fracture involving the right ischium with fairly large extensive lucent lesion. Stable multiple lytic lesions in the symphysis pubis bilaterally. Differential diagnosis again includes metastatic disease, multiple myeloma. 2. 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 The lucent lesion in the pelvis surrounding the right hip replacement appears larger than on the prior examination which may be on the basis of interval progression of disease. Abdomen/Pelvis CT 07/14/19 00:00 IMPRESSION: 1. Consolidation in the right lower lobe is presumably pneumonia. Underlying mass is not excluded, however. At least 2 other upper lobe nodules as described. 2. Cardiomegaly and trace pleural fluid. IMPRESSION: 1. Pelvic findings as above. Lytic expansion in the right hemipelvis with displacement of the arthroplasty into the superior aspect intrapelvic. This pathologic fracture/dislocation could be related to underlying malignancy depending on presentation. 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 2. Slight fullness in the right renal collecting system may be related to relative obstruction of the distal ureter by the displaced hip implant. Chest CT 07/14/19 00:00 IMPRESSION: 1. Consolidation in the right lower lobe is presumably pneumonia. Underlying mass is not excluded, however. At least 2 other upper lobe nodules as described. 2. Cardiomegaly and trace pleural fluid. IMPRESSION: 1. Pelvic findings as above. Lytic expansion in the right hemipelvis with displacement of the arthroplasty into the superior aspect intrapelvic. This pathologic fracture/dislocation could be related to underlying malignancy depending on presentation. 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 2. Slight fullness in the right renal collecting system may be related to relative obstruction of the distal ureter by the displaced hip implant. Assessment and Plan - Diagnosis (1) Pseudomonal bacteremia Is this a current diagnosis for this admission?: Yes Plan: Suspected secondary to UTI. Continue levofloxacin. Check repeat blood cultures to ensure clearing of infection. ID consulted regarding duration of therapy and presence of bilateral hip prostheses. (2) Lytic lesions of the pelvis Is this a current diagnosis for this admission?: Yes Plan: Possibility that this could be secondary to malignancy versus Paget's disease. Patient has no known active malignancy. PSA was wnl. Currently being worked up for multiple myeloma. May consider bone biopsy for results of MM work-up. Pain control. (3) Intractable leg pain Is this a current diagnosis for this admission?: Yes Plan: CT revealed lytic lesions of the pelvis as well as prosthesis from bilateral hip replacements and severe protrusion of the right acetabulum. Orthopedics has evaluated patient and recommends that surgery is highly unlikely to restore ambulation and that surgery will not be pursued at this time at this facility. Discussed with Dr. Aquino and he states that patient does not need any urgent surgery and if patient wants to undergo surgical reconstruction, should be visited at other tertiary facility due to technical limitations here. Pain control with pain meds. (4) UTI (urinary tract infection) Qualifiers: Urinary tract infection type: catheter-associated UTI Indwelling urinary catheter type: indwelling urethral catheter Encounter type: initial encounter Qualified Code(s): T83.511A - Infection and inflammatory reaction due to indwelling urethral catheter, initial encounter; N39.0 - Urinary tract infection, site not specified Is this a current diagnosis for this admission?: Yes Plan: Continue Levaquin (5) RLL pneumonia Is this a current diagnosis for this admission?: Yes Plan: I have reviewed chest CT imaging myself and actually do not see any clear significant consolidation in the right lung. There is mild interstitial prominence in the right lung base and minimal pleural effusion but no clear consolidation noted. I do not believe patient has a pneumonia. (6) Acute renal failure superimposed on stage 4 chronic kidney disease Qualifiers: Acute renal failure type: with acute tubular necrosis Qualified Code(s): N17.0 - Acute kidney failure with tubular necrosis; N18.4 - Chronic kidney disease, stage 4 (severe) Is this a current diagnosis for this admission?: Yes Plan: Nephrology following. Avoid nephrotoxic meds. Creatinine seems to be back at baseline. Continue sodium bicarbonate. Anemia of chronic kidney disease also noted based of interpretation of iron studies. Will benefit from EPO in the long run. (7) Hypocalcemia Is this a current diagnosis for this admission?: Yes Plan: Likely secondary to CKD. Check vitamin D 25. Intact PTH expectedly high. Calcium supplements. Will start on calcitriol tomorrow as well. - Time Time Spent with patient: 15-24 minutes
[2019-07-17] MEDS: CALCIUM CARBONATE 600 MG TABLET PO SCH ×2 (16:25→18:39)
[2019-07-17] MEDS: CARVEDILOL 6.25 MG TABLET PO SCH ×2 (16:25→21:31)
--- NOTE | 2019-07-17 16:32 | PDOC PROGRESS REPORT ---
Subjective Progress Note for:: 07/17/19 Subjective:: Patient was seen sitting up in his bed at the time of examination. He was not complaining of any chest pain or SOB. He is putting out good urine. He denies any s/s of uremia and currently has a good appetite. Reason For Visit: GENERAL WEAKNESS, ACUTE KIDNEY INJURY SUPERIMPOSED Physical Exam Vital Signs: Temp Pulse Resp BP Pulse Ox 98.1 F 109 H 17 105/59 L 98 07/17/19 11:14 07/17/19 11:14 07/17/19 11:14 07/17/19 11:14 07/17/19 11:14 Intake & Output 07/16/19 07/17/19 07/18/19 06:59 06:59 06:59 Intake Total 4609 920 1781 Output Total 1950 1900 450 Balance 2659 -980 1331 Weight 96.6 kg 102.5 kg General appearance: PRESENT: no acute distress, well-developed, well-nourished Mouth exam: PRESENT: moist, neck supple Respiratory exam: PRESENT: crackles - -bases of the lungs. ABSENT: clear to auscultation moustapha, rales, rhonchi, wheezes Cardiovascular exam: PRESENT: +S1, +S2 GI/Abdominal exam: PRESENT: normal bowel sounds, soft. ABSENT: organomegaly Extremities exam: PRESENT: pedal edema, +1 edema. ABSENT: tenderness, +2 edema Musculoskeletal exam: PRESENT: normal inspection. ABSENT: tenderness Neurological exam: PRESENT: alert, awake, oriented to person, oriented to place, oriented to time, oriented to situation Psychiatric exam: PRESENT: appropriate affect, normal mood Skin exam: PRESENT: dry, intact, warm Results Laboratory Results: 07/17/19 05:49 07/17/19 05:49 07/14/19 07/17/19 07/17/19 11:25 05:49 05:49 WBC 7.0 RBC 2.82 L Hgb 8.5 L Hct 24.8 L MCV 88 MCH 30.1 MCHC 34.2 RDW 15.8 H Plt Count 205 Retic Count (auto) 1.42 Sodium 137.9 Potassium 4.5 Chloride 114 H Carbon Dioxide 17 L Anion Gap 7 BUN 60 H Creatinine 3.92 H Est GFR ( Amer) 18 L Glucose 94 Calcium 7.3 L Phosphorus 4.5 Iron 48.0 L TIBC 140 L % Saturation 34 Ferritin 327.00 Total Bilirubin 0.3 AST 18 Alkaline Phosphatase 107 Total Protein 5.7 L 5.7 L Albumin 2.4 L Vitamin B12 783.0 Folate 9.71 PTH Intact 07/17/19 05:49 WBC RBC Hgb Hct MCV MCH MCHC RDW Plt Count Retic Count (auto) Sodium Potassium Chloride Carbon Dioxide Anion Gap BUN Creatinine Est GFR ( Amer) Glucose Calcium Phosphorus Iron TIBC % Saturation Ferritin Total Bilirubin AST Alkaline Phosphatase Total Protein Albumin Vitamin B12 Folate PTH Intact 145.1 H 07/13/19 17:30 Sorenson Catheter Urine Culture - Final Escherichia Coli Pseudomonas Aeruginosa Impressions: Chest X-Ray 07/13/19 16:50 IMPRESSION: 1. Examination is limited due to low lung volumes and patient positioning. Parenchymal opacity is suggested at the right lung base may represent pneumonia. 2. The left apical nodule appears slightly larger in size. Hip/Pelvis X-Ray 07/13/19 16:51 IMPRESSION: 1. Since the previous examination dated 12/21/2016, pathologic fracture involving the right ischium with fairly large extensive lucent lesion. Stable multiple lytic lesions in the symphysis pubis bilaterally. Differential diagnosis again includes metastatic disease, multiple myeloma. 2. 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 The lucent lesion in the pelvis surrounding the right hip replacement appears larger than on the prior examination which may be on the basis of interval progression of disease. Abdomen/Pelvis CT 07/14/19 00:00 IMPRESSION: 1. Consolidation in the right lower lobe is presumably pneumonia. Underlying mass is not excluded, however. At least 2 other upper lobe nodules as described. 2. Cardiomegaly and trace pleural fluid. IMPRESSION: 1. Pelvic findings as above. Lytic expansion in the right hemipelvis with displacement of the arthroplasty into the superior aspect intrapelvic. This pathologic fracture/dislocation could be related to underlying malignancy depending on presentation. 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 2. Slight fullness in the right renal collecting system may be related to relative obstruction of the distal ureter by the displaced hip implant. Chest CT 07/14/19 00:00 IMPRESSION: 1. Consolidation in the right lower lobe is presumably pneumonia. Underlying mass is not excluded, however. At least 2 other upper lobe nodules as described. 2. Cardiomegaly and trace pleural fluid. IMPRESSION: 1. Pelvic findings as above. Lytic expansion in the right hemipelvis with displacement of the arthroplasty into the superior aspect intrapelvic. This pathologic fracture/dislocation could be related to underlying malignancy depending on presentation. 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 2. Slight fullness in the right renal collecting system may be related to relative obstruction of the distal ureter by the displaced hip implant. Assessment & Plan - Diagnosis (1) NICKI (acute kidney injury) Plan: nonoliguric, looks to be stable and near baseline. At this time adjusting levofloxacin to 250mg qd. Continue on current medications. Will reassess tomorrow. (2) Acidosis, metabolic Is this a current diagnosis for this admission?: Yes Plan: recently started on sodium bicarb yesterday. Will follow up tomorrow to see if it needs to be increased. (3) Community acquired pneumonia Qualifiers: Laterality: right Lung location: lower lobe of lung Qualified Code(s): J18.9 - Pneumonia, unspecified organism Is this a current diagnosis for this admission?: Yes Plan: adjusting levofloxacin to 250mg qd. (4) Pseudomonal bacteremia Is this a current diagnosis for this admission?: Yes Plan: adjusting levofloxacin to 250mg qd. (5) UTI (urinary tract infection) Qualifiers: Urinary tract infection type: catheter-associated UTI Indwelling urinary catheter type: indwelling urethral catheter Encounter type: initial encounter Qualified Code(s): T83.511A - Infection and inflammatory reaction due to indwelling urethral catheter, initial encounter; N39.0 - Urinary tract infection, site not specified Is this a current diagnosis for this admission?: Yes Plan: adjusting levofloxacin to 250mg qd. (6) Anemia Qualifiers: Anemia type: due to chronic kidney disease Chronic kidney disease stage: stage 5, not on chronic dialysis Qualified Code(s): N18.5 - Chronic kidney disease, stage 5; D63.1 - Anemia in chronic kidney disease Plan: per hematology (7) Hypocalcemia Is this a current diagnosis for this admission?: Yes Plan: corrected calcium 8.5 (8) Lytic lesions of the pelvis Is this a current diagnosis for this admission?: Yes Plan: per heme-onc
[2019-07-17] MEDS ORDERED: LEVOFLOXACIN 250 MG/D5W RTU 250 MG/50 ML RTUPB IV SCH (18:00)
--- NOTE | 2019-07-17 18:54 | Progress Note ---
Provider Note Provider Note: [facility] ID Telephone Advice Consultation Chart reviewed. Patient is a 79-year-old man with history of prostate cancer 4 years ago, bilateral hip prosthesis, chronic indwelling urinary catheter due to incontinence since 4 months ago, exchanged every month by a nurse at home. Patient presented to the ED due to worsening weakness and intractable right hip pain. In the ED he was found with RLL pneumonia, catheter associated UTI. He received azithromycin and ceftriaxone. His blood cultures came back positive for Pseudomonas. Urine culture positive for E coli and Pseudomonas. CXR suggestive of RLL pneumonia. CT of abdomen and pelvis with lytic expansion of the pelvis, displacement of arthroplasty with possible obstruction of distal ureter. He was evaluated by oncology awaiting MM work up. Orthopedic also e valuated the patient, would require difficult surgery to be performed at a tertiary center. Nephrology also evaluated the patient and recommended removal of urinary catheter and avoid nephrotoxic agents. Patient currently on levofloxacin renally adjusted due to NICKI on CKD. ID consulted for Pseudomonas bacteremia in the setting of indwelling Sorenson catheter and hip prosthesis. PMH: Afib HTN CKD Prostate Ca Anemia PSH: Hip arthroplasty Allergies: Iodinated Contrast Media [Iodinated Contrast- Oral and IV Dye] Allergy (Unknown, Verified 12/21/16 13:18) Mediations: Apixaban [Eliquis 5 mg Tablet] 5 mg PO BID 07/13/19 Loperamide HCl [Imodium 2 mg Capsule] 2 mg PO TIDP PRN 07/13/19 Oxycodone HCl/Acetaminophen [Percocet 2.5-325 Mg Tablet] 1 each PO Q12HP PRN 07/13/19 Ropinirole HCl [Requip 2 Mg Tablet] 2 mg PO QHS 07/13/19 Carvedilol [Coreg 6.25 mg Tablet] 6.25 mg PO Q12 07/17/19 Dextroamphetamine/Amphetamine [Adderall 10 mg Tablet] 20 mg PO BID 07/17/19 Ferrous Sulfate [Feosol 325 mg Tablet] 325 mg PO DAILY 07/17/19 Tamsulosin HCl [Flomax 0.4 mg Cap.sr] 0.4 mg PO DAILY 07/17/19 Tamsulosin HCl [Flomax] 0.4 mg PO DAILY 07/17/19 Vital Signs: Temp Pulse Resp BP Pulse Ox 98.3 F 128 H 19 105/63 98 07/17/19 16:24 07/17/19 16:24 07/17/19 16:24 07/17/19 16:24 07/17/19 16:24 Intake & Output 07/16/19 07/17/19 07/18/19 06:59 06:59 06:59 Intake Total 4607 920 1781 Output Total 4132 9460 450 Balance 2659 -980 1331 Weight 96.6 kg 102.5 kg Weight/Height Weight 102.5 kg Height 5 ft 11 in Laboratories: 07/17/19 05:49 07/17/19 05:49 MCV 88 fl (80-97) 07/17/19 05:49 MCH 30.1 pg (27.0-33.4) 07/17/19 05:49 MCHC 34.2 g/dL (32.0-36.0) 07/17/19 05:49 RDW 15.8 % (11.5-14.0) H 07/17/19 05:49 Seg Neutrophils % 67.5 % (42-78) 07/13/19 16:00 Retic Count (auto) 1.42 % (0.66-2.85) 07/17/19 05:49 VBG pH 7.27 (7.30-7.42) L 07/14/19 04:46 VBG pCO2 35.6 mmHg (35-63) 07/14/19 04:46 VBG HCO3 15.8 mmol/L (20-32) L 07/14/19 04:46 VBG Base Excess -10.2 mmol/L 07/14/19 04:46 Chloride 114 mmol/L (98-107) H 07/17/19 05:49 Carbon Dioxide 17 mmol/L (22-30) L 07/17/19 05:49 Anion Gap 7 (5-19) 07/17/19 05:49 Est GFR ( Amer) 18 (>60) L 07/17/19 05:49 Glucose 94 mg/dL (75-110) 07/17/19 05:49 Lactic Acid 1.2 mmol/L (0.7-2.1) 07/14/19 04:46 Calcium 7.3 mg/dL (8.4-10.2) L 07/17/19 05:49 Phosphorus 4.5 mg/dL (2.5-4.5) 07/17/19 05:49 Magnesium 1.5 mg/dL (1.6-2.3) L 07/16/19 05:49 Iron 48.0 ug/dL (49-181) L 07/17/19 05:49 TIBC 140 ug/dL (250-450) L 07/17/19 05:49 % Saturation 34 % 07/17/19 05:49 Ferritin 327.00 ng/mL (17.9-464.0) 07/17/19 05:49 Total Bilirubin 0.3 mg/dL (0.2-1.3) 07/17/19 05:49 AST 18 U/L (17-59) 07/17/19 05:49 Alkaline Phosphatase 107 U/L (38-126) 07/17/19 05:49 Total Protein 5.7 g/dL (6.3-8.2) L 07/17/19 05:49 Albumin 2.4 g/dL (3.5-5.0) L 07/17/19 05:49 Prostate Specific Ag 0.700 ng/mL (<4.00) 07/14/19 11:25 Vitamin B12 783.0 pg/mL (239-931) 07/17/19 05:49 Folate 9.71 ng/mL (>2.76) 07/17/19 05:49 PTH Intact 145.1 pg/mL (10.0-65.0) H 07/17/19 05:49 Urine Color YELLOW 07/13/19 17:30 Urine Appearance SLIGHTLY-CLOUDY 07/13/19 17:30 Urine pH 5.0 (5.0-9.0) 07/13/19 17:30 Ur Specific Esko 1.010 07/13/19 17:30 Urine Protein 100 mg/dL (NEGATIVE) H 07/13/19 17:30 Urine Glucose (UA) NEGATIVE mg/dL (NEGATIVE) 07/13/19 17:30 Urine Ketones NEGATIVE mg/dL (NEGATIVE) 07/13/19 17:30 Urine Blood MODERATE (NEGATIVE) H 07/13/19 17:30 Urine Nitrite NEGATIVE (NEGATIVE) 07/13/19 17:30 Ur Leukocyte Esterase LARGE (NEGATIVE) H 07/13/19 17:30 Urine WBC (Auto) 54 /HPF 07/13/19 17:30 Urine RBC (Auto) 25 /HPF 07/13/19 17:30 07/13/19 17:30 Sorenson Catheter Urine Culture - Final Escherichia Coli Pseudomonas Aeruginosa Microbiology: Blood cultures: 07/12 Pseudomonas aeruginosa 07/16 In process Urine Culture: 07/12 E coli, Pseudomonas aeruginosa Radiology: Chest X-Ray 07/13/19 16:50 IMPRESSION: 1. Examination is limited due to low lung volumes and patient positioning. Parenchymal opacity is suggested at the right lung base may represent pneumonia. 2. The left apical nodule appears slightly larger in size. Hip/Pelvis X-Ray 07/13/19 16:51 IMPRESSION: 1. Since the previous examination dated 12/21/2016, pathologic fracture involving the right ischium with fairly large extensive lucent lesion. Stable multiple lytic lesions in the symphysis pubis bilaterally. Differential diagnosis again includes metastatic disease, multiple myeloma. 2. 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 The lucent lesion in the pelvis surrounding the right hip replacement appears larger than on the prior examination which may be on the basis of interval progression of disease. Abdomen/Pelvis CT 07/14/19 00:00 IMPRESSION: 1. Consolidation in the right lower lobe is presumably pneumonia. Underlying mass is not excluded, however. At least 2 other upper lobe nodules as described. 2. Cardiomegaly and trace pleural fluid. IMPRESSION: 1. Pelvic findings as above. Lytic expansion in the right hemipelvis with displacement of the arthroplasty into the superior aspect intrapelvic. This pathologic fracture/dislocation could be related to underlying malignancy depending on presentation. 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 2. Slight fullness in the right renal collecting system may be related to relative obstruction of the distal ureter by the displaced hip implant. Assessment and Recommendations: Patient evaluated due to Pseudomonas bacteremia in the setting of CAUTI and right hip arthroplasty. He has a chronic indwelling catheter that is exchanged every month. It is unclear when was the last time that it as exchanged, but will recommend to exchange during this admission. Blood cultures positive for Pseudomonas and urine culture as well. Levofloxacin has been renally adjusted. Ortho already on board. If there is no concern for prosthetic joint infection, considering that the probable source is the urinary tract, a total of 14 days of levofloxacin would be recommended. If there is concern for prosthetic joint infection, a longer course is needed. So far per imaging, it doesn't seem to be involved. Avoid any MVI, trivalent cations while on levofloxacin as they may affect the absorption. Monitor for CDI if diarrhea. Monitor QTc. Please call if questions or updates. Jeny Mckeon MD [facility] [phone]
[2019-07-17] MEDS: ROPINIROLE HCL 2 MG TABLET PO SCH (21:24)
[2019-07-18] MEDS: OXYCODONE-ACETAMINOPHEN 5-325 MG TABLET PO PRN ×2 (05:25→21:33)
[2019-07-18 06:13] LABS: ALBUMIN 2.2 g/dL (3.5-5.0); ALKALINE PHOSPHATASE 95 U/L (38-126); ANION GAP 8 (5-19); ASPARTATE AMINO TRANSFERASE 16 U/L (17-59); BILIRUBIN,DIRECT 0.1 mg/dL (0.0-0.4); BILIRUBIN,TOTAL 0.3 mg/dL (0.2-1.3); BLOOD UREA NITROGEN 56 mg/dL (7-20); CALCIUM 7.1 mg/dL (8.4-10.2); CARBON DIOXIDE 19 mmol/L (22-30); CHLORIDE 110 mmol/L (98-107); GLUCOSE 101 mg/dL (75-110); TOTAL PROTEIN 5.4 g/dL (6.3-8.2)
[2019-07-18] MEDS: FAMOTIDINE 20 MG TABLET PO SCH (09:57)
[2019-07-18] MEDS: CARVEDILOL 6.25 MG TABLET PO SCH ×2 (09:57→21:34)
[2019-07-18] MEDS: CALCIUM CARBONATE 600 MG TABLET PO SCH ×3 (09:57→17:41)
[2019-07-18] MEDS: TAMSULOSIN HCL 0.4 MG CAP.SR.24H PO SCH (09:57)
[2019-07-18] MEDS: SODIUM BICARBONATE 650 MG TABLET PO SCH ×2 (09:58→21:34)
[2019-07-18] MEDS: APIXABAN 2.5 MG TABLET PO SCH ×2 (09:58→17:42)
[2019-07-18] MEDS: DOCUSATE SODIUM 100 MG CAPSULE PO SCH ×2 (09:58→17:42)
[2019-07-18] MEDS: FERROUS SULFATE 325 MG TABLET PO SCH (09:58)
[2019-07-18] MEDS: POTASSIUM CHLORIDE 10 MEQ TABLET.ER PO SCH (09:59)
--- NOTE | 2019-07-18 10:09 | PDOC PROGRESS REPORT ---
Subjective Progress Note for:: 07/18/19 Subjective:: Reviewed notes, pt has not yet ambulated. Reviewed myeloma w/u, all negative. Thus both myeloma and prostate ca are unlikely. Reason For Visit: GENERAL WEAKNESS, ACUTE KIDNEY INJURY SUPERIMPOSED Physical Exam Vital Signs: Temp Pulse Resp BP Pulse Ox 97.7 F 99 16 115/72 99 07/18/19 07:36 07/18/19 07:36 07/18/19 07:36 07/18/19 07:36 07/18/19 07:36 Intake & Output 07/17/19 07/18/19 07/19/19 06:59 06:59 06:59 Intake Total 920 2596 Output Total 1900 2160 Balance -980 436 Weight 102.5 kg 100.4 kg Results Laboratory Results: 07/17/19 05:49 07/18/19 05:22 07/14/19 07/18/19 11:25 05:22 Sodium 136.7 L Potassium 5.0 Chloride 110 H Carbon Dioxide 19 L Anion Gap 8 BUN 56 H Creatinine 3.86 H Est GFR ( Amer) 18 L Glucose 101 Calcium 7.1 L Total Bilirubin 0.3 AST 16 L Alkaline Phosphatase 95 Total Protein 5.7 L 5.4 L Albumin 2.2 L 07/13/19 17:30 Sorenson Catheter Urine Culture - Final Escherichia Coli Pseudomonas Aeruginosa Impressions: Chest X-Ray 07/13/19 16:50 IMPRESSION: 1. Examination is limited due to low lung volumes and patient positioning. Parenchymal opacity is suggested at the right lung base may represent pneumonia. 2. The left apical nodule appears slightly larger in size. Hip/Pelvis X-Ray 07/13/19 16:51 IMPRESSION: 1. Since the previous examination dated 12/21/2016, pathologic fracture involving the right ischium with fairly large extensive lucent lesion. Stable multiple lytic lesions in the symphysis pubis bilaterally. Differential diagnosis again includes metastatic disease, multiple myeloma. 2. 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 The lucent lesion in the pelvis surrounding the right hip replacement appears larger than on the prior examination which may be on the basis of interval progression of disease. Abdomen/Pelvis CT 07/14/19 00:00 IMPRESSION: 1. Consolidation in the right lower lobe is presumably pneumonia. Underlying mass is not excluded, however. At least 2 other upper lobe nodules as described. 2. Cardiomegaly and trace pleural fluid. IMPRESSION: 1. Pelvic findings as above. Lytic expansion in the right hemipelvis with displacement of the arthroplasty into the superior aspect intrapelvic. This pathologic fracture/dislocation could be related to underlying malignancy depending on presentation. 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 2. Slight fullness in the right renal collecting system may be related to relative obstruction of the distal ureter by the displaced hip implant. Chest CT 07/14/19 00:00 IMPRESSION: 1. Consolidation in the right lower lobe is presumably pneumonia. Underlying mass is not excluded, however. At least 2 other upper lobe nodules as d escribed. 2. Cardiomegaly and trace pleural fluid. IMPRESSION: 1. Pelvic findings as above. Lytic expansion in the right hemipelvis with displacement of the arthroplasty into the superior aspect intrapelvic. This pathologic fracture/dislocation could be related to underlying malignancy depending on presentation. 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 2. Slight fullness in the right renal collecting system may be related to relative obstruction of the distal ureter by the displaced hip implant. Assessment & Plan - Diagnosis (1) Secondary malignant neoplasm of bone Is this a current diagnosis for this admission?: Yes Plan: It looks to be 2nd to paget's disease as prostate ca and myeloma w/u thus far negative. Unfortunately, don't know if any other intervention possible for pt to become ambulatory again. If he is bed bound and total care, he will not have much quality of life and probably will have less longevity as well. In that case hospice would be appropriate. We will follow peripherally now as it appears cancer cause has been ruled as much less likely. - Time Time Spent with patient: 15-24 minutes
--- NOTE | 2019-07-18 11:29 | PDOC PROGRESS REPORT ---
Subjective Reason For Visit: GENERAL WEAKNESS, ACUTE KIDNEY INJURY SUPERIMPOSED Physical Exam Vital Signs: Temp Pulse Resp BP Pulse Ox 97.7 F 99 16 115/72 99 07/18/19 07:36 07/18/19 07:36 07/18/19 07:36 07/18/19 07:36 07/18/19 07:36 Intake & Output 07/17/19 07/18/19 07/19/19 06:59 06:59 06:59 Intake Total 920 2596 Output Total 1900 2160 Balance -980 436 Weight 102.5 kg 100.4 kg Results Laboratory Results: 07/17/19 05:49 07/18/19 05:22 07/18/19 05:22 Sodium 136.7 L Potassium 5.0 Chloride 110 H Carbon Dioxide 19 L Anion Gap 8 BUN 56 H Creatinine 3.86 H Est GFR ( Amer) 18 L Glucose 101 Calcium 7.1 L Total Bilirubin 0.3 AST 16 L Alkaline Phosphatase 95 Total Protein 5.4 L Albumin 2.2 L 07/13/19 17:30 Sorenson Catheter Urine Culture - Final Escherichia Coli Pseudomonas Aeruginosa Impressions: Chest X-Ray 07/13/19 16:50 IMPRESSION: 1. Examination is limited due to low lung volumes and patient positioning. Parenchymal opacity is suggested at the right lung base may represent pneumonia. 2. The left apical nodule appears slightly larger in size. Hip/Pelvis X-Ray 07/13/19 16:51 IMPRESSION: 1. Since the previous examination dated 12/21/2016, pathologic fracture involving the right ischium with fairly large extensive lucent lesion. Stable multiple lytic lesions in the symphysis pubis bilaterally. Differential diagnosis again includes metastatic disease, multiple myeloma. 2. 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 The lucent lesion in the pelvis surrounding the right hip replacement appears larger than on the prior examination which may be on the basis of interval progression of disease. Abdomen/Pelvis CT 07/14/19 00:00 IMPRESSION: 1. Consolidation in the right lower lobe is presumably pneumonia. Underlying mass is not excluded, however. At least 2 other upper lobe nodules as described. 2. Cardiomegaly and trace pleural fluid. IMPRESSION: 1. Pelvic findings as above. Lytic expansion in the right hemipelvis with displacement of the arthroplasty into the superior aspect intrapelvic. This pathologic fracture/dislocation could be related to underlying malignancy depending on presentation. 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 2. Slight fullness in the right renal collecting system may be related to relative obstruction of the distal ureter by the displaced hip implant. Chest CT 07/14/19 00:00 IMPRESSION: 1. Consolidation in the right lower lobe is presumably pneumonia. Underlying mass is not excluded, however. At least 2 other upper lobe nodules as described. 2. Cardiomegaly and trace pleural fluid. IMPRESSION: 1. Pelvic findings as above. Lytic expansion in the right hemipelvis with displacement of the arthroplasty into the superior aspect intrapelvic. This pathologic fracture/dislocation could be related to underlying malignancy depending on presentation. 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 2. Slight fullness in the right renal collecting system may be related to relative obstruction of the distal ureter by the displaced hip implant. Assessment and Plan - Diagnosis (1) Pseudomonal bacteremia Is this a current diagnosis for this admission?: Yes Plan: Suspected secondary to UTI. Continue levofloxacin changed to p.o. today. Infectious diseases recommending 14-day therapy. Repeat blood cultures negative so far. 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 Patient has no known active malignancy and so far malignancy work-up with PSA and work-up for multiple myeloma as well as bravo scan have been negative. Pain control. (3) Intractable leg pain Is this a current diagnosis for this admission?: Yes Plan: CT revealed lytic lesions of the pelvis as well as prosthesis from bilateral hip replacements and severe protrusion of the right acetabulum. Orthopedics has evaluated patient and recommends that surgery is highly unlikely to restore ambulation and that surgery will not be pursued at this time at this facility. Discussed with Dr. Aquino and he states that patient does not need any urgent surgery and if patient wants to undergo surgical reconstruction, should be visited at other tertiary facility due to technical limitations here. Pain control with pain meds. (4) UTI (urinary tract infection) Qualifiers: Urinary tract infection type: catheter-associated UTI Indwelling urinary catheter type: indwelling urethral catheter Encounter type: initial encounter Qualified Code(s): T83.511A - Infection and inflammatory reaction due to indwelling urethral catheter, initial encounter; N39.0 - Urinary tract infection, site not specified Is this a current diagnosis for this admission?: Yes Plan: Continue Levaquin (5) Acute renal failure superimposed on stage 4 chronic kidney disease Qualifiers: Acute renal failure type: with acute tubular necrosis Qualified Code(s): N17.0 - Acute kidney failure with tubular necrosis; N18.4 - Chronic kidney disease, stage 4 (severe) Is this a current diagnosis for this admission?: Yes Plan: Nephrology following. Avoid nephrotoxic meds. Creatinine seems to be back at baseline. Continue sodium bicarbonate given metabolic acidosis from CKD. Anemia of chronic kidney disease also noted based of interpretation of iron studies. Will benefit from EPO in the long run. (6) Hypocalcemia Is this a current diagnosis for this admission?: Yes Plan: Likely secondary to CKD. Normal vitamin D 25. Intact PTH expectedly high. Calcium supplements. Will start on calcitriol as well. (7) RLL pneumonia Is this a current diagnosis for this admission?: Yes Plan: I have reviewed chest CT imaging myself and actually do not see any clear significant consolidation in the right lung. There is mild interstitial prominence in the right lung base and minimal pleural effusion but no clear consolidation noted. I do not believe patient has a pneumonia. - Time Time Spent with patient: Less than 15 minutes
--- NOTE | 2019-07-18 11:52 | PDOC PROGRESS REPORT ---
Subjective Progress Note for:: 07/18/19 Subjective:: Patient was seen sitting up in his bed at the time of examination. At the time he was wanting to sit on the edge of his bed. Due to being a fall risk he is not allowed. Patient denies chest pain, SOB, n/v/d/c. Continues to have good urine output. Denies s/s of uremia. Reason For Visit: GENERAL WEAKNESS, ACUTE KIDNEY INJURY SUPERIMPOSED Physical Exam Vital Signs: Temp Pulse Resp BP Pulse Ox 97.7 F 99 16 115/72 99 07/18/19 07:36 07/18/19 07:36 07/18/19 07:36 07/18/19 07:36 07/18/19 07:36 Intake & Output 07/17/19 07/18/19 07/19/19 06:59 06:59 06:59 Intake Total 920 2596 Output Total 1900 2160 Balance -980 436 Weight 102.5 kg 100.4 kg General appearance: PRESENT: no acute distress, well-developed, well-nourished Mouth exam: PRESENT: moist, neck supple Respiratory exam: PRESENT: crackles, rhonchi. ABSENT: accessory muscle use, clear to auscultation moustapha, rales Cardiovascular exam: PRESENT: +S1, +S2 GI/Abdominal exam: PRESENT: normal bowel sounds, soft. ABSENT: organomegaly Extremities exam: ABSENT: pedal edema, +1 edema, +2 edema Musculoskeletal exam: PRESENT: deformity, dislocation. ABSENT: full ROM, normal inspection, tenderness Neurological exam: PRESENT: alert, awake, oriented to person, oriented to place, oriented to time, oriented to situation Psychiatric exam: PRESENT: appropriate affect, normal mood Skin exam: PRESENT: dry, intact, warm. ABSENT: cyanosis Results Laboratory Results: 07/17/19 05:49 07/18/19 05:22 07/18/19 05:22 Sodium 136.7 L Potassium 5.0 Chloride 110 H Carbon Dioxide 19 L Anion Gap 8 BUN 56 H Creatinine 3.86 H Est GFR ( Amer) 18 L Glucose 101 Calcium 7.1 L Total Bilirubin 0.3 AST 16 L Alkaline Phosphatase 95 Total Protein 5.4 L Albumin 2.2 L 07/13/19 17:30 Sorenson Catheter Urine Culture - Final Escherichia Coli Pseudomonas Aeruginosa Impressions: Chest X-Ray 07/13/19 16:50 IMPRESSION: 1. Examination is limited due to low lung volumes and patient positioning. Parenchymal opacity is suggested at the right lung base may represent pneumonia. 2. The left apical nodule appears slightly larger in size. Hip/Pelvis X-Ray 07/13/19 16:51 IMPRESSION: 1. Since the previous examination dated 12/21/2016, pathologic fracture involving the right ischium with fairly large extensive lucent lesion. Stable multiple lytic lesions in the symphysis pubis bilaterally. Differential diagnosis again includes metastatic disease, multiple myeloma. 2. 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 The lucent lesion in the pelvis surrounding the right hip replacement appears larger than on the prior examination which may be on the basis of interval progression of disease. Abdomen/Pelvis CT 07/14/19 00:00 IMPRESSION: 1. Consolidation in the right lower lobe is presumably pneumonia. Underlying mass is not excluded, however. At least 2 other upper lobe nodules as described. 2. Cardiomegaly and trace pleural fluid. IMPRESSION: 1. Pelvic findings as above. Lytic expansion in the right hemipelvis with displacement of the arthroplasty into the superior aspect intrapelvic. This pathologic fracture/dislocation could be related to underlying malignancy depending on presentation. 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 2. Slight fullness in the right renal collecting system may be related to relative obstruction of the distal ureter by the displaced hip implant. Chest CT 07/14/19 00:00 IMPRESSION: 1. Consolidation in the right lower lobe is presumably pneumonia. Underlying mass is not excluded, however. At least 2 other upper lobe nodules as de scribed. 2. Cardiomegaly and trace pleural fluid. IMPRESSION: 1. Pelvic findings as above. Lytic expansion in the right hemipelvis with displacement of the arthroplasty into the superior aspect intrapelvic. This pathologic fracture/dislocation could be related to underlying malignancy depending on presentation. 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 2. Slight fullness in the right renal collecting system may be related to relative obstruction of the distal ureter by the displaced hip implant. Assessment & Plan - Diagnosis (1) NICKI (acute kidney injury) Plan: looks to be almost at baseline or possibly reaching a new baseline with all the recent infections. Advised the need to follow with a care team assistant as outpatient due to the CKD4/5. (2) Acidosis, metabolic Is this a current diagnosis for this admission?: Yes Plan: improving on sodium bicarb (3) Community acquired pneumonia Qualifiers: Laterality: right Lung location: lower lobe of lung Qualified Code(s): J18.9 - Pneumonia, unspecified organism Is this a current diagnosis for this admission?: Yes Plan: on levofloxacin to 250mg qd. (4) Pseudomonal bacteremia Is this a current diagnosis for this admission?: Yes Plan: on levofloxacin 250mg qd. (5) UTI (urinary tract infection) Qualifiers: Urinary tract infection type: catheter-associated UTI Indwelling urinary catheter type: indwelling urethral catheter Encounter type: initial encounter Qualified Code(s): T83.511A - Infection and inflammatory reaction due to indwel ling urethral catheter, initial encounter; N39.0 - Urinary tract infection, site not specified Is this a current diagnosis for this admission?: Yes Plan: on levofloxacin 250mg qd. (6) Anemia Qualifiers: Anemia type: due to chronic kidney disease Chronic kidney disease stage: stage 5, not on chronic dialysis Qualified Code(s): N18.5 - Chronic kidney disease, stage 5; D63.1 - Anemia in chronic kidney disease Plan: patient looks like they would benefit from retacrit. Currently being followed by heme-onc (7) Hypocalcemia Is this a current diagnosis for this admission?: Yes Plan: getting ionzed calcium, corrected calcium is wnl. (8) Lytic lesions of the pelvis Is this a current diagnosis for this admission?: Yes (9) Renal osteodystrophy Plan: PTH is with in accepted range for someone with his current stage of kidney disease. Will follow up with ionized calcium
[2019-07-18] MEDS: LEVOFLOXACIN 500 MG TABLET PO SCH (13:26)
[2019-07-18] MEDS: CALCITRIOL 0.25 MCG CAPSULE PO SCH (13:28)
[2019-07-18] MEDS ORDERED: LEVOFLOXACIN 250 MG TABLET PO SCH ×2 (18:00)
[2019-07-18] MEDS: ROPINIROLE HCL 2 MG TABLET PO SCH (21:34)
[2019-07-19 06:50] LABS: ALBUMIN 2.1 g/dL (3.5-5.0); ALKALINE PHOSPHATASE 91 U/L (38-126); ANION GAP 7 (5-19); ASPARTATE AMINO TRANSFERASE 15 U/L (17-59); BILIRUBIN,TOTAL 0.2 mg/dL (0.2-1.3); BLOOD UREA NITROGEN 54 mg/dL (7-20); CALCIUM 7.4 mg/dL (8.4-10.2); CARBON DIOXIDE 20 mmol/L (22-30); CHLORIDE 111 mmol/L (98-107); GLUCOSE 83 mg/dL (75-110); PHOSPHORUS 4.7 mg/dL (2.5-4.5); POTASSIUM 4.9 mmol/L (3.6-5.0); TOTAL PROTEIN 5.2 g/dL (6.3-8.2)
[2019-07-19] MEDS: OXYCODONE-ACETAMINOPHEN 5-325 MG TABLET PO PRN (07:58)
[2019-07-19] MEDS: CALCITRIOL 0.25 MCG CAPSULE PO SCH (09:17)
[2019-07-19] MEDS: FAMOTIDINE 20 MG TABLET PO SCH (09:17)
[2019-07-19] MEDS: SODIUM BICARBONATE 650 MG TABLET PO SCH ×2 (09:17→21:53)
[2019-07-19] MEDS: TAMSULOSIN HCL 0.4 MG CAP.SR.24H PO SCH (09:18)
[2019-07-19] MEDS: CARVEDILOL 6.25 MG TABLET PO SCH ×2 (09:18→21:53)
[2019-07-19] MEDS: CALCIUM CARBONATE 600 MG TABLET PO SCH ×3 (09:18→17:46)
[2019-07-19] MEDS: DOCUSATE SODIUM 100 MG CAPSULE PO SCH ×2 (09:18→17:46)
[2019-07-19] MEDS: FERROUS SULFATE 325 MG TABLET PO SCH (09:18)
[2019-07-19] MEDS: APIXABAN 2.5 MG TABLET PO SCH ×2 (09:18→17:46)
--- NOTE | 2019-07-19 11:20 | PDOC PROGRESS REPORT ---
Subjective Progress Note for:: 07/19/19 Subjective:: Patient has no significant complaints today. Still having ambulatory dysfunction. Worked with physical therapy yesterday but required assistance for transfer to chair. Patient still prefers to be discharged home but he says he is on the fence about whether or not to do rehab at SNF. Have explained to him the potential need to have somebody always assisting with transfers to his wheelchair. Patient states that he understands the recommendations of the orthopedist that surgery will likely not improve ambulation and that he had discussed that with Dr. Aquino during their encounter. Reason For Visit: GENERAL WEAKNESS, ACUTE KIDNEY INJURY SUPERIMPOSED Physical Exam Vital Signs: Temp Pulse Resp BP Pulse Ox 97.7 F 95 18 101/60 96 07/19/19 00:48 07/19/19 02:00 07/19/19 00:48 07/19/19 00:48 07/19/19 00:48 Intake & Output 07/18/19 07/19/19 07/20/19 06:59 06:59 06:59 Intake Total 2596 710 Output Total 2160 1775 Balance 436 -1065 Weight 100.4 kg 100.4 kg General appearance: PRESENT: no acute distress, cooperative Neck exam: ABSENT: JVD Respiratory exam: PRESENT: unlabored. ABSENT: accessory muscle use GI/Abdominal exam: ABSENT: distended Extremities exam: PRESENT: other - 3+ edema nonpitting R>>L Musculoskeletal exam: ABSENT: ambulatory Neurological exam: PRESENT: alert, awake, oriented to person, oriented to place, oriented to time, oriented to situation Psychiatric exam: ABSENT: agitated Focused psych exam: ABSENT: pressured speech Skin exam: ABSENT: jaundice Results Laboratory Results: 07/17/19 05:49 07/19/19 06:09 07/18/19 07/19/19 13:52 06:09 Sodium 137.7 Potassium 4.9 Chloride 111 H Carbon Dioxide 20 L Anion Gap 7 BUN 54 H Creatinine 4.12 H Est GFR ( Amer) 17 L Glucose 83 Calcium 7.4 L Ionized Calcium Sonia 1.06 L Phosphorus 4.7 H Total Bilirubin 0.2 AST 15 L Alkaline Phosphatase 91 Total Protein 5.2 L Albumin 2.1 L 07/16/19 12:35 Stool - Stool - Final 07/13/19 16:35 Blood Blood Culture - Final NO GROWTH IN 5 DAYS Impressions: Chest X-Ray 07/13/19 16:50 IMPRESSION: 1. Examination is limited due to low lung volumes and patient positioning. Parenchymal opacity is suggested at the right lung base may represent pneumonia. 2. The left apical nodule appears slightly larger in size. Hip/Pelvis X-Ray 07/13/19 16:51 IMPRESSION: 1. Since the previous examination dated 12/21/2016, pathologic fra cture involving the right ischium with fairly large extensive lucent lesion. Stable multiple lytic lesions in the symphysis pubis bilaterally. Differential diagnosis again includes metastatic disease, multiple myeloma. 2. 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 The lucent lesion in the pelvis surrounding the right hip replacement appears larger than on the prior examination which may be on the basis of interval progression of disease. Abdomen/Pelvis CT 07/14/19 00:00 IMPRESSION: 1. Consolidation in the right lower lobe is presumably pneumonia. Underlying mass is not excluded, however. At least 2 other upper lobe nodules as described. 2. Cardiomegaly and trace pleural fluid. IMPRESSION: 1. Pelvic findings as above. Lytic expansion in the right hemipelvis with displacement of the arthroplasty into the superior aspect intrapelvic. This pathologic fracture/dislocation could be related to underlying malignancy depending on presentation. 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 2. Slight fullness in the right renal collecting system may be related to relative obstruction of the distal ureter by the displaced hip implant. Chest CT 07/14/19 00:00 IMPRESSION: 1. Consolidation in the right lower lobe is presumably pneumonia. Underlying mass is not excluded, however. At least 2 other upper lobe nodules as described. 2. Cardiomegaly and trace pleural fluid. IMPRESSION: 1. Pelvic findings as above. Lytic expansion in the right hemipelvis with displacement of the arthroplasty into the superior aspect intrapelvic. This pathologic fracture/dislocation could be related to underlying malignancy depending on presentation. 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 2. Slight fullness in the right renal collecting system may be related to r elative obstruction of the distal ureter by the displaced hip implant. Assessment and Plan - Diagnosis (1) Pseudomonal bacteremia Is this a current diagnosis for this admission?: Yes Plan: Suspected secondary to UTI. Continue levofloxacin p.o 500mg q48h until 07/29/2019. Infectious diseases recommending 14-day therapy. Repeat blood cultures negative so far. 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 Patient has no known active malignancy and so far malignancy work-up with PSA and work-up for multiple myeloma as well as bravo scan have been negative. Pain control. Unfortunately patient is not a candidate for bisphosphonates given his CKD stage IV. ALP seems to have normalized now. As such, I will hold off on starting calcitonin and have patient follow-up with a cutter operator. (3) Intrapelvic protrusion of right acetabulum Is this a current diagnosis for this admission?: Yes Plan: CT revealed lytic lesions of the pelvis as well as prosthesis from bilateral hip replacements and severe protrusion of the right acetabulum into pelvis. This seems to be a chronic issue and has been present since x-rays from 2017 and playing a significant role in his ambulatory dysfunction. Orthopedics has evaluated patient and recommends that surgery is highly unlikely to restore ambulation and that surgery will not be pursued at this time at this facility. I discussed with Dr. Aquino and he states that patient does not need any urgent surgery and if patient wants to undergo yet another surgical reconstruction, it should be visited at other tertiary facility due to technical limitations here. I have discussed these issues with patient, and patient has decided to see another Orthopedist upon discharge for a second opinion. He understands the likelihood of the futility of a repeat surgery and states that his prior right hip surgery did not really help either. Pain control with pain meds. Patient will continue to work with physical therapy every day to see if he can reach a point where he will be safe for discharge home with safe transitions from bed to his wheelchair. Discharge planning also to see patient regarding potential rehab at SNF. (4) UTI (urinary tract infection) Qualifiers: Urinary tract infection type: catheter-associated UTI Indwelling urinary catheter type: indwelling urethral catheter Encounter type: initial encounter Qualified Code(s): T83.511A - Infection and inflammatory reaction due to indwelling urethral catheter, initial encounter; N39.0 - Urinary tract infection, site not specified Is this a current diagnosis for this admission?: Yes Plan: Continue Levaquin (5) Acute renal failure superimposed on stage 4 chronic kidney disease Qualifiers: Acute renal failure type: with acute tubular necrosis Qualified Code(s): N17.0 - Acute kidney failure with tubular necrosis; N18.4 - Chronic kidney dis ease, stage 4 (severe) Is this a current diagnosis for this admission?: Yes Plan: Nephrology following. Avoid nephrotoxic meds. Creatinine seems to be back at baseline. Continue sodium bicarbonate given metabolic acidosis from CKD. Anemia of chronic kidney disease also noted based of interpretation of iron studies. Will benefit from EPO in the long run. (6) Hypocalcemia Is this a current diagnosis for this admission?: Yes Plan: Likely secondary to CKD. Corrected calcium is normal today. Low normal vitamin D 25. Intact PTH expectedly high. Calcium supplements and calcitriol. - Plan Summary Summary: Pending SNF placement vs improved physical conditioning for safe home discharge...Working with PT. - Time Time Spent with patient: 15-24 minutes
[2019-07-19] MEDS: ROPINIROLE HCL 2 MG TABLET PO SCH (21:53)
[2019-07-20] MEDS: FERROUS SULFATE 325 MG TABLET PO SCH (10:13)
[2019-07-20] MEDS: CALCIUM CARBONATE 600 MG TABLET PO SCH ×3 (10:13→18:31)
[2019-07-20] MEDS: TAMSULOSIN HCL 0.4 MG CAP.SR.24H PO SCH (10:13)
[2019-07-20] MEDS: APIXABAN 2.5 MG TABLET PO SCH ×2 (10:13→18:31)
[2019-07-20] MEDS: FAMOTIDINE 20 MG TABLET PO SCH (10:13)
[2019-07-20] MEDS: SODIUM BICARBONATE 650 MG TABLET PO SCH ×2 (10:13→21:24)
[2019-07-20] MEDS: CARVEDILOL 6.25 MG TABLET PO SCH ×2 (10:13→21:28)
[2019-07-20] MEDS: CALCITRIOL 0.25 MCG CAPSULE PO SCH (10:13)
[2019-07-20] MEDS: LEVOFLOXACIN 500 MG TABLET PO SCH (10:13)
[2019-07-20] MEDS: DOCUSATE SODIUM 100 MG CAPSULE PO SCH ×2 (10:13→18:31)
--- NOTE | 2019-07-20 17:27 | PDOC PROGRESS REPORT ---
Subjective Progress Note for:: 07/20/19 Subjective:: Today patient states that he did not tell his nephew about going home today despite the fact that I have conversed with him for the past 2 days about disposition and that I have told him that what was left was disposition to home or retirement. We have had several conversations about disposition with patient and he is refusing SNF. Otherwise, still working with physical therapy and still has pain in his hips. Reason For Visit: GENERAL WEAKNESS, ACUTE KIDNEY INJURY SUPERIMPOSED Physical Exam Vital Signs: Temp Pulse Resp BP Pulse Ox 97.9 F 102 H 16 108/61 94 07/20/19 16:51 07/20/19 16:51 07/20/19 16:51 07/20/19 16:51 07/20/19 16:51 Intake & Output 07/19/19 07/20/19 07/21/19 06:59 06:59 06:59 Intake Total 710 1243 510 Output Total 1775 3598 650 Balance -1065 -757 -140 Weight 100.4 kg 98.8 kg General appearance: PRESENT: no acute distress, cooperative Respiratory exam: PRESENT: unlabored Musculoskeletal exam: ABSENT: ambulatory Neurological exam: PRESENT: alert, awake, oriented to person, oriented to place, oriented to time Results Laboratory Results: 07/17/19 05:49 07/19/19 06:09 07/16/19 12:35 Stool - Stool - Final 07/16/19 12:35 Stool - Stool Stool Culture - Final Vre,Enterococcus Faecium Impressions: Chest X-Ray 07/13/19 16:50 IMPRESSION: 1. Examination is limited due to low lung volumes and patient positioning. Parenchymal opacity is suggested at the right lung base may represent pneumonia. 2. The left apical nodule appears slightly larger in size. Hip/Pelvis X-Ray 07/13/19 16:51 IMPRESSION: 1. Since the previous examination dated 12/21/2016, pathologic fracture involving the right ischium with fairly large extensive lucent lesion. Stable multiple lytic lesions in the symphysis pubis bilaterally. Differential diagnosis again includes metastatic disease, multiple myeloma. 2. 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 The lucent lesion in the pelvis surrounding the right hip replacement appears larger than on the prior examination which may be on the basis of interval progression of disease. Abdomen/Pelvis CT 07/14/19 00:00 IMPRESSION: 1. Consolidation in the right lower lobe is presumably pneumonia. Underlying mass is not excluded, however. At least 2 other upper lobe nodules as described. 2. Cardiomegaly and trace pleural fluid. IMPRESSION: 1. Pelvic findings as above. Lytic expansion in the right hemipelvis with displacement of the arthroplasty into the superior aspect intrapelvic. This pathologic fracture/dislocation could be related to underlying malignancy depending on presentation. 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 2. Slight fullness in the right renal collecting system may be related to relative obstruction of the distal ureter by the displaced hip implant. Chest CT 07/14/19 00:00 IMPRESSION: 1. Consolidation in the right lower lobe is presumably pneumonia. Underlying mass is not excluded, however. At least 2 other upper lobe nodules as described. 2. Cardiomegaly and trace pleural fluid. IMPRESSION: 1. Pelvic findings as above. Lytic expansion in the right hemipelvis with displacement of the arthroplasty into the superior aspect intrapelvic. This pathologic fracture/dislocation could be related to underlying malignancy depending on presentation. 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 2. Slight fullness in the right renal collecting system may be related to rela tive obstruction of the distal ureter by the displaced hip implant. Assessment and Plan - Diagnosis (1) Pseudomonal bacteremia Is this a current diagnosis for this admission?: Yes Plan: Suspected secondary to UTI. Continue levofloxacin p.o 500mg q48h until 07/29/2019. Infectious diseases recommending 14-day therapy. Repeat blood cultures negative so far. 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 Patient has no known active malignancy and so far malignancy work-up with PSA and work-up for multiple myeloma as well as bravo scan have been negative. Pain control. Unfortunately patient is not a candidate for bisphosphonates given his CKD stage IV. ALP seems to have normalized now. As such, I will hold off on starting calcitonin and have patient follow-up with a assembling motor builder. (3) Intrapelvic protrusion of right acetabulum Is this a current diagnosis for this admission?: Yes (4) UTI (urinary tract infection) Qualifiers: Urinary tract infection type: catheter-associated UTI Indwelling urinary catheter type: indwelling urethral catheter Encounter type: initial encounter Qualified Code(s): T83.511A - Infection and inflammatory reaction due to indwelling urethral catheter, initial encounter; N39.0 - Urinary tract infection, site not specified Is this a current diagnosis for this admission?: Yes (5) Acute renal failure superimposed on stage 4 chronic kidney disease Qualifiers: Acute renal failure type: with acute tubular necrosis Qualified Code(s): N17.0 - Acute kidney failure with tubular necrosis; N18.4 - Chronic kidney disease, stage 4 (severe) Is this a current diagnosis for this admission?: Yes (6) Hypocalcemia Is this a current diagnosis for this admission?: Yes - Plan Summary Summary: Patient is ready for discharge but he w there has been a big problem with getting patient the appropriate disposition. We have recommended SNF placement to patient especially based on his evaluation by physical therapist. Patient initially seemed open to the idea but now continues to decline SNF. I have revisited the issue of SNF with him a few times and also has the land planner but patient continues to decline SNF. He would like to be discharged home. However, he lives with his nephew and his nephew was hesitant about discharge stating that he is awaiting a hospital bed. This should not however be reasonable patient to stay in the hospital. I have tried to call the nephew several times today via [phone], but he has not answered any of my calls. I left voice messages to call back so I can explain today visitation. As I cannot seem to get in touch with his nephew today I will try again tomorrow to discharge patient home. - Time Time Spent with patient: 15-24 minutes
[2019-07-20] MEDS: ROPINIROLE HCL 2 MG TABLET PO SCH (21:25)
[2019-07-20] MEDS: OXYCODONE-ACETAMINOPHEN 5-325 MG TABLET PO PRN (21:25)
[2019-07-21] MEDS ORDERED: NORMAL SALINE 1000 ML 1,000 ML IV ONE (07:52)
[2019-07-21] MEDS: CARVEDILOL 6.25 MG TABLET PO SCH ×2 (10:07→22:06)
[2019-07-21] MEDS: FAMOTIDINE 20 MG TABLET PO SCH (10:07)
[2019-07-21] MEDS: FERROUS SULFATE 325 MG TABLET PO SCH (10:07)
[2019-07-21] MEDS: CALCIUM CARBONATE 600 MG TABLET PO SCH ×3 (10:07→17:41)
[2019-07-21] MEDS: APIXABAN 2.5 MG TABLET PO SCH ×2 (10:07→17:41)
[2019-07-21] MEDS: SODIUM BICARBONATE 650 MG TABLET PO SCH ×2 (10:07→22:06)
[2019-07-21] MEDS: CALCITRIOL 0.25 MCG CAPSULE PO SCH (10:07)
[2019-07-21] MEDS: DOCUSATE SODIUM 100 MG CAPSULE PO SCH ×2 (10:07→17:36)
[2019-07-21] MEDS: TAMSULOSIN HCL 0.4 MG CAP.SR.24H PO SCH (10:07)
--- NOTE | 2019-07-21 11:48 | PDOC PROGRESS REPORT ---
Subjective Progress Note for:: 07/21/19 Subjective:: I had a very prolonged conversation with patient and patient's niece during which patient's niece explained that they are unable to take patient back at this time because it is very difficult for them to get patient up from the bed into his chair and have had to call EMS several times last time EMS reported to [facility]. As such they won't be able to take patient back until hospital bed with railing and Della lift have been obtained which they are expecting in several days time. I had prolonged discussion with patient with niece on the phone on speaker and patient is now agreeable to going to SNF. Reason For Visit: GENERAL WEAKNESS, ACUTE KIDNEY INJURY SUPERIMPOSED Physical Exam Vital Signs: Temp Pulse Resp BP Pulse Ox 97.8 F 108 H 19 121/70 98 07/21/19 08:00 07/21/19 08:00 07/21/19 08:00 07/21/19 10:05 07/21/19 08:00 Intake & Output 07/20/19 07/21/19 07/22/19 06:59 06:59 06:59 Intake Total 1243 1224 1000 Output Total 1999 2044 Balance -757 -821 1000 Weight 98.8 kg 94.1 kg General appearance: PRESENT: no acute distress, cooperative Head exam: PRESENT: normocephalic Extremities exam: PRESENT: other - 3+ edema right lower extremity 2+ edema left lower extremity Musculoskeletal exam: ABSENT: ambulatory Neurological exam: PRESENT: alert, awake, oriented to person, oriented to place, oriented to time Psychiatric exam: ABSENT: agitated, anxious Focused psych exam: ABSENT: pressured speech Skin exam: ABSENT: jaundice Results Laboratory Results: 07/17/19 05:49 07/19/19 06:09 07/16/19 12:35 Stool - Stool - Final 07/16/19 12:35 Stool - Stool Stool Culture - Final Vre,Enterococcus Faecium Impressions: Chest X-Ray 07/13/19 16:50 IMPRESSION: 1. Examination is limited due to low lung volumes and patient positioning. Parenchymal opacity is suggested at the right lung base may represent pneumonia. 2. The left apical nodule appears slightly larger in size. Hip/Pelvis X-Ray 07/13/19 16:51 IMPRESSION: 1. Since the previous examination dated 12/21/2016, pathologic fracture involving the right ischium with fairly large extensive lucent lesion. Stable multiple lytic lesions in the symphysis pubis bilaterally. Differential diagnosis again includes metastatic disease, multiple myeloma. 2. 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 The lucent lesion in the pelvis surrounding the right hip replacement appears larger than on the prior examination which may be on the basis of interval progression of disease. Abdomen/Pelvis CT 07/14/19 00:00 IMPRESSION: 1. Consolidation in the right lower lobe is presumably pneumonia. Underlying mass is not excluded, however. At least 2 other upper lobe nodules as described. 2. Cardiomegaly and trace pleural fluid. IMPRESSION: 1. Pelvic findings as above. Lytic expansion in the right hemipelvis with displacement of the arthroplasty into the superior aspect intrapelvic. This pathologic fracture/dislocation could be related to underlying malignancy depending on presentation. 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 2. Slight fullness in the right renal collecting system may be related to relative obstruction of the distal ureter by the displaced hip implant. Chest CT 07/14/19 00:00 IMPRESSION: 1. Consolidation in the right lower lobe is presumably pneumonia. Underlying mass is not excluded, however. At least 2 other upper lobe nodules as described. 2. Cardiomegaly and trace pleural fluid. IMPRESSION: 1. Pelvic findings as above. Lytic expansion in the right hemipelvis with displacement of the arthroplasty into the superior aspect intrapelvic. This pathologic fracture/dislocation could be related to underlying malignancy depending on presentation. 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 2. Slight fullness in the right renal collecting system may be related to relative obstruction of the distal ureter by the displaced hip implant. Assessment and Plan - Diagnosis (1) Pseudomonal bacteremia Is this a current diagnosis for this admission?: Yes (2) Lytic lesions of the pelvis Is this a current diagnosis for this admission?: Yes (3) Intrapelvic protrusion of right acetabulum Is this a current diagnosis for this admission?: Yes (4) UTI (urinary tract infection) Qualifiers: Urinary tract infection type: catheter-associated UTI Indwelling urinary catheter type: indwelling urethral catheter Encounter type: initial encounter Qualified Code(s): T83.511A - Infection and inflammatory reaction due to indwelling urethral catheter, initial encounter; N39.0 - Urinary tract infectio n, site not specified Is this a current diagnosis for this admission?: Yes (5) Acute renal failure superimposed on stage 4 chronic kidney disease Qualifiers: Acute renal failure type: with acute tubular necrosis Qualified Code(s): N17.0 - Acute kidney failure with tubular necrosis; N18.4 - Chronic kidney disease, stage 4 (severe) Is this a current diagnosis for this admission?: Yes (6) Hypocalcemia Is this a current diagnosis for this admission?: Yes - Plan Summary Summary: After prolonged conversation with patient and patient's niece today, patient is now agreeable to SNF placement. Niece has stated that he will be impossible for them to take your patient at home at this point without first obtaining the Della lift and hospital bed that the expecting in several days time. She prefers for patient to go to SNF for rehabilitation short-term. Patient is agreeable now and have contacted social sciences chair to plan on placement. Check COVID-19 for SNF placement. Patient BP was soft but this is about his baseline. Wrist gave 1 L bolus today with systolic of 88 with improvement of BP to the 120s. Seems to fluctuate but maintain soft BPs at baseline completely asymptomatic. Continue Levaquin. Patient remains ready to go once placement is ascertained. - Time Time Spent with patient: 35 or more minutes
[2019-07-21] MEDS: ROPINIROLE HCL 2 MG TABLET PO SCH (22:07)
[2019-07-21] MEDS: ACETAMINOPHEN 325 MG TABLET PO PRN (22:08)
[2019-07-22] MEDS: FAMOTIDINE 20 MG TABLET PO SCH (10:15)
[2019-07-22] MEDS: CALCITRIOL 0.25 MCG CAPSULE PO SCH (10:15)
[2019-07-22] MEDS: TAMSULOSIN HCL 0.4 MG CAP.SR.24H PO SCH (10:15)
[2019-07-22] MEDS: LEVOFLOXACIN 500 MG TABLET PO SCH (10:15)
[2019-07-22] MEDS: CARVEDILOL 6.25 MG TABLET PO SCH ×2 (10:15→21:15)
[2019-07-22] MEDS: APIXABAN 2.5 MG TABLET PO SCH ×2 (10:15→17:12)
[2019-07-22] MEDS: CALCIUM CARBONATE 600 MG TABLET PO SCH ×3 (10:16→17:12)
[2019-07-22] MEDS: FERROUS SULFATE 325 MG TABLET PO SCH (10:16)
[2019-07-22] MEDS: SODIUM BICARBONATE 650 MG TABLET PO SCH ×2 (10:16→21:15)
[2019-07-22] MEDS: ACETAMINOPHEN 325 MG TABLET PO PRN (10:19)
[2019-07-22] MEDS: DOCUSATE SODIUM 100 MG CAPSULE PO SCH ×2 (10:21→17:12)
--- NOTE | 2019-07-22 12:08 | PDOC PROGRESS REPORT ---
Subjective Progress Note for:: 07/22/19 Subjective:: Today once again patient stated that he had talked to his niece who was fine with him coming home right away. I had yet on a conversation with patient and his niece together with patient's niece on the phone and she denies stating that time she states firmly that she would like for patient to go to rehab for short term rehab before coming back home. Reason For Visit: GENERAL WEAKNESS, ACUTE KIDNEY INJURY SUPERIMPOSED Physical Exam Vital Signs: Temp Pulse Resp BP Pulse Ox 97.6 F 89 18 101/60 96 07/22/19 07:46 07/22/19 07:46 07/22/19 07:46 07/22/19 07:46 07/22/19 07:46 Intake & Output 07/21/19 07/22/19 07/23/19 06:59 06:59 06:59 Intake Total 1224 2390 Output Total 20440 Balance -821 340 Weight 94.1 kg 94.5 kg General appearance: PRESENT: no acute distress, cooperative Respiratory exam: PRESENT: unlabored Extremities exam: ABSENT: calf tenderness Neurological exam: PRESENT: alert, awake Results Laboratory Results: 07/17/19 05:49 07/19/19 06:09 07/17/19 10:03 Blood Blood Culture - Final NO GROWTH IN 5 DAYS 07/17/19 09:55 Blood Blood Culture - Final NO GROWTH IN 5 DAYS Impressions: Chest X-Ray 07/13/19 16:50 IMPRESSION: 1. Examination is limited due to low lung volumes and patient positioning. Parenchymal opacity is suggested at the right lung base may represent pneumonia. 2. The left apical nodule appears slightly larger in size. Hip/Pelvis X-Ray 07/13/19 16:51 IMPRESSION: 1. Since the previous examination dated 12/21/2016, pathologic fracture involving the right ischium with fairly large extensive lucent lesion. Stable multiple lytic lesions in the symphysis pubis bilaterally. Differential diagnosis again includes metastatic disease, multiple myeloma. 2. 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 The lucent lesion in the pelvis surrounding the right hip replacement appears larger than on the prior examination which may be on the basis of interval progression of disease. Abdomen/Pelvis CT 07/14/19 00:00 IMPRESSION: 1. Consolidation in the right lower lobe is presumably pneumonia. Underlying mass is not excluded, however. At least 2 other upper lobe nodules as described. 2. Cardiomegaly and trace pleural fluid. IMPRESSION: 1. Pelvic findings as above. Lytic expansion in the right hemipelvis with displacement of the arthroplasty into the superior aspect intrapelvic. This pathologic fracture/dislocation could be related to underlying malignancy depending on presentation. 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 2. Slight fullness in the right renal collecting system may be related to relative obstruction of the distal ureter by the displaced hip implant. Chest CT 07/14/19 00:00 IMPRESSION: 1. Consolidation in the right lower lobe is presumably pneumonia. Underlying mass is not excluded, however. At least 2 other upper lobe nodules as described. 2. Cardiomegaly and trace pleural fluid. IMPRESSION: 1. Pelvic findings as above. Lytic expansion in the right hemipelvis with displacement of the arthroplasty into the superior aspect intrapelvic. This pathologic fracture/dislocation could be related to underlying malignancy depending on presentation. 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 2. Slight fullness in the right renal collecting system may be related to relative obstruction of the distal ureter by the displaced hip implant. Assessment and Plan - Diagnosis (1) Pseudomonal bacteremia Is this a current diagnosis for this admission?: Yes (2) Lytic lesions of the pelvis Is this a current diagnosis for this admission?: Yes (3) Intrapelvic protrusion of right acetabulum Is this a current diagnosis for this admission?: Yes (4) UTI (urinary tract infection) Qualifiers: Urinary tract infection type: catheter-associated UTI Indwelling urinary catheter type: indwelling urethral catheter Encounter type: initial encounter Qualified Code(s): T83.511A - Infection and inflammatory reaction due to indwelling urethral catheter, initial encounter; N39.0 - Urinary tract infection, site not specified Is this a current diagnosis for this admission?: Yes (5) Hypocalcemia Is this a current diagnosis for this admission?: Yes (6) Acute renal failure superimposed on stage 5 chronic kidney disease, not on chronic dialysis Qualifiers: Acute renal failure type: unspecified Qualified Code(s): N17.9 - Acute kidney failure, unspecified; N18.5 - Chronic kidney disease, stage 5 Is this a current diagnosis for this admission?: Yes - Plan Summary Summary: After prolonged conversation with patient and patient's niece today, patient is now agreeable to SNF placement. Niece has stated that he will be impossible for them to take your patient at home at this point without first obtaining the Della lift and hospital bed that the expecting in several days time. She prefers for patient to go to SNF for rehabilitation short-term. Patient is agreeable now and have contacted social work job titles to plan on placement. Check COVID-19 for SNF placement. Patient BP was soft but this is about his baseline. Wrist gave 1 L bolus today with systolic of 88 with improvement of BP to the 120s. Seems to fluctuate but maintain soft BPs at baseline completely asympto matic. Continue Levaquin. Patient remains ready to go once placement is ascertained. 07/22/2019 We will proceed with plan for SNF placement as patient will need short-term rehabitation for 30 days or less before being discharged home. I have discussed this with patient and his niece together once again today and patient seems to understand. Awaiting COVID-19 screen. Continue with Levaquin for treatment of Pseudomonas bacteremia with end date of 07/29/2019. Patient was able to pivot with assistance from 2 people into wheelchair. Continue rest of plan as before. 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 - Time Time Spent with patient: 15-24 minutes
[2019-07-22] MEDS: ROPINIROLE HCL 2 MG TABLET PO SCH (21:15)
[2019-07-22] MEDS: OXYCODONE-ACETAMINOPHEN 5-325 MG TABLET PO PRN (21:16)
[2019-07-23] MEDS: OXYCODONE-ACETAMINOPHEN 5-325 MG TABLET PO PRN (03:16)
[2019-07-23] MEDS: CALCIUM CARBONATE 600 MG TABLET PO SCH ×3 (08:11→16:23)
[2019-07-23] MEDS: FAMOTIDINE 20 MG TABLET PO SCH (10:24)
[2019-07-23] MEDS: TAMSULOSIN HCL 0.4 MG CAP.SR.24H PO SCH (10:24)
[2019-07-23] MEDS: SODIUM BICARBONATE 650 MG TABLET PO SCH ×2 (10:24→21:49)
[2019-07-23] MEDS: DOCUSATE SODIUM 100 MG CAPSULE PO SCH ×2 (10:24→17:03)
[2019-07-23] MEDS: FERROUS SULFATE 325 MG TABLET PO SCH (10:25)
[2019-07-23] MEDS: APIXABAN 2.5 MG TABLET PO SCH ×2 (10:25→17:03)
[2019-07-23] MEDS: CALCITRIOL 0.25 MCG CAPSULE PO SCH (10:26)
[2019-07-23] MEDS: CARVEDILOL 6.25 MG TABLET PO SCH ×2 (11:30→21:49)
--- NOTE | 2019-07-23 16:16 | PDOC PROGRESS REPORT ---
Subjective Progress Note for:: 07/23/19 Subjective:: Patient is feeling well has no complaints today. Reason For Visit: GENERAL WEAKNESS, ACUTE KIDNEY INJURY SUPERIMPOSED Physical Exam Vital Signs: Temp Pulse Resp BP Pulse Ox 98.0 F 86 17 94/58 L 100 07/23/19 14:32 07/23/19 14:32 07/23/19 14:32 07/23/19 14:32 07/23/19 14:32 Intake & Output 07/22/19 07/23/19 07/24/19 06:59 06:59 06:59 Intake Total 2390 825 Output Total 2050 1900 Balance 340 -1075 Weight 94.5 kg 94.5 kg General appearance: PRESENT: no acute distress Respiratory exam: PRESENT: unlabored Neurological exam: PRESENT: alert, awake Results Laboratory Results: 07/17/19 05:49 07/19/19 06:09 Impressions: Chest X-Ray 07/13/19 16:50 IMPRESSION: 1. Examination is limited due to low lung volumes and patient positioning. Parenchymal opacity is suggested at the right lung base may represent pneumonia. 2. The left apical nodule appears slightly larger in size. Hip/Pelvis X-Ray 07/13/19 16:51 IMPRESSION: 1. Since the previous examination dated 12/21/2016, pathologic fracture involving the right ischium with fairly large extensive lucent lesion. Stable multiple lytic lesions in the symphysis pubis bilaterally. Differential diagnosis again includes metastatic disease, multiple myeloma. 2. 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 The lucent lesion in the pelvis surrounding the right hip replacement appears larger than on the prior examination which may be on the basis of interval progression of disease. Abdomen/Pelvis CT 07/14/19 00:00 IMPRESSION: 1. Consolidation in the right lower lobe is presumably pneumonia. Underlying mass is not excluded, however. At least 2 other upper lobe nodules as described. 2. Cardiomegaly and trace pleural fluid. IMPRESSION: 1. Pelvic findings as above. Lytic expansion in the right hemipelvis with displacement of the arthroplasty into the superior aspect intrapelvic. This pathologic fracture/dislocation could be related to underlying malignancy depending on presentation. 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 2. Slight fullness in the right renal collecting system may be related to relative obstruction of the distal ureter by the displaced hip implant. Chest CT 07/14/19 00:00 IMPRESSION: 1. Consolidation in the right lower lobe is presumably pneumonia. Underlying mass is not excluded, however. At least 2 other upper lobe nodules as described. 2. Cardiomegaly and trace pleural fluid. IMPRESSION: 1. Pelvic findings as above. Lytic expansion in the right hemipelvis with displacement of the arthroplasty into the superior aspect intrapelvic. This pathologic fracture/dislocation could be related to underlying malignancy depending on presentation. 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 2. Slight fullness in the right renal collecting system may be related to relative obstruction of the distal ureter by the displaced hip implant. Assessment and Plan - Diagnosis (1) Pseudomonal bacteremia Is this a current diagnosis for this admission?: Yes (2) Lytic lesions of the pelvis Is this a current diagnosis for this admission?: Yes (3) Intrapelvic protrusion of right acetabulum Is this a current diagnosis for this admission?: Yes (4) UTI (urinary tract infection) Qualifiers: Urinary tract infection type: catheter-associated UTI Indwelling urinary catheter type: indwelling urethral catheter Encounter type: initial encounter Qualified Code(s): T83.511A - Infection and inflammatory reaction due to indwelling urethral catheter, initial encounter; N39.0 - Urinary tract infection, site not specified Is this a current diagnosis for this admission?: Yes (5) Hypocalcemia Is this a current diagnosis for this admission?: Yes (6) Acute renal failure superimposed on stage 5 chronic kidney disease, not on chronic dialysis Qualifiers: Acute renal failure type: unspecified Qualified Code(s): N17.9 - Acute kidney failure, unspecified; N18.5 - Chronic kidney disease, stage 5 Is this a current diagnosis for this admission?: Yes - Plan Summary Summary: After prolonged conversation with patient and patient's niece today, patient is now agreeable to SNF placement. Niece has stated that he will be impossible for them to take your patient at home at this point without first obtaining the Della lift and hospital bed that the expecting in several days time. She prefers for patient to go to SNF for rehabilitation short-term. Patient is agreeable now and have contacted case management social worker to plan on placement. Check COVID-19 for SNF placement. Patient BP was soft but this is about his baseline. Wrist gave 1 L bolus today with systolic of 88 with improvement of BP to the 120s. Seems to fluctuate but maintain soft BPs at baseline completely asymptomatic. Continue Levaquin. Patient remains ready to go once placement is ascertained. 07/22/2019 We will proceed with plan for SNF placement as patient will need short-term rehabitation for 30 days or less before being discharged home. I have discussed this with patient and his niece together once again today and patient seems to understand. Awaiting COVID-19 screen. Continue with Levaquin for treatment of Pseudomonas bacteremia with end date of 07/29/2019. Patient was able to pivot with assistance from 2 people into wheelchair. Continue rest of plan as before. 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 07/23/2019 Awaiting COVID 19 test for placement at SNF. Continue rest of management as before. - Time Time Spent with patient: Less than 15 minutes
[2019-07-23] MEDS: ROPINIROLE HCL 2 MG TABLET PO SCH (21:49)
[2019-07-24] MEDS: OXYCODONE-ACETAMINOPHEN 5-325 MG TABLET PO PRN ×2 (05:56→17:44)
[2019-07-24] MEDS: CALCIUM CARBONATE 600 MG TABLET PO SCH ×3 (07:59→17:44)
[2019-07-24] MEDS: APIXABAN 2.5 MG TABLET PO SCH ×2 (10:57→17:44)
[2019-07-24] MEDS: CARVEDILOL 6.25 MG TABLET PO SCH (10:57)
[2019-07-24] MEDS: TAMSULOSIN HCL 0.4 MG CAP.SR.24H PO SCH (10:57)
[2019-07-24] MEDS: DOCUSATE SODIUM 100 MG CAPSULE PO SCH ×2 (10:57→17:44)
[2019-07-24] MEDS: FERROUS SULFATE 325 MG TABLET PO SCH (10:57)
[2019-07-24] MEDS: SODIUM BICARBONATE 650 MG TABLET PO SCH (10:57)
[2019-07-24] MEDS: FAMOTIDINE 20 MG TABLET PO SCH (10:57)
[2019-07-24] MEDS: LEVOFLOXACIN 500 MG TABLET PO SCH (10:59)
[2019-07-24] MEDS: CALCITRIOL 0.25 MCG CAPSULE PO SCH (11:09)
--- NOTE | 2019-07-24 17:07 | PDOC DISCHARGE SUMMARY ---
Impression - Admit/DC Date/PCP Admission Date/Primary Care Provider: 07/13/19 19:52 OLIVER MARI MD Discharge Date: 07/24/19 - Discharge Diagnosis (1) Paget disease of bone Is this a current diagnosis for this admission?: Yes (2) NICKI (acute kidney injury) Is this a current diagnosis for this admission?: Yes (3) Acidosis, metabolic Is this a current diagnosis for this admission?: Yes (4) Atrial fibrillation Is this a current diagnosis for this admission?: Yes (5) Community acquired pneumonia Is this a current diagnosis for this admission?: Yes (6) Generalized weakness Is this a current diagnosis for this admission?: Yes (7) Intractable leg pain Is this a current diagnosis for this admission?: Yes (8) Lytic lesions of the pelvis Is this a current diagnosis for this admission?: Yes (9) Pseudomonal bacteremia Is this a current diagnosis for this admission?: Yes (10) UTI (urinary tract infection) Is this a current diagnosis for this admission?: Yes - Additional Information Resuscitation Status: Full Code Discharge Diet: Other (Comments) - Renal diet. Low potassium low phosphorus diet Discharge Activity: Activity As Tolerated Referrals: OLIVER MARI MD [Primary Care Provider] - Follow up as needed SONNY PEÑA PA-C [ALLIED HEALTH PROFESSIONAL] - Prescriptions: Levofloxacin [Levaquin 500 mg Tablet] 500 mg PO Q2DAYS #4 tablet Calcium Carbonate [Caltrate 600 mg Tablet] 600 mg PO TID 30 Days tablet Calcitriol [Rocaltrol 0.25 mcg Capsule] 0.25 mcg PO DAILY #30 capsule Sodium Bicarbonate [Sodium Bicarbonate 650 mg Tablet] 1,300 mg PO Q12 30 Days tablet Home Medications: Apixaban [Eliquis 5 mg Tablet] 5 mg PO BID 07/13/19 Loperamide HCl [Imodium 2 mg Capsule] 2 mg PO TIDP PRN 07/13/19 Oxycodone HCl/Acetaminophen [Percocet 2.5-325 mg Tablet] 1 each PO Q12HP PRN 07/13/19 Ropinirole HCl [Requip 2 mg Tablet] 2 mg PO QHS 07/13/19 Carvedilol [Coreg 6.25 mg Tablet] 6.25 mg PO Q12 07/17/19 Ferrous Sulfate [Feosol 325 mg Tablet] 325 mg PO DAILY 07/17/19 Tamsulosin HCl [Flomax 0.4 mg Cap.sr] 0.4 mg PO DAILY 07/17/19 Calcitriol [Rocaltrol 0.25 mcg Capsule] 0.25 mcg PO DAILY #30 capsule 07/21/19 Calcium Carbonate [Caltrate 600 mg Tablet] 600 mg PO TID 30 Days tablet 07/21/19 Dextroamphetamine/Amphetamine [Adderall 10 mg Tablet] 10 mg PO BID #60 07/21/19 Levofloxacin [Levaquin 500 mg Tablet] 500 mg PO Q2DAYS #4 tablet 07/21/19 Sodium Bicarbonate [Sodium Bicarbonate 650 mg Tablet] 1,300 mg PO Q12 30 Days tablet 07/21/19 History of Present Illiness History of Present Illness: LALA JOE is a 79 year old male Patient presented to the hospital with cervical complain of weakness. This had been progressive. He was found to have a urinary tract infection with a chronic indwelling Sorenson catheter and possible pneumonia and was admitted [facility] the the [facility] for further evaluation and treatment. Please see H&P for further details as well as consultation reports by oncology, nephrology, orthopedics as well as infectious disease Hospital Course Hospital Course: Patient was found to have a pathological right acetabular fracture with a right- sided lytic lesion. He does have a history of prostate cancer. CT scan of the abdomen and pelvis done showed no major areas of concern except for a small pulmonary nodule. Myeloma work-up was negative. It was also noted to have Pseudomonas bacteremia in the setting of indwelling Sorenson catheter and hip prosthesis and infectious disease suggest 14 days of Levaquin which patient will complete. Patient has been controlled on analgesics. Patient is declining to have hospice at this time. He has been discharged home with his family no need to continue with physical therapy as his ambulation is limited Physical Exam Vital Signs: Temp Pulse Resp BP Pulse Ox 97.6 F 95 16 101/62 98 07/24/19 12:46 07/24/19 12:46 07/24/19 12:46 07/24/19 12:46 07/24/19 12:46 Intake & Output 07/23/19 07/24/19 07/25/19 06:59 06:59 06:59 Intake Total 825 1170 Output Total 1900 1650 Balance -1075 -1300 Weight 94.5 kg 91.9 kg 91.9 kg General appearance: PRESENT: no acute distress Head exam: PRESENT: atraumatic, normocephalic Eye exam: PRESENT: conjunctiva pink, EOMI. ABSENT: scleral icterus Mouth exam: PRESENT: moist, tongue midline Neck exam: ABSENT: carotid bruit, JVD, lymphadenopathy, thyromegaly Respiratory exam: PRESENT: clear to auscultation moustapha. ABSENT: rales, rhonchi, wheezes Cardiovascular exam: PRESENT: RRR. ABSENT: diastolic murmur, rubs, systolic murmur Pulses: PRESENT: normal dorsalis pedis pul Vascular exam: PRESENT: normal capillary refill GI/Abdominal exam: PRESENT: normal bowel sounds, soft. ABSENT: distended, guarding, mass, organolmegaly, rebound, tenderness Rectal exam: PRESENT: deferred Extremities exam: PRESENT: full ROM. ABSENT: calf tenderness, clubbing, pedal edema Neurological exam: PRESENT: alert, awake, oriented to person, oriented to place, oriented to time, oriented to situation. ABSENT: motor sensory deficit Psychiatric exam: PRESENT: appropriate affect, normal mood. ABSENT: homicidal ideation, suicidal ideation Skin exam: PRESENT: dry, intact, warm. ABSENT: cyanosis, rash Results Laboratory Results: WBC 7.0 10^3/uL (4.0-10.5) 07/17/19 05:49 RBC 2.82 10^6/uL (4.35-5.55) L 07/17/19 05:49 Hgb 8.5 g/dL (13.5-17.0) L 07/17/19 05:49 Hct 24.8 % (37.9-51.0) L 07/17/19 05:49 MCV 88 fl (80-97) 07/17/19 05:49 MCH 30.1 pg (27.0-33.4) 07/17/19 05:49 MCHC 34.2 g/dL (32.0-36.0) 07/17/19 05:49 RDW 15.8 % (11.5-14.0) H 07/17/19 05:49 Plt Count 205 10^3/uL (150-450) 07/17/19 05:49 Lymph % (Auto) 18.3 % (13-45) 07/13/19 16:00 [place] % (Auto) 11.8 % (3-13) 07/13/19 16:00 Eos % (Auto) 1.6 % (0-6) 07/13/19 16:00 Baso % (Auto) 0.8 % (0-2) 07/13/19 16:00 Reticulocyte # 0.040 10^6/uL (0.028-0.122) 07/17/19 05:49 Absolute Neuts (auto) 4.9 10^3/uL (1.7-8.2) 07/13/19 16:00 Absolute Lymphs (auto) 1.3 10^3/uL (0.5-4.7) 07/13/19 16:00 Absolute Monos (auto) 0.9 10^3/uL (0.1-1.4) 07/13/19 16:00 Absolute Eos (auto) 0.1 10^3/uL (0.0-0.6) 07/13/19 16:00 Absolute Basos (auto) 0.1 10^3/uL (0.0-0.2) 07/13/19 16:00 Seg Neutrophils % 67.5 % (42-78) 07/13/19 16:00 Retic Count (auto) 1.42 % (0.66-2.85) 07/17/19 05:49 PT 20.7 SEC (11.4-15.4) H 07/13/19 16:00 INR 1.75 07/13/19 16:00 VBG pH 7.27 (7.30-7.42) L 07/14/19 04:46 VBG pCO2 35.6 mmHg (35-63) 07/14/19 04:46 VBG HCO3 15.8 mmol/L (20-32) L 07/14/19 04:46 VBG Base Excess -10.2 mmol/L 07/14/19 04:46 Sodium 137.7 mmol/L (137-145) 07/19/19 06:09 Potassium 4.9 mmol/L (3.6-5.0) 07/19/19 06:09 Chloride 111 mmol/L (98-107) H 07/19/19 06:09 Carbon Dioxide 20 mmol/L (22-30) L 07/19/19 06:09 Anion Gap 7 (5-19) 07/19/19 06:09 BUN 54 mg/dL (7-20) H 07/19/19 06:09 Creatinine 4.12 mg/dL (0.52-1.25) H 07/19/19 06:09 Est GFR ( Amer) 17 (>60) L 07/19/19 06:09 Est GFR (MDRD) Non-Af 14 (>60) L 07/19/19 06:09 Glucose 83 mg/dL (75-110) 07/19/19 06:09 POC Glucose 108 mg/dL (70-110) 07/15/19 16:07 Lactic Acid 1.2 mmol/L (0.7-2.1) 07/14/19 04:46 Calcium 7.4 mg/dL (8.4-10.2) L 07/19/19 06:09 Ionized Calcium [place] 1.06 mmol/L (1.14-1.30) L 07/18/19 13:52 Phosphorus 4.7 mg/dL (2.5-4.5) H 07/19/19 06:09 Magnesium 1.5 mg/dL (1.6-2.3) L 07/16/19 05:49 Iron 48.0 ug/dL (49-181) L 07/17/19 05:49 TIBC 140 ug/dL (250-450) L 07/17/19 05:49 % Saturation 34 % 07/17/19 05:49 Ferritin 327.00 ng/mL (17.9-464.0) 07/17/19 05:49 Total Bilirubin 0.2 mg/dL (0.2-1.3) 07/19/19 06:09 Direct Bilirubin 0.0 mg/dL (0.0-0.4) 07/19/19 06:09 Neonat Total Bilirubin Not Reportable 07/19/19 06:09 Neonat Direct Bilirubin Not Reportable 07/19/19 06:09 Neonat Indirect Bili Not Reportable 07/19/19 06:09 AST 15 U/L (17-59) L 07/19/19 06:09 ALT 10 U/L (<50) 07/19/19 06:09 Alkaline Phosphatase 91 U/L (38-126) 07/19/19 06:09 Total Protein 5.2 g/dL (6.3-8.2) L 07/19/19 06:09 Albumin 2.1 g/dL (3.5-5.0) L 07/19/19 06:09 Globulin 3.4 g/dL (2.2-3.9) 07/14/19 11:25 Alb/Glob Ratio Alt Meth 0.7 (0.7-1.7) 07/14/19 11:25 Tqtse-4-Qinoqgrjb 0.4 g/dL (0.0-0.4) 07/14/19 11:25 Vqkjw-1-Ntkzanmkr 0.7 g/dL (0.4-1.0) 07/14/19 11:25 Beta Globulins 0.8 g/dL (0.7-1.3) 07/14/19 11:25 Gamma Globulins 1.5 g/dL (0.4-1.8) 07/14/19 11:25 M-Preet Not Observed g/dL (Not Observ) 07/14/19 11:25 Prostate Specific Ag 0.700 ng/mL (<4.00) 07/14/19 11:25 Vitamin B12 783.0 pg/mL (239-931) 07/17/19 05:49 Vitamin D 25-Hydroxy 18.1 ng/mL (14.7-68.3) 07/18/19 05:22 Folate 9.71 ng/mL (>2.76) 07/17/19 05:49 PTH Intact 145.1 pg/mL (10.0-65.0) H 07/17/19 05:49 Cortisol AM Sample 16.80 ug/dL (4.46-22.7) 07/17/19 05:49 Immunoglobulin A 507 mg/dL (61-437) H 07/14/19 11:25 Immunoglobulin A 530 mg/dL (61-437) H 07/14/19 11:25 Immunoglobulin G 1447 mg/dL (603-1613) 07/14/19 11:25 Immunoglobulin G 1499 mg/dL (603-1613) 07/14/19 11:25 Immunoglobulin M 83 mg/dL (15-143) 07/14/19 11:25 Immunoglobulin M 83 mg/dL (15-143) 07/14/19 11:25 Serum Immunofixation Comment (.) 07/14/19 11:25 Immunofixation Note Comment (.) 07/14/19 11:25 Urine Color YELLOW 07/13/19 17:30 Urine Appearance SLIGHTLY-CLOUDY 07/13/19 17:30 Urine pH 5.0 (5.0-9.0) 07/13/19 17:30 Ur Specific [place] 1.010 07/13/19 17:30 Urine Protein 100 mg/dL (NEGATIVE) H 07/13/19 17:30 Urine Glucose (UA) NEGATIVE mg/dL (NEGATIVE) 07/13/19 17:30 Urine Ketones NEGATIVE mg/dL (NEGATIVE) 07/13/19 17:30 Urine Blood MODERATE (NEGATIVE) H 07/13/19 17:30 Urine Nitrite NEGATIVE (NEGATIVE) 07/13/19 17:30 Urine Bilirubin NEGATIVE (NEGATIVE) 07/13/19 17:30 Urine Urobilinogen NEGATIVE mg/dL (<2.0) 07/13/19 17:30 Ur Leukocyte Esterase LARGE (NEGATIVE) H 07/13/19 17:30 Urine WBC (Auto) 54 /HPF 07/13/19 17:30 Urine RBC (Auto) 25 /HPF 07/13/19 17:30 Urine Bacteria (Auto) 3+ /HPF 07/13/19 17:30 Urine WBC Clumps MOD /HPF 07/13/19 17:30 Squamous Epi Cells Auto <1 /HPF 07/13/19 17:30 Urine Mucus (Auto) RARE /LPF 07/13/19 17:30 Urine Ascorbic Acid NEGATIVE (NEGATIVE) 07/13/19 17:30 Stl C. Difficile GDH Ag NEGATIVE (NEGATIVE) 07/16/19 12:35 Stl C.difficile Tox A&B NEGATIVE (NEGATIVE) 07/16/19 12:35 IgE 450 IU/mL (6-495) 07/14/19 11:25 Albumin (LISS) 2.3 g/dL (2.9-4.4) L 07/14/19 11:25 Free [place] LC, Quant 236.6 mg/L (3.3-19.4) H 07/14/19 11:25 Free [place] LC, Quant 170.0 mg/L (5.7-26.3) H 07/14/19 11:25 Free [place]/Lambda Ratio 1.39 (0.26-1.65) 07/14/19 11:25 Impressions: Chest X-Ray 07/13/19 16:50 IMPRESSION: 1. Examination is limited due to low lung volumes and patient positioning. Parenchymal opacity is suggested at the right lung base may represent pneumonia. 2. The left apical nodule appears slightly larger in size. Hip/Pelvis X-Ray 07/13/19 16:51 IMPRESSION: 1. Since the previous examination dated 12/21/2016, pathologic fracture involving the right ischium with fairly large extensive lucent lesion. Stable multiple lytic lesions in the symphysis pubis bilaterally. Differential diagnosis again includes metastatic disease, multiple myeloma. 2. 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 The lucent lesion in the pelvis surrounding the right hip replacement appears larger than on the prior examination which may be on the basis of interval progression of disease. Abdomen/Pelvis CT 07/14/19 00:00 IMPRESSION: 1. Consolidation in the right lower lobe is presumably pneumonia. Underlying mass is not excluded, however. At least 2 other upper lobe nodules as described. 2. Cardiomegaly and trace pleural fluid. IMPRESSION: 1. Pelvic findings as above. Lytic expansion in the right hemipelvis with displacement of the arthroplasty into the superior aspect intrapelvic. This pathologic fracture/dislocation could be related to underlying malignancy depending on presentation. 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 2. Slight fullness in the right renal collecting system may be related to relative obstruction of the distal ureter by the displaced hip implant. Chest CT 07/14/19 00:00 IMPRESSION: 1. Consolidation in the right lower lobe is presumably pneumonia. Underlying mass is not excluded, however. At least 2 other upper lobe nodules as described. 2. Cardiomegaly and trace pleural fluid. IMPRESSION: 1. Pelvic findings as above. Lytic expansion in the right hemipelvis with displacement of the arthroplasty into the superior aspect intrapelvic. This pathologic fracture/dislocation could be related to underlying malignancy depending on presentation. 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 2. Slight fullness in the right renal collecting system may be related to relative obstruction of the distal ureter by the displaced hip implant. Plan Health Concerns: Diagnosis of Paget's disease is based on exclusion of metastatic malignancy as well as multiple myeloma. Based on the imaging findings with lytic lesions, hypercalcemia and suspected findings consistent with Paget's disease on x-ray this is been deemed highly probable. Patient should follow-up with band tacker as well as orthopedist as outpatient Time Spent: Greater than 30 Minutes Stroke Is this a Stroke Patient?: No Acute Heart Failure - Is this a Heart Failure Patient?: No
[2019-07-24 20:10] VITALS: BP 102/57
== END 2019-07-24 19:50 | disposition home health service (06) | DRG 553 ==
LOC: ER 15:48 → EH 19:52 → 4S 21:45
PROVIDERS: ADMIT Emergency Medicine; ATTEND Internal Medicine
DX: M88.88 Osteitis deformans of other bones (principal); J15.1 Pneumonia due to Pseudomonas; N17.0 Acute kidney failure with tubular necrosis; T83.511A Infection and inflammatory reaction due to indwelling urethral catheter, initial encounter; E87.2 Acidosis; R78.81 Bacteremia; N18.4 Chronic kidney disease, stage 4 (severe); I48.20 Chronic atrial fibrillation, unspecified; M24.7 Protrusio acetabuli; B96.5 Pseudomonas (aeruginosa) (mallei) (pseudomallei) as the cause of diseases classified elsewhere; Y84.6 Urinary catheterization as the cause of abnormal reaction of the patient, or of later complication, without mention of misadventure at the time of the procedure; E83.42 Hypomagnesemia; E83.52 Hypercalcemia; I12.9 Hypertensive chronic kidney disease with stage 1 through stage 4 chronic kidney disease, or unspecified chronic kidney disease; I89.0 Lymphedema, not elsewhere classified; D63.1 Anemia in chronic kidney disease; Z96.643 Presence of artificial hip joint, bilateral; F90.9 Attention-deficit hyperactivity disorder, unspecified type; E66.01 Morbid (severe) obesity due to excess calories; I87.2 Venous insufficiency (chronic) (peripheral); R19.7 Diarrhea, unspecified; N25.0 Renal osteodystrophy; B96.20 Unspecified Escherichia coli [E. coli] as the cause of diseases classified elsewhere; Z79.899 Other long term (current) drug therapy; Z79.01 Long term (current) use of anticoagulants; Z85.46 Personal history of malignant neoplasm of prostate; Z91.041 Radiographic dye allergy status; Z82.49 Family history of ischemic heart disease and other diseases of the circulatory system; Z92.3 Personal history of irradiation
CPT/HCPCS: 36415; 71045; 71250; 74176; 80048; 80053; 81001; 82040; 82306; 82330; 82533; 82607; 82728; 82746; 82784; 82785; 82803; 82962; 83540; 83550; 83605; 83735; 83883; 83970; 84100; 84153; 85025; 85027; 85045; 85610; 86320; 87040; 87045; 87077; 87086; 87088; 87150; 87186; 87205; 87324; 87449; 87635; 93005; 93010; 96365; 96375; 99291; J0610; J0456; J0696; J1160; J1170; J1956; J2270; J3475; J3490; J7030; J7040; J7060; J7120; P9047